=== PATIENT | female | born 1955 | race Caucasian/White ===

== ENCOUNTER 2016-10-09 18:26 | Emergency (ER) | payer OTHER ==
[2016-10-09] MEDS ORDERED: MORPHINE SULFATE 2 MG/ML SYRINGE IV STA ×2 (19:06→22:03)
[2016-10-09] MEDS ORDERED: SODIUM CHLORIDE 0.9% 500 ML IV ONE (19:06)
[2016-10-09] MEDS ORDERED: ONDANSETRON 4 MG/2 ML VIAL IVP STA (19:11)
--- NOTE | 2016-10-09 19:13 | ED ---
General Adult HPI - General Chief complaint: Abdominal Pain Stated complaint: ostomy bag, abdominal pain Time Seen by Provider: 10/09/16 18:52 Source: patient, RN notes reviewed Mode of arrival: ambulatory Limitations: no limitations - History of Present Illness Initial comments: This is a 60-year-old female presents with abdominal pain started yesterday. Patient admits to some nausea and a mild headache. Patient denies any diarrhea or vomiting. Patient has an ostomy bag. Patient states her stools been normal and denies any hematochezia. Patient admits to frequency and urgency of urination has any dysuria or hematuria. Patient denies any sick contacts. Patient admits to having chills but denies any fever, cough, congestion, sore throat or otalgia.Patient denies any recent shortness breath, chest pain, back pain, numbness, tingling, or visual changes, or any other complaints. - Related Data Home Medications Medication Instructions Recorded Confirmed FLUoxetine HCL [PROzac] 60 mg PO DAILY 10/09/16 10/09/16 traZODone HCL 50 mg PO BID 10/09/16 10/09/16 Previous Rx's Medication Instructions Recorded Aspirin EC [Ecotrin Low Dose] 81 mg PO DAILY 7 Days 05/30/16 Ciprofloxacin HCl [Cipro] 500 mg PO Q12HR 10 Days 10/09/16 Allergies Allergy/AdvReac Type Severity Reaction Status Date / Time hydromorphone HCl Allergy Itching Verified 10/09/16 19:14 [From Dilaudid] NSAIDS (Non-Steroidal Allergy Anaphylaxis Verified 10/09/16 19:14 Anti-Inflamma omeprazole Allergy Anaphylaxis Verified 10/09/16 19:14 Review of Systems ROS Statement: Those systems with pertinent positive or pertinent negative responses have been documented in the HPI. ROS Other: All systems not noted in ROS Statement are negative. Past Medical History Past Medical History: Fibromyalgia Additional Past Medical History / Comment(s): diverticulosis History of Any Multi-Drug Resistant Organisms: None Reported Past Surgical History: Appendectomy, Bowel Resection, Hysterectomy, Orthopedic Surgery Additional Past Surgical History / Comment(s): Tibia Fracture Repair 1993, colostomy Past Psychological History: No Psychological Hx Reported Additional Psychological History / Comment(s): lives with family home with the . She's never day smoker but no severe alcohol use. Employed at [employer]. No recent travels. No experience related. no animal exposures related Smoking Status: Current every day smoker Past Alcohol Use History: Daily Past Drug Use History: None Reported - Past Family History Father Additional Family Medical History / Comment(s): Heart disease Mother Additional Family Medical History / Comment(s): heart disease, mothers father had problems with stomach. Maternal grandmother of CHF. General Exam - General Exam Comments Initial Comments: General: The patient is awake and alert, in no distress, and does not appear acutely ill. Eye: Pupils are equal, round and reactive to light, extra-ocular movements are intact. No nystagmus. There is normal conjunctiva bilaterally. No signs of icterus. Ears: TMs pink and pearly with intact cone of light bilaterally. Normal external ear canals Nose: Nasal turbinates pink and moist Mouth and throat: There are moist mucous membranes and no oral lesions. Neck: The neck is supple, there is no tenderness or JVD. Cardiovascular: There is a regular rate and rhythm. No murmur, rub or gallop is appreciated. Respiratory: Lungs are clear to auscultation, respirations are non-labored, breath sounds are equal. No wheezes, stridor, rales, or rhonchi. Gastrointestinal: There is tenderness to palpation over the left upper quadrant and over the patient's ostomy bag. There is no sign of infection of the skin around the ostomy bag. Soft, non-distended abdomen without masses or organomegaly noted. There is no rebound or guarding present. No CVA tenderness. Bowel sounds are unremarkable. Musculoskeletal: Normal ROM, no tenderness. Strength 5/5. Sensation intact. Radial pulses equal bilaterally 2+. Neurological: A&O x 3. CN II-XII intact, There are no obvious motor or sensory deficits. Coordination appears grossly intact. Speech is normal. Skin: Well-healed midline incision of the abdomen. Skin is warm and dry and no rashes or lesions are noted. Psychiatric: Cooperative, appropriate mood & affect, normal judgment. Limitations: no limitations Course Vital Signs 10/09/16 10/09/16 10/09/16 18:36 19:58 21:03 Temperature 98.1 F 98.7 F Pulse Rate 73 70 70 Respiratory 18 18 16 Rate Blood Pressure 128/70 133/79 124/60 O2 Sat by Pulse 98 95 98 Oximetry 10/09/16 22:27 Temperature Pulse Rate 71 Respiratory 18 Rate Blood Pressure 131/70 O2 Sat by Pulse 97 Oximetry Medical Decision Making - Medical Decision Making This is a 58-year-old female who presents with abdominal pain that started yesterday. On physical exam patient is afebrile in the EC. There is tenderness to palpation over the left upper quadrant and over the patient's ostomy bag. There is no sign of infection of the skin around the ostomy bag. Soft, non- distended abdomen without masses or organomegaly noted. There is no rebound or guarding present. No CVA tenderness. Bowel sounds are unremarkable. KUB was done and reviewed showing: Overall nonspecific bowel gas pattern. Gas prominent bowel loops with multiple air-fluid levels fever or ileus. Developing distal obstruction cannot be excluded. Report read by Dr. Martinez. Basic labs were drawn. UA was done and was within normal limits. At this time a CT of the abdomen and pelvis with contrast: #1 there is evidence of a colostomy in the left anterior abdomen and pelvis with peristomal possible fat and omental herniation. #2 small bowel loops showed mild fluid and contrast distention with mild mucosal thickening with possible mild enteritis. No definite focus of transition zone is noted at this time to represent small bowel obstruction. #3 appendix is not well visualized. No significant inflammation is noted in the appendix area. #4 clinical correlation and follow- up is recommended. Report read by Dr. Crane.. I discussed results with patient and her . I discussed the patient was put on a course of antibiotics for mild enteritis. I discussed return parameters. I discussed Tylenol as needed For any pain.Discussed that patient should follow up with PCP in one to 2 days or return to the EC for any worsening symptoms or for any further concerns. Patient was receptive to this plan and patient will be discharged home. I discussed this case with attending physician Dr. Manjarrez who agrees the plan as stated above. - Lab Data Result diagrams: 10/09/16 19:45 10/09/16 19:45 Lab Results 10/09/16 10/09/16 10/09/16 Range/Units 19:30 19:45 19:45 WBC 9.6 (3.8-10.6) k/uL RBC 4.98 (3.80-5.40) m/uL Hgb 15.1 (11.4-16.0) gm/dL Hct 45.5 (34.0-46.0) % MCV 91.3 (80.0-100.0) fL MCH 30.3 (25.0-35.0) pg MCHC 33.2 (31.0-37.0) g/dL RDW 13.1 (11.5-15.5) % Plt Count 286 (150-450) k/uL Neutrophils % 60 % Lymphocytes % 27 % Monocytes % 7 % Eosinophils % 4 % Basophils % 1 % Neutrophils # 5.8 (1.3-7.7) k/uL Lymphocytes # 2.6 (1.0-4.8) k/uL Monocytes # 0.7 (0-1.0) k/uL Eosinophils # 0.4 (0-0.7) k/uL Basophils # 0.1 (0-0.2) k/uL PT (9.0-12.0) sec INR (<1.1) APTT (22.0-30.0) sec Sodium 135 L (137-145) mmol/L Potassium 4.3 (3.5-5.1) mmol/L Chloride 104 (98-107) mmol/L Carbon Dioxide 22 (22-30) mmol/L Anion Gap 9 mmol/L BUN 8 (7-17) mg/dL Creatinine 0.60 (0.52-1.04) mg/dL Est GFR (MDRD) Af Amer >60 (>60 ml/min/1.73 sqM) Est GFR (MDRD) Non-Af >60 (>60 ml/min/1.73 sqM) Glucose 86 (74-99) mg/dL Plasma Lactic Acid Martin (0.7-2.0) mmol/L Calcium 9.9 (8.4-10.2) mg/dL Total Bilirubin 0.6 (0.2-1.3) mg/dL AST 23 (14-36) U/L ALT 26 (9-52) U/L Alkaline Phosphatase 76 (38-126) U/L Total Protein 7.1 (6.3-8.2) g/dL Albumin 4.2 (3.5-5.0) g/dL Amylase 32 (30-110) U/L Lipase 69 (23-300) U/L Urine Color Light Yellow Urine Appearance Clear (Clear) Urine pH 6.0 (5.0-8.0) Ur Specific Pioneer 1.003 (1.001-1.035) Urine Protein Negative (Negative) Urine Glucose (UA) Negative (Negative) Urine Ketones Negative (Negative) Urine Blood Negative (Negative) Urine Nitrate Negative (Negative) Urine Bilirubin Negative (Negative) Urine Urobilinogen <2.0 (<2.0) mg/dL Ur Leukocyte Esterase Negative (Negative) 10/09/16 10/09/16 Range/Units 19:45 19:45 WBC (3.8-10.6) k/uL RBC (3.80-5.40) m/uL Hgb (11.4-16.0) gm/dL Hct (34.0-46.0) % MCV (80.0-100.0) fL MCH (25.0-35.0) pg MCHC (31.0-37.0) g/dL RDW (11.5-15.5) % Plt Count (150-450) k/uL Neutrophils % % Lymphocytes % % Monocytes % % Eosinophils % % Basophils % % Neutrophils # (1.3-7.7) k/uL Lymphocytes # (1.0-4.8) k/uL Monocytes # (0-1.0) k/uL Eosinophils # (0-0.7) k/uL Basophils # (0-0.2) k/uL PT 10.3 (9.0-12.0) sec INR 1.0 (<1.1) APTT 24.4 (22.0-30.0) sec Sodium (137-145) mmol/L Potassium (3.5-5.1) mmol/L Chloride (98-107) mmol/L Carbon Dioxide (22-30) mmol/L Anion Gap mmol/L BUN (7-17) mg/dL Creatinine (0.52-1.04) mg/dL Est GFR (MDRD) Af Amer (>60 ml/min/1.73 sqM) Est GFR (MDRD) Non-Af (>60 ml/min/1.73 sqM) Glucose (74-99) mg/dL Plasma Lactic Acid Martin 0.9 (0.7-2.0) mmol/L Calcium (8.4-10.2) mg/dL Total Bilirubin (0.2-1.3) mg/dL AST (14-36) U/L ALT (9-52) U/L Alkaline Phosphatase (38-126) U/L Total Protein (6.3-8.2) g/dL Albumin (3.5-5.0) g/dL Amylase (30-110) U/L Lipase (23-300) U/L Urine Color Urine Appearance (Clear) Urine pH (5.0-8.0) Ur Specific Pioneer (1.001-1.035) Urine Protein (Negative) Urine Glucose (UA) (Negative) Urine Ketones (Negative) Urine Blood (Negative) Urine Nitrate (Negative) Urine Bilirubin (Negative) Urine Urobilinogen (<2.0) mg/dL Ur Leukocyte Esterase (Negative) Disposition Clinical Impression: Enteritis Disposition: HOME SELF-CARE Condition: Good Instructions: Enteritis (ED) Additional Instructions: Please finish entire course of antibiotics. Please use Tylenol as needed for any pain. Please use medication as discussed. Please follow-up with family doctor in the next 2 days of symptoms have not improved. Please return to emergency room if the symptoms increase or worsen or for any other concerns. Prescriptions: Ciprofloxacin HCl [Cipro] 500 mg PO Q12HR 10 Days Time of Disposition: 23:01
[2016-10-09 19:42] LABS: Appearance,Urine Clear (Clear); Bilirubin,Urine Negative (Negative); Glucose,Urine (UA) Negative (Negative); Ketones,Urine Negative (Negative); Leukocyte Esterase,Urine Negative (Negative); Nitrite,Urine Negative (Negative); Protein,Urine Negative (Negative); Specific Gravity,Urine 1.003 (1.001-1.035); UA Billing (MACRO vs. MICRO) CHEM; Urobilinogen,Urine <2.0 mg/dL (<2.0)
--- NOTE | 2016-10-09 19:42 | XR ---
EXAMINATION TYPE: XR KUB DATE OF EXAM: 10/09/2016 7:34 PM CLINICAL HISTORY: Generalized abdominal pain. History of bowel resection and ostomy May 10 6 TECHNIQUE: 2 upright KUB images of the abdomen are obtained. COMPARISON: Abdominal x-ray June 19, 2016. CT abdomen and pelvis July 05, 2016.. FINDINGS: Gas is seen in prominent small bowel loops with air-fluid levels scattered throughout the a bdomen and pelvis. Some air-fluid levels are felt present and some gas-filled colonic loops. Left-yesi ed ostomy is not well identified. No pneumoperitoneum is identified. Lung bases are clear. The visua lized osseous structures are intact. IMPRESSION: Overall nonspecific bowel gas pattern. Gas prominent bowel loops with multiple air-fluid levels favor ileus. Developing distal obstruction cannot be excluded.
[2016-10-09] MEDS ORDERED: IOHEXOL 350 MG/ML 25 ML BOTTLE (ORAL USE) PO PRN (20:06)
[2016-10-09] MEDS ORDERED: RX INFO: IV CONTRAST WAS GIVEN 1 EACH MISC MISCELLANE PRN (20:06)
[2016-10-09 20:09] LABS: Basophils # (A) 0.1 k/uL (0-0.2); Basophils % (A) 1 %; CH 30.9; Eosinophils # (A) 0.4 k/uL (0-0.7); Eosinophils % (A) 4 %; HCT 45.5 % (34.0-46.0); HDW 2.12; HGB 15.1 gm/dL (11.4-16.0); Luc # (Auto) 0.23; Luc % (Auto) 2; Lymphocytes # (A) 2.6 k/uL (1.0-4.8); Lymphocytes % (A) 27 %; MCH 30.3 pg (25.0-35.0); MCHC 33.2 g/dL (31.0-37.0); MCV 91.3 fL (80.0-100.0); Mean Platelet Volume 6.2; Monocytes # (A) 0.7 k/uL (0-1.0); Monocytes % (A) 7 %; Neutrophils # (A) 5.8 k/uL (1.3-7.7); Neutrophils % (A) 60 %; RBC 4.98 m/uL (3.80-5.40); RDW 13.1 % (11.5-15.5); WBC 9.6 k/uL (3.8-10.6); WBC (Perox) 9.82
[2016-10-09 20:17] LABS: Partial Thromboplastin Time 24.4 sec (22.0-30.0); Prothrombin Time 10.3 sec (9.0-12.0)
[2016-10-09 20:20] LABS: ALT 26 U/L (9-52); AST 23 U/L (14-36); Alkaline Phosphatase 76 U/L (38-126); Amylase 32 U/L (30-110); Anion Gap 9 mmol/L; Blood Urea Nitrogen 8 mg/dL (7-17); Calcium 9.9 mg/dL (8.4-10.2); Carbon Dioxide 22 mmol/L (22-30); Chloride 104 mmol/L (98-107); Glucose 86 mg/dL (74-99); Non-African American GFR(MDRD) >60 (>60 ml/min/1.73 sqM); Potassium 4.3 mmol/L (3.5-5.1); Sodium 135 mmol/L (137-145); Total Bilirubin 0.6 mg/dL (0.2-1.3); Total Protein 7.1 g/dL (6.3-8.2)
[2016-10-09 22:28] VITALS: BP 131/70; PULSE 71; RESP 18
--- NOTE | 2016-10-09 22:49 | CT ---
EXAMINATION TYPE: CT abdomen pelvis w con DATE OF EXAM: 10/09/2016 10:21 PM COMPARISON: 07/05/2016 HISTORY: r/o bowel obstruction, pain CT DLP: 467.70 mGycm Automated exposure control for dose reduction was used. TECHNIQUE: Helical acquisition of images was performed from the lung bases through the pelvis. CONTRAST: Performed with Oral Contrast and with IV Contrast, patient injected with 100 mL of Omnipaque 300. FINDINGS: LUNG BASES: Mild atelectasis and scarring is suggested in the right lung base. LIVER/GB: Mild fatty infiltration of liver is noted. PANCREAS: No significant abnormality is seen. SPLEEN: No significant abnormality is seen. ADRENALS: No significant abnormality is seen. KIDNEYS: No significant abnormality is seen. RETROPERITONEAL ADENOPATHY: None visualized REPRODUCTIVE ORGANS: Uterus is probably surgically absent. URINARY BLADDER: No significant abnormality is seen. PELVIC ADENOPATHY: None visualized. OSSEOUS STRUCTURES: There is grade 1 anterior spondylolisthesis of L4 on L5 vertebra with degenerati ve disc disease changes. Mild wedge compression deformity is noted in the T12 vertebral body of chron ic nature with endplate sclerosis superiorly. BOWEL: Stomach is contrast and gas filled and appears grossly unremarkable. Small bowel loops showed mild mucosal thickening in the right abdomen and pelvis with a mild ileus an d enteritis changes. Colonic bowel loops showed mild to moderate fluid and gas distention. There is evidence of colostomy in the left anterior abdomen and pelvis in the axial image 38 with peristomal fat-containing hernia. There is probably herniation of omentum into the peristomal area of the colostomy.. The colon is seen area: Showed no significant distention. The transverse colon is somewhat fluid and gas distended. Small bowel loops showed no significant small bowel obstruction changes at present. There is no defin ite transitional zone. Appendix is not well visualized. The appendix area showed no significant inflammation. OTHER: Mild atherosclerotic calcification is noted in the abdominal aorta and iliac arteries. IMPRESSION: 1. THERE IS EVIDENCE OF COLOSTOMY IN THE LEFT ANTERIOR ABDOMEN AND PELVIS WITH PERISTOMAL POSSIBLE FA T AND OMENTAL HERNIATION. 2. SMALL BOWEL LOOPS SHOWED MILD FLUID AND CONTRAST DISTENTION WITH MILD MUCOSAL WALL THICKENING WITH POSSIBLE MILD ENTERITIS. NO DEFINITE FOCUS OF TRANSITION ZONE IS NOTED AT THIS TIME TO REPRESENT SMA LL BOWEL OBSTRUCTION. 3. APPENDIX IS NOT WELL VISUALIZED. NO SIGNIFICANT INFLAMMATION IS NOTED IN THE APPENDIX AREA. 4. A CLINICAL CORRELATION AND FOLLOW-UP IS RECOMMENDED.
[2016-10-09 23:13] VITALS: TEMP 99.1
== END 2016-10-09 23:13 | disposition home or self-care (01) ==
LOC: EC 18:26
DX: K52.9 Noninfective gastroenteritis and colitis, unspecified (principal); R11.0 Nausea; M79.7 Fibromyalgia; F17.200 Nicotine dependence, unspecified, uncomplicated; Z79.899 Other long term (current) drug therapy; Z88.5 Allergy status to narcotic agent; Z88.6 Allergy status to analgesic agent; Z88.8 Allergy status to other drugs, medicaments and biological substances; Z87.19 Personal history of other diseases of the digestive system; Z90.49 Acquired absence of other specified parts of digestive tract; Z90.710 Acquired absence of both cervix and uterus; Z93.3 Colostomy status
CPT/HCPCS: 36415; 80053; 82150; 83605; 83690; 85025; 85610; 85730; 81003; 87040; 87086; 74000; 74177; 99284; 96374; 96375; 96376; 96361; J2405; J2270; Q9967

== ENCOUNTER 2016-10-24 22:06 | Inpatient (IN) | payer OTHER ==
[2016-10-24] MEDS ORDERED: ONDANSETRON ODT 4 MG TAB PO STA (23:37)
[2016-10-24] MEDS ORDERED: ONDANSETRON 4 MG/2 ML VIAL IVP STA (23:43)
[2016-10-24] MEDS ORDERED: MORPHINE SULFATE 4 MG/ML SYRINGE IV STA (23:51)
[2016-10-24] MEDS ORDERED: SODIUM CHLORIDE 0.9% 500 ML IV STA (23:52)
--- NOTE | 2016-10-24 23:58 | ED ---
Nausea/Vomiting/Diarrhea HPI - General Chief complaint: Nausea/Vomiting/Diarrhea Stated complaint: Vomiting Time Seen by Provider: 10/24/16 23:37 Source: patient Mode of arrival: wheelchair Limitations: no limitations - History of Present Illness Initial comments: This patient is 61-year-old woman who presents to be evaluated for abdominal pain, nausea and vomiting. The patient states that her symptoms started around 2 in the afternoon, when she noticed some pain in the left side of the abdomen, near her colostomy. She states that at that time the pain was mild, aching, and initially intermittent. The pain then became constant and she also started having nausea and vomiting. She initially was vomiting whenever she took but now she is also having dry heaving. Patient states that the pain and vomiting of continued and then become severe and now she presents for pain relief. MD complaint: nausea, vomiting, abdominal pain Onset/Timin -: hour(s) Description of Vomiting: food contents Associated Abdominal Pain: Yes Location: LLQ Radiation: none Severity: severe Quality: constant Consistency: constant Improves with: none Worsens with: none Context: history of abdominal surgery Associated Symptoms: nausea/vomiting - Related Data Home Medications Medication Instructions Recorded Confirmed FLUoxetine HCL [PROzac] 60 mg PO QAM 10/09/16 10/24/16 Carisoprodol [Soma] 350 mg PO BID PRN 10/24/16 10/24/16 traZODone HCL [Desyrel] 100 mg PO HS 10/24/16 10/24/16 Allergies Allergy/AdvReac Type Severity Reaction Status Date / Time hydromorphone HCl Allergy Itching Verified 10/24/16 22:56 [From Dilaudid] NSAIDS (Non-Steroidal Allergy Anaphylaxis Verified 10/24/16 22:56 Anti-Inflamma omeprazole Allergy Anaphylaxis Verified 10/24/16 22:56 Review of Systems ROS Statement: Those systems with pertinent positive or pertinent negative responses have been documented in the HPI. ROS Other: All systems not noted in ROS Statement are negative. Constitutional: Denies: fever, chills Respiratory: Denies: cough, dyspnea Cardiovascular: Denies: chest pain, edema, syncope Gastrointestinal: Reports: abdominal pain, nausea, vomiting. Denies: diarrhea, hematemesis, melena, hematochezia Genitourinary: Denies: dysuria, hematuria Musculoskeletal: Denies: back pain Skin: Denies: rash Neurological: Denies: headache, weakness, numbness Past Medical History Past Medical History: Fibromyalgia Additional Past Medical History / Comment(s): diverticulosis History of Any Multi-Drug Resistant Organisms: None Reported Past Surgical History: Appendectomy, Bowel Resection, Hysterectomy, Orthopedic Surgery Additional Past Surgical History / Comment(s): Tibia Fracture Repair 1993, colostomy Past Psychological History: No Psychological Hx Reported Additional Psychological History / Comment(s): lives with family home with the . She's never day smoker but no severe alcohol use. Employed at [employer]. No recent travels. No experience related. no animal exposures related Smoking Status: Current every day smoker Past Alcohol Use History: Daily Past Drug Use History: None Reported - Past Family History Father Additional Family Medical History / Comment(s): Heart disease Mother Additional Family Medical History / Comment(s): heart disease, mothers father had problems with stomach. Maternal grandmother of CHF. General Exam Limitations: no limitations General appearance: alert, other (Patient is having abdominal pain and did have some dry heaving at the end of the examination.) Head exam: Present: atraumatic, normocephalic Eye exam: Present: normal appearance. Absent: scleral icterus, conjunctival injection ENT exam: Present: mucous membranes dry Neck exam: Present: normal inspection Respiratory exam: Present: normal lung sounds bilaterally. Absent: respiratory distress, wheezes, rales, rhonchi, stridor Cardiovascular Exam: Present: regular rate, normal rhythm, normal heart sounds. Absent: systolic murmur, diastolic murmur, rubs, gallop GI/Abdominal exam: Present: soft, diminished bowel sounds, other (The patient's ostomy bag is empty, there is not much gas present at all). Absent: distended, tenderness, guarding, rebound, mass, pulsatile mass, hernia Extremities exam: Present: normal inspection, normal capillary refill. Absent: pedal edema, calf tenderness Back exam: Present: normal inspection. Absent: CVA tenderness (R), CVA tenderness (L) Neurological exam: Present: alert Skin exam: Present: warm, dry, intact, normal color. Absent: rash Course Vital Signs 10/24/16 10/24/16 10/25/16 22:23 22:27 00:19 Temperature 98.6 F 100.3 F H 99.2 F Pulse Rate 64 Respiratory 24 Rate Blood Pressure 138/65 O2 Sat by Pulse 100 Oximetry 10/25/16 01:40 Temperature Pulse Rate 73 Respiratory 18 Rate Blood Pressure 103/59 O2 Sat by Pulse 95 Oximetry Medical Decision Making - Lab Data Result diagrams: 10/24/16 22:55 10/24/16 22:55 Lab Results 10/24/16 10/24/16 10/24/16 Range/Units 22:55 22:55 22:55 WBC 8.9 (3.8-10.6) k/uL RBC 5.54 H (3.80-5.40) m/uL Hgb 16.5 H (11.4-16.0) gm/dL Hct 50.1 H (34.0-46.0) % MCV 90.4 (80.0-100.0) fL MCH 29.7 (25.0-35.0) pg MCHC 32.9 (31.0-37.0) g/dL RDW 13.2 (11.5-15.5) % Plt Count 379 (150-450) k/uL Neutrophils % 83 % Lymphocytes % 12 % Monocytes % 3 % Eosinophils % 1 % Basophils % 1 % Neutrophils # 7.4 (1.3-7.7) k/uL Lymphocytes # 1.0 (1.0-4.8) k/uL Monocytes # 0.3 (0-1.0) k/uL Eosinophils # 0.1 (0-0.7) k/uL Basophils # 0.0 (0-0.2) k/uL Sodium 137 (137-145) mmol/L Potassium 4.7 (3.5-5.1) mmol/L Chloride 99 (98-107) mmol/L Carbon Dioxide 26 (22-30) mmol/L Anion Gap 12 mmol/L BUN 10 (7-17) mg/dL Creatinine 0.60 (0.52-1.04) mg/dL Est GFR (MDRD) Af Amer >60 (>60 ml/min/1.73 sqM) Est GFR (MDRD) Non-Af >60 (>60 ml/min/1.73 sqM) Glucose 126 H (74-99) mg/dL Plasma Lactic Acid Martin 1.9 (0.7-2.0) mmol/L Calcium 10.5 H (8.4-10.2) mg/dL Total Bilirubin 1.1 (0.2-1.3) mg/dL AST 29 (14-36) U/L ALT 27 (9-52) U/L Alkaline Phosphatase 87 (38-126) U/L C-Reactive Protein <5.0 (<10.0) mg/L Total Protein 8.3 H (6.3-8.2) g/dL Albumin 4.8 (3.5-5.0) g/dL Amylase 51 (30-110) U/L Lipase 77 (23-300) U/L Disposition Clinical Impression: Abdominal pain, Bowel obstruction Disposition: ADMITTED IP TO THIS HOSP Condition: Fair
[2016-10-25 00:18] LABS: Basophils % (A) 1 %; CH 31.1; CHCM 34.5; Eosinophils # (A) 0.1 k/uL (0-0.7); Eosinophils % (A) 1 %; HCT 50.1 % (34.0-46.0); HDW 2.17; HGB 16.5 gm/dL (11.4-16.0); Luc # (Auto) 0.08; Luc % (Auto) 1; Lymphocytes % (A) 12 %; MCH 29.7 pg (25.0-35.0); MCHC 32.9 g/dL (31.0-37.0); MCV 90.4 fL (80.0-100.0); Mean Platelet Volume 6.5; Monocytes # (A) 0.3 k/uL (0-1.0); Monocytes % (A) 3 %; Neutrophils # (A) 7.4 k/uL (1.3-7.7); Neutrophils % (A) 83 %; RBC 5.54 m/uL (3.80-5.40); RDW 13.2 % (11.5-15.5); WBC 8.9 k/uL (3.8-10.6)
[2016-10-25 00:26] LABS: ALT 27 U/L (9-52); AST 29 U/L (14-36); Alkaline Phosphatase 87 U/L (38-126); Amylase 51 U/L (30-110); Anion Gap 12 mmol/L; Blood Urea Nitrogen 10 mg/dL (7-17); C Reactive Protein <5.0 mg/L (<10.0); Calcium 10.5 mg/dL (8.4-10.2); Carbon Dioxide 26 mmol/L (22-30); Chloride 99 mmol/L (98-107); Glucose 126 mg/dL (74-99); Non-African American GFR(MDRD) >60 (>60 ml/min/1.73 sqM); Sodium 137 mmol/L (137-145); Total Bilirubin 1.1 mg/dL (0.2-1.3); Total Protein 8.3 g/dL (6.3-8.2)
[2016-10-25 00:30] LABS: Potassium 4.7 mmol/L (3.5-5.1)
--- NOTE | 2016-10-25 01:26 | CT ---
EXAM: CT Abdomen and Pelvis Without Intravenous Contrast. CLINICAL HISTORY: Reason: Pain TECHNIQUE: Axial computed tomography images of the abdomen and pelvis without intravenous contrast. CTDI is 6.6 mGy and DLP is 293.6 mGy-cm COMPARISON: 10/09/16 FINDINGS: Limitations: Absent IV and oral contrast limit evaluation. Lower thorax: No acute findings. ABDOMEN: Liver: Stable small low-density lesions in the right hepatic lobe, better visualized on the prior study performed with IV contrast. Gallbladder and bile ducts: Unremarkable. No calcified stones. No ductal dilation. Pancreas: Unremarkable. No ductal dilation. Spleen: Unremarkable. No splenomegaly. Adrenals: Unremarkable. No mass. Kidneys and ureters: Unremarkable. No obstructing stones. No hydronephrosis. Stomach and bowel: Thickening of the stomach wall which may reflect under distention. There are multiple fluid-filled dilated small bowel loops predominantly in the left mid to lower abdomen. Decompressed small bowel loops are seen in the right mid to lower abdomen. Prominent fatty ileocecal valve is again noted. There are surgical sutures near the cecum. Left mid abdomen colostomy is again seen with mild peristomal hernia containing fat. Mild retained stool identified. Appendix: No findings to suggest acute appendicitis. PELVIS: Bladder: No definite bladder calcification. No stones. Reproductive: Unremarkable as visualized. ABDOMEN and PELVIS: Intraperitoneal space: No significant free fluid or air. Bones/joints: Degenerative changes are seen in the lumbar spine. There is mild compression deformity of T12. Soft tissues: Unremarkable. Vasculature: Calcified abdominal aorta, again seen. No abdominal aortic aneurysm. Lymph nodes: Unremarkable. No enlarged lymph nodes. IMPRESSION: Suspect mid to distal small bowel obstruction. No significant free fluid or air. Left-sided colostomy with peristomal herniation of fat, unchanged.
[2016-10-25] MEDS ORDERED: MORPHINE SULFATE 4 MG/ML SYRINGE IV STA (02:28)
[2016-10-25] MEDS ORDERED: ONDANSETRON 4 MG/2 ML VIAL IVP STA ×2 (02:28→12:43)
[2016-10-25] MEDS ORDERED: NALOXONE 0.4 MG/ML 1 ML VIAL IV PRN (02:31)
[2016-10-25] MEDS: SODIUM CHLORIDE 0.9% 1,000 ML IV SCH ×3 (02:55→20:25)
[2016-10-25 03:42] LABS: Appearance,Urine Clear (Clear); Bilirubin,Urine Negative (Negative); Glucose,Urine (UA) Negative (Negative); Ketones,Urine 1+ (Negative); Leukocyte Esterase,Urine Moderate (Negative); Mucus,Urine Rare /hpf; Nitrite,Urine Negative (Negative); PH, Urine 8.5 (5.0-8.0); Particle Count 5098; Protein,Urine 1+ (Negative); RBC,Urine 16 /hpf (0-5); Specific Gravity,Urine 1.015 (1.001-1.035); Squamous Epithelial Cell,Urine 2 /hpf (0-4); UA Billing (MACRO vs. MICRO) MICRO; Urobilinogen,Urine <2.0 mg/dL (<2.0); WBC,Urine 7 /hpf (0-5)
[2016-10-25] MEDS: MORPHINE SULFATE 4 MG/ML SYRINGE IV PRN ×2 (07:48→11:34)
[2016-10-25] MEDS: FAMOTIDINE 20 MG/2 ML VIAL IV SCH ×2 (07:51→20:19)
[2016-10-25] MEDS ORDERED: CARISOPRODOL 350 MG TAB PO PRN (08:50)
--- NOTE | 2016-10-25 09:14 | P.GSHP ---
History of Present Illness H&P Date: 10/25/16 Chief Complaint: Abdominal pain, nausea and vomiting Patient is well know to me. She had a perforated diverticula that required creation of a colostomy. The patient has done well since. She has been gaining weight. She's had this issue for the last month or so where she having some significant amount of loose stool. There is also been associated nausea and vomiting she's been diagnosed as having possibly enteritis and that has been treated twice. She has come to the emergency room once before. She presented last night with 12 hours of nausea vomiting. She has crampy abdominal pain primarily in the left side. She's not produce a lot of output for the last 1224 hrs. He is not bloated or distended. There is no hematemesis or hematochezia melena. She has some urinary urgency but no other issues. There is no jaundice or icterus. - Constitutional Constitutional: Denies chills, Denies fever - EENT Eyes: denies blurred vision, denies pain - Cardiovascular Cardiovascular: Denies chest pain, Denies shortness of breath - Respiratory Respiratory: Denies cough, Denies 7 - Gastrointestinal Gastrointestinal: Reports as per HPI - Genitourinary (Female) Genitourinary: Reports urgency, Denies dysuria, Denies urge incontinence - Musculoskeletal Musculoskeletal: Denies myalgias - Psychiatric Psychiatric: Denies anxiety, Denies depression Past Medical History Past Medical History: Fibromyalgia Additional Past Medical History / Comment(s): diverticulosis History of Any Multi-Drug Resistant Organisms: None Reported Past Surgical History: Appendectomy, Bowel Resection, Hysterectomy, Orthopedic Surgery Additional Past Surgical History / Comment(s): Tibia Fracture Repair 1993, colostomy Past Anesthesia/Blood Transfusion Reactions: No Reported Reaction Past Psychological History: No Psychological Hx Reported Additional Psychological History / Comment(s): lives with family home with the . She's never day smoker but no severe alcohol use. Employed at [employer]. No recent travels. No experience related. no animal exposures related Smoking Status: Current some day smoker Past Alcohol Use History: Daily Past Drug Use History: None Reported - Past Family History Father History Unknown: Yes Additional Family Medical History / Comment(s): Heart disease Mother History Unknown: Yes Additional Family Medical History / Comment(s): heart disease, mothers father had problems with stomach. Maternal grandmother of CHF. Medications and Allergies Home Medications Medication Instructions Recorded Confirmed Type FLUoxetine HCL [PROzac] 60 mg PO QAM 10/09/16 10/24/16 History Carisoprodol [Soma] 350 mg PO BID PRN 10/24/16 10/24/16 History traZODone HCL [Desyrel] 100 mg PO HS 10/24/16 10/24/16 History Allergies Allergy/AdvReac Type Severity Reaction Status Date / Time hydromorphone HCl Allergy Itching Verified 10/24/16 22:56 [From Dilaudid] NSAIDS (Non-Steroidal Allergy Anaphylaxis Verified 10/24/16 22:56 Anti-Inflamma omeprazole Allergy Anaphylaxis Verified 10/24/16 22:56 Surgical - Exam Vital Signs Temp Pulse Resp BP Pulse Ox 98.6 F 64 24 138/65 100 10/24/16 22:23 10/24/16 22:23 10/24/16 22:23 10/24/16 22:23 10/24/16 22:23 - General well developed, moderate distress, moderate pain - Eyes PERRL, normal ocular movement, no icteric, no deviation, no loss of movement - ENT normal pinna, normal nares, normal mucosa - Neck no masses - Respiratory normal expansion - Cardiovascular Rhythm: regular - Abdomen LLQ ostomy placed there is no gas or stool and at this time. Abdomen: soft, non tender, surgical scars Results - Labs 10/24/16 22:55 10/24/16 22:55 Abnormal Lab Results - Last 24 Hours (Table) 10/25/16 Range/Units 03:15 Urine pH 8.5 H (5.0-8.0) Urine Protein 1+ H (Negative) Urine Ketones 1+ H (Negative) Ur Leukocyte Esterase Moderate H (Negative) Urine RBC 16 H (0-5) /hpf Urine WBC 7 H (0-5) /hpf Urine Mucus Rare H (None) /hpf - Imaging CT scan - abdomen: report reviewed, image reviewed CT scan - chest: report reviewed (Dilated small bowel, possible bowel obstruction), image reviewed Assessment and Plan (1) Abdominal pain Status: Acute (2) Bowel obstruction Status: Acute (3) Enteritis Status: Acute (4) Chronic pain Status: Acute Plan: Patient has abdominal pain and nausea and vomiting Possible bowel obstruction Check UA C and s C diff AXR for follow up Conservative management for now, Non surgical abdomen
[2016-10-25] MEDS: ONDANSETRON 4 MG/2 ML VIAL IVP PRN ×2 (09:50→20:19)
--- NOTE | 2016-10-25 10:59 | XR ---
EXAMINATION TYPE: XR abdomen 1V DATE OF EXAM: 10/25/2016 9:18 AM COMPARISON: 10/09/2016 INDICATION: Bowel obstruction history TECHNIQUE: Single view abdomen FINDINGS: There is mild prominence of small bowel loops within the left midabdomen. Some colonic bowel gas is i n the ascending and transverse colon. Some nonspecific small bowel loops contain air within the pelvi s. Psoas margins are normal. No organomegaly is present. Colostomy is in left midabdomen. Previous air-fluid levels have resolved. IMPRESSION: 1. Prominent small bowel loops. Correlate for ileus. There is air within the proximal colon. Obstruct ion is considered unlikely. Follow-up can be performed as clinically indicated.
[2016-10-25] MEDS: FLUoxetine HCL 20 MG CAP PO SCH (11:33)
--- NOTE | 2016-10-25 12:26 | CONS ---
DATE OF CONSULTATION: Reason for consultation is diarrhea. Patient in the past has a perforated diverticular abscess, patient underwent colectomy and creation of colostomy. Patient was having diarrhea, has episode of 1 or 2 loose stools and patient at this time comes in with nausea, vomiting and denied any diarrhea at this point of time. Patient was told that she has enteritis and patient had a CT of the abdomen which showed bowel obstruction and patient is on conservative measures since his bowel obstruction is considered secondary to her previous surgeries and adhesions. Patient has an NG tube which is draining very little at this point of time. Patient had distal small bowel obstruction. REVIEW OF SYSTEMS: CONSTITUTIONAL: No fever, no malaise, no fatigue. HEENT: No recent visual problems or hearing problems. Denied any sore throat. CARDIOVASCULAR: No chest pain, orthopnea, PND, no palpitations, no syncope. PULMONARY: No shortness of breath, no cough, no hemoptysis. GASTROINTESTINAL: No diarrhea, no nausea, no vomiting, no abdominal pain. Normoactive bowel sounds. NEUROLOGICAL: No headaches, no weakness, no numbness. HEMATOLOGICAL: Denies any bleeding or petechiae. GENITOURINARY: Denies any burning micturition, frequency, or urgency. MUSCULOSKELETAL/RHEUMATOLOGICAL: Denies any joint pain, swelling, or any muscle pain. ENDOCRINE: Denies any polyuria or polydipsia. The rest of the 14 point review of systems is negative. Past medical history significant for fibromyalgia, diverticulosis, appendectomy, bowel resection, hysterectomy, orthopedic surgery in the past. SOCIAL HISTORY: Patient does smoke. Denied any alcohol abuse or any drug abuse. FAMILY HISTORY: Father had heart disease and grandmother of CHF and mother had heart disease as well. Home medications include Fluoxetine, carisoprodol, and trazodone. PHYSICAL EXAMINATION: VITAL SIGNS: Temperature 98.9, pulse of 70, respiratory rate of 16. Blood pressure is 111/68, saturating at 92% on room air. GENERAL: Patient is alert and oriented x3, has an NG tube with very little drainage. HEENT: Pupils are round and equally reacting to light. EOMI. No scleral icterus. No conjunctival pallor. Normocephalic, atraumatic. No pharyngeal erythema. No thyromegaly. CARDIOVASCULAR: S1 and S2 present. No murmurs, rubs, or gallops. PULMONARY: Chest is clear to auscultation, no wheezing or crackles. ABDOMEN: Soft, nontender, nondistended, normoactive bowel sounds. No palpable organomegaly. MUSCULOSKELETAL: No joint swelling or deformity. EXTREMITIES: No cyanosis, clubbing, or pedal edema. NEUROLOGICAL: Gross neurological examination did not reveal any focal deficits. SKIN: No rashes. LABORATORY DATA: CBC, CMP are abnormal for mildly elevated hemoglobin of 16.5 secondary to hemoconcentration from dehydration from bowel obstruction, nausea, vomiting and CT of the abdomen as mentioned above. Abdominal x-ray was reviewed. ASSESSMENT AND PLAN: 1. Partial small bowel obstruction secondary to adhesion. Patient is on conservative measures, n.p.o., IV fluids and NG tube management as per Primary Service. 2. History of enteritis. 3. Fibromyalgia. 4. Elevated hematocrit secondary to hemoconcentration, which is expected to improve with IV fluids. Patient is not having much output today and patient does have good bowel sounds. Thank you for letting me participate in this patient's care. Will follow the patient on an as-needed basis.
[2016-10-25] MEDS ORDERED: ACETAMINOPHEN IV (For NPO) 1,000 MG in EMPTY BAG 1 BAG IVPB ONE (13:00)
[2016-10-25 17:04] LABS: Appearance,Urine Clear (Clear); Bilirubin,Urine Negative (Negative); Glucose,Urine (UA) Negative (Negative); Ketones,Urine Trace (Negative); Leukocyte Esterase,Urine Negative (Negative); Nitrite,Urine Negative (Negative); Protein,Urine Trace (Negative); Specific Gravity,Urine 1.017 (1.001-1.035); UA Billing (MACRO vs. MICRO) CHEM; Urobilinogen,Urine <2.0 mg/dL (<2.0)
[2016-10-25] MEDS: traZODone HCL 100 MG TAB PO SCH (20:19)
[2016-10-26] MEDS: FAMOTIDINE 20 MG/2 ML VIAL IV SCH (08:40)
[2016-10-26] MEDS: FLUoxetine HCL 20 MG CAP PO SCH (08:40)
[2016-10-26] MEDS: SODIUM CHLORIDE 0.9% 1,000 ML IV SCH ×2 (08:41→18:41)
[2016-10-26 09:04] LABS: Anion Gap 7 mmol/L; Blood Urea Nitrogen 7 mg/dL (7-17); Calcium 8.8 mg/dL (8.4-10.2); Carbon Dioxide 26 mmol/L (22-30); Chloride 106 mmol/L (98-107); Glucose 120 mg/dL (74-99); Non-African American GFR(MDRD) >60 (>60 ml/min/1.73 sqM); Potassium 3.9 mmol/L (3.5-5.1); Sodium 139 mmol/L (137-145)
[2016-10-26 09:21] LABS: Basophils % (A) 1 %; CH 30.7; Eosinophils # (A) 0.2 k/uL (0-0.7); Eosinophils % (A) 3 %; HCT 42.6 % (34.0-46.0); HDW 2.22; HGB 13.9 gm/dL (11.4-16.0); Luc # (Auto) 0.13; Luc % (Auto) 2; Lymphocytes # (A) 1.6 k/uL (1.0-4.8); Lymphocytes % (A) 19 %; MCH 30.5 pg (25.0-35.0); MCHC 32.6 g/dL (31.0-37.0); MCV 93.5 fL (80.0-100.0); Mean Platelet Volume 7.1; Monocytes # (A) 0.4 k/uL (0-1.0); Monocytes % (A) 5 %; Neutrophils # (A) 5.9 k/uL (1.3-7.7); Neutrophils % (A) 71 %; RBC 4.55 m/uL (3.80-5.40); RDW 13.2 % (11.5-15.5); WBC 8.3 k/uL (3.8-10.6); WBC (Perox) 8.09
--- NOTE | 2016-10-26 11:11 | P.PN ---
Subjective Principal diagnosis: Physical exam 61-year-old female pleasant cooperative oriented 3 states after eating lunch developed abdominal cramping lungs essentially clear adequate air movement on room air Heart S1-S2 audible and regular Abdomen ostomy left lower quadrant stoma pink no stool in ostomy bag soft not distended bowel tones present 4 no nausea vomiting does report abdominal cramping after diet advanced Extremities no edema noted 61 of female being seen this morning. Resting in bed. Patient states she has been up ambulating in the hallway as reportedly experiencing no abdominal pain no cramping. Patient is asking for diet to be advanced. Reports no nausea no vomiting. Nasogastric tube was removed yesterday. No stooling from the ostomy with active bowel tones noted patient's diet was advanced this afternoon patient continued to be ambulating in the hallway to develop abdominal cramping no stool per colostomy Objective - Vital Signs Vital signs: Vital Signs Temp 99.0 F 10/26/16 07:00 Pulse 60 10/26/16 07:00 Resp 20 10/26/16 07:00 BP 111/70 10/26/16 07:00 Pulse Ox 97 10/26/16 07:00 Intake & Output 10/25/16 10/26/16 10/26/16 18:59 06:59 18:59 Intake Total 480 Balance 480 Intake: Oral 480 Other: # Voids 1 1 - Constitutional Constitutional Comment(s): Physical exam Very pleasant 61-year-old female resting in bed oriented 3 states feeling much better Lungs essentially clear adequate air movement on room air no shortness of breath Heart S1-S2 audible and regular Abdomen soft nondistended ostomy left lower quadrant states stooling tolerating a diet well healed surgical scars to the abdominal wall bowel tones present Extremities no edema - Labs CBC & Chem 7: 10/26/16 07:56 10/26/16 07:56 Labs: Abnormal Lab Results - Last 24 Hours (Table) 10/25/16 10/26/16 Range/Units 15:40 07:56 Glucose 120 H (74-99) mg/dL Urine Protein Trace H (Negative) Urine Ketones Trace H (Negative) Microbiology - Last 24 Hours (Table) 10/25/16 15:40 Urine Culture - Preliminary Urine,Voided Assessment and Plan Plan: Impression Present on admission abdominal pain suspect due to a possible dilated small bowel possible obstruction resolved Depressive disorder nonspecified Acute enteritis History of a sigmoid resection with a colostomy creation on 05/19/2016 due to diverticulitis perforation Plan Increase activity Continue to monitor another 24 hours Advance diet Continue DVT and GI prophylaxis Home meds as appropriate The above dictated assessment and findings were discussed with dr rosado . Impression and the plan of care have been dictated as directed. [place] Jameson nurse practitioner acting as a scribe for dr rosado
[2016-10-26 15:14] VITALS: BMI 21.4
[2016-10-26] MEDS: ONDANSETRON 4 MG/2 ML VIAL IVP PRN (16:34)
[2016-10-26] MEDS: MORPHINE SULFATE 2 MG/ML SYRINGE IV PRN ×2 (16:35→21:44)
[2016-10-26] MEDS: FAMOTIDINE 20 MG TAB PO SCH (21:44)
[2016-10-26] MEDS: traZODone HCL 100 MG TAB PO SCH (21:44)
[2016-10-27 00:11] VITALS: TEMP 99.1
[2016-10-27] MEDS: SODIUM CHLORIDE 0.9% 1,000 ML IV SCH (04:28)
[2016-10-27 07:28] VITALS: BP 103/61; PULSE 70; RESP 20
[2016-10-27] MEDS: FLUoxetine HCL 20 MG CAP PO SCH (09:13)
[2016-10-27] MEDS: FAMOTIDINE 20 MG TAB PO SCH (09:13)
--- NOTE | 2016-10-27 12:59 | P.DS ---
Providers Date of admission: 10/25/16 02:58 Expected date of discharge: 10/27/16 Attending physician: Sabas Baron Primary care physician: César Shahid - Discharge Diagnosis(es) (1) Abdominal pain Current Visit: Yes Status: Acute (2) Bowel obstruction Current Visit: Yes Status: Acute (3) Enteritis Current Visit: No Status: Acute (4) Chronic pain Current Visit: Yes Status: Acute Hospital Course: Patient is a 58-year-old lady had had a Refugio's procedure done last year. She presented with crampy abdominal pain which moderate to severe associated with decrease in flatus and output from the ostomy. The patient was initially discharged from the emergency room and then return due to worsening pain and was admitted and following computed tomography scan revealed possible bowel obstruction. NG tube was placed and she was maintained conservatively. She continued to make progress with passage of flatus and stool from the ostomy. At that time the NG tube was removed and her diet was advanced. Due to initial cramping the patient's discharge was held and then the cramping has resolved and she continues to pass flatus and have bowel movements. She's tolerating regular diet ablating well there are no other medical issues at this time. The patient is being discharged home to follow up in clinic 1 week. I recommended to the patient to do a colonoscopy prior to reversal surgery. She will be seeing Dr. Kelley is gastrologist in [facility] Pertinent Studies: Character of the abdomen revealing distended small bowel possible bowel obstruction Procedures: None Patient Condition at Discharge: Good Plan - Discharge Summary New Discharge Prescriptions: Magnesium Hydroxide [Milk of Magnesia] 30 ml PO Q24H PRN #600 ml PRN Reason: Constipation Discharge Medication List FLUoxetine HCL [PROzac] 60 mg PO QAM 10/09/16 [History] Carisoprodol [Soma] 350 mg PO BID PRN 10/24/16 [History] traZODone HCL [Desyrel] 100 mg PO HS 10/24/16 [History] Magnesium Hydroxide [Milk of Magnesia] 30 ml PO Q24H PRN #600 ml 10/27/16 [Rx] Follow up Appointment(s)/Referral(s): Sabas Baron MD [STAFF PHYSICIAN] - 1 Week (Pt prefers to schedule her own appointment time. ) César Shahid MD [Primary Care Provider] - 3 Days (Pt prefers to schedule her own appointment. ) Patient Instructions/Handouts: Bowel Obstruction (DC) Activity/Diet/Wound Care/Special Instructions: No smoking, cessation information provided. Discharge Disposition: HOME SELF-CARE
== END 2016-10-27 14:33 | disposition home or self-care (01) | DRG 390 ==
LOC: EC 22:06 → 4MS4W 10-25 02:58
PROVIDERS: ADMIT Surgery; ATTEND Surgery
PROC: 0D9670Z Drainage of Stomach with Drainage Device, Via Natural or Artificial Opening (ICD-10-PCS; principal; 2016-10-25)
DX: K56.5 Intestinal adhesions [bands] with obstruction (postinfection) (principal); F32.9 Major depressive disorder, single episode, unspecified; E86.0 Dehydration; K52.9 Noninfective gastroenteritis and colitis, unspecified; R39.15 Urgency of urination; K57.30 Diverticulosis of large intestine without perforation or abscess without bleeding; G89.29 Other chronic pain; M79.7 Fibromyalgia; F17.200 Nicotine dependence, unspecified, uncomplicated; Z82.49 Family history of ischemic heart disease and other diseases of the circulatory system; Z90.49 Acquired absence of other specified parts of digestive tract; Z93.3 Colostomy status; Z71.3 Dietary counseling and surveillance; Z90.710 Acquired absence of both cervix and uterus; Z86.19 Personal history of other infectious and parasitic diseases; Z87.19 Personal history of other diseases of the digestive system; Z87.81 Personal history of (healed) traumatic fracture; Z79.899 Other long term (current) drug therapy; Z88.6 Allergy status to analgesic agent; Z88.5 Allergy status to narcotic agent; Z88.8 Allergy status to other drugs, medicaments and biological substances
CPT/HCPCS: 36415; 74000; 74176; 80048; 80053; 81001; 81003; 82150; 83605; 83690; 85025; 86140; 87086; 96374; 96375; 96376; 99285

== ENCOUNTER 2016-11-01 21:34 | Inpatient (IN) | payer OTHER ==
--- NOTE | 2016-11-01 21:47 | ED ---
General Adult HPI - General Chief complaint: Abdominal Pain Stated complaint: nausea/vomiting Time Seen by Provider: 11/01/16 21:47 Source: patient, RN notes reviewed, old records reviewed Mode of arrival: wheelchair Limitations: no limitations - History of Present Illness Initial comments: This is a 61-year-old female here for very severe nausea vomiting. Patient has history of obstruction, history of bowel surgery. Patient coming in after work tonight and began to have nausea vomiting when she got home. Severe nausea vomiting. Patient denies fever denies chest pain. She also has left upper abdominal pain rating to her central stomach. Patient states this feels just like prior bowel obstructions. Denies any other complaints, no shortness of breath - Related Data Home Medications Medication Instructions Recorded Confirmed FLUoxetine HCL [PROzac] 60 mg PO QAM 10/09/16 11/01/16 Carisoprodol [Soma] 350 mg PO BID PRN 10/24/16 11/01/16 traZODone HCL [Desyrel] 100 mg PO HS 10/24/16 11/01/16 Acetaminophen-Codeine 300-30mg 1 tab PO DAILY PRN 11/01/16 11/01/16 [Tylenol #3] Previous Rx's Medication Instructions Recorded Magnesium Hydroxide [Milk of 30 ml PO Q24H PRN #600 ml 10/27/16 Magnesia] Allergies Allergy/AdvReac Type Severity Reaction Status Date / Time hydromorphone HCl Allergy Itching Verified 11/01/16 22:22 [From Dilaudid] NSAIDS (Non-Steroidal Allergy Anaphylaxis Verified 11/01/16 22:22 Anti-Inflamma omeprazole Allergy Anaphylaxis Verified 11/01/16 22:22 Review of Systems ROS Statement: Those systems with pertinent positive or pertinent negative responses have been documented in the HPI. ROS Other: All systems not noted in ROS Statement are negative. Past Medical History Past Medical History: Fibromyalgia Additional Past Medical History / Comment(s): diverticulosis; Bowel obstruction History of Any Multi-Drug Resistant Organisms: None Reported Past Surgical History: Appendectomy, Bowel Resection, Hysterectomy, Orthopedic Surgery Additional Past Surgical History / Comment(s): Tibia Fracture Repair 1993, colostomy Past Anesthesia/Blood Transfusion Reactions: No Reported Reaction Past Psychological History: No Psychological Hx Reported Additional Psychological History / Comment(s): lives with family home with the . She's never day smoker but no severe alcohol use. Employed at [employer]. No recent travels. No experience related. no animal exposures related Smoking Status: Current some day smoker Past Alcohol Use History: Daily Past Drug Use History: None Reported - Past Family History Father History Unknown: Yes Additional Family Medical History / Comment(s): Heart disease Mother History Unknown: Yes Additional Family Medical History / Comment(s): heart disease, mothers father had problems with stomach. Maternal grandmother of CHF. General Exam - General Exam Comments Initial Comments: Patient actively vomiting Limitations: no limitations General appearance: alert, anxious, in distress Head exam: Present: atraumatic, normocephalic, normal inspection Eye exam: Present: normal appearance, PERRL, EOMI. Absent: scleral icterus, conjunctival injection, periorbital swelling ENT exam: Present: normal exam, mucous membranes moist Neck exam: Present: normal inspection. Absent: tenderness, meningismus, lymphadenopathy Respiratory exam: Present: normal lung sounds bilaterally. Absent: respiratory distress, wheezes, rales, rhonchi, stridor Cardiovascular Exam: Present: regular rate, normal rhythm, normal heart sounds. Absent: systolic murmur, diastolic murmur, rubs, gallop, clicks GI/Abdominal exam: Present: soft, normal bowel sounds. Absent: distended, tenderness, guarding, rebound, rigid Extremities exam: Present: normal inspection, full ROM, normal capillary refill. Absent: tenderness, pedal edema, joint swelling, calf tenderness Back exam: Present: normal inspection Neurological exam: Present: alert, oriented X3, CN II-XII intact Psychiatric exam: Present: normal affect, normal mood Skin exam: Present: warm, dry, intact, normal color. Absent: rash Course Vital Signs 11/01/16 21:36 Temperature 98.0 F Pulse Rate 69 Respiratory 18 Rate Blood Pressure 173/92 O2 Sat by Pulse 99 Oximetry - Reevaluation(s) Reevaluation #1: 11/01/16 23:50 At this point sent patient's symptoms are improved EKG Findings - EKG Comments: EKG Findings:: EKG shows normal sinus her rate is 62, VT 132, QRS 76, QTc 450 Medical Decision Making - Medical Decision Making 61 female here for evaluation of severe nausea vomiting, positive small bowel obstruction, will admit to patient's general surgeon - Lab Data Result diagrams: 11/01/16 22:25 Lab Results 11/01/16 11/01/16 11/01/16 Range/Units 22:25 22:25 22:25 Sodium 141 (137-145) mmol/L Potassium 4.2 (3.5-5.1) mmol/L Chloride 104 (98-107) mmol/L Carbon Dioxide 22 (22-30) mmol/L Anion Gap 15 mmol/L BUN 15 (7-17) mg/dL Creatinine 0.70 (0.52-1.04) mg/dL Est GFR (MDRD) Af Amer >60 (>60 ml/min/1.73 sqM) Est GFR (MDRD) Non-Af >60 (>60 ml/min/1.73 sqM) Glucose 133 H (74-99) mg/dL Plasma Lactic Acid Martin 1.6 (0.7-2.0) mmol/L Calcium 10.9 H (8.4-10.2) mg/dL Phosphorus 2.7 (2.5-4.5) mg/dL Magnesium 2.2 (1.6-2.3) mg/dL Total Bilirubin 0.8 (0.2-1.3) mg/dL AST 25 (14-36) U/L ALT 30 (9-52) U/L Alkaline Phosphatase 84 (38-126) U/L Total Creatine Kinase 103 (30-135) U/L CK-MB (CK-2) 2.5 H* (0.0-2.4) ng/mL CK-MB (CK-2) Rel Index 2.4 Troponin I <0.012 (0.000-0.034) ng/mL Total Protein 8.1 (6.3-8.2) g/dL Albumin 4.9 (3.5-5.0) g/dL - Radiology Data Radiology results: report reviewed (Extremities abdominal series with chest and CT abdomen and pelvis shows small bowel obstruction), image reviewed Disposition Clinical Impression: Bowel obstruction, Ileus Disposition: ADMITTED IP TO THIS [facility] Condition: Fair Referrals: César Shahid MD [Primary Care Provider] - 1-2 days
[2016-11-01] MEDS ORDERED: MORPHINE SULFATE 4 MG/ML SYRINGE IV STA (21:53)
[2016-11-01] MEDS ORDERED: SODIUM CHLORIDE 0.9% 1,000 ML IV STA (21:53)
[2016-11-01] MEDS ORDERED: SODIUM CHLORIDE 0.9% 500 ML IV STA (21:53)
[2016-11-01] MEDS ORDERED: ONDANSETRON 4 MG/2 ML VIAL IVP STA (22:19)
[2016-11-01] MEDS ORDERED: PANTOPRAZOLE 40 MG/10 ML VIAL IVP STA (22:19)
[2016-11-01] MEDS ORDERED: LORazepam 2 MG/ML SYRINGE IV STA (22:19)
[2016-11-01 22:48] LABS: ALT 30 U/L (9-52); AST 25 U/L (14-36); Alkaline Phosphatase 84 U/L (38-126); Anion Gap 15 mmol/L; Blood Urea Nitrogen 15 mg/dL (7-17); Calcium 10.9 mg/dL (8.4-10.2); Carbon Dioxide 22 mmol/L (22-30); Chloride 104 mmol/L (98-107); Creatine Kinase 103 U/L (30-135); Glucose 133 mg/dL (74-99); Magnesium 2.2 mg/dL (1.6-2.3); Non-African American GFR(MDRD) >60 (>60 ml/min/1.73 sqM); Phosphorous 2.7 mg/dL (2.5-4.5); Potassium 4.2 mmol/L (3.5-5.1); Sodium 141 mmol/L (137-145); Total Bilirubin 0.8 mg/dL (0.2-1.3); Total Protein 8.1 g/dL (6.3-8.2)
[2016-11-01 23:00] LABS: Troponin I <0.012 ng/mL (0.000-0.034)
[2016-11-01 23:01] LABS: Creatine Kinase MB 2.5 ng/mL (0.0-2.4)
[2016-11-01] MEDS ORDERED: RX INFO: IV CONTRAST WAS GIVEN 1 EACH MISC MISCELLANE PRN (23:06)
--- NOTE | 2016-11-01 23:08 | XR ---
INDICATION: Pain COMPARISON: CT AP 10/25/16 FINDINGS: Upright frontal view of the chest and upright and supine frontal views of the abdomen are reviewed. The lungs are clear. The cardiac and mediastinal contours are normal. No evidence of extraluminal air under the diaphragms. The abdominal films demonstrate a a left-sided ostomy. With scattered colonic gas but minimal small bowel gas. Small bowel loops may be fluid- filled and distended, as on referenced CT examination. There is no free air on upright views. Bowel gas pattern. No bowel distention or air- fluid levels. No evidence of organomegaly, abnormal calcifications or obvious soft tissue masses. The osseous structures are intact. IMPRESSION: Left lower quadrant ostomy. Minimal small bowel gas. On referenced CT, dilated loops of small bowel in the left lower abdomen were fluid filled, which may be the case on the current exam, and continued bowel obstruction is not excluded.
[2016-11-01 23:45] LABS: Basophils % (A) 0 %; CH 30.8; CHCM 32.7; Eosinophils # (A) 0.2 k/uL (0-0.7); Eosinophils % (A) 2 %; HCT 43.1 % (34.0-46.0); HDW 2.22; HGB 13.9 gm/dL (11.4-16.0); Luc # (Auto) 0.12; Luc % (Auto) 1; Lymphocytes # (A) 0.9 k/uL (1.0-4.8); Lymphocytes % (A) 8 %; MCH 30.5 pg (25.0-35.0); MCHC 32.2 g/dL (31.0-37.0); MCV 94.6 fL (80.0-100.0); Mean Platelet Volume 6.4; Monocytes # (A) 0.6 k/uL (0-1.0); Monocytes % (A) 5 %; Neutrophils # (A) 8.9 k/uL (1.3-7.7); Neutrophils % (A) 84 %; RBC 4.56 m/uL (3.80-5.40); RDW 13.3 % (11.5-15.5); WBC 10.6 k/uL (3.8-10.6); WBC (Perox) 10.39
[2016-11-01] MEDS ORDERED: SODIUM CHLORIDE 0.9% 1,000 ML IV ONE (23:49)
[2016-11-01] MEDS ORDERED: MORPHINE SULFATE 4 MG/ML SYRINGE IVP STA (23:51)
[2016-11-01] MEDS ORDERED: MORPHINE SULFATE 4 MG/ML SYRINGE IVP PRN (23:51)
--- NOTE | 2016-11-02 00:04 | CT ---
INDICATION: Abdominal pain TECHNIQUE: CT acquisition was performed through the abdomen and pelvis following the uncomplicated intravenous administration of IV contrast. Sagittal and coronal reformatted images are available. Total DLP 473.40 mGy-cm; CTDIvol 15 mGy. COMPARISON: Abdominal series 11/01/16, CT abdomen pelvis 10/25/16 FINDINGS: The lung bases are clear. The liver, gallbladder, spleen, pancreas, adrenal glands, and kidneys are within normal limits. On delayed contrast phase images, there is normal excretory phase appearance of the renal pelvises and visualized ureters. There is minimal aortoiliac atherosclerosis without aneurysm. There has been prior partial left hemicolectomy with left sided descending colostomy. There are multiple dilated, fluid-filled loops of small bowel throughout the mid and lower abdomen measuring up to 3.8 cm in diameter, increased in extent from prior exam. There is a transition point to decompressed small bowel located in the anterior mid abdomen slightly to the right of midline (series 3, image 34; series 7, images 18- 22; series 8, image 51). This likely represents an adhesion. There is no significant interloop ascites. There is no pneumatosis, pneumoperitoneum, or portal venous gas. Urinary bladder is unremarkable. Uterus is surgically absent. There are no acute osseous findings. There is 1 cm degenerative anterolisthesis of L4 on L5. IMPRESSION: 1. Small bowel obstruction with transition point in the anterior mid abdomen slightly to the right midline, likely representing an adhesion. Small bowel obstruction appears to have worsened in the interval with greater number of dilated small bowel loops. No evidence of bowel ischemia or free air. 2. Partial left hemicolectomy with left sided descending colostomy.
[2016-11-02 01:54] LABS: INR 1.1 (<1.1); Partial Thromboplastin Time 24.2 sec (22.0-30.0); Prothrombin Time 10.6 sec (9.0-12.0)
[2016-11-02 03:13] LABS: Appearance,Urine Clear (Clear); Bilirubin,Urine Negative (Negative); Glucose,Urine (UA) Negative (Negative); Ketones,Urine 1+ (Negative); Leukocyte Esterase,Urine Small (Negative); Mucus,Urine Rare /hpf; Nitrite,Urine Negative (Negative); PH, Urine 7.5 (5.0-8.0); Particle Count 3327; Protein,Urine Trace (Negative); RBC,Urine 2 /hpf (0-5); Specific Gravity,Urine 1.039 (1.001-1.035); Squamous Epithelial Cell,Urine 3 /hpf (0-4); UA Billing (MACRO vs. MICRO) MICRO; Urobilinogen,Urine <2.0 mg/dL (<2.0); WBC,Urine 6 /hpf (0-5)
[2016-11-02] MEDS: ONDANSETRON 4 MG/2 ML VIAL IVP PRN ×3 (04:01→23:28)
[2016-11-02] MEDS: PANTOPRAZOLE 40 MG/10 ML VIAL IVP SCH (08:32)
[2016-11-02] MEDS: ENOXAPARIN 40 MG/0.4 ML SYRINGE SQ SCH (10:38)
[2016-11-02] MEDS: SODIUM CHLORIDE 0.9% 1,000 ML IV SCH ×3 (10:45→23:28)
--- NOTE | 2016-11-02 11:40 | P.GSHP ---
<[place] Jameson - Last Filed: 11/02/16 12:43> History of Present Illness H&P Date: 11/02/16 Chief Complaint: Abdominal pain Very pleasant 61-year-old female presented on the day of admission to the emergency room with a chief complaint of developing nausea vomiting and inability to keep fluids down with severe diffuse abdominal pain starts in the left upper abdominal wall radiates to the central of the abdomen. Patient stated that the pain was so intense that she needed to come to the emergency room to be evaluated for the above-mentioned symptoms. Patient states that she has not been passing any gas and there's been no stool from the ostomy patient states intense cramping. Patient was seen in the emergency room a CAT scan of the abdomen pelvis was obtained it did show small bowel obstruction with transition point in the anterior mid abdomen more on the right likely representing an adhesion. The small bowel obstruction appears to have worsened in the interval with greater number of dilated small bowel loops no evidence of bowel ischemia or free air. There is a partial left hemicolectomy on the left side descending ostomy Currently patient is nothing by mouth with IV fluid at 150 hour patient was refusing the nasal gastric tube active bowel tones noted the abdomen is not distended diffuse tenderness across the abdominal wall no stool noted from the ostomy Patient was just discharged on October 27 at that time was treated for abdominal pain moderate to severe with cramping a nasal gastric tube was placed patient was maintained on conservative treatment. Patient continue to make progress was able to pass flatus and did have stool from the ostomy able to be discharged. Patient states she has an appointment today to see Dr. rosado had been doing relatively well after being discharged and return to work and was tolerating a diet with no abdominal cramping and the ostomy was working there was stool was - Review of Systems Comment: Essentially unremarkable except as mentioned in the present illness Past Medical History Past Medical History: Fibromyalgia Additional Past Medical History / Comment(s): diverticulosis; Bowel obstruction History of Any Multi-Drug Resistant Organisms: None Reported Past Surgical History: Appendectomy, Bowel Resection, Hysterectomy, Orthopedic Surgery Additional Past Surgical History / Comment(s): Tibia Fracture Repair 1993, colostomy Past Anesthesia/Blood Transfusion Reactions: No Reported Reaction Past Psychological History: No Psychological Hx Reported Additional Psychological History / Comment(s): lives with family home with the . She's never day smoker but no severe alcohol use. Employed at [employer]. No recent travels. No experience related. no animal exposures related Smoking Status: Never smoker Past Alcohol Use History: Daily Past Drug Use History: None Reported - Past Family History Father History Unknown: Yes Additional Family Medical History / Comment(s): Heart disease Mother History Unknown: Yes Additional Family Medical History / Comment(s): heart disease, mothers father had problems with stomach. Maternal grandmother of CHF. Medications and Allergies Home Medications Medication Instructions Recorded Confirmed Type FLUoxetine HCL [PROzac] 60 mg PO QAM 10/09/16 11/16/16 History Carisoprodol [Soma] 350 mg PO BID PRN 10/24/16 11/16/16 History traZODone HCL [Desyrel] 100 mg PO HS 10/24/16 11/16/16 History Aspirin [Adult Low Dose Aspirin EC] 81 mg PO DAILY 11/17/16 11/17/16 History LORazepam [Ativan] 0.5 mg PO TID PRN 11/17/16 11/17/16 History Allergies Allergy/AdvReac Type Severity Reaction Status Date / Time hydromorphone HCl Allergy Itching Verified 11/24/16 06:21 [From Dilaudid] NSAIDS (Non-Steroidal Allergy Anaphylaxis Verified 11/24/16 06:21 Anti-Inflamma omeprazole Allergy Anaphylaxis Verified 11/24/16 06:21 Surgical - Exam Vital Signs Temp Pulse Resp BP Pulse Ox 98.0 F 69 18 173/92 99 11/01/16 21:36 11/01/16 21:36 11/01/16 21:36 11/01/16 21:36 11/01/16 21:36 GENERAL APPEARANCE: 61-year-old female patient is alert, oriented, in no acute distress. Resting in bed VITAL SIGNS: Reviewed afebrile HEENT: Head is normocephalic and atraumatic. Pupils are equal and reactive. The nares are patent. Oropharynx is clear without lesions. NECK: Supple without lymphadenopathy. Traches midline. HEART: S1, S2. Regular rate and rhythm. No murmur noted denying chest pain LUNGS: No crackles or wheezes are heard. Adequate air movement on room air sats are greater than 93% no cough noted ABDOMEN: Soft,tender, nondistended with good bowel sounds. No peritoneal signs. No palpable organomegaly or masses. Ostomy left lower quadrant no stool. No gas diffuse tenderness surgical scars to the abdominal wall patient does report having cramping sensation across the abdominal wall EXTREMITIES: Normal skin color and turgor. No cyanosis, rash, ulceration, clubbing or edema. Radial pedal pulses are 2/4 bilaterally. NEUROLOGICAL: No focal deficits. Strength and sensation are grossly intact. Results - Labs 11/01/16 23:40 11/01/16 22:25 Abnormal Lab Results - Last 24 Hours (Table) 11/02/16 Range/Units 00:40 Ur Specific Dexter 1.039 H (1.001-1.035) Urine Protein Trace H (Negative) Urine Ketones 1+ H (Negative) Ur Leukocyte Esterase Small H (Negative) Urine WBC 6 H (0-5) /hpf Urine Mucus Rare H (None) /hpf Assessment and Plan Plan: Impression History of a sigmoid resection with a colostomy done on 05/19/2016 due to diverticulitis with perforation Chronic pain Present on admission diffuse lower left quadrant abdominal pain with nausea vomiting abdominal cramping suspect due to possible small bowel obstruction suspect due to lysis of adhesions Depressive disorder nonspecified Reoccurring episode of abdominal pain suspect due to small bowel obstruction Present on admission mild leukocytosis suspect reactive Plan IV fluid for rehydration insert nasogastric tube Bowel rest keep nothing by mouth DVT and GI prophylaxis Pain control When appropriate resume home meds Send a urine for culture and sensitivity Scheduled tomorrow small bowel follow-through evaluate for possible early small bowel obstruction The above dictated assessment and findings were discussed with dr rosado . Impression and the plan of care have been dictated as directed. [place] Jameson nurse practitioner acting as a scribe for dr rosado <Sabas Rosado W - Last Filed: 12/13/16 13:00> Surgical - Exam Vital Signs Temp Pulse Resp BP Pulse Ox 98.0 F 69 18 173/92 99 11/01/16 21:36 11/01/16 21:36 11/01/16 21:36 11/01/16 21:36 11/01/16 21:36 Results - Labs 11/04/16 08:46 11/04/16 08:46 Assessment and Plan Plan: Agree with above assessment. (Rafiq)
[2016-11-02] MEDS ORDERED: BENZOCAINE SPRAY 100 APPLIC/CAN MUCOUS MEM PRN (13:16)
[2016-11-02 14:00] LABS: Appearance,Urine Clear (Clear); Bilirubin,Urine Negative (Negative); Glucose,Urine (UA) Trace (Negative); Ketones,Urine Trace (Negative); Leukocyte Esterase,Urine Negative (Negative); Mucus,Urine Rare /hpf; Nitrite,Urine Negative (Negative); PH, Urine 6.5 (5.0-8.0); Particle Count 4878; Protein,Urine Trace (Negative); RBC,Urine 3 /hpf (0-5); Specific Gravity,Urine 1.022 (1.001-1.035); UA Billing (MACRO vs. MICRO) MICRO; Urobilinogen,Urine <2.0 mg/dL (<2.0); WBC,Urine 2 /hpf (0-5)
--- NOTE | 2016-11-02 14:53 | XR ---
EXAMINATION TYPE: XR chest 1V portable DATE OF EXAM: 11/02/2016 2:44 PM CLINICAL HISTORY: NG tube placement. TECHNIQUE: Single AP portable upright view of the chest is obtained. COMPARISON: Chest x-ray from one day earlier FINDINGS: Lungs remain clear without pleural effusion or pneumothorax seen bilaterally. Cardiac silh ouette size is stable and within normal limits. Osseous structures are intact. New nasogastric tube p rojects below left hemidiaphragm. IMPRESSION: New nasogastric tube is satisfactory in position. No acute pulmonary process is evident.
[2016-11-02] MEDS: MORPHINE SULFATE 2 MG/ML SYRINGE IVP PRN ×3 (15:23→23:28)
[2016-11-02] MEDS ORDERED: LORazepam 2 MG/ML SYRINGE IV PRN (17:36)
--- NOTE | 2016-11-02 21:34 | CONS ---
DATE OF CONSULTATION: REASON FOR CONSULTATION: Advice regarding fibromyalgia and other multiple medical problems and abnormal labs requested by Dr. Baron. HISTORY OF PRESENT ILLNESS: This 61-year-old woman with a past medical history of multiple medical problems, including progression, bowel resection, colostomy, history of fibromyalgia, diverticulosis, being followed by Dr. in the outpatient setting has noted abdominal pain and some nausea, vomiting and the patient came to [facility] and was admitted for further evaluation and treatment. The patient was scheduled to have colostomy reversal later by Dr. Baron. In the evaluation in the ER, acute abdominal series showed some dilated small bowel loops. Abdominal and pelvis CAT scan was done, which showed evidence of a small bowel obstruction with transition point in the anterior and mid abdomen and slightly to the right line and partial left total colectomy was also noted. There is no history of fever, rigors or chills. No history of headache, loss of consciousness or seizures. NG tube inserted with some relief of the symptoms. General surgery is following the patient closely. The chest x-ray showed no acute parenchymal disease. EKG done at the time of admission showed normal sinus rhythm and normal. There is no history of fever, rigors or chills. No history of headache, loss of consciousness or seizures. PAST MEDICAL HISTORY: 1. History of sigmoid colonic perforation and laparotomy and as well as colostomy. 2. Fibromyalgia, diverticulosis, bowel obstruction. 3. History of DJD. Medications prior to admission include: 1. Trazodone 100 mg p.o. q.h.s. 2. Milk of magnesia 30 mL q.24 hours. 3. Prilosec 60 mg q.a.m. 4. Soma 350 mg b.i.d. p.r.n. 5. Tylenol #3 1 tablet daily p.r.n. ALLERGIES: HYDROMORPHONE, NSAIDS, AND OMEPRAZOLE. FAMILY HISTORY: History of heart disease in the family. SOCIAL HISTORY: No history of smoking. Occasional alcohol intake. REVIEW OF SYSTEMS: ENT: No diminished hearing. No diminished vision. CARDIOVASCULAR: No angina or palpitations. RESPIRATORY: No cough. GASTROINTESTINAL: As mentioned earlier. : No dysuria. Nervous system: No numbness or weakness. Allergy/immunology: No asthma or hayfever. MUSCULOSKELETAL: As mentioned earlier. HEMATOLOGY/ONCOLOGY: No history of anemia. ENDOCRINE: No history of diabetes mellitus or hypothyroidism. CONSTITUTIONAL: As mentioned earlier. DERMATOLOGY: negative. RHEUMATOLOGY: Negative. PSYCHIATRY: As mentioned earlier. PHYSICAL EXAMINATION: The patient is alert and oriented times three. Pulse is 75, blood pressure 134/70, respiratory rate 20. Temperature 99.2, pulse ox 97% on room air. HEENT: Conjunctivae normal. Oral mucosa moist. NECK: No jugular venous distention. No carotid bruit. No lymph node enlargement. CARDIOVASCULAR: S1, S2 muffled. No S3, no S4. RESPIRATORY: Breath sounds diminished at the bases No rhonchi. No crackles. ABDOMEN: Soft, colostomy present. Mild diffuse discomfort on palpation. No guarding. No rigidity. No mass palpable. Bowel sounds diminished. LEGS: No edema. No swelling. CENTRAL NERVOUS SYSTEM: Higher functions as mentioned earlier. Moves all four limbs. No focal deficits. LYMPHATICS: No lymph nodes palpable in the neck, axillae or groin. SKIN: No ulcers, rash or bleeding. Labs at this time shows CBC within normal limits. Otherwise, INR 1.1. BMP showed glucose 133, calcium 10.9 and CK 2.5, UA shows 6 WBCs initially and subsequently 2. ASSESSMENT: 1. Abdominal pain as well as nausea and vomiting, possibly partial small bowel obstruction. 2. Increased random blood sugar. 3. History of sigmoid colon perforation as well as colectomy and colostomy. 4. History of fibromyalgia. 5. History of diverticulosis. 6. History of appendectomy. 7. History of degenerative joint disease. 8. FULL CODE. RECOMMENDATIONS AND DISCUSSION: In this 61-year-old woman who presented with multiple complex medical issues, at this time, we will monitor the patient closely. Continue the current medications, continue conservative line of management. NG tube has been inserted. We will follow the patient closely with you. DVT Prophylaxis. Resume the home medications. Otherwise we will follow the patient closely with you and patient may be asked to follow up with closely after discharge. Thank you Dr. Baron for letting us participate in the care of this patient. MAG
[2016-11-03] MEDS: SODIUM CHLORIDE 0.9% 1,000 ML IV SCH ×3 (06:04→21:25)
[2016-11-03] MEDS: ENOXAPARIN 40 MG/0.4 ML SYRINGE SQ SCH (07:33)
[2016-11-03] MEDS: PANTOPRAZOLE 40 MG/10 ML VIAL IVP SCH (07:35)
[2016-11-03] MEDS: MORPHINE SULFATE 2 MG/ML SYRINGE IVP PRN ×4 (10:19→22:15)
[2016-11-03 13:09] VITALS: BMI 22.1
--- NOTE | 2016-11-03 13:30 | FL ---
EXAMINATION: Small bowel follow through DATE: 11/03/2016 CLINICAL INDICATION: 61 year-old female rule out bowel obstruction, lower abdominal pain for 3 days. Patient with history of perforated diverticulitis with left lower quadrant colostomy. COMPARISON: CT 11/01/2016 Total Fluoroscopy Time: 2 minutes 44 seconds FINDINGS: Initial superintendent container terminal image shows the left abdominal colostomy. Staple line within the right hemipelvis. Ther e is some colonic gas present but also a dilated small bowel loop in the left paramedian upper abdome n measuring 4.1 cm. Following administration of barium, serial films were carried out to 4 hours. Barium is seen to reach the colon. Loops of jejunum and ileum are compressed and examined under fluoroscopy. Several small bowel loops remain dilated particularly in the lower mid and right abdomen measuring up to 3.9 cm. A few other small bowel loops in the left abdomen measure up to 3.6 cm. At 1 hour, there is the beginning of accumulation of contrast in the pelvis which resembles colon. Th is persists on the 1 hour 30 minute film at which time spot compression views confirm colon. Addition al imaging was carried out to 4 hours. Faint contrast is seen to the level of the hepatic flexure at 3 [address] of 11/01/2016 confirm contrast entering the cecum which is low in the anterior pel vis at 90 minutes. Lateral view shows no contrast within the White's pouch to suggest abnormal ente rocolonic fistula. IMPRESSION: Some residual dilated small bowel loops measuring up to 3.9 cm. However, small bowel transit time is 90 minutes though it takes considerably longer (up to 4 hours) for contrast to clearly outline the as cending colon. Findings suggest resolved small bowel obstruction versus residual low-grade partial ob struction.
--- NOTE | 2016-11-03 14:45 | P.PN ---
Subjective Date of service . Progress note being dictated for Dr. Castro. Interval history: This a 61-year-old female admitted with abdominal pain, nausea vomiting, possibly partial small bowel obstruction in a patient with history of sigmoid colon perforation, colectomy and colostomy and multiple other medical issues. Patient discontinued NG tube last night, no nausea, no vomiting , positive flatus in colostomy. Remains NPO. Small bowel follow- through suggestive of resolved small bowel obstruction versus residual low- grade partial obstruction. Febrile, T-max 99.4. Denies chest pain, palpitations or increased shortness of breath. Objective - Vital Signs Vital signs: Vital Signs Temp 99.0 F 11/03/16 07:00 Pulse 72 11/03/16 07:00 Resp 20 11/03/16 07:00 BP 114/67 11/03/16 07:00 Pulse Ox 96 11/03/16 07:00 Intake & Output 11/02/16 11/03/16 11/03/16 18:59 06:59 18:59 Intake Total 0 Output Total 50 50 Balance -50 -50 Weight 56.699 kg Intake: Oral 0 Output: Gastric Drainage 50 50 Other: Voiding Method Toilet # Voids 1 3 2 - Exam PHYSICAL EXAM: VITAL SIGNS: As above GENERAL: [Sitting up in bed, no acute distress] HEENT: [Pupils equal conjunctiva normal.] NECK: [Supple, no JVD] RESPIRATORY EFFORT:[Normal] LUNGS: [Clear, no crackles wheezes or rhonchi] CARDIOVASCULAR[regular S1 and S2, no edema] GI: [Abdomen soft, mild diffuse tenderness, colostomy present with flatus, hypoactive positive bowel sounds. No guarding, no rigidity] PSYCH: [Alert and oriented -3, mood and affect normal.] NEURO: No focal deficits, moves all 4 extremities, strength and sensation intact Microbiology 11/02/16 00:40 Urine,Clean Catch Urine Culture - Final 11/02/16 13:30 Urine,Clean Catch Urine Culture - Preliminary - Labs CBC & Chem 7: 11/01/16 23:40 11/01/16 22:25 Labs: Microbiology - Last 24 Hours (Table) 11/02/16 00:40 Urine Culture - Final Urine,Clean Catch 11/02/16 13:30 Urine Culture - Preliminary Urine,Clean Catch Assessment and Plan Plan: 1. Abdominal pain with nausea and vomiting, possibly partial small bowel obstruction.Resolved small bowel obstruction versus residual low-grade partial obstruction per small bowel x-ray . 2. [History of sigmoid colon perforation with colectomy and colostomy]. 3. Diverticulosis, history of diverticulitis]. 4. [Fibromyalgia history]. 5. [DJD]. 6. [Leukocytosis, reactive]. Plan: Continue on current medication regime ,monitoring and symptomatic treatment. Maintain IV fluid hydration. GI and DVT prophylaxis in place .Continue with current conservative medical management. Diet advancement as per surgery. Further recommendations to follow. The impression and plan of care has been dictated as directed. .: I performed a H&P examination of this patient and discussed the same with the dictator. I agree with the dictator's note. Any additional findings/opinions/ etc. will be noted.
[2016-11-03 15:25] LABS: Basophils % (A) 0 %; CH 31.7; CHCM 33.8; Eosinophils # (A) 0.2 k/uL (0-0.7); Eosinophils % (A) 4 %; HCT 38.2 % (34.0-46.0); HDW 2.31; HGB 12.4 gm/dL (11.4-16.0); Luc # (Auto) 0.16; Luc % (Auto) 3; Lymphocytes # (A) 1.4 k/uL (1.0-4.8); Lymphocytes % (A) 21 %; MCH 30.7 pg (25.0-35.0); MCHC 32.6 g/dL (31.0-37.0); MCV 94.2 fL (80.0-100.0); Mean Platelet Volume 6.8; Monocytes # (A) 0.5 k/uL (0-1.0); Monocytes % (A) 8 %; Neutrophils # (A) 4.1 k/uL (1.3-7.7); Neutrophils % (A) 65 %; RBC 4.05 m/uL (3.80-5.40); WBC 6.4 k/uL (3.8-10.6); WBC (Perox) 6.96
[2016-11-03 15:38] LABS: ALT 28 U/L (9-52); AST 16 U/L (14-36); Alkaline Phosphatase 51 U/L (38-126); Anion Gap 8 mmol/L; Blood Urea Nitrogen 5 mg/dL (7-17); Calcium 8.5 mg/dL (8.4-10.2); Carbon Dioxide 23 mmol/L (22-30); Chloride 106 mmol/L (98-107); Glucose 82 mg/dL (74-99); Non-African American GFR(MDRD) >60 (>60 ml/min/1.73 sqM); Potassium 3.4 mmol/L (3.5-5.1); Sodium 137 mmol/L (137-145); Total Bilirubin 0.8 mg/dL (0.2-1.3); Total Protein 5.6 g/dL (6.3-8.2)
--- NOTE | 2016-11-03 16:17 | P.PN ---
Progress Note - Text Patient is 61-year-old female who presented with abdominal pain she is status post Refugio's procedure. Computed tomography scan did show bowel obstruction. Due to her recurrent issues and ordered for upper GI with small bowel follow-through. Immediately her pain has improved significantly she's been passing flatus and having small amounts bowel movements since this morning. She is ambulating well. There is no nausea no vomiting. She's feeling very hungry. On physical examination she is afebrile vital signs stable there's no jaundice or icterus and cyanosis. There are no rashes. There is no dyspnea or use of accessory muscles of respiration. Her heart rate is regular. The abdomen is soft nontender nondistended with minimal amount of flatus in the bag is no peripheral edema. Assessment and plan.: Upper GI and small bowel follow-through is reviewed and revealed passage of the dye to the right colon slowly. She may have partial traction significant scar tissue. But at this time and is passed through and she can now has clinically resolved. Due to the fact that the patient was having repeated problems I recommended that we go ahead and do a Refugio's procedure Gen. reversal as soon as possible when she is discharged. I'll start her off on a liquid diet today and continue her on a full liquid diet with protein shake high protein shakes for the next 2 weeks after which we will revisit bringing the patient back for reversal. This will be done after her cardiac clearance and colonoscopy is done.
--- NOTE | 2016-11-03 16:18 | P.PN ---
Subjective 61-year-old female being seen this afternoon on rounds. Patient had been in testing most of the morning had a small bowel follow-through done today as part of a workup for abdominal pain. Patient's nasal gastric tube came out last evening and patient refused to have the nasogastric tube reinserted. Patient remains nothing by mouth with IV hydration patient currently is reportedly experiencing less abdominalthe results of the small bowel follow-through were reviewed with the patient in summary findings suggest resolved small bowel obstruction. Patient does state the pain medication effective for pain controlthe white count is down 6.4 patient's afebrilego been stable at 12.4 Objective - Vital Signs Vital signs: Vital Signs Temp 98.8 F 11/03/16 15:00 Pulse 63 11/03/16 15:00 Resp 20 11/03/16 15:00 BP 137/76 11/03/16 15:00 Pulse Ox 95 11/03/16 15:00 Intake & Output 11/02/16 11/03/16 11/03/16 18:59 06:59 18:59 Intake Total 0 Output Total 50 50 Balance -50 -50 Weight 56.699 kg Intake: Oral 0 Output: Gastric Drainage 50 50 Other: Voiding Method Toilet # Voids 1 3 2 - Exam physical exam 60-year-old female sitting up in bed does not appear in any acute distress Lungs essentially clear on room air Heart S1-S2 audible regular Abdomen ostomy left lower quadrant no stool in ostomy bag states urinating no difficulty soft tenderness. Patient states passing flatus few hypoactive bowel tones extremities no edema - Labs CBC & Chem 7: 11/03/16 15:03 11/03/16 15:03 Labs: Abnormal Lab Results - Last 24 Hours (Table) 11/03/16 Range/Units 15:03 Potassium 3.4 L (3.5-5.1) mmol/L BUN 5 L (7-17) mg/dL Creatinine 0.50 L (0.52-1.04) mg/dL Total Protein 5.6 L (6.3-8.2) g/dL Albumin 3.3 L (3.5-5.0) g/dL Microbiology - Last 24 Hours (Table) 11/02/16 00:40 Urine Culture - Final Urine,Clean Catch 11/02/16 13:30 Urine Culture - Preliminary Urine,Clean Catch Assessment and Plan Plan: Impression History of a sigmoid resection with a colostomy done on 05/19/2016 due to diverticulitis with perforation Chronic pain Present on admission diffuse lower left quadrant abdominal pain with nausea vomiting abdominal cramping suspect due to possible small bowel obstruction suspect due to lysis of adhesions Depressive disorder nonspecified Reoccurring episode of abdominal pain suspect due to small bowel obstruction Present on admission mild leukocytosis suspect reactive Plan IV fluid for rehydration insert nasogastric tube Bowel rest keep nothing by mouth DVT and GI prophylaxis Pain control When appropriate resume home meds Send a urine for culture and sensitivity Scheduled tomorrow small bowel follow-through evaluate for possible early small bowel obstruction The above dictated assessment and findings were discussed with dr rosado . Impression and the plan of care have been dictated as directed. [place] Jameson nurse practitioner acting as a scribe for dr rosado
[2016-11-03] MEDS: ONDANSETRON 4 MG/2 ML VIAL IVP PRN (22:15)
[2016-11-04] MEDS: MORPHINE SULFATE 2 MG/ML SYRINGE IVP PRN (02:07)
[2016-11-04] MEDS: SODIUM CHLORIDE 0.9% 1,000 ML IV SCH (03:03)
[2016-11-04 07:38] VITALS: BP 120/75; PULSE 62; RESP 18; TEMP 97.6
[2016-11-04] MEDS: PANTOPRAZOLE 40 MG/10 ML VIAL IVP SCH (07:54)
[2016-11-04] MEDS: ENOXAPARIN 40 MG/0.4 ML SYRINGE SQ SCH (07:55)
[2016-11-04 09:29] LABS: Basophils # (A) 0.1 k/uL (0-0.2); Basophils % (A) 1 %; CH 31.7; CHCM 34.3; Eosinophils # (A) 0.3 k/uL (0-0.7); Eosinophils % (A) 5 %; HCT 41.3 % (34.0-46.0); HDW 2.35; HGB 13.8 gm/dL (11.4-16.0); Luc # (Auto) 0.16; Luc % (Auto) 3; Lymphocytes # (A) 1.1 k/uL (1.0-4.8); Lymphocytes % (A) 18 %; MCHC 33.4 g/dL (31.0-37.0); MCV 92.8 fL (80.0-100.0); Mean Platelet Volume 6.9; Monocytes # (A) 0.4 k/uL (0-1.0); Monocytes % (A) 6 %; Neutrophils # (A) 4.1 k/uL (1.3-7.7); Neutrophils % (A) 68 %; RBC 4.45 m/uL (3.80-5.40); RDW 12.8 % (11.5-15.5); WBC 6.1 k/uL (3.8-10.6)
[2016-11-04 10:03] LABS: Anion Gap 10 mmol/L; Blood Urea Nitrogen 5 mg/dL (7-17); Calcium 9.2 mg/dL (8.4-10.2); Carbon Dioxide 26 mmol/L (22-30); Chloride 101 mmol/L (98-107); Glucose 179 mg/dL (74-99); Non-African American GFR(MDRD) >60 (>60 ml/min/1.73 sqM); Potassium 3.5 mmol/L (3.5-5.1); Sodium 137 mmol/L (137-145)
--- NOTE | 2016-11-04 11:03 | P.DS ---
Providers Date of admission: 11/01/16 23:50 Expected date of discharge: 11/04/16 Attending physician: Sabas Rosado Consults: 11/02/16 10:41 Consult Physician Urgent Consulting Provider: Aidee Castro Consult Reason/Comments: med mtg Do you want consulting provider notified?: Yes Primary care physician: [facility] Course: Very pleasant 61-year-old female presented on the day of admission to the emergency room with a chief complaint of developing nausea vomiting and inability to keep fluids down with severe diffuse abdominal pain starts in the left upper abdominal wall radiates to the central of the abdomen. Patient stated that the pain was so intense that she needed to come to the emergency room to be evaluated for the above-mentioned symptoms. Patient states that she has not been passing any gas and there's been no stool from the ostomy patient states intense cramping. Patient was seen in the emergency room a CAT scan of the abdomen pelvis was obtained it did show small bowel obstruction with transition point in the anterior mid abdomen more on the right likely representing an adhesion. The small bowel obstruction appears to have worsened in the interval with greater number of dilated small bowel loops no evidence of bowel ischemia or free air. There is a partial left hemicolectomy on the left side descending ostomy An upper GI and small bowel follow-through was reviewed by the surgeon it revealed passage of the dye to the right colon slowly. Surgery recommended to the patient that she could be discharged today start on a clear liquid diet continue on a full diet with high protein shakes for the next 2 weeks. Patient would follow-up with Dr. Rosado on November 14 on a Monday and at that time with discuss bringing the patient back for reversal. Patient does need cardiac clearance in a colonoscopy to be done. An appointment had been set up for the patient to see Dr. Coley pattern maker in the office for clearance the surgeon to discuss this with the patient on the day of discharge. Additionally patient had been seen by the dietitian and had received instructions on a diet and high protein shakes Patient was just discharged on October 27 at that time was treated for abdominal pain moderate to severe with cramping a nasal gastric tube was placed patient was maintained on conservative treatment. Patient continue to make progress was able to pass flatus and did have stool from the ostomy able to be discharged. Patient states she has an appointment today to see Dr. rosado had been doing relatively well after being discharged and return to work and was tolerating a diet with no abdominal cramping and the ostomy was working Impression discharge diagnosis History of a sigmoid resection with a colostomy done on 05/19/2016 due to diverticulitis with perforation Chronic pain Present on admission diffuse lower left quadrant abdominal pain with nausea vomiting abdominal cramping suspect due to possible small bowel obstruction suspect due to lysis of adhesions Depressive disorder nonspecified Reoccurring episode of abdominal pain suspect due to small bowel obstruction Present on admission mild leukocytosis suspect reactive resolved The above dictated assessment and findings were discussed with dr rosado . Impression and the plan of care have been dictated as directed. [place] Jameson nurse practitioner acting as a scribe for dr rosado Patient Condition at Discharge: Fair Plan - Discharge Summary New Discharge Prescriptions: Acetaminophen-Codeine 300-30mg [Tylenol w/codeine #3] 1 tab PO DAILY PRN #30 tab PRN Reason: Pain Ondansetron [Zofran] 4 mg PO Q8HR PRN #30 tab PRN Reason: Nausea Discharge Medication List FLUoxetine HCL [PROzac] 60 mg PO QAM 10/09/16 [History] Carisoprodol [Soma] 350 mg PO BID PRN 10/24/16 [History] traZODone HCL [Desyrel] 100 mg PO HS 10/24/16 [History] Magnesium Hydroxide [Milk of Magnesia] 30 ml PO Q24H PRN #600 ml 10/27/16 [Rx] Acetaminophen-Codeine 300-30mg [Tylenol w/codeine #3] 1 tab PO DAILY PRN #30 tab 11/04/16 [Rx] Ondansetron [Zofran] 4 mg PO Q8HR PRN #30 tab 11/04/16 [Rx] Follow up Appointment(s)/Referral(s): César Shahid MD [Primary Care Provider] - 1-2 days Keon Garcia MD [STAFF PHYSICIAN] - 1 Week Sabas Rosado MD [STAFF PHYSICIAN] - 11/14/16 Activity/Diet/Wound Care/Special Instructions: Patient is to be maintained on a high protein shake with a full liquid diet for the next 2 weeks. Patient is to increase her water intake one 8 ounce glass every hour while awake Discharge Disposition: HOME SELF-CARE
--- NOTE | 2016-11-04 19:53 | PN ---
DATE OF SERVICE: 11/04/2016 This 61-year-old woman who was admitted with partial small-bowel obstruction is improving significantly. No chest pain or palpitation. No fever. On exam, alert and oriented x3. Pulse 62, blood pressure 120/74, respirations 18, temperature 97.6, pulse ox 98% on room air. HEENT: Conjunctivae normal. NECK: No jugular venous distension. CARDIOVASCULAR: S1 and S2 muffled. RESPIRATORY: Breath sounds diminished in the bases. No rhonchi. No crackles. ABDOMEN: Soft. Colostomy present and nontender. No mass palpable. LEGS: No edema. NERVOUS SYSTEM: No focal deficits. LABS: CBC within normal limits. BUN is 5, glucose 179. UA noted. ASSESSMENT: 1. Abdominal pain, nausea and vomiting, possible partial small-bowel obstruction, improved with conservative treatment. 2. History of sigmoid resection for colon perforation with a colectomy and colostomy. 3. Diverticulosis and diverticulitis. 4. Fibromyalgia. 5. History of degenerative joint disease. 6. History of leukocytosis, reactive. 7. FULL CODE. RECOMMENDATIONS AND DISCUSSION: I recommend to continue current medications and symptomatic treatment, resume the home medications, incentive spirometry. Closely follow with primary physician as an outpatient. Further recommendations to follow.
== END 2016-11-04 12:52 | disposition home or self-care (01) | DRG 390 ==
LOC: EC 21:34 → 4MS4W 23:50
PROVIDERS: ADMIT Surgery; ATTEND Surgery
PROC: 0D9670Z Drainage of Stomach with Drainage Device, Via Natural or Artificial Opening (ICD-10-PCS; principal; 2016-11-02)
DX: K56.5 Intestinal adhesions [bands] with obstruction (postinfection) (principal); F32.9 Major depressive disorder, single episode, unspecified; G89.29 Other chronic pain; R11.10 Vomiting, unspecified; M19.91 Primary osteoarthritis, unspecified site; M79.7 Fibromyalgia; Z93.3 Colostomy status; Z90.710 Acquired absence of both cervix and uterus; Z90.49 Acquired absence of other specified parts of digestive tract; Z79.899 Other long term (current) drug therapy
CPT/HCPCS: 36415; 71010; 74022; 74177; 74250; 80048; 80053; 81001; 82550; 82553; 83605; 83690; 83735; 84100; 84484; 85025; 85610; 85730; 87086; 93005; 96361; 96374; 96375; 96376; 99285

== ENCOUNTER 2016-11-16 18:23 | Inpatient (IN) | payer OTHER ==
[2016-11-16] MEDS ORDERED: SODIUM CHLORIDE 0.9% 1,000 ML IV STA (21:17)
[2016-11-16] MEDS ORDERED: ONDANSETRON 4 MG/2 ML VIAL IVP STA (21:17)
[2016-11-16] MEDS ORDERED: HYDROmorphone 1 MG/ML 1 ML SYRINGE IVP STA (21:19)
[2016-11-16] MEDS ORDERED: diphenhydrAMINE 50 MG/ML 1 ML VIAL IVP STA (21:19)
[2016-11-16 21:53] LABS: Basophils % (A) 0 %; CH 31.5; Eosinophils # (A) 0.1 k/uL (0-0.7); Eosinophils % (A) 1 %; HCT 43.8 % (34.0-46.0); HDW 2.33; HGB 15.2 gm/dL (11.4-16.0); Luc % (Auto) 1; Lymphocytes % (A) 11 %; MCH 31.2 pg (25.0-35.0); MCHC 34.6 g/dL (31.0-37.0); MCV 90.2 fL (80.0-100.0); Mean Platelet Volume 6.3; Monocytes # (A) 0.3 k/uL (0-1.0); Monocytes % (A) 3 %; Neutrophils # (A) 7.9 k/uL (1.3-7.7); Neutrophils % (A) 83 %; RBC 4.85 m/uL (3.80-5.40); RDW 13.2 % (11.5-15.5); WBC 9.5 k/uL (3.8-10.6); WBC (Perox) 9.68
[2016-11-16 22:07] LABS: ALT 20 U/L (9-52); AST 27 U/L (14-36); Alkaline Phosphatase 70 U/L (38-126); Amylase 37 U/L (30-110); Anion Gap 10 mmol/L; Blood Urea Nitrogen 11 mg/dL (7-17); Calcium 10.6 mg/dL (8.4-10.2); Carbon Dioxide 21 mmol/L (22-30); Chloride 101 mmol/L (98-107); Glucose 112 mg/dL (74-99); Non-African American GFR(MDRD) >60 (>60 ml/min/1.73 sqM); Potassium 4.9 mmol/L (3.5-5.1); Sodium 132 mmol/L (137-145)
--- NOTE | 2016-11-16 22:19 | XR ---
EXAM: XR Abdomen, 1 View. CLINICAL HISTORY: Reason: abdominal pain TECHNIQUE: Frontal supine view of the abdomen/pelvis. COMPARISON: CT abdomen and pelvis from 10/09/16. FINDINGS: Lower thorax: Suspect minimal bilateral pleural effusions. Gastrointestinal tract: 4.4 cm dilatation of several loops of small bowel with air-fluid levels suggest persistent small bowel ileus versus obstruction. Left pelvic ostomy is again noted. Bones/joints: Mild degenerative changes in the visualized osseous structures. IMPRESSION: 1. 4.4 cm dilatation of several loops of small bowel with air-fluid levels suggest persistent small bowel ileus versus obstruction. 2. Suspect minimal bilateral pleural effusions.
--- NOTE | 2016-11-16 22:22 | XR ---
EXAM: XR Chest, 2 Views. CLINICAL HISTORY: abdominal pain TECHNIQUE: Frontal and lateral views of the chest. COMPARISON: CT abdomen and pelvis from 10/09/2016 and 10/25/16 FINDINGS: Lungs: Unremarkable. No consolidation. Pleural space: Unremarkable. No pneumothorax. Heart: Unremarkable. No cardiomegaly. Mediastinum: Unremarkable. Bones/joints: Moderate anterior wedge shaped compression defect at T12 is again noted. IMPRESSION: No acute findings
--- NOTE | 2016-11-16 22:32 | ED ---
Abdominal Pain HPI <Blake Manjarrez - Last Filed: 11/16/16 23:03> - General Source: patient Mode of arrival: wheelchair Limitations: no limitations <Deena Lama - Last Filed: 11/17/16 04:02> - General Chief Complaint: Abdominal Pain Stated Complaint: vomiting,bowel blockage Time Seen by Provider: 11/16/16 21:10 - History of Present Illness Initial Comments: Patient is 61-year-old female with chief complaint of 1 day of vomiting. Patient reports that she has history of bowel obstructions and a colostomy bag. Patient states she was medically too weeks ago for a bowel obstruction. She states that she was discharged home and placed on a high protein diet and has been following it such. Patient reports that she ate chicken yesterday and since then she has been unable to keep anything down. Patient reports that she is dehydrated and has epigastric abdominal pain. Patient denies any fever or chills. She denies any urinary symptoms. She states that her colostomy that has been functioning properly.Patient denies any recent fever, chills, shortness of breath, chest pain, back pain, numbness or tingling, dysuria or hematuria, constipation or diarrhea, headaches or visual changes, or any other current symptoms (Deena Lama) - Related Data Home Medications Medication Instructions Recorded Confirmed FLUoxetine HCL [PROzac] 60 mg PO QAM 10/09/16 11/16/16 Carisoprodol [Soma] 350 mg PO BID PRN 10/24/16 11/16/16 traZODone HCL [Desyrel] 100 mg PO HS 10/24/16 11/16/16 Aspirin [Adult Low Dose Aspirin EC] 81 mg PO DAILY 11/17/16 11/17/16 LORazepam [Ativan] 0.5 mg PO TID PRN 11/17/16 11/17/16 Previous Rx's Medication Instructions Recorded Magnesium Hydroxide [Milk of 30 ml PO Q24H PRN #600 ml 10/27/16 Magnesia] Acetaminophen-Codeine 300-30mg 1 tab PO DAILY PRN #30 tab 11/04/16 [Tylenol w/codeine #3] Ondansetron [Zofran] 4 mg PO Q8HR PRN #30 tab 11/04/16 Allergies Allergy/AdvReac Type Severity Reaction Status Date / Time hydromorphone HCl Allergy Itching Verified 11/16/16 20:50 [From Dilaudid] NSAIDS (Non-Steroidal Allergy Anaphylaxis Verified 11/16/16 20:50 Anti-Inflamma omeprazole Allergy Anaphylaxis Verified 11/16/16 20:50 Review of Systems ROS Other: All systems not noted in ROS Statement are negative. <Blake Manjarrez - Last Filed: 11/16/16 23:03> ROS Other: All systems not noted in ROS Statement are negative. <Jenelle Lamaily - Last Filed: 11/17/16 04:02> ROS Statement: Those systems with pertinent positive or pertinent negative responses have been documented in the HPI. Past Medical History Past Medical History: Fibromyalgia Additional Past Medical History / Comment(s): diverticulosis; Bowel obstruction History of Any Multi-Drug Resistant Organisms: None Reported Past Surgical History: Appendectomy, Bowel Resection, Hysterectomy, Orthopedic Surgery Additional Past Surgical History / Comment(s): Tibia Fracture Repair 1993, colostomy Past Anesthesia/Blood Transfusion Reactions: No Reported Reaction Past Psychological History: No Psychological Hx Reported Additional Psychological History / Comment(s): lives with family home with the . She's never day smoker but no severe alcohol use. Employed at [employer]. No recent travels. No experience related. no animal exposures related Smoking Status: Never smoker Past Alcohol Use History: Daily Past Drug Use History: None Reported - Past Family History Father History Unknown: Yes Additional Family Medical History / Comment(s): Heart disease Mother History Unknown: Yes Additional Family Medical History / Comment(s): heart disease, mothers father had problems with stomach. Maternal grandmother of CHF. <Jenelle Laamily - Last Filed: 11/17/16 04:02> General Exam <Blake Manjarrez - Last Filed: 11/16/16 23:03> Limitations: no limitations General appearance: alert, in no apparent distress Head exam: Present: atraumatic, normocephalic, normal inspection Eye exam: Present: normal appearance, PERRL, EOMI. Absent: scleral icterus, conjunctival injection, periorbital swelling ENT exam: Present: normal exam, mucous membranes moist Neck exam: Present: normal inspection. Absent: tenderness, meningismus, lymphadenopathy Respiratory exam: Present: normal lung sounds bilaterally. Absent: respiratory distress, wheezes, rales, rhonchi, stridor Cardiovascular Exam: Present: regular rate, normal rhythm, normal heart sounds. Absent: systolic murmur, diastolic murmur, rubs, gallop, clicks GI/Abdominal exam: Present: soft, distended, tenderness (Epigastric tenderness.) , normal bowel sounds, other (Evidence of colostomy that over the left mid quadrant. Patient is vomiting throughout exam.). Absent: guarding, rebound, rigid Extremities exam: Present: normal inspection, full ROM, normal capillary refill. Absent: tenderness, pedal edema, joint swelling, calf tenderness Back exam: Present: normal inspection Neurological exam: Present: alert, oriented X3, CN II-XII intact Psychiatric exam: Present: normal affect, normal mood Skin exam: Present: warm, dry, intact, normal color. Absent: rash <Deena Lama - Last Filed: 11/17/16 04:02> - General Exam Comments Initial Comments: Ill-appearing 61-year-old female. (Deena Lama) Medical Decision Making - Lab Data Result diagrams: 11/16/16 21:35 11/16/16 21:35 <Blake Manjarrez - Last Filed: 11/16/16 23:03> - Lab Data Result diagrams: 11/16/16 21:35 11/16/16 21:35 <Deena Lama - Last Filed: 11/17/16 04:02> - Medical Decision Making Medical decision making; the patient be admitted to Dr. Flannery for further evaluation, kept nothing by mouth, rehydrated. Patient is currently refusing an NG tube. Dr. Manjarrez (Blake Manjarrez) Patient is a 61-year-old female with history of bowel obstructions presenting with 1 day of vomiting. Patient concerned she has a squared bowel obstruction. Patient is given IV Dilaudid and Zofran. She reports that her pain and symptoms resolved. I discussed the patient's x-ray shows that she has ileus. She recently had a CAT scan 2 weeks ago, and refuses a second CAT scan at this time.. She also refused a nasogastric tube. Patient lab work is showing no significant abnormalities. Patient will be admitted with consult with Dr. Tod richard for small bowel obstruction versus ileus. Patient Nothing by mouth by mouth and placed on D5 for 5 fluids. (Deena Lama) - Lab Data Lab Results 11/16/16 11/16/16 Range/Units 21:35 21:35 WBC 9.5 (3.8-10.6) k/uL RBC 4.85 (3.80-5.40) m/uL Hgb 15.2 (11.4-16.0) gm/dL Hct 43.8 (34.0-46.0) % MCV 90.2 (80.0-100.0) fL MCH 31.2 (25.0-35.0) pg MCHC 34.6 (31.0-37.0) g/dL RDW 13.2 (11.5-15.5) % Plt Count 402 (150-450) k/uL Neutrophils % 83 % Lymphocytes % 11 % Monocytes % 3 % Eosinophils % 1 % Basophils % 0 % Neutrophils # 7.9 H (1.3-7.7) k/uL Lymphocytes # 1.0 (1.0-4.8) k/uL Monocytes # 0.3 (0-1.0) k/uL Eosinophils # 0.1 (0-0.7) k/uL Basophils # 0.0 (0-0.2) k/uL Sodium 132 L (137-145) mmol/L Potassium 4.9 (3.5-5.1) mmol/L Chloride 101 (98-107) mmol/L Carbon Dioxide 21 L (22-30) mmol/L Anion Gap 10 mmol/L BUN 11 (7-17) mg/dL Creatinine 0.65 (0.52-1.04) mg/dL Est GFR (MDRD) Af Amer >60 (>60 ml/min/1.73 sqM) Est GFR (MDRD) Non-Af >60 (>60 ml/min/1.73 sqM) Glucose 112 H (74-99) mg/dL Calcium 10.6 H (8.4-10.2) mg/dL Total Bilirubin 1.0 (0.2-1.3) mg/dL AST 27 (14-36) U/L ALT 20 (9-52) U/L Alkaline Phosphatase 70 (38-126) U/L Total Protein 8.0 (6.3-8.2) g/dL Albumin 4.7 (3.5-5.0) g/dL Amylase 37 (30-110) U/L Lipase 89 (23-300) U/L Disposition <Blake Manjarrez - Last Filed: 11/16/16 23:03> Time of Disposition: 23:05 <Deena Lama - Last Filed: 11/17/16 04:02> Clinical Impression: Vomiting, Ileus Disposition: ADMITTED IP TO THIS HOSP Condition: Stable
[2016-11-16] MEDS ORDERED: SODIUM CHLORIDE 0.9% 1,000 ML IV SCH (22:45)
[2016-11-16] MEDS ORDERED: NALOXONE 0.4 MG/ML 1 ML VIAL IV PRN (23:05)
[2016-11-16] MEDS ORDERED: MORPHINE ORAL SOLN 10 MG/5 ML CUP PO PRN (23:05)
[2016-11-17] MEDS: DEXTROSE 5%-0.45% NACL 1,000 ML IV SCH ×3 (00:38→17:13)
[2016-11-17 00:52] LABS: Appearance,Urine Clear (Clear); Bilirubin,Urine Negative (Negative); Glucose,Urine (UA) Negative (Negative); Ketones,Urine 1+ (Negative); Leukocyte Esterase,Urine Trace (Negative); Mucus,Urine Rare /hpf; Nitrite,Urine Negative (Negative); PH, Urine 6.5 (5.0-8.0); Particle Count 2777; Protein,Urine Trace (Negative); RBC,Urine 2 /hpf (0-5); Specific Gravity,Urine 1.014 (1.001-1.035); Squamous Epithelial Cell,Urine 1 /hpf (0-4); UA Billing (MACRO vs. MICRO) MICRO; Urobilinogen,Urine <2.0 mg/dL (<2.0); WBC,Urine 2 /hpf (0-5)
[2016-11-17] MEDS: LORazepam 2 MG/ML SYRINGE IV PRN ×2 (00:54→06:57)
[2016-11-17] MEDS: ONDANSETRON 4 MG/2 ML VIAL IVP PRN ×2 (04:05→10:51)
[2016-11-17] MEDS: HYDROmorphone 1 MG/ML 1 ML SYRINGE IV PRN ×3 (04:05→10:52)
[2016-11-17] MEDS: diphenhydrAMINE 50 MG/ML 1 ML VIAL IVP PRN ×2 (04:05→10:52)
[2016-11-17] MEDS ORDERED: Acetaminophen-Codeine 300-30mg TAB PO PRN (12:00)
[2016-11-17] MEDS ORDERED: MAGNESIUM HYDROXIDE 2,400 MG/10 ML CUP PO PRN (12:00)
[2016-11-17] MEDS ORDERED: ONDANSETRON 4 MG TAB PO PRN (12:00)
[2016-11-17] MEDS ORDERED: CARISOPRODOL 350 MG TAB PO PRN (12:00)
[2016-11-17] MEDS ORDERED: HYDROmorphone 1 MG/ML 1 ML SYRINGE IVP PRN (12:02)
--- NOTE | 2016-11-17 12:18 | P.GSHP ---
History of Present Illness H&P Date: 11/17/16 Chief Complaint: Abdominal pain 61-year-old female presented to the emergency room to be evaluated for chief complaint of developing nausea vomiting. Patient states that she's been maintained on a high protein diet had been following it. Patient reports that she did have a chicken sandwich the day before coming into the emergency room after that had developed inability to keep anything down. Patient stated that she felt dehydrated and was developing mid epigastric abdominal discomfort. There was no fever chills. There was no urinary symptoms no burning on urination frequency urgency. There was no movement of the ostomy in the emergency room the patient did have a KUB did show 4.4 cm dilatation of several loops of the small bowel with air fluid levels suggesting persistent small bowel ileus versus an obstruction patient was just hospitalized and discharged on November 04 at that time the patient was being treated for nausea vomiting and inability keep fluids down with diffuse abdominal pain felt to be due to small bowel obstruction. Patient that admission had diffuse abdominal pain with cramping it was suspected due to possible small bowel obstruction suspected due to license of adhesions. Patient has a history of a sigmoid resection with a colostomy done on 05/19/2016 due to diverticulitis with perforation. Patient since then for the last several months has had several readmissions for reoccurring abdominal pain suspect due to possible small bowel obstruction due to license of adhesions. On admission the abdomen is soft not distended bowel tones were present admission weight was 54.8 kg - Review of Systems Comment: Essentially unremarkable except as mentioned in the present illness Past Medical History Past Medical History: Fibromyalgia Additional Past Medical History / Comment(s): diverticulosis; Bowel obstruction History of Any Multi-Drug Resistant Organisms: None Reported Past Surgical History: Appendectomy, Bowel Resection, Hysterectomy, Orthopedic Surgery Additional Past Surgical History / Comment(s): Tibia Fracture Repair 1993, colostomy Past Anesthesia/Blood Transfusion Reactions: No Reported Reaction Past Psychological History: No Psychological Hx Reported Additional Psychological History / Comment(s): lives with family home with the . She's never day smoker but no severe alcohol use. Employed at [employer]. No recent travels. No experience related. no animal exposures related Smoking Status: Never smoker Past Alcohol Use History: Daily Past Drug Use History: None Reported - Past Family History Father History Unknown: Yes Additional Family Medical History / Comment(s): Heart disease Mother History Unknown: Yes Additional Family Medical History / Comment(s): heart disease, mothers father had problems with stomach. Maternal grandmother of CHF. Medications and Allergies Home Medications Medication Instructions Recorded Confirmed Type FLUoxetine HCL [PROzac] 60 mg PO QAM 10/09/16 11/16/16 History Carisoprodol [Soma] 350 mg PO BID PRN 10/24/16 11/16/16 History traZODone HCL [Desyrel] 100 mg PO HS 10/24/16 11/16/16 History Aspirin [Adult Low Dose Aspirin EC] 81 mg PO DAILY 11/17/16 11/17/16 History LORazepam [Ativan] 0.5 mg PO TID PRN 11/17/16 11/17/16 History Allergies Allergy/AdvReac Type Severity Reaction Status Date / Time hydromorphone HCl Allergy Itching Verified 11/16/16 20:50 [From Dilaudid] NSAIDS (Non-Steroidal Allergy Anaphylaxis Verified 11/16/16 20:50 Anti-Inflamma omeprazole Allergy Anaphylaxis Verified 11/16/16 20:50 Surgical - Exam Vital Signs Temp Pulse Resp BP Pulse Ox 97.8 F 84 20 191/110 99 11/16/16 18:45 11/16/16 18:45 11/16/16 18:45 11/16/16 18:45 11/16/16 18:45 GENERAL APPEARANCE: 61-year-old female patient is alert, oriented, in no acute distress. VITAL SIGNS: Reviewed HEENT: Head is normocephalic and atraumatic. Pupils are equal and reactive. The nares are patent. Oropharynx is clear without lesions. NECK: Supple without lymphadenopathy. Traches midline. HEART: S1, S2. Regular rate and rhythm. No murmur noted denying chest pain LUNGS: No crackles or wheezes are heard. Essentially clear adequate air movement on room air ABDOMEN: Soft, slight diffuse tenderness an ostomy left lower quadrant stoma pink no stool in the ostomy bag, nondistended with good bowel sounds. No peritoneal signs. No palpable organomegaly or masses. Urinating no difficulty reports no nausea no emesis EXTREMITIES: Normal skin color and turgor. No cyanosis, rash, ulceration, clubbing or edema. Radial pedal pulses are 2/4 bilaterally. NEUROLOGICAL: No focal deficits. Strength and sensation are grossly intact. Results - Labs 11/16/16 21:35 11/16/16 21:35 Abnormal Lab Results - Last 24 Hours (Table) 11/17/16 Range/Units 00:30 Urine Protein Trace H (Negative) Urine Ketones 1+ H (Negative) Ur Leukocyte Esterase Trace H (Negative) Urine Mucus Rare H (None) /hpf Assessment and Plan Plan: Impression Present on admission diffuse abdominal pain with nausea vomiting abdominal cramping suspect due to possible early small bowel obstruction due to license of adhesions Reoccurring admission for abdominal pain suspect due to partial small bowel obstruction due to license of adhesions History of sigmoid resection with a colostomy 05/19/2016 due to diverticulitis with perforation Chronic pain Depressive anxiety disorder nonspecified Underweight suspect due to poor caloric intake suspect mild protein calorie malnutrition with muscle wasting due to poor caloric intake due to chronic illness Plan Nothing by mouth except ice chips and popsicles Check a prealbumin and albumin level PICC line for TPN for the next 2 weeks prior to returning for reversal of ostomy for nutritional support Consult nutritional support to initiate TPN Resume home meds as appropriate DVT and GI prophylaxis Further recommendations pending The above dictated assessment and findings were discussed with dr ashlee Marie and the plan of care have been dictated as directed. [place] Jameson nurse practitioner acting as a scribe for dr rosado
[2016-11-17 12:33] LABS: Phosphorous 3.3 mg/dL (2.5-4.5)
[2016-11-17] MEDS: LORazepam 0.5 MG TAB PO PRN (15:00)
[2016-11-17 16:12] LABS: Ionized Calcium 5.4 mg/dL (4.5-5.3)
[2016-11-17 16:13] LABS: ALT 25 U/L (9-52); AST 18 U/L (14-36); Alkaline Phosphatase 51 U/L (38-126); Anion Gap 8 mmol/L; Blood Urea Nitrogen 6 mg/dL (7-17); Carbon Dioxide 24 mmol/L (22-30); Chloride 105 mmol/L (98-107); Glucose 93 mg/dL (74-99); Non-African American GFR(MDRD) >60 (>60 ml/min/1.73 sqM); Phosphorous 3.4 mg/dL (2.5-4.5); Potassium 4.4 mmol/L (3.5-5.1); Sodium 137 mmol/L (137-145); Total Bilirubin 0.6 mg/dL (0.2-1.3); Total Protein 6.1 g/dL (6.3-8.2); Triglycerides 86 mg/dL (<150)
[2016-11-17] MEDS ORDERED: MVI, ADULT NO.4 WITH VIT K 10 ML, TRACE (CONC-1ML/DOSE) 1 ML in AMINO ACID 4.25%-D10W+L... IV ONE ×3 (17:00)
[2016-11-17] MEDS: MORPHINE SULFATE 2 MG/ML SYRINGE IVP PRN (20:44)
[2016-11-17] MEDS: FAMOTIDINE 20 MG TAB PO SCH (21:01)
[2016-11-17] MEDS: traZODone HCL 100 MG TAB PO SCH (21:01)
[2016-11-18 00:35] LABS: Glucose,Whole Blood 88 mg/dL (75-99)
[2016-11-18 06:05] LABS: Glucose,Whole Blood 120 mg/dL (75-99)
[2016-11-18] MEDS: FAMOTIDINE 20 MG TAB PO SCH ×2 (07:14→23:39)
[2016-11-18] MEDS: FLUoxetine HCL 20 MG CAP PO SCH (07:14)
[2016-11-18] MEDS: MORPHINE SULFATE 2 MG/ML SYRINGE IVP PRN ×4 (07:36→21:10)
[2016-11-18] MEDS: ONDANSETRON 4 MG/2 ML VIAL IVP PRN ×2 (07:58→15:13)
[2016-11-18 08:07] LABS: Basophils % (A) 1 %; CH 31.3; CHCM 33.5; Eosinophils # (A) 0.4 k/uL (0-0.7); Eosinophils % (A) 5 %; HCT 43.4 % (34.0-46.0); HDW 2.35; HGB 13.8 gm/dL (11.4-16.0); Luc # (Auto) 0.16; Luc % (Auto) 2; Lymphocytes # (A) 1.5 k/uL (1.0-4.8); Lymphocytes % (A) 18 %; MCH 29.8 pg (25.0-35.0); MCHC 31.7 g/dL (31.0-37.0); MCV 94.1 fL (80.0-100.0); Mean Platelet Volume 6.8; Monocytes # (A) 0.5 k/uL (0-1.0); Monocytes % (A) 7 %; Neutrophils # (A) 5.4 k/uL (1.3-7.7); Neutrophils % (A) 68 %; RBC 4.62 m/uL (3.80-5.40); RDW 13.2 % (11.5-15.5); WBC (Perox) 8.55
[2016-11-18 08:27] LABS: ALT 20 U/L (9-52); AST 20 U/L (14-36); Alkaline Phosphatase 53 U/L (38-126); Anion Gap 8 mmol/L; Blood Urea Nitrogen 8 mg/dL (7-17); Calcium 9.3 mg/dL (8.4-10.2); Carbon Dioxide 24 mmol/L (22-30); Chloride 105 mmol/L (98-107); Glucose 94 mg/dL (74-99); Magnesium 2.2 mg/dL (1.6-2.3); Non-African American GFR(MDRD) >60 (>60 ml/min/1.73 sqM); Phosphorous 3.5 mg/dL (2.5-4.5); Potassium 4.7 mmol/L (3.5-5.1); Sodium 137 mmol/L (137-145); Total Bilirubin 0.8 mg/dL (0.2-1.3); Total Protein 6.6 g/dL (6.3-8.2)
[2016-11-18] MEDS ORDERED: IV FLUID CONTINUATION 1,000 ML IV ONE (09:30)
[2016-11-18] MEDS: LIDOCAINE 2% INJ 20 MG/ML SQ ONE ×3 (09:50→10:02)
[2016-11-18] MEDS: ASPIRIN 81 MG CHEW PO SCH (10:48)
[2016-11-18] MEDS: LORazepam 0.5 MG TAB PO PRN (10:48)
[2016-11-18] MEDS ORDERED: 1: MVI, ADULT NO.4 WITH VIT K 10 ML, TRACE (CONC-1ML/DOSE) 1 ML in AMINO ACID 4.25%-D10W IV SCH ×3 (11:00)
--- NOTE | 2016-11-18 11:06 | P.PN ---
Subjective 61-year-old female being seen this morning on rounds patient continues to report having diffuse abdominal discomfort with cramping"it's not gotten any worse. There is been no movement from the ostomy .patient is teary-eyed "I don' t know why I can have the surgery next week I don't think I can tolerate this at home. PICC line has been started TPN has been initiated for nutritional support patient is been maintained on clear liquid diet with sips only Objective - Vital Signs Vital signs: Vital Signs Temp 98.0 F 11/18/16 10:41 Pulse 72 11/18/16 10:41 Resp 16 11/18/16 10:41 BP 134/75 11/18/16 10:41 Pulse Ox 95 11/18/16 10:41 Intake & Output 11/17/16 11/18/16 11/18/16 18:59 06:59 18:59 Intake Total 960 550 Output Total 0 0 0 Balance 960 550 0 Weight 54.885 kg 57 kg 57 kg Intake: IV 960 450 Dextrose 5%-0.45% NaCl 1, 960 000 ml @ 120 mls/hr IV . Q8H20M [facility] Rx#:[id number] Mvi, Adult No.4 with Vit 450 K 10 ml Trace (Conc-1Ml/ Dose) 1 ml In Amino Acid 4.25%-D10w+Lytes*E* 1,000 ml @ 50 mls/hr IV . [id number] [facility] Rx#:[id number] Oral 100 Output: Emesis 0 0 0 Other: Voiding Method Toilet Toilet # Voids 5 1 1 # Bowel Movements 0 - Exam physical exam 61-year-old female resting in bed oriented 3 patient is teary-eyed states feels anxious the abdominal pain has not resolved states anxious to have the surgery done sooner than later this been no noted improvement in the abdominal pain lungs essentially clear with adequate air movement on room air Heart S1-S2 audible and regular Abdomen diffuse tenderness across the abdominal wall ostomy left lower quadrant bowel tones present 4 states urinating no difficulty not distended Extremities no edema noted - Labs CBC & Chem 7: 11/18/16 07:36 11/18/16 07:36 Labs: Abnormal Lab Results - Last 24 Hours (Table) 11/17/16 11/17/16 11/18/16 Range/Units 12:13 15:40 06:02 BUN 6 L (7-17) mg/dL POC Glucose (mg/dL) 120 H (75-99) mg/dL Ionized Calcium Jeremy 5.4 H (4.5-5.3) mg/dL Total Protein 6.1 L (6.3-8.2) g/dL HDL Cholesterol 72 H (40-60) mg/dL Assessment and Plan Plan: Impression Present on admission diffuse abdominal pain with nausea vomiting abdominal cramping suspect due to possible early small bowel obstruction due to license of adhesions Reoccurring admission for abdominal pain suspect due to partial small bowel obstruction due to license of adhesions History of sigmoid resection with a colostomy 05/19/2016 due to diverticulitis with perforation Chronic pain Depressive anxiety disorder nonspecified Underweight suspect due to poor caloric intake suspect mild protein calorie malnutrition with muscle wasting due to poor caloric intake due to chronic illness Plan Nothing by mouth except ice chips and popsicles upper GI with small bowel follow-through now PICC line for TPN pain control Resume home meds as appropriate DVT and GI prophylaxis Further recommendations pending The above dictated assessment and findings were discussed with dr rosado Impression and the plan of care have been dictated as directed. [place] Jameson nurse practitioner acting as a scribe for dr rosado
[2016-11-18 11:56] LABS: Glucose,Whole Blood 104 mg/dL (75-99)
[2016-11-18] MEDS: MVI, ADULT NO.4 WITH VIT K 10 ML, TRACE (CONC-1ML/DOSE) 1 ML in AMINO ACID 5%-D25W+LYTE... IV SCH ×3 (12:38)
[2016-11-18] MEDS ORDERED: RX INFO: IV CONTRAST WAS GIVEN 1 EACH MISC MISCELLANE PRN (13:10)
--- NOTE | 2016-11-18 13:29 | IR ---
EXAMINATION TYPE: IR cvc insert >=5 years DATE OF EXAM: 11/18/2016 10:25 AM COMPARISON: NONE CLINICAL HISTORY: Status post bowel surgery, needs TPN PROCEDURE: After informed consent, the skin overlying the right basilic vein was localized with ultrasound and n oted to be compressible and patent. An ultrasound image was obtained and submitted on the patient's chart. The overlying skin was prepped and draped and Lidocaine was used for local anesthesia. A ski n pramod was made with a scalpel. Access was gained to the vein under ultrasound guidance with a 21 ga uge needle and a 0.018 inch wire was advanced. Access site was dilated with Peel-Away sheath and cat heter tailored to the appropriate length and advanced but could not be advanced likely due to a venou s stenosis. Exam was aborted on the right and subsequently the procedure was performed overlying a le ft brachial vein using similar technique. The vein is noted be compressible and patent by ultrasound, an ultrasound image was obtained and submitted on the patient's chart. The skin overlying was preppe d and draped, lidocaine used for local anesthesia. Skin pramod made with a scalpel. Access was gained t o the vein under direct ultrasound guidance with a 21-gauge needle and a 0.018 inch wire was advanced . Access site was dilated with peel-away sheath and catheter tailored to the appropriate length and a dvanced centrally such that the tip is at the cavoatrial junction. Spot image was obtained verifying placement. Catheter was fixed to the skin with suture and a sterile dressing was placed following he mostasis. Catheter was aspirated and flushed with saline. Patient was discharged in stable conditio n without complication. Maximal barrier technique is utilized. Ultrasound image is documented on e chart. Ultrasound used with sterile technique. Fluoro time and fluoroscopic images submitted to document procedure: 2 minutes fluoroscopy time, 83 i ntraoperative C-arm images document the procedure IMPRESSION: STATUS POST ULTRASOUND AND FLUOROSCOPIC GUIDED PICC LINE PLACEMENT, READY FOR USE. THIS PROCEDURE WAS PERFORMED BY THE UNDERSIGNED.
[2016-11-18] MEDS: IOHEXOL 350 MG/ML 25 ML BOTTLE (ORAL USE) PO PRN ×2 (16:11→17:20)
[2016-11-18] MEDS: FAT EMULSION 20% 250 ML in EMPTY BAG 1 BAG IV SCH (16:43)
[2016-11-18 17:39] LABS: Glucose,Whole Blood 106 mg/dL (75-99)
[2016-11-18] MEDS ORDERED: HYDROmorphone 1 MG/ML 1 ML SYRINGE IVP PRN (22:22)
--- NOTE | 2016-11-18 23:07 | CT ---
EXAMINATION TYPE: CT abdomen pelvis w con DATE OF EXAM: 11/18/2016 6:36 PM COMPARISON: October 26, 2016 HISTORY: Generalized pain with nausea CT DLP: 877.7 mGycm. Automated exposure control for dose reduction was used. TECHNIQUE: Helical acquisition of images was performed from the lung bases through the pelvis. CONTRAST: Performed without Oral Contrast and with IV Contrast, patient injected with 100 mL of Omnipaque 300. FINDINGS: LUNG BASES: No significant abnormality is appreciated. LIVER/GB: No significant abnormality is appreciated. PANCREAS: No significant abnormality is seen. SPLEEN: No significant abnormality is seen. ADRENALS: No significant abnormality is seen. KIDNEYS: No significant abnormality is seen. RETROPERITONEAL ADENOPATHY: None visualized REPRODUCTIVE ORGANS: No significant abnormality is seen URINARY BLADDER: No significant abnormality is seen. PELVIC ADENOPATHY: None visualized. OSSEOUS STRUCTURES: No significant abnormality is seen. BOWEL: There are fewer bowel loops that are distended on today's study and the mean diameter dilation is less than the prior study. There is no pneumatosis. No pneumoperitoneum. IMPRESSION: MILD INTERVAL IMPROVEMENT IN THE PARTIAL SMALL BOWEL OBSTRUCTION.
[2016-11-18] MEDS: LORazepam 2 MG/ML SYRINGE IV PRN (23:10)
[2016-11-18] MEDS: traZODone HCL 100 MG TAB PO SCH (23:39)
--- NOTE | 2016-11-18 23:49 | P.PN ---
Progress Note - Text Patient is well-known to Dr. Baron as she is scheduled to undergo colostomy reversal. In the last 4 weeks, she has been hospitalized at least 3 times secondary to abdominal pain and bowel obstruction. She was scheduled for discharge, but the patient refused to go home. She is requesting surgical intervention now for a colostomy reversal. Incidentally, her operating surgeon is now out of town. I did discuss with her that as she is tolerating liquids and is on TPN, urgent surgical intervention at this point is deferred preferably until Dr. Baron returns.
[2016-11-19 01:17] LABS: Glucose,Whole Blood 170 mg/dL (75-99)
[2016-11-19] MEDS: ONDANSETRON 4 MG/2 ML VIAL IVP PRN ×2 (04:10→21:23)
[2016-11-19] MEDS: LORazepam 2 MG/ML SYRINGE IV PRN ×3 (05:12→18:24)
[2016-11-19 06:15] LABS: Glucose,Whole Blood 168 mg/dL (75-99)
[2016-11-19 07:57] LABS: Anion Gap 14 mmol/L; Blood Urea Nitrogen 13 mg/dL (7-17); Calcium 9.9 mg/dL (8.4-10.2); Carbon Dioxide 22 mmol/L (22-30); Chloride 102 mmol/L (98-107); Glucose 175 mg/dL (74-99); Magnesium 2.3 mg/dL (1.6-2.3); Non-African American GFR(MDRD) >60 (>60 ml/min/1.73 sqM); Phosphorous 3.5 mg/dL (2.5-4.5); Potassium 4.2 mmol/L (3.5-5.1); Sodium 138 mmol/L (137-145)
[2016-11-19] MEDS: MVI, ADULT NO.4 WITH VIT K 10 ML, TRACE (CONC-1ML/DOSE) 1 ML in AMINO ACID 5%-D25W+LYTE... IV SCH ×3 (08:15)
[2016-11-19] MEDS: FAMOTIDINE 20 MG TAB PO SCH (08:29)
[2016-11-19] MEDS: ASPIRIN 81 MG CHEW PO SCH (08:29)
[2016-11-19] MEDS: FLUoxetine HCL 20 MG CAP PO SCH (08:30)
[2016-11-19] MEDS: MORPHINE SULFATE 2 MG/ML SYRINGE IVP PRN ×4 (11:01→23:57)
--- NOTE | 2016-11-19 11:09 | XR ---
EXAMINATION TYPE: XR abdomen 2V DATE OF EXAM ORDERED: 11/19/2016 10:54 AM HISTORY: bowel obstruction. COMPARISON: Previous study dated 11/16/[address] dated 11/18/2016. FINDINGS: NG tube is been passed. Its tip is in the stomach. There is contrast material in the small bowel and also in the bladder. No definite colonic contrast i s visualized. There is worsening dilatation of the small bowel. Largest loop now measures 4.9 cm. Is no evidence of free air. There are numerous air-fluid levels. IMPRESSION: WORSENING SMALL BOWEL OBSTRUCTION.
[2016-11-19 12:09] LABS: Glucose,Whole Blood 162 mg/dL (75-99)
[2016-11-19] MEDS: LACTATED RINGERS 1,000 ML IV SCH (14:23)
--- NOTE | 2016-11-19 14:39 | P.PN ---
Subjective Principal diagnosis: Bowel obstruction The patient is a 61-year-old female of Dr. Baron who comes in on her third admission for abdominal pain including bowel obstruction. She had a CT of the abdomen and pelvis earlier which showed some improvement of obstruction however yesterday after her CT scan, she started to develop increasing abdominal pain. This morning she is having emesis which is dark. Nasogastric tube has been placed. She reports her abdominal pain has not improved. Separately she had been scheduled for colostomy reversal in 2-3 weeks. She has not had a cardiac risk assessment nor preoperative workup Given the severity of her obstruction including abdominal pain, her hospitalization continues. Her is at bedside with questions. Objective - Vital Signs Vital signs: Vital Signs Temp 98.6 F 11/19/16 07:00 Pulse 78 11/19/16 07:00 Resp 18 11/19/16 07:00 BP 158/79 11/19/16 07:00 Pulse Ox 95 11/19/16 07:00 Intake & Output 11/18/16 11/19/16 11/19/16 18:59 06:59 18:59 Intake Total 980.833 Output Total 0 125 Balance 0 855.833 Weight 57 kg 60.5 kg Intake: Intake, IV Titration 980.833 Amount Mvi, Adult No.4 with Vit 980.833 K 10 ml Trace (Conc-1Ml/ Dose) 1 ml In Amino Acid 5%-D25w+Lytes*E* 1,000 ml @ 50 mls/hr IV .[id number] [facility] Rx#:[id number] Output: Gastric Drainage 125 Emesis 0 Other: Voiding Method Toilet Toilet Toilet # Voids 1 - Exam GENERAL: Well developed and in no acute distress. Pleasant. HEENT: No sclera icterus. Extraocular movements grossly intact. Moist buccal mucosa. Head is atraumatic, normocephalic. Hears conversational speech. No nasal drainage. NECK: Supple without lymphadenopathy. No JV distention. Nasogastric tube present CHEST: Non-labored respirations and equal bilateral excursions. CARDIOVASCULAR: Regular rate and rhythm. Palpable 2+ radial pulses. ABDOMEN: Soft, tender. Mildly distended. Some flatus in ostomy bag. No stool in Coloplast. MUSCULOSKELETAL: No clubbing, cyanosis or edema. NEUROLOGIC: No focal or lateralizing signs. PSYCH: Appropriate affect. Alert and oriented to person, place and time. - Labs CBC & Chem 7: 11/18/16 07:36 11/19/16 07:04 Labs: Abnormal Lab Results - Last 24 Hours (Table) 11/18/16 11/19/16 11/19/16 Range/Units 17:26 01:14 06:14 Glucose (74-99) mg/dL POC Glucose (mg/dL) 106 H 170 H 168 H (75-99) mg/dL 11/19/16 11/19/16 Range/Units 07:04 12:04 Glucose 175 H (74-99) mg/dL POC Glucose (mg/dL) 162 H (75-99) mg/dL - Imaging and Cardiology CT scan - abdomen: report reviewed, image reviewed CT scan - pelvis: report reviewed, image reviewed Assessment and Plan (1) Small bowel obstruction due to adhesions Status: Acute (2) Nausea and vomiting Status: Acute (3) Colostomy status Status: Acute (4) Inadequate dietary intake of protein Status: Acute Plan: 1. I have answered the patient and her 's questions with regards to repeated admissions and progressive nature of her bowel obstruction. As her obstruction and abdominal pain has not improved, I recommend continued hospitalization. Likely she will need surgical intervention upon this admission. 2. In the interim, she reports not having a previous cardiac workup. I have consulted the medicine team for medical risk assessment. Should her EKG be remarkable for abnormalities, then she would need further cardiac risk assessment. 3. She reports not having a previous colonoscopy for which the risks for malignancy has not been excluded. Recommend colonoscopy through her ostomy and rectum for preoperative workup. 4. Continue with TPN. 5. With a history of diverticulitis, will consult urology for possible stent placement regarding colostomy reversal while inpatient. 6. DVT prophylaxis. 7. Recommend pulmonary toilet. 8. Her abdominal x-ray was been obtained and reviewed demonstrating persistent obstruction and surgical intervention is imminent.
[2016-11-19] MEDS ORDERED: INSULIN LISPRO (humaLOG) 300 UNIT/3 ML VIAL SQ SCH (16:00)
--- NOTE | 2016-11-19 17:01 | CONS ---
DATE OF CONSULTATION: REASON FOR CONSULTATION: Preoperative clearance. The patient is a 61-year-old came in with bowel obstruction, this is the third admission for partial small bowel obstruction. Patient has worsening bowel obstruction. Patient may require surgery, patient does not have any cardiac risk factors. Patient is not a smoker. Patient's functional status is greater than 4 mets. The patient was known to me from her previous admissions and patient is low operative risk for surgery although we obtained an EKG which showed some nonspecific ST-T wave changes. These are mostly junctional in origin. I do not believe it is ischemic in nature. The patient on clinical exam, does not appear to have does not appear to have murmurs but with these nonspecific ST-T wave changes, I will go ahead and obtain echocardiogram to make sure there are no other ( ) abnormalities or alveolar abnormalities. Patient is still having quite a bit of drainage from NG tube. Patient is on TPN because of her multiple hospitalization because TPN that was started by surgery, and patient does have dilated loops on today's x-ray and significantly dilated loops with worsening small bowel obstruction. Patient may need operative intervention and patient is getting quite a bit of drainage from the NG tube because of which I also started her on lactated Ringer's additionally with TPN which is going on at 50 mL/h. REVIEW OF SYSTEMS: CONSTITUTIONAL: No fever, no malaise, no fatigue. HEENT: No recent visual problems or hearing problems. Denied any sore throat. CARDIOVASCULAR: No chest pain, orthopnea, PND, no palpitations, no syncope. PULMONARY: No shortness of breath, no cough, no hemoptysis. GASTROINTESTINAL: as described in HPI. NEUROLOGICAL: No headaches, no weakness, no numbness. HEMATOLOGICAL: Denies any bleeding or petechiae. GENITOURINARY: Denies any burning micturition, frequency, or urgency. MUSCULOSKELETAL/RHEUMATOLOGICAL: Denies any joint pain, swelling, or any muscle pain. ENDOCRINE: Denies any polyuria or polydipsia. The rest of the 14 point review of systems is negative. Home medications include: 1. Lorazepam. 2. Aspirin. 3. Trazodone. 4. Ondansetron. 5. Magnesium oxide. 6. Fluoxetine. 7. ( ). The patient is on: 1. Zofran here. 2. Lorazepam here. 3. Fluoxetine here, although she may not be getting fluoxetine because of NG tube drainage and small bowel obstruction. PAST MEDICAL HISTORY: Significant for fibromyalgia, depression, diverticulosis, bowel obstruction. Patient has a hysterectomy, appendectomy in the past. Bowel resection surgery in the past. SOCIAL HISTORY: Denied any smoking, alcohol abuse or any drug abuse. FAMILY HISTORY: Father had heart disease, mother had heart disease and heart problems, grandmother of congestive heart failure. PHYSICAL EXAMINATION: VITAL SIGNS: Temperature 98.6, pulse of 76, respiratory rate of 18, blood pressure 158/70, saturating at 95% on room air. GENERAL: The patient is alert and oriented x3, not in any acute distress. Well developed, well nourished. HEENT: Pupils are round and equally reacting to light. EOMI. No scleral icterus. No conjunctival pallor. Normocephalic, atraumatic. No pharyngeal erythema. No thyromegaly. CARDIOVASCULAR: S1 and S2 present. No murmurs, rubs, or gallops. PULMONARY: Chest is clear to auscultation, no wheezing or crackles. ABDOMEN: Patient's abdomen is soft, but distended, sluggish bowel sounds. The patient has an NG tube which is draining. MUSCULOSKELETAL: No joint swelling or deformity. EXTREMITIES: No cyanosis, clubbing, or pedal edema. NEUROLOGICAL: Gross neurological examination did not reveal any focal deficits. SKIN: No rashes. LABORATORY DATA: Basic metabolic profile is essentially within normal limits and CBC also within normal limits. ASSESSMENT AND PLAN: 1. Partial small bowel obstruction management as per primary service. 2. Preoperative clearance. Patient is low operative risk for surgery because of some nonspecific ST-T wave changes I will obtain echocardiogram because of above-mentioned reasons. 3. Depression. 4. Anxiety disorder. 5. IV fluid management as mentioned above. 6. Fibromyalgia. PLAN: As mentioned above, patient as mentioned above is low operative risk for laparotomy. Thank you for letting me participate in this patient's care.
[2016-11-19] MEDS: METOCLOPRAMIDE 5 MG/ML 2 ML VIAL IVP SCH (17:49)
[2016-11-19 18:15] LABS: Glucose,Whole Blood 151 mg/dL (75-99)
[2016-11-19] MEDS: INSULIN LISPRO (humaLOG) 300 UNIT/3 ML VIAL SQ SCH (18:19)
[2016-11-20 00:26] LABS: Glucose,Whole Blood 150 mg/dL (75-99)
[2016-11-20] MEDS: INSULIN LISPRO (humaLOG) 300 UNIT/3 ML VIAL SQ SCH ×4 (00:30→17:45)
[2016-11-20] MEDS: METOCLOPRAMIDE 5 MG/ML 2 ML VIAL IVP SCH ×5 (00:30→23:58)
[2016-11-20] MEDS: LORazepam 2 MG/ML SYRINGE IV PRN ×3 (01:57→18:02)
[2016-11-20] MEDS: LACTATED RINGERS 1,000 ML IV SCH ×2 (03:34→17:45)
[2016-11-20] MEDS: MORPHINE SULFATE 2 MG/ML SYRINGE IVP PRN ×4 (03:39→17:59)
[2016-11-20] MEDS: MVI, ADULT NO.4 WITH VIT K 10 ML, TRACE (CONC-1ML/DOSE) 1 ML in AMINO ACID 5%-D25W+LYTE... IV SCH ×3 (03:43)
[2016-11-20 05:59] LABS: Glucose,Whole Blood 147 mg/dL (75-99)
--- NOTE | 2016-11-20 07:24 | XR ---
EXAMINATION TYPE: XR chest 2V DATE OF EXAM ORDERED: 11/20/2016 7:19 AM HISTORY: fever. REFERENCE: None. FINDINGS: There is a left basilic PICC line in place. Its tip is in the superior vena cava. There is an NG tube in place. Is coiled in the stomach. The lungs are clear. Pleural spaces are clear. Heart size is normal. IMPRESSION: NORMAL CHEST.
[2016-11-20] MEDS: ONDANSETRON 4 MG/2 ML VIAL IVP PRN ×2 (08:39→17:50)
[2016-11-20 08:41] LABS: Ionized Calcium 4.9 mg/dL (4.5-5.3)
[2016-11-20 08:55] LABS: Anion Gap 14 mmol/L; Blood Urea Nitrogen 26 mg/dL (7-17); Carbon Dioxide 27 mmol/L (22-30); Chloride 98 mmol/L (98-107); Glucose 142 mg/dL (74-99); Magnesium 2.4 mg/dL (1.6-2.3); Non-African American GFR(MDRD) >60 (>60 ml/min/1.73 sqM); Phosphorous 4.5 mg/dL (2.5-4.5); Potassium 3.9 mmol/L (3.5-5.1); Sodium 139 mmol/L (137-145)
[2016-11-20 09:55] LABS: Appearance,Urine Cloudy (Clear); Bilirubin,Urine Negative (Negative); Glucose,Urine (UA) 1+ (Negative); Ketones,Urine Negative (Negative); Leukocyte Esterase,Urine Trace (Negative); Mucus,Urine Rare /hpf; Nitrite,Urine Negative (Negative); PH, Urine 5.5 (5.0-8.0); Particle Count 17097; Protein,Urine 1+ (Negative); RBC,Urine 3 /hpf (0-5); Specific Gravity,Urine 1.026 (1.001-1.035); Squamous Epithelial Cell,Urine 4 /hpf (0-4); UA Billing (MACRO vs. MICRO) MICRO; Urobilinogen,Urine <2.0 mg/dL (<2.0); WBC,Urine 8 /hpf (0-5)
--- NOTE | 2016-11-20 11:58 | CONS ---
DATE OF CONSULTATION: 11/20/2016 REASON FOR CONSULTATION: Placement of ureteral catheter at time of surgery. Patient is a 61-year-old female with a history of diverticulitis who developed a pelvic abscess from a perforated sigmoid diverticulum. which required colostomy, White's procedure and sigmoid colectomy in 04/2016. The patient has had difficulties with intermittent bowel obstruction over the last several weeks and was admitted on 11/16. Her original surgery was performed by Dr. Obregon but he is out of town. Dr. Ribeiro is assuming his care. Due to the persistence of the bowel obstruction, she is considering reversal of the colostomy sometime later in the week. Urologic consultation was requested for the purpose of placement of a left ureteral catheter or bilateral ureteral catheters at the time of surgery for aid in intraoperative localization of the ureters. The patient has no previous history of urologic disease. She has no history of gross hematuria or recurrent urinary tract infections. She usually voids every 2 to 3 hours during the day and once or twice at night. CT scan of the abdomen and pelvis on 11/18/2016 showed no abnormalities as far as the anatomy of the urinary system. Patient's past medical history is significant in regard to fibromyalgia. She had been taking fluoxetine, trazodone and soma, prior to admission. She has previously undergone appendectomy, vaginal hysterectomy and repair of a tibial fracture. She is allergic to NSAIDS which have caused anaphylaxis and to DILAUDID which has caused itching. No history of hypertension, diabetes, rheumatic fever, or tuberculosis. REVIEW OF SYSTEMS: No history of seizures, blackouts, asthma, chest pain with exertion, palpitations, heart murmur, ulcers, or rectal bleeding. SOCIAL HISTORY: patient is and currently smokes 1/2 pack per day. She has smoked for over 40 years. PHYSICAL EXAM: Reveals a well-developed, 61-year-old female who is alert and oriented. Afebrile. Blood pressure 167/96. HEENT: A nasogastric tube is in place. No supraclavicular or cervical adenopathy. ABDOMEN: There is a colostomy present in the left lower quadrant. Air is present in the colostomy bag. Patient has some mild diffuse abdominal pain to palpation. No masses palpable. Laboratory evaluation on 11/17 included BUN 8, creatinine 0.56. Urinalysis showed 2 red cells, 2 white cells and rare mucus. IMPRESSION: Partial small bowel obstruction - Most likely related adhesions from previous sigmoid colectomy with end colostomy and White's procedure. PLAN: I discussed cystoscopy with temporary placement of ureteral catheters at the time of the planned surgery performed by Dr. Ribeiro. The patient is aware that the ureteral catheters will be removed after the procedure. She is also aware that, depending on the date and time of the surgery, it may be one of my partners who places the ureteral catheters and not myself. Patient had no further questions. EMELINAD
[2016-11-20 12:04] LABS: Glucose,Whole Blood 134 mg/dL (75-99)
--- NOTE | 2016-11-20 14:06 | P.PN ---
Subjective Principal diagnosis: Bowel obstruction The patient is a 61-year-old female of Dr. Baron with history of perforated diverticulitis including descending colostomy status. She is on the third of admission for recurrent bowel obstruction. A nasogastric tube was placed yesterday and now she has improvement of her abdominal pain. Still she has no passage of flatus in her ostomy appliance. She did have a low-grade fever yesterday for which blood cultures are obtained. She has been seen by the urologist this morning. She is pending an echo including cardiac risk assessment. On this admission, surgical intervention is advised. Objective - Vital Signs Vital signs: Vital Signs Temp 98.5 F 11/20/16 07:00 Pulse 94 11/20/16 08:00 Resp 18 11/20/16 08:00 BP 167/96 11/20/16 07:00 Pulse Ox 93 L 11/20/16 07:00 Intake & Output 11/19/16 11/20/16 11/20/16 18:59 06:59 18:59 Intake Total 980.833 973.333 20 Output Total 625 600 Balance 355.833 373.333 20 Weight 55 kg Intake: Intake, IV Titration 980.833 973.333 Amount Mvi, Adult No.4 with Vit 980.833 973.333 K 10 ml Trace (Conc-1Ml/ Dose) 1 ml In Amino Acid 5%-D25w+Lytes*E* 1,000 ml @ 50 mls/hr IV .[id number] [facility] Rx#:[id number] Oral 20 Output: Gastric Drainage 625 500 Urine 100 Other: Voiding Method Toilet Toilet Toilet # Voids 3 - Exam GENERAL: Well developed and in no acute distress. HEENT: No sclera icterus. Extraocular movements grossly intact. Dry buccal mucosa. NECK: Supple without lymphadenopathy. No JV distention. Nasogastric tube present with dark brown aspirant. CHEST: Non-labored respirations and equal bilateral excursions. CARDIOVASCULAR: Regular rate and rhythm. Palpable 2+ radial pulses. ABDOMEN: Soft. Mild distention. No peritonitis. Ostomy appliance with minimal flatus. No stool. MUSCULOSKELETAL: No clubbing, cyanosis or edema. NEUROLOGIC: No focal or lateralizing signs. PSYCH: Appropriate affect. Alert and oriented to person, place and time. - Labs CBC & Chem 7: 11/18/16 07:36 11/20/16 07:38 Labs: Abnormal Lab Results - Last 24 Hours (Table) 11/19/16 11/20/16 11/20/16 Range/Units 18:12 00:23 05:55 BUN (7-17) mg/dL Glucose (74-99) mg/dL POC Glucose (mg/dL) 151 H 150 H 147 H (75-99) mg/dL Magnesium (1.6-2.3) mg/dL Urine Appearance (Clear) Urine Protein (Negative) Urine Glucose (UA) (Negative) Ur Leukocyte Esterase (Negative) Urine WBC (0-5) /hpf Hyaline Casts (0-2) /lpf Urine Mucus (None) /hpf 11/20/16 11/20/16 11/20/16 Range/Units 07:35 07:38 11:50 BUN 26 H (7-17) mg/dL Glucose 142 H (74-99) mg/dL POC Glucose (mg/dL) 134 H (75-99) mg/dL Magnesium 2.4 H (1.6-2.3) mg/dL Urine Appearance Cloudy H (Clear) Urine Protein 1+ H (Negative) Urine Glucose (UA) 1+ H (Negative) Ur Leukocyte Esterase Trace H (Negative) Urine WBC 8 H (0-5) /hpf Hyaline Casts 7 H (0-2) /lpf Urine Mucus Rare H (None) /hpf Assessment and Plan (1) Small bowel obstruction due to adhesions Status: Acute (2) Nausea and vomiting Status: Acute (3) Colostomy status Status: Acute (4) Inadequate dietary intake of protein Status: Acute Plan: 1. With her prolonged nothing by mouth status, continue TPN. May add popsicles in the interim. 2. Sliding scale insulin coverage started. 3. Thank you for medical management per hospitalist. 4. She has been seen by the urologist. Tentative surgical schedule for at noon. 5. I reviewed with her the risk of surgery including reversal. She has not had previous colonoscopy and a surveillance of colon polyps cannot be entirely excluded. I would recommend however a flexible sigmoidoscopy to evaluate the rectal stump. As she has moderate bowel obstruction, a full bowel prep is ill advised. She demonstrated understanding of the risks including she will need a deferred full colonoscopy evaluation after gastrointestinal continuity. 6. She is pending echocardiography tomorrow. 7. Plan for his flexible sigmoidoscopy on Monday. 8. Prolonged hospitalization after surgical intervention by at least a week was also reviewed.
--- NOTE | 2016-11-20 14:39 | PN ---
Patient is a 61-year-old admitted with bowel obstruction, was consulted for medical clearance and patient is having extensive amount of NG tube drainage yesterday, because of which I started him on IV fluids along with TPN she is receiving and patient had a low-grade fever, because of which I obtained a septic work-up including chest x-ray, blood culture, urine culture and UA, all of which are not consistent with any sepsis and from my perspective, antibiotics are not necessary. REVIEW OF SYSTEMS: CARDIOVASCULAR: No chest pain, no orthopnea, no PND, no palpitations. PULMONARY: Denied any shortness of breath. No cough or hemoptysis. GASTROINTESTINAL: Patient is able to pass today and NG tube drainage has slowed down. NEUROLOGIC: No headaches, no weakness, no numbness. PHYSICAL EXAMINATION: Temperature 98.5, pulse of 88, respiratory rate of 18, blood pressure is 167/76, saturating at 93% on room air. GENERAL: Patient has a NG tube in place. Alert and oriented x3. HEENT: Pupils are round and equally reacting to light. EOMI. No scleral icterus. No conjunctival pallor. Normocephalic, atraumatic. No pharyngeal erythema. No thyromegaly. CARDIOVASCULAR: S1 and S2 present. No murmurs, rubs, or gallops. PULMONARY: Chest is clear to auscultation, no wheezing or crackles. ABDOMEN: Patient does have bowel sounds today, although appears to be a bit sluggish. Abdomen is soft, nontender, nondistended. MUSCULOSKELETAL: No joint swelling or deformity. EXTREMITIES: No cyanosis, clubbing, or pedal edema. NEUROLOGICAL: Gross neurological examination did not reveal any focal deficits. SKIN: No rashes. Laboratory data was already discussed in the HPI. ASSESSMENT AND PLAN: 1. Persistent small bowel obstruction, management as per Primary Service. Continue with NG tube, IV fluids. 2. Regarding preop clearance, patient is low-risk for laparotomy. 3. Depression. 4. Anxiety disorder. 5. Fibromyalgia. Plan is to continue present medications. Although patient has a low-grade fever, no other signs or symptoms of sepsis at this time. Will continue to follow the patient on an as-needed basis.
[2016-11-20] MEDS: ASPIRIN 81 MG CHEW PO SCH (14:50)
[2016-11-20 16:43] LABS: Basophils % (A) 0 %; CH 31.3; Eosinophils # (A) 0.1 k/uL (0-0.7); Eosinophils % (A) 1 %; HCT 45.8 % (34.0-46.0); HDW 2.27; Luc # (Auto) 0.23; Luc % (Auto) 2; Lymphocytes # (A) 1.2 k/uL (1.0-4.8); Lymphocytes % (A) 9 %; MCH 31.1 pg (25.0-35.0); MCHC 32.8 g/dL (31.0-37.0); Monocytes # (A) 1.1 k/uL (0-1.0); Monocytes % (A) 8 %; Neutrophils # (A) 10.7 k/uL (1.3-7.7); Neutrophils % (A) 80 %; RBC 4.82 m/uL (3.80-5.40); RDW 13.4 % (11.5-15.5); WBC 13.3 k/uL (3.8-10.6); WBC (Perox) 14.14
[2016-11-20 18:02] LABS: Glucose,Whole Blood 149 mg/dL (75-99)
[2016-11-20 21:03] LABS: Hemoglobin A1C 5.3 % (4.2-6.1)
[2016-11-20 23:59] LABS: Glucose,Whole Blood 128 mg/dL (75-99)
[2016-11-21] MEDS: MVI, ADULT NO.4 WITH VIT K 10 ML, TRACE (CONC-1ML/DOSE) 1 ML in AMINO ACID 5%-D25W+LYTE... IV SCH ×6 (02:08→23:03)
[2016-11-21] MEDS: INSULIN LISPRO (humaLOG) 300 UNIT/3 ML VIAL SQ SCH ×4 (02:08→18:07)
[2016-11-21] MEDS: METOCLOPRAMIDE 5 MG/ML 2 ML VIAL IVP SCH ×3 (06:09→18:07)
[2016-11-21 06:22] LABS: Glucose,Whole Blood 119 mg/dL (75-99)
[2016-11-21 06:47] LABS: Anion Gap 11 mmol/L; Blood Urea Nitrogen 19 mg/dL (7-17); Calcium 9.2 mg/dL (8.4-10.2); Carbon Dioxide 32 mmol/L (22-30); Chloride 99 mmol/L (98-107); Glucose 119 mg/dL (74-99); Magnesium 2.3 mg/dL (1.6-2.3); Non-African American GFR(MDRD) >60 (>60 ml/min/1.73 sqM); Phosphorous 2.8 mg/dL (2.5-4.5); Potassium 3.6 mmol/L (3.5-5.1); Sodium 142 mmol/L (137-145)
[2016-11-21 06:58] LABS: Basophils % (A) 1 %; CH 31.2; CHCM 33.6; Eosinophils # (A) 0.2 k/uL (0-0.7); Eosinophils % (A) 5 %; HCT 39.3 % (34.0-46.0); Luc % (Auto) 4; Lymphocytes # (A) 1.3 k/uL (1.0-4.8); Lymphocytes % (A) 25 %; MCH 30.7 pg (25.0-35.0); MCV 93.1 fL (80.0-100.0); Mean Platelet Volume 6.8; Monocytes # (A) 0.8 k/uL (0-1.0); Monocytes % (A) 15 %; Neutrophils # (A) 2.5 k/uL (1.3-7.7); Neutrophils % (A) 50 %; RBC 4.22 m/uL (3.80-5.40); WBC 5.1 k/uL (3.8-10.6); WBC (Perox) 5.37
--- NOTE | 2016-11-21 07:08 | XR ---
EXAMINATION TYPE: XR abdomen 2V DATE OF EXAM ORDERED: 11/21/2016 7:03 AM HISTORY: Bowel obstruction. COMPARISON: Previous study dated . FINDINGS: An NG tube remains in place. Its tip is within the stomach. There is increasing concentration of barium within the colon. This extends right to the patient's ost adriana bag. Contrast has cleared from the small bowel. There is still some small bowel dilatation. IMPRESSION: BARIUM WITHIN THE COLON SUGGESTS THE PATIENT'S SMALL BOWEL OBSTRUCTION IS ONLY PARTIAL.
--- NOTE | 2016-11-21 07:09 | XR ---
EXAMINATION TYPE: XR chest 2V DATE OF EXAM: 11/21/2016 7:03 AM HISTORY: oxygen desaturation. REFERENCE: Previous study dated 11/20/2016. FINDINGS: An NG tube is present and coiled in the stomach. There is a left basilic PICC line in place . Its tip is in the superior vena cava. The lungs are clear. Pleural spaces are clear. Heart size is normal. IMPRESSION: NO ACUTE INTRATHORACIC ABNORMALITY.
[2016-11-21] MEDS: ASPIRIN 81 MG CHEW PO SCH (09:14)
[2016-11-21] MEDS: MORPHINE SULFATE 2 MG/ML SYRINGE IVP PRN ×3 (09:29→17:51)
[2016-11-21] MEDS: LACTATED RINGERS 1,000 ML IV SCH (09:29)
[2016-11-21 11:52] LABS: Glucose,Whole Blood 128 mg/dL (75-99)
[2016-11-21] MEDS: POTASSIUM CHLORIDE 10 MEQ, LIDOCAINE 2% INJ 10 MG in SODIUM CHLORIDE 0.9% 100 ML IV SCH ×2 (12:00→14:05)
[2016-11-21] MEDS: SODIUM CHLORIDE 0.9% 1,000 ML IV SCH (12:01)
[2016-11-21] MEDS: ONDANSETRON 4 MG/2 ML VIAL IVP PRN ×2 (14:13→18:04)
--- NOTE | 2016-11-21 14:33 | P.PN ---
Subjective 61-year-old female ambulating in the johnson. Patient states pain medication has been effective for pain control. Nasogastric tube in place. Patient is aware of the plan of care. Patient states that she has had a small bowel movement per ostomy urinating no difficulty. Patient has a history of perforated diverticulitis including descending colostomy status. This is the third admission reoccurring bowel obstruction. Patient had a nasal gastric tube placed this admission has noted an improvement in the abdominal pain. Patient continues to state anxious to have the surgery done. Did note patient ran a low -grade temp this morning of 99 no white count. The echocardiogram is pending Objective - Vital Signs Vital signs: Vital Signs Temp 99 F 11/21/16 07:00 Pulse 83 11/21/16 08:00 Resp 16 11/21/16 08:00 BP 145/85 11/21/16 07:00 Pulse Ox 92 L 11/21/16 07:00 Intake & Output 11/20/16 11/21/16 11/21/16 18:59 06:59 18:59 Intake Total 20 1611 Output Total 900 850 100 Balance -880 761 -100 Weight 55 kg 56.5 kg 56.5 kg Intake: Intake, IV Titration 1611 Amount Lactated Ringers 1,000 ml 600 @ 75 mls/hr IV .[id number] [facility] Rx#:[id number] Mvi, Adult No.4 with Vit 1011 K 10 ml Trace (Conc-1Ml/ Dose) 1 ml In Amino Acid 5%-D25w+Lytes*E* 1,000 ml @ 50 mls/hr IV .[id number] [facility] Rx#:[id number] Oral 20 Output: Gastric Drainage 800 850 Urine 100 100 Other: Voiding Method Toilet Toilet Toilet # Voids 2 2 2 - Exam physical exam 61-year-old female resting in bed oriented 3 states has been up ambulating in the johnson 1 this morning lungs essentially clear with adequate air movement on room air no cough noted Heart S1-S2 audible and regular denying chest pain Abdomen diffuse tenderness across the abdominal wall ostomy left lower quadrant bowel tones present 4 states urinating no difficulty not distended had 1 small stool per ostomy this morning Extremities no edema noted - Labs CBC & Chem 7: 11/21/16 06:19 11/21/16 06:19 Labs: Abnormal Lab Results - Last 24 Hours (Table) 11/20/16 11/20/16 11/20/16 Range/Units 07:38 17:52 23:56 WBC 13.3 H (3.8-10.6) k/uL Neutrophils # 10.7 H (1.3-7.7) k/uL Monocytes # 1.1 H (0-1.0) k/uL Carbon Dioxide (22-30) mmol/L BUN (7-17) mg/dL Glucose (74-99) mg/dL POC Glucose (mg/dL) 149 H 128 H (75-99) mg/dL 11/21/16 11/21/16 11/21/16 Range/Units 06:09 06:19 11:51 WBC (3.8-10.6) k/uL Neutrophils # (1.3-7.7) k/uL Monocytes # (0-1.0) k/uL Carbon Dioxide 32 H (22-30) mmol/L BUN 19 H (7-17) mg/dL Glucose 119 H (74-99) mg/dL POC Glucose (mg/dL) 119 H 128 H (75-99) mg/dL Microbiology - Last 24 Hours (Table) 11/20/16 00:43 Blood Culture - Preliminary Blood No Growth after 24 hours 11/20/16 07:35 Urine Culture - Preliminary Urine,Clean Catch Assessment and Plan Plan: Impression Present on admission diffuse abdominal pain with nausea vomiting abdominal cramping suspect due to possible early small bowel obstruction due to license of adhesions Reoccurring admission for abdominal pain suspect due to partial small bowel obstruction due to license of adhesions History of sigmoid resection with a colostomy 05/19/2016 due to diverticulitis with perforation Chronic pain Depressive anxiety disorder nonspecified Underweight suspect due to poor caloric intake suspect mild protein calorie malnutrition with muscle wasting due to poor caloric intake due to chronic illness Plan start bowel prep for possible colonoscopy on Monday with surgery scheduled for November 24 PICC line for TPN pain control Resume home meds as appropriate DVT and GI prophylaxis Further recommendations pending Follow-up on pending echocardiogram Urology plan temporary placement of urethral catheter is at the time of the planned surgery by Dr. Ribeiro The above dictated assessment and findings were discussed with dr ribeiro Impression and the plan of care have been dictated as directed. [place] Jameson nurse practitioner acting as a scribe for dr ribeiro
--- NOTE | 2016-11-21 16:08 | PN ---
Wigty-sbbbj-zxds-old admitted with bowel obstruction. Patient is having significant amount of drainage from the NG-tube, because of which I increased the IV fluids to lactated Ringer's to 150 mL/hour. Actually I will switch her to normal saline at 100 mL/hour, as her chloride did come down today. REVIEW OF SYSTEMS: CARDIOVASCULAR: No chest pain, no orthopnea, no PND, no palpitations. PULMONARY: Denied any shortness of breath. No cough or hemoptysis. GASTROINTESTINAL: Patient still has right upper quadrant abdominal pain. Patient has a little bit of stool in the colostomy bag. NEUROLOGIC: No headaches, no weakness, no numbness. Medications were reviewed. PHYSICAL EXAMINATION: VITAL SIGNS: Temperature 99.0, pulse of 83, respiratory rate of 16, blood pressure 145/85. Saturating at 92% on room air. GENERAL: The patient is alert and oriented x3, not in any acute distress. Well developed, well nourished. HEENT: Pupils are round and equally reacting to light. EOMI. No scleral icterus. No conjunctival pallor. Normocephalic, atraumatic. No pharyngeal erythema. No thyromegaly. CARDIOVASCULAR: S1 and S2 present. No murmurs, rubs, or gallops. PULMONARY: Chest is clear to auscultation, no wheezing or crackles. ABDOMEN: Patient does have bowel sounds; maybe sluggish. Abdominal tenderness as mentioned above. MUSCULOSKELETAL: No joint swelling or deformity. EXTREMITIES: No cyanosis, clubbing, or pedal edema. NEUROLOGICAL: Gross neurological examination did not reveal any focal deficits. SKIN: No rashes. LABORATORY DATA: BUN has gone up a little bit to 19. Bicarbonate is 32 secondary to contraction alkalosis. Patient is definitely getting on the volume-depleted side. ASSESSMENT AND PLAN: 1. Partial small bowel obstruction with quite a bit of drainage from the nasogastric tube. I will increase the fluids, total of 100 mL being normal saline at 50 mL being TPN. 2. Depression. 3. Anxiety disorder. 4. Fibromyalgia. Regarding preoperative clearance, I am awaiting the echocardiogram to make there are no wall motion abnormalities or valvular abnormalities. Will continue to follow the patient.
[2016-11-21 18:02] LABS: Glucose,Whole Blood 118 mg/dL (75-99)
[2016-11-21] MEDS: FAMOTIDINE 20 MG/2 ML VIAL IV SCH ×2 (18:06→20:02)
[2016-11-21] MEDS: FAT EMULSION 20% 250 ML in EMPTY BAG 1 BAG IV SCH (18:06)
[2016-11-21] MEDS: LORazepam 2 MG/ML SYRINGE IV PRN (20:02)
[2016-11-22 00:24] LABS: Glucose,Whole Blood 131 mg/dL (75-99)
[2016-11-22] MEDS: METOCLOPRAMIDE 5 MG/ML 2 ML VIAL IVP SCH ×4 (00:24→17:45)
[2016-11-22] MEDS: INSULIN LISPRO (humaLOG) 300 UNIT/3 ML VIAL SQ SCH ×4 (04:39→17:46)
[2016-11-22] MEDS: MORPHINE SULFATE 2 MG/ML SYRINGE IVP PRN ×2 (05:25→19:53)
[2016-11-22] MEDS: SODIUM CHLORIDE 0.9% 1,000 ML IV SCH ×5 (05:51→14:07)
[2016-11-22 06:09] LABS: Glucose,Whole Blood 115 mg/dL (75-99)
[2016-11-22 07:01] LABS: Anion Gap 11 mmol/L; Blood Urea Nitrogen 12 mg/dL (7-17); Calcium 9.3 mg/dL (8.4-10.2); Carbon Dioxide 28 mmol/L (22-30); Chloride 100 mmol/L (98-107); Glucose 114 mg/dL (74-99); Magnesium 2.1 mg/dL (1.6-2.3); Non-African American GFR(MDRD) >60 (>60 ml/min/1.73 sqM); Phosphorous 3.4 mg/dL (2.5-4.5); Potassium 3.9 mmol/L (3.5-5.1); Sodium 139 mmol/L (137-145)
--- NOTE | 2016-11-22 07:33 | P.PN ---
Progress Note - Text Patient seen and evaluated. Abdominal pain is improving. Patient started to have bowel movements through her ostomy. At this time, we' ll start slow bowel prep for colonoscopy on Monday.
[2016-11-22] MEDS: ASPIRIN 81 MG CHEW PO SCH (08:53)
[2016-11-22] MEDS: FAMOTIDINE 20 MG/2 ML VIAL IV SCH ×2 (08:54→19:51)
--- NOTE | 2016-11-22 11:30 | ECHOF ---
Referral Reason:Pre Op clearance MEASUREMENTS -------- HEIGHT: 160.0 cm WEIGHT: 56.2 kg BP: 175/96 RVIDd: 2.2 cm (< 3.3) IVSd: 0.9 cm (0.6 - 1.1) LVIDd: 3.3 cm (3.9 - 5.3) LVPWd: 0.9 cm (0.6 - 1.1) IVSs: 1.1 cm LVIDs: 2.4 cm LVPWs: 1.4 cm LA Diam: 2.7 cm (2.7 - 3.8) LAESV Index (A-L): 21.80 ml/m Ao Diam: 2.7 cm (2.0 - 3.7) AV Cusp: 2.0 cm (1.5 - 2.6) LA Diam: 3.0 cm (2.7 - 3.8) MV EXCURSION: 12.690 mm (> 18.000) MV EF SLOPE: 41 mm/s (70 - 150) EPSS: 0.2 cm MV E Wilder: 0.59 m/s MV DecT: 219 ms MV A Wilder: 0.63 m/s MV E/A Ratio: 0.94 FINDINGS -------- Sinus rhythm. This was a technically good study. Left ventricular wall thickness is normal. Overall left ventricular systolic function is normal with, an EF between 55 - 60 %. The right ventricle is normal in size. Normal LA size by volume 22+/-6 ml/m2. The right atrium is normal in size. The aortic valve is trileaflet and appears structurally normal. Mild mitral annular calcification present. Mild tricuspid regurgitation present. Pulmonic valve appears structurally normal. The aortic root size is normal. Normal inferior vena cava with normal inspiratory collapse consistent with estimated right atrial pressure of 5 mmHg. Echo free space may represent effusion or a pericardial fat pad. CONCLUSIONS -------- 1. Sinus rhythm. 2. Mild tricuspid regurgitation present. 3. Pulmonic valve appears structurally normal. 4. The aortic root size is normal. 5. Normal inferior vena cava with normal inspiratory collapse consistent with estimated right atrial pressure of 5 mmHg. 6. Echo free space may represent effusion or a pericardial fat pad. 7. This was a technically good study. 8. Left ventricular wall thickness is normal. 9. Overall left ventricular systolic function is normal with, an EF between 55 - 60 %. 10. The right ventricle is normal in size. 11. Normal LA size by volume 22+/-6 ml/m2. 12. The right atrium is normal in size. 13. The aortic valve is trileaflet and appears structurally normal. 14. Mild mitral annular calcification present. JUNIOR BOOKKEEPER: Angeles Yates RDCS
[2016-11-22] MEDS: LORazepam 2 MG/ML SYRINGE IV PRN ×2 (12:19→21:34)
[2016-11-22 12:44] LABS: Glucose,Whole Blood 121 mg/dL (75-99)
--- NOTE | 2016-11-22 13:10 | PN ---
Patient's NG tube drainage has come down and will cut down the fluids to 75 mL/h. Along with that, patient is getting 50 mL through TPN. Patient awaiting echocardiogram results for preoperative clearance. REVIEW OF SYSTEMS: CARDIOVASCULAR: No chest pain, no orthopnea, no PND, no palpitations. PULMONARY: Denied any shortness of breath. No cough or hemoptysis. GASTROINTESTINAL: As described in HPI. Patient does not have any stool or gas in her colostomy bag. NEUROLOGIC: No headaches, no weakness, no numbness. Medications were reviewed. PHYSICAL EXAMINATION: Temperature 99.4, pulse of 80, respiratory rate of 16, blood pressure is 142/87, saturating at 95% on room air. ABDOMEN: Soft, nontender, nondistended, and her colostomy bag findings as mentioned above. GENERAL: The patient is alert and oriented x3, not in any acute distress. Well developed, well nourished. HEENT: Pupils are round and equally reacting to light. EOMI. No scleral icterus. No conjunctival pallor. Normocephalic, atraumatic. No pharyngeal erythema. No thyromegaly. CARDIOVASCULAR: S1 and S2 present. No murmurs, rubs, or gallops. PULMONARY: Chest is clear to auscultation, no wheezing or crackles. MUSCULOSKELETAL: No joint swelling or deformity. EXTREMITIES: No cyanosis, clubbing, or pedal edema. NEUROLOGICAL: Gross neurological examination did not reveal any focal deficits. SKIN: No rashes. LABORATORY DATA: Creatinine improved a little bit, BUN improved as well. Contraction alkalosis improved. ASSESSMENT AND PLAN: 1. Partial small bowel obstruction and leading to dehydration and acute renal failure, fluid management as mentioned above. 2. Depression. 3. Anxiety disorder. 4. ( ) preoperative clearance, awaiting echocardiogram. PLAN: Patient is going for colonoscopy tomorrow, prep today. Possibility of laparotomy on .
[2016-11-22] MEDS ORDERED: POLYETHYLENE GLYCOL LYTES SOLN 4,000 ML SOLN.RECON PO ONE (15:00)
--- NOTE | 2016-11-22 16:20 | P.PN ---
Subjective 61-year-old female being seen. Patient has been up ambulating in the johnson this morning. . The plan is to do a colonoscopy tomorrow and start a slow bowel prep today patient is aware of the plan of care. Surgery is tentatively scheduled for this week patient states abdominal pain feels same Objective - Vital Signs Vital signs: Vital Signs Temp 99.4 F 11/22/16 07:00 Pulse 80 11/22/16 07:00 Resp 16 11/22/16 07:00 BP 143/87 11/22/16 07:00 Pulse Ox 95 11/22/16 07:00 Intake & Output 11/21/16 11/22/16 11/22/16 18:59 06:59 18:59 Intake Total 10 1011 Output Total 200 1000 250 Balance -190 11 -250 Weight 56.5 kg 54 kg Intake: Intake, IV Titration 1011 Amount Mvi, Adult No.4 with Vit 1011 K 10 ml Trace (Conc-1Ml/ Dose) 1 ml In Amino Acid 5%-D25w+Lytes*E* 1,000 ml @ 50 mls/hr IV .[id number] [facility] Rx#:[id number] Oral 10 Output: Gastric Drainage 1000 250 Urine 200 Other: Voiding Method Toilet Toilet Toilet # Voids 2 1 - Exam physical exam 61-year-old female resting in bed oriented 3 states has been up ambulating in the johnson this morning lungs essentially clear with adequate air movement on room air no cough noted Heart S1-S2 audible and regular denying chest pain Abdomen diffuse tenderness across the abdominal wall ostomy left lower quadrant bowel tones present 4 states urinating no difficulty not distended had 1 small stool per ostomy this morning nasal gastric tube in place to suction Extremities no edema noted - Labs CBC & Chem 7: 11/21/16 06:19 11/22/16 06:25 Labs: Abnormal Lab Results - Last 24 Hours (Table) 11/21/16 11/22/16 11/22/16 Range/Units 18:01 00:23 05:57 Creatinine (0.52-1.04) mg/dL Glucose (74-99) mg/dL POC Glucose (mg/dL) 118 H 131 H 115 H (75-99) mg/dL 11/22/16 11/22/16 Range/Units 06:25 12:42 Creatinine 0.50 L (0.52-1.04) mg/dL Glucose 114 H (74-99) mg/dL POC Glucose (mg/dL) 121 H (75-99) mg/dL Microbiology - Last 24 Hours (Table) 11/20/16 00:43 Blood Culture - Preliminary Blood No Growth after 48 hours 11/20/16 07:35 Urine Culture - Final Urine,Clean Catch Assessment and Plan Plan: Impression Present on admission diffuse abdominal pain with nausea vomiting abdominal cramping suspect due to possible early small bowel obstruction due to license of adhesions Reoccurring admission for abdominal pain suspect due to partial small bowel obstruction due to license of adhesions History of sigmoid resection with a colostomy 05/19/2016 due to diverticulitis with perforation Chronic pain Depressive anxiety disorder nonspecified Underweight suspect due to poor caloric intake suspect mild protein calorie malnutrition with muscle wasting due to poor caloric intake due to chronic illness Plan start bowel prep for possible colonoscopy on Monday with surgery scheduled for November 24 PICC line for TPN pain control Resume home meds as appropriate DVT and GI prophylaxis Further recommendations pending Follow-up on pending echocardiogram Urology plan temporary placement of urethral catheter is at the time of the planned surgery by Dr. Ribeiro The above dictated assessment and findings were discussed with dr ribeiro Impression and the plan of care have been dictated as directed. [place] Jameson nurse practitioner acting as a scribe for dr ribeiro
[2016-11-22 17:45] LABS: Glucose,Whole Blood 134 mg/dL (75-99)
[2016-11-22] MEDS: MVI, ADULT NO.4 WITH VIT K 10 ML, TRACE (CONC-1ML/DOSE) 1 ML in AMINO ACID 5%-D25W+LYTE... IV SCH ×3 (22:15)
[2016-11-23 00:28] LABS: Glucose,Whole Blood 115 mg/dL (75-99)
[2016-11-23] MEDS: INSULIN LISPRO (humaLOG) 300 UNIT/3 ML VIAL SQ SCH ×4 (00:32→19:47)
[2016-11-23] MEDS: METOCLOPRAMIDE 5 MG/ML 2 ML VIAL IVP SCH ×4 (00:33→17:36)
[2016-11-23 06:01] LABS: Glucose,Whole Blood 117 mg/dL (75-99)
[2016-11-23] MEDS: SODIUM CHLORIDE 0.9% 1,000 ML IV SCH ×2 (06:03→15:49)
[2016-11-23 06:59] LABS: Anion Gap 13 mmol/L; Blood Urea Nitrogen 12 mg/dL (7-17); Calcium 9.1 mg/dL (8.4-10.2); Carbon Dioxide 24 mmol/L (22-30); Chloride 101 mmol/L (98-107); Glucose 115 mg/dL (74-99); Non-African American GFR(MDRD) >60 (>60 ml/min/1.73 sqM); Phosphorous 3.1 mg/dL (2.5-4.5); Potassium 3.8 mmol/L (3.5-5.1); Sodium 138 mmol/L (137-145)
[2016-11-23] MEDS ORDERED: MORPHINE SULFATE 2 MG/ML SYRINGE IV PRN (07:32)
[2016-11-23] MEDS ORDERED: LACTATED RINGERS 1,000 ML IV SCH ×2 (07:45→12:28)
[2016-11-23] MEDS ORDERED: NA PHOS,M-B/NA PHOS,DI-BA 133 ML ENEMA RECTAL STA (08:44)
[2016-11-23] MEDS: FAMOTIDINE 20 MG/2 ML VIAL IV SCH ×2 (09:00→20:07)
[2016-11-23] MEDS: POTASSIUM CHLORIDE 10 MEQ in WATER FOR INJECTION 1 100ML.BAG IVPB SCH ×2 (09:03→10:16)
--- NOTE | 2016-11-23 09:11 | P.HPADDEND ---
H&P Addendum H&P Addendum Date: 11/23/16 Patient cannot tolerate GI prep. We'll proceed with fleets enema and flexible sigmoidoscopy in preparation for colostomy reversal.
--- NOTE | 2016-11-23 09:48 | P.PN ---
Subjective 61-year-old female being seen states abdominal pain feels same. Patient states anxious to have the surgery tomorrow states abdominal discomfort persist has a nasal gastric tube in place connected to suction no stool in the ostomy states is passing gas through the ostomy Patient states could not tolerate drinking the GI prep last night. Tentatively scheduled for a flex sigmoidoscopy in preparation for colostomy Echocardiogram report reviewed no acute findings no valvular heart disease left ventricular systolic function normal EF 55-50%. The 12-lead EKG done on November 16 reviewed sinus rhythm no ST or T-wave inversion Objective - Vital Signs Vital signs: Vital Signs Temp 98.2 F 11/23/16 07:00 Pulse 75 11/23/16 07:00 Resp 17 11/23/16 07:00 BP 176/93 11/23/16 07:00 Pulse Ox 98 11/23/16 07:00 Intake & Output 11/22/16 11/23/16 11/23/16 18:59 06:59 18:59 Intake Total 1836 Output Total 400 Balance -400 1836 Weight 58.5 kg Intake: Intake, IV Titration 1836 Amount Mvi, Adult No.4 with Vit 1011 K 10 ml Trace (Conc-1Ml/ Dose) 1 ml In Amino Acid 5%-D25w+Lytes*E* 1,000 ml @ 50 mls/hr IV .[id number] [facility] Rx#:[id number] Sodium Chloride 0.9% 1, 825 000 ml @ 75 mls/hr IV . [id number] [facility] Rx#:[id number] Output: Gastric Drainage 400 Other: Voiding Method Toilet Toilet # Voids 1 - Exam physical exam 61-year-old female resting in bed oriented 3 states could not tolerate drinking the GI bowel prep yesterday states there is some gas noted from the ostomy this morning no stool lungs essentially clear with adequate air movement on room air no cough noted Heart S1-S2 audible and regular denying chest pain Abdomen diffuse tenderness across the abdominal wall ostomy left lower quadrant bowel tones present 4 states no difficulty in urinating nasal gastric tube in place to suction states there is gas noted from the ostomy in the ostomy bag no stool Extremities no edema noted - Labs CBC & Chem 7: 11/21/16 06:19 11/23/16 04:15 Labs: Abnormal Lab Results - Last 24 Hours (Table) 11/22/16 11/22/16 11/23/16 Range/Units 12:42 17:43 00:26 Creatinine (0.52-1.04) mg/dL Glucose (74-99) mg/dL POC Glucose (mg/dL) 121 H 134 H 115 H (75-99) mg/dL 11/23/16 11/23/16 Range/Units 04:15 05:59 Creatinine 0.48 L (0.52-1.04) mg/dL Glucose 115 H (74-99) mg/dL POC Glucose (mg/dL) 117 H (75-99) mg/dL Microbiology - Last 24 Hours (Table) 11/20/16 00:43 Blood Culture - Preliminary Blood No Growth after 72 hours Assessment and Plan Plan: Impression Present on admission diffuse abdominal pain with nausea vomiting abdominal cramping suspect due to possible early small bowel obstruction due to license of adhesions Reoccurring admission for abdominal pain suspect due to partial small bowel obstruction due to license of adhesions History of sigmoid resection with a colostomy 05/19/2016 due to diverticulitis with perforation Chronic pain Depressive anxiety disorder nonspecified Underweight suspect due to poor caloric intake suspect mild protein calorie malnutrition with muscle wasting due to poor caloric intake due to chronic illness Echocardiogram left ventricular systolic function normal with an EF between 55 and 60% per echocardiogram done on November 21 Twelve-lead EKG done on November 16 shows sinus rhythm Plan Scheduled today for a flexible sigmoidoscopy Monday with surgery scheduled for November 24 PICC line for TPN pain control Resume home meds as appropriate DVT and GI prophylaxis Further recommendations pending Follow-up on pending echocardiogram Urology plan temporary placement of urethral catheter is at the time of the planned surgery by Dr. Ribeiro The above dictated assessment and findings were discussed with dr ribeiro Impression and the plan of care have been dictated as directed. [place] Jameson nurse practitioner acting as a scribe for dr ribeiro
[2016-11-23] MEDS ORDERED: PROPOFOL 10 MG/ML 20 ML VIAL IV ONE (10:37)
[2016-11-23] MEDS ORDERED: IV FLUID CONTINUATION 1,000 ML IV ONE (10:38)
--- NOTE | 2016-11-23 11:16 | P.PCN ---
Date of Procedure: 11/23/16 Description of Procedure: PREOPERATIVE DIAGNOSIS: Diverticulitis. History of descending colostomy. History of bowel obstruction. POSTOPERATIVE DIAGNOSIS: Diverticulitis. History of descending colostomy. History of bowel obstruction. Scattered diverticulosis. OPERATION: Colonoscopy through stoma to to the ileocecal valve and appendiceal orifice. Colonoscopy through the defunctionalized rectum SURGEON: Vidhi Ribeiro MD. ANESTHESIA: MAC. INDICATIONS: The patient is a 61-year-old female who presents with history of perforated diverticulitis or months ago. She presents to the hospital at least 3 separate times for recurrent bowel obstruction. Given the urgency of her lysis of adhesions including colostomy reversal, a lower endoscopy was advised as she's not had a previous colonoscopy screening. Benefits and risks were described and informed consent was obtained. DESCRIPTION OF PROCEDURE: The patient had undergone a Nu-lightly prep. She had been brought into the endoscopy suite and laid in supine position. After adequate intravenous sedation, the ostomy appliance was removed and the orifice of the ostomy was probed using digital finger. An Olympus colonoscope was advanced until the ileocecal valve and appendiceal orifice were clearly viewed. The prep was mediocore with liquid stool throughout the colon. Normal saline irrigation was used to see the mucosal hannah. No large colon adenomatous polyps were identified. The scope was removed with careful visualization of the mucosal folds. Scattered diverticulosis was encountered. No evidence of focal colitis was found. The GI tract was desufflated. Next, the patient was placed in the left lateral decubitus position. The rectum was examined with 2% lidocaine jelly. No external hemorrhoids were encountered. The rectal tone was within normal limits. No lesions were palpated in the rectal vault. The scope was advanced to the beginning of the rectal stump where over 20 cm of colon was identified. Scattered diverticulosis was identified. A tortuosity of the sigmoid colon was confirmed. Retroflexion of the scope demonstrated grade 1 internal hemorrhoids without active bleeding or inflammation. The colon was desufflated. The patient had tolerated the procedure well. Withdrawal time was over 6 minutes. FINDINGS: Moderate and redundant rectal stump over 20 cm in length. Moderate scattered diverticulosis. Internal hemorrhoids, grade 1 No external prolapsed hemorrhoids. No arteriovenous malformations. No large adenomatous polyps. Mediocre colonoscopy prep. No focal colitis. RECOMMENDATIONS: May proceed with colostomy reversal. She will likely need a completion colonoscopy within 6 months to 1 year following her colostomy reversal.
[2016-11-23] MEDS: LORazepam 2 MG/ML SYRINGE IV PRN ×2 (11:27→20:07)
[2016-11-23] MEDS ORDERED: DEXAMETHASONE SOD PHOSPHATE 10 MG/ML 1 ML VIAL IV ONE (12:28)
[2016-11-23] MEDS ORDERED: ONDANSETRON 4 MG/2 ML VIAL IVP ONE (12:28)
[2016-11-23] MEDS ORDERED: SCOPOLAMINE 1.5MG/72HR PATCH TRANSDERM ONE (12:28)
[2016-11-23 12:40] LABS: Glucose,Whole Blood 128 mg/dL (75-99)
[2016-11-23] MEDS: MVI, ADULT NO.4 WITH VIT K 10 ML, TRACE (CONC-1ML/DOSE) 1 ML in AMINO ACID 5%-D25W+LYTE... IV SCH ×3 (16:40)
[2016-11-23] MEDS: FAT EMULSION 20% 250 ML in EMPTY BAG 1 BAG IV SCH (16:40)
[2016-11-23] MEDS: MORPHINE SULFATE 2 MG/ML SYRINGE IVP PRN ×2 (17:36→23:21)
[2016-11-23 17:56] LABS: Glucose,Whole Blood 118 mg/dL (75-99)
[2016-11-23] MEDS: ONDANSETRON 4 MG/2 ML VIAL IVP PRN (20:16)
[2016-11-24 00:22] LABS: Glucose,Whole Blood 109 mg/dL (75-99)
[2016-11-24] MEDS: METOCLOPRAMIDE 5 MG/ML 2 ML VIAL IVP SCH ×4 (00:25→21:38)
[2016-11-24] MEDS: HEPARIN SODIUM,PORCINE 5,000 UNIT/ML 1 ML VIAL SQ SCH ×3 (00:26→16:41)
[2016-11-24] MEDS: INSULIN LISPRO (humaLOG) 300 UNIT/3 ML VIAL SQ SCH ×4 (00:52→18:17)
[2016-11-24] MEDS: MORPHINE SULFATE 2 MG/ML SYRINGE IVP PRN (03:27)
[2016-11-24 05:19] LABS: Glucose,Whole Blood 113 mg/dL (75-99)
--- NOTE | 2016-11-24 05:59 | P.HPADDEND ---
H&P Addendum H&P Addendum Date: 11/24/16 Patient presents with history of multiple recurrent small bowel obstructions including history of descending colostomy. Lower endoscopy was consistent with no large adenomatous polyps. Adequate rectal stump of over 20 cm identified. We'll proceed with exploratory laparotomy including placement of bilateral stents and reversal of colostomy. Patient is aware postop recovery anticipated approximately 5-7 days postop. In the interim, we'll continue with TPN.
[2016-11-24 06:11] LABS: Basophils % (A) 0 %; CH 30.9; CHCM 34.2; Eosinophils # (A) 0.5 k/uL (0-0.7); Eosinophils % (A) 7 %; HCT 38.6 % (34.0-46.0); HDW 2.57; HGB 13.5 gm/dL (11.4-16.0); Luc # (Auto) 0.19; Luc % (Auto) 3; Lymphocytes # (A) 1.6 k/uL (1.0-4.8); Lymphocytes % (A) 23 %; MCH 31.7 pg (25.0-35.0); MCHC 34.9 g/dL (31.0-37.0); MCV 90.7 fL (80.0-100.0); Mean Platelet Volume 6.4; Monocytes # (A) 0.7 k/uL (0-1.0); Monocytes % (A) 11 %; Neutrophils # (A) 3.8 k/uL (1.3-7.7); Neutrophils % (A) 56 %; RBC 4.25 m/uL (3.80-5.40); RDW 12.4 % (11.5-15.5); WBC 6.8 k/uL (3.8-10.6); WBC (Perox) 7.22
[2016-11-24] MEDS ORDERED: IV FLUID CONTINUATION 1,000 ML IV ONE ×2 (06:15)
[2016-11-24 06:24] LABS: ALT 60 U/L (9-52); AST 33 U/L (14-36); Alkaline Phosphatase 62 U/L (38-126); Anion Gap 9 mmol/L; Blood Urea Nitrogen 9 mg/dL (7-17); Carbon Dioxide 28 mmol/L (22-30); Chloride 102 mmol/L (98-107); Glucose 121 mg/dL (74-99); Non-African American GFR(MDRD) >60 (>60 ml/min/1.73 sqM); Phosphorous 3.2 mg/dL (2.5-4.5); Potassium 3.5 mmol/L (3.5-5.1); Sodium 139 mmol/L (137-145); Total Bilirubin 0.6 mg/dL (0.2-1.3)
[2016-11-24] MEDS ORDERED: ceFAZolin 2 GM in SODIUM CHLORIDE 0.9% 100 ML IVPB ONE (06:30)
[2016-11-24] MEDS ORDERED: metroNIDAZOLE-NS PMX 500 MG in SALINE 1 100ML.BAG IVPB ONE (06:30)
[2016-11-24] MEDS ORDERED: MIDAZOLAM 2 MG/2 ML VIAL IV ONE (06:50)
[2016-11-24] MEDS ORDERED: fentaNYL (PF) 50 MCG/ML 2 ML AMP IV ONE (06:50)
[2016-11-24] MEDS ORDERED: NALOXONE 0.4 MG/ML 1 ML VIAL IV PRN (07:07)
[2016-11-24] MEDS ORDERED: ePHEDrine 50 MG/ML 1 ML AMP ONE (07:30)
[2016-11-24] MEDS ORDERED: ALBUMIN HUMAN 5% 500 ML VIAL IVPB ONE (07:30)
[2016-11-24] MEDS ORDERED: PHENYLEPHRINE-0.9% NACL SYG 1 MG/10 ML SYRINGE ONE (07:30)
[2016-11-24] MEDS ORDERED: NEOSTIGMINE 1 MG/ML 10 ML VIAL ONE (07:30)
[2016-11-24] MEDS ORDERED: ceFAZolin 1,000 MG VIAL ONE (07:30)
[2016-11-24] MEDS ORDERED: PROPOFOL 10 MG/ML 20 ML VIAL IV ONE ×2 (07:30)
[2016-11-24] MEDS ORDERED: SUCCINYLCHOLINE CHLORIDE 100 MG/5 ML SYR IV ONE (07:30)
[2016-11-24] MEDS ORDERED: fentaNYL (PF) 50 MCG/ML 2 ML AMP ONE (07:30)
[2016-11-24] MEDS ORDERED: GLYCOPYRROLATE 0.2 MG/ML 2 ML VIAL ONE (07:30)
[2016-11-24] MEDS ORDERED: BUPIVACAIN-EPI 0.25%-1:200,000 30 ML VIAL SQ ONE (08:19)
[2016-11-24] MEDS ORDERED: POTASSIUM CHLORIDE 20 MEQ in WATER FOR INJECTION 1 100ML.BAG IVPB ONE (09:00)
--- NOTE | 2016-11-24 09:47 | P.PN ---
Subjective Date of service 11/23/2016. Personal being dictated for Dr. Degroot. Interval history: This a 61-year-old female admitted with partial small bowel obstruction, dehydration, acute renal failure and multiple other medical issues. Evaluated by surgery and patient schedule for flex sigmoid endoscopy today, surgery tomorrow. Unable to drink GI prep last night. Surgery notified by staff .Complains of diffuse abdominal tenderness .Some gas noted in ostomy bag this morning, no stool. TPN via PICC line .Denies chest pain, palpitations or increasing shortness of breath. Afebrile. Echo cardiogram reporting normal LV function, EF 55-60%. Objective - Vital Signs Vital signs: Vital Signs Temp 98.0 F 11/23/16 15:00 Pulse 76 11/23/16 15:00 Resp 16 11/23/16 15:00 BP 154/72 11/23/16 15:00 Pulse Ox 99 11/23/16 15:00 Intake & Output 11/22/16 11/23/16 11/23/16 18:59 06:59 18:59 Intake Total 1836 1020.833 Output Total 400 Balance -400 1836 1020.833 Weight 58.5 kg Intake: IV 100 Intake, IV Titration 1836 920.833 Amount Mvi, Adult No.4 with Vit 1011 920.833 K 10 ml Trace (Conc-1Ml/ Dose) 1 ml In Amino Acid 5%-D25w+Lytes*E* 1,000 ml @ 50 mls/hr IV .[id number] DEANA Rx#:[id number] Sodium Chloride 0.9% 1, 825 000 ml @ 75 mls/hr IV . [id number] DEANA Rx#:[id number] Output: Gastric Drainage 400 Other: Voiding Method Toilet Toilet Toilet # Voids 1 - Exam PHYSICAL EXAM: VITAL SIGNS: [As above] GENERAL: [Sitting up in bed, no acute distress] HEENT: [Pupils equal conjunctiva normal.] NECK: [Supple, no JVD] RESPIRATORY EFFORT:[Normal] LUNGS: [Lungs clear, bilateral bases diminished, no wheezing, crackles or rhonchi] CARDIOVASCULAR[regular S1 and S2, no murmurs rubs or gallops, no edema] GI: [Abdomen soft, nondistended, nontender, colostomy bag present with some gas , no stool, hypoactive bowel sounds.] PSYCH: [Alert and oriented -3, mood and affect normal.] NEURO: [No focal deficits, moves all 4 extremities, strength and sensation grossly intact] - Labs CBC & Chem 7: 11/24/16 05:48 11/24/16 05:48 Labs: Abnormal Lab Results - Last 24 Hours (Table) 11/23/16 11/23/16 11/23/16 Range/Units 00:26 04:15 05:59 Creatinine 0.48 L (0.52-1.04) mg/dL Glucose 115 H (74-99) mg/dL POC Glucose (mg/dL) 115 H 117 H (75-99) mg/dL 11/23/16 Range/Units 12:38 Creatinine (0.52-1.04) mg/dL Glucose (74-99) mg/dL POC Glucose (mg/dL) 128 H (75-99) mg/dL Microbiology - Last 24 Hours (Table) 11/20/16 00:43 Blood Culture - Preliminary Blood No Growth after 72 hours Assessment and Plan Plan: 1. Partial small bowel structure . 2. [Dehydration secondary to the above]. 3. [Acute renal failure secondary to dehydration from small bowel distraction]. 4. [Depression]. 5. [Anxiety disorder]. Plan: Continue on current medication regime ,monitoring and symptomatic treatment. Maintain IV fluid hydration, TPN. Pain control as per surgery. Results pending for flex sigmoidoscopy, surgery tomorrow. Follow closely with surgery. Preop clearance has been given by Dr. Degroot. Further recommendations to follow. The impression and plan of care has been dictated as directed. : I performed a H&P examination of this patient and discussed the same with the dictator. I agree with the dictator's note. Any additional findings/opinions/ etc. will be noted.
[2016-11-24] MEDS: SODIUM CHLORIDE 0.9% 1,000 ML IV SCH ×2 (09:54→21:44)
[2016-11-24] MEDS: LACTATED RINGERS 1,000 ML IV SCH ×2 (09:55→15:15)
[2016-11-24] MEDS ORDERED: LACTATED RINGERS 1,000 ML IV ONE ×4 (10:25→12:36)
--- NOTE | 2016-11-24 12:45 | P.PCN ---
Date of Procedure: 11/24/16 Preoperative Diagnosis: Small bowel obstruction due to intestinal adhesions, history of perforated diverticulitis with White's, protein malnutrition requiring TPN Postoperative Diagnosis: Same, severe intestinal adhesive disease lower pelvis, cecum, jejunum, ileum sigmoid diverticulitis Procedure(s) Performed: 1. Extensive lysis of adhesions 1-1/2 hours involving ileum, jejunum 2. Small bowel resection with primary anastomosis 100 cm proximal to ileocecal valve for severe adhesive band disease intraluminal obstruction 3. Takedown of descending colostomy. 4. Sigmoid resection, low anterior 5. Primary colorectal anastomosis using 29 mm ILS 6. Intraoperative sigmoid endoscopy using Olympus colonoscope Anesthesia: GETA, local, epidural Surgeon: Vidhi Ribeiro Estimated Blood Loss (ml): 100 Pathology: other (Sigmoid colon, donuts, small bowel resection) Condition: stable Disposition: floor Operative Findings: 1. 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 2. Chronic small bowel obstruction along the distal jejunum causing chronic intraluminal obstruction requiring resection 100 cm proximal to the ileocecal valve 3. Negative leak test. 4. 29 mm ILS. 5. Resected sigmoid for active diverticulitis. 6. At the end of the case, patient had moderate flatus. 7. NG tube positioned within the stomach and patent.
[2016-11-24] MEDS ORDERED: MVI, ADULT NO.4 WITH VIT K 10 ML, TRACE (CONC-1ML/DOSE) 1 ML, POTASSIUM CHLORIDE 20 MEQ... IV SCH ×4 (13:00)
[2016-11-24] MEDS ORDERED: diphenhydrAMINE 50 MG/ML 1 ML VIAL IVP ONE (13:17)
[2016-11-24] MEDS: BUPIVACAINE (PF) 0.5% 37.5 ML, fentaNYL (PF) 1,250 MCG in SODIUM CHLORIDE 0.9% 188 ML EPIDURAL PRN (13:19)
[2016-11-24 13:41] LABS: Glucose,Whole Blood 168 mg/dL (75-99)
[2016-11-24] MEDS: FAMOTIDINE 20 MG/2 ML VIAL IV SCH ×2 (15:13→21:43)
[2016-11-24] MEDS: metroNIDAZOLE-NS PMX 500 MG in SALINE 1 100ML.BAG IVPB SCH (15:17)
--- NOTE | 2016-11-24 16:29 | OP ---
DATE OF SERVICE: SURGEON: JESSICA HERNÁNDEZ MD PREOPERATIVE DIAGNOSIS: History of diverticular abscess, post colostomy. POSTOPERATIVE DIAGNOSIS: History of diverticular abscess, post colostomy. OPERATION: Cystoscopy with placement of bilateral ureteral catheters, for aid in intraoperative localization of ureters. ANESTHESIA: General. INDICATIONS: The patient is a 61-year-old female treated with colostomy and Refugio's procedure in 2016, when she developed a diverticular abscess involving the sigmoid colon. The patient was admitted last week with a small bowel obstruction. Exploratory laparotomy is planned for treatment of the small bowel obstruction with the intent of proceeding with takedown of the colostomy. Bilateral ureteral catheters were requested to aid in intraoperative localization of the ureters. PROCEDURE: The patient was taken the operating suite where adequate general anesthesia via orotracheal intubation was instituted. The patient was placed in the dorsal lithotomy position with her legs suspended from padded Harvey stirrups. Pneumatic compression stockings were applied to the lower legs. The genitalia was prepped with Betadine soap, painted with Betadine solution, and draped in sterile fashion. A 22 Micronesian cystoscope sheath with 30 degrees lens was passed through the urethra and into the bladder. The bladder was examined. Both ureteral orifices were of normal location and configuration and effluxed clear urine. The bladder was free of tumor, foreign body and diverticulum. A 6 Micronesian open-ended ureteral catheter was advanced through the left ureteral orifice and up to the region of the right renal pelvis. A 6 Micronesian open-ended ureteral catheter was then advanced through the left ureteral orifice and up to the region of the renal pelvis. The cystoscope was withdrawn, leaving the ureteral catheters in place. A 16 Micronesian Adler catheter was inserted to drain the bladder. The ureteral catheters were then inserted into the hub of the Adler catheter, which was then connected to a common drainage bag. The patient tolerated the procedure well. The remainder of the procedure will be performed by Dr. Ribeiro and summary will be contained in her operative note. It is anticipated that the ureteral catheters will be removed at the end of the procedure. MAG
[2016-11-24] MEDS: ceFAZolin 2 GM in SODIUM CHLORIDE 0.9% 100 ML IVPB SCH (16:39)
[2016-11-24 18:00] LABS: Glucose,Whole Blood 105 mg/dL (75-99)
[2016-11-24] MEDS ORDERED: BENZOCAINE SPRAY 100 APPLIC/CAN MUCOUS MEM PRN (23:56)
[2016-11-25] MEDS: HEPARIN SODIUM,PORCINE 5,000 UNIT/ML 1 ML VIAL SQ SCH ×3 (00:01→17:04)
[2016-11-25 00:11] LABS: Glucose,Whole Blood 124 mg/dL (75-99)
[2016-11-25] MEDS: INSULIN LISPRO (humaLOG) 300 UNIT/3 ML VIAL SQ SCH ×4 (00:59→19:23)
[2016-11-25] MEDS: METOCLOPRAMIDE 5 MG/ML 2 ML VIAL IVP SCH ×4 (01:54→19:23)
[2016-11-25 06:24] LABS: Basophils % (A) 0 %; CH 31.6; CHCM 33.2; Eosinophils # (A) 0.3 k/uL (0-0.7); Eosinophils % (A) 2 %; HCT 40.3 % (34.0-46.0); HDW 2.37; HGB 13.1 gm/dL (11.4-16.0); Luc # (Auto) 0.32; Luc % (Auto) 2; Lymphocytes # (A) 1.4 k/uL (1.0-4.8); Lymphocytes % (A) 9 %; MCH 31.1 pg (25.0-35.0); MCHC 32.5 g/dL (31.0-37.0); MCV 95.4 fL (80.0-100.0); Monocytes # (A) 1.2 k/uL (0-1.0); Monocytes % (A) 8 %; Neutrophils # (A) 11.4 k/uL (1.3-7.7); Neutrophils % (A) 78 %; RBC 4.22 m/uL (3.80-5.40); RDW 13.3 % (11.5-15.5); WBC 14.6 k/uL (3.8-10.6); WBC (Perox) 15.44
[2016-11-25 07:12] LABS: Glucose,Whole Blood 134 mg/dL (75-99)
[2016-11-25 07:19] LABS: Ionized Calcium 5.1 mg/dL (4.5-5.3)
[2016-11-25 07:31] LABS: ALT 43 U/L (9-52); AST 34 U/L (14-36); Alkaline Phosphatase 44 U/L (38-126); Anion Gap 8 mmol/L; Blood Urea Nitrogen 30 mg/dL (7-17); Calcium 8.5 mg/dL (8.4-10.2); Carbon Dioxide 23 mmol/L (22-30); Chloride 106 mmol/L (98-107); Glucose 120 mg/dL (74-99); Magnesium 1.9 mg/dL (1.6-2.3); Non-African American GFR(MDRD) 57 (>60 ml/min/1.73 sqM); Phosphorous 3.7 mg/dL (2.5-4.5); Potassium 4.2 mmol/L (3.5-5.1); Sodium 137 mmol/L (137-145); Total Bilirubin 0.9 mg/dL (0.2-1.3); Triglycerides 37 mg/dL (<150)
[2016-11-25] MEDS: FAMOTIDINE 20 MG/2 ML VIAL IV SCH (08:23)
[2016-11-25] MEDS: metroNIDAZOLE-NS PMX 500 MG in SALINE 1 100ML.BAG IVPB SCH ×3 (08:23→17:04)
--- NOTE | 2016-11-25 08:23 | P.PN ---
Progress Note - Text 3203 Anesthesia POD 1. Status Post exploratory laparotomy with extensive lysis of adhesions, colostomy takedown, small bowel resection with primary anastomosis , and a sigmoid colectomy with a primary anastomosis under general endotracheal anesthesia with an epidrual catheter placed at [T10] for post surgical pain releif. VAS (3, 5) with Bupivicaine 0.1% and Dilaudid [20] mcg / cc running at 3 mL/ hr. Lower extremity strength ([4]/4). Minimal sedation. Site looks OK.
[2016-11-25] MEDS: ceFAZolin 2 GM in SODIUM CHLORIDE 0.9% 100 ML IVPB SCH ×4 (08:30→17:03)
[2016-11-25 11:59] LABS: Glucose,Whole Blood 140 mg/dL (75-99)
[2016-11-25] MEDS: SODIUM CHLORIDE 0.9% 1,000 ML IV SCH ×2 (12:08→15:29)
[2016-11-25 12:37] LABS: Appearance,Urine Cloudy (Clear); Bacteria,Urine Rare /hpf; Bilirubin,Urine Negative (Negative); Glucose,Urine (UA) Negative (Negative); Ketones,Urine Negative (Negative); Leukocyte Esterase,Urine Moderate (Negative); Mucus,Urine Rare /hpf; Nitrite,Urine Negative (Negative); PH, Urine 5.5 (5.0-8.0); Particle Count 15367; Protein,Urine 1+ (Negative); RBC,Urine >182 /hpf (0-5); UA Billing (MACRO vs. MICRO) MICRO; Urobilinogen,Urine <2.0 mg/dL (<2.0); WBC,Urine 176 /hpf (0-5)
[2016-11-25] MEDS: MVI, ADULT NO.4 WITH VIT K 10 ML, TRACE (CONC-1ML/DOSE) 1 ML in AMINO ACID 5%-D25W+LYTE... IV SCH ×3 (13:02)
--- NOTE | 2016-11-25 13:22 | P.PN ---
Subjective 61-year-old female being seen on rounds this morning with the surgical attending patient is sitting up in a chair nasal gastric tube in place spouse at bedside updated on plan of care by the surgeon. Patient states pain medication effective for pain control. Patient continues to receive TPN for nutritional support. Patient is denying any nausea vomiting or abdominal pain states passing gas no stool indwelling Adler catheter in place rest colored urine noted Postoperative Diagnosis: , severe intestinal adhesive disease lower pelvis, cecum, jejunum, ileum sigmoid diverticulitis. Small bowel obstruction due to intestinal adhesions with a history of perforated diverticulitis with Refugio's procedure done on November 24 with Placement of round Gerson-Camargo #19 drain anterior to colorectal anastomosis Placement of Prevevena wound VAC system, 13 cm along colostomy reversal site, left lower quadrant Placement of the foam dressing along LAST site and midline incision Placement of field block along midline incision. Procedure(s) Performed: 1. Extensive lysis of adhesions 1-1/2 hours involving ileum, jejunum 2. Small bowel resection with primary anastomosis 100 cm proximal to ileocecal valve for severe adhesive band disease intraluminal obstruction 3. Takedown of descending colostomy. 4. Sigmoid resection, low anterior 5. Primary colorectal anastomosis using 29 mm ILS 6. Intraoperative sigmoid endoscopy using Olympus colonoscope Objective - Vital Signs Vital signs: Vital Signs Temp 98.6 F 11/25/16 08:30 Pulse 104 H 11/25/16 08:28 Resp 18 11/25/16 08:28 BP 101/64 11/25/16 08:28 Pulse Ox 94 L 11/25/16 08:28 Intake & Output 11/24/16 11/25/16 11/25/16 18:59 06:59 18:59 Intake Total 3552.5 54.617 Output Total 290 240 Balance 3262.5 -185.383 Weight 58.5 kg 56 kg Intake: IV 3552.5 Intake, IV Titration 54.617 Amount Bupivacaine (Pf) 0.5% 37. 54.617 5 ml fentaNYL (PF) 1,250 mcg In Sodium Chloride 0. 9% 188 ml @ Per Protocol EPIDURAL .Q0M PRN Rx#: [id number] Output: Drainage 140 Left Abdomen 0 Right Lower Abdomen 140 Urine 190 100 Estimated Blood Loss 100 Other: Voiding Method Toilet Indwelling Catheter # Voids 2 - Exam Physical exam 61-year-old female sitting up in a chair nasal gastric tube in place taking ice chips pleasant alert oriented 3 Lungs essentially clear with adequate air movement Heart S1-S2 audible and regular Abdomen prevevana wound VAC system in place dressing to surgical site dry a few hypoactive bowel tones no stool indwelling Adler catheter in place dark rozina urine noted TPN in progress a nasal gastric tube in place Extremities no edema noted - Labs CBC & Chem 7: 11/25/16 06:08 11/25/16 06:08 Labs: Abnormal Lab Results - Last 24 Hours (Table) 11/24/16 11/24/16 11/25/16 Range/Units 13:39 17:58 00:09 WBC (3.8-10.6) k/uL Neutrophils # (1.3-7.7) k/uL Monocytes # (0-1.0) k/uL BUN (7-17) mg/dL Glucose (74-99) mg/dL POC Glucose (mg/dL) 168 H 105 H 124 H (75-99) mg/dL Total Protein (6.3-8.2) g/dL Albumin (3.5-5.0) g/dL Urine Appearance (Clear) Urine Protein (Negative) Urine Blood (Negative) Ur Leukocyte Esterase (Negative) Urine RBC (0-5) /hpf Urine WBC (0-5) /hpf Urine WBC Clumps (None) /hpf Urine Bacteria (None) /hpf Urine Mucus (None) /hpf 11/25/16 11/25/16 11/25/16 Range/Units 05:51 06:08 06:08 WBC 14.6 H (3.8-10.6) k/uL Neutrophils # 11.4 H (1.3-7.7) k/uL Monocytes # 1.2 H (0-1.0) k/uL BUN 30 H (7-17) mg/dL Glucose 120 H (74-99) mg/dL POC Glucose (mg/dL) 134 H (75-99) mg/dL Total Protein 5.0 L (6.3-8.2) g/dL Albumin 2.6 L (3.5-5.0) g/dL Urine Appearance (Clear) Urine Protein (Negative) Urine Blood (Negative) Ur Leukocyte Esterase (Negative) Urine RBC (0-5) /hpf Urine WBC (0-5) /hpf Urine WBC Clumps (None) /hpf Urine Bacteria (None) /hpf Urine Mucus (None) /hpf 11/25/16 11/25/16 Range/Units 10:55 11:54 WBC (3.8-10.6) k/uL Neutrophils # (1.3-7.7) k/uL Monocytes # (0-1.0) k/uL BUN (7-17) mg/dL Glucose (74-99) mg/dL POC Glucose (mg/dL) 140 H (75-99) mg/dL Total Protein (6.3-8.2) g/dL Albumin (3.5-5.0) g/dL Urine Appearance Cloudy H (Clear) Urine Protein 1+ H (Negative) Urine Blood Large H (Negative) Ur Leukocyte Esterase Moderate H (Negative) Urine RBC >182 H (0-5) /hpf Urine WBC 176 H (0-5) /hpf Urine WBC Clumps Few H (None) /hpf Urine Bacteria Rare H (None) /hpf Urine Mucus Rare H (None) /hpf Microbiology - Last 24 Hours (Table) 11/20/16 00:43 Blood Culture - Preliminary Blood No Growth after 120 hours Assessment and Plan Plan: Impression Present on admission diffuse abdominal pain with nausea vomiting abdominal cramping suspect due to possible early small bowel obstruction due to license of adhesions Reoccurring admission for abdominal pain suspect due to partial small bowel obstruction due to license of adhesions History of sigmoid resection with a colostomy 05/19/2016 due to diverticulitis with perforation Chronic pain Depressive anxiety disorder nonspecified Underweight suspect due to poor caloric intake suspect mild protein calorie malnutrition with muscle wasting due to poor caloric intake due to chronic illness Echocardiogram left ventricular systolic function normal with an EF between 55 and 60% per echocardiogram done on November 21 Twelve-lead EKG done on November 16 shows sinus rhythm Small bowel obstruction due to intestinal adhesions, history of perforated diverticulitis with White's, Procedure performed on 11/24/2016 , severe intestinal adhesive disease lower pelvis, cecum, jejunum, ileum sigmoid diverticulitis done on 11/24/2016 Extensive lysis of adhesions 1-1/2 hours involving ileum, jejunum 2. Small bowel resection with primary anastomosis 100 cm proximal to ileocecal valve for severe adhesive band disease intraluminal obstruction 3. Takedown of descending colostomy. 4. Sigmoid resection, low anterior 5. Primary colorectal anastomosis using 29 mm ILS 6. Intraoperative sigmoid endoscopy using Olympus colonoscope Operative Findings: 1. 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 2. Chronic small bowel obstruction along the distal jejunum causing chronic intraluminal obstruction requiring resection 100 cm proximal to the ileocecal valve 3. Negative leak test. 4. 29 mm ILS. 5. Resected sigmoid for active diverticulitis. 6. At the end of the case, patient had moderate flatus. 7. NG tube positioned within the stomach and patent. Plan We'll give 2 L of IV fluid bolus monitor NATHANIEL closely May start a clear liquid diet continue nasogastric tube Patient is to ambulate with assist at least 3 times a day Continue PICC line for TPN pain control Resume home meds as appropriate DVT and GI prophylaxis Further recommendations pending The above dictated assessment and findings were discussed with dr shilpa Marie and the plan of care have been dictated as directed. [place] Jameson nurse practitioner acting as a scribe for dr massey
[2016-11-25] MEDS ORDERED: diphenhydrAMINE 50 MG/ML 1 ML VIAL IVP STA (13:46)
[2016-11-25] MEDS: BUPIVACAINE (PF) 0.5% 37.5 ML, fentaNYL (PF) 1,250 MCG in SODIUM CHLORIDE 0.9% 188 ML EPIDURAL PRN (15:30)
[2016-11-25] MEDS: FAT EMULSION 20% 250 ML in EMPTY BAG 1 BAG IV SCH (17:04)
[2016-11-25] MEDS: LACTATED RINGERS 1,000 ML IV SCH (17:05)
--- NOTE | 2016-11-25 17:27 | P.PN ---
Subjective Date of service 11/24/2016. Personal being dictated for Dr. Degroot. Interval history: This a 61-year-old female admitted with partial small bowel obstruction, dehydration, acute renal failure and multiple other medical issues. Underwent flex sigmoid endoscopy yesterday, reporting diverticulitis, moderate scattered diverticulosis. Patient is just returning back from surgery , reporting extensive lysis of adhesions, small bowel resection, takedown of descending colostomy, low anterior sigmoid resection, primary colorectal anastomosis, intraoperative sigmoid endoscopy. tolerated procedure well.good pain relief with epidural, states pain at a" 0 ". Hematuria in Adler. TPN via PICC line .Denies chest pain, palpitations or increasing shortness of breath. Afebrile. Objective - Vital Signs Vital signs: Vital Signs Temp 98.6 F 11/24/16 06:17 Pulse 96 11/24/16 07:25 Resp 15 11/24/16 07:00 BP 111/73 11/24/16 07:25 Pulse Ox 97 11/24/16 07:19 Intake & Output 11/23/16 11/24/16 11/24/16 18:59 06:59 18:59 Intake Total 6209.611 5188 0 Output Total 500 675 Balance 520.833 450 0 Weight 58.5 kg Intake: IV 100 300 0 Intake, IV Titration 920.833 825 Amount Mvi, Adult No.4 with Vit 920.833 K 10 ml Trace (Conc-1Ml/ Dose) 1 ml In Amino Acid 5%-D25w+Lytes*E* 1,000 ml @ 50 mls/hr IV .[id number] DEANA Rx#:[id number] Sodium Chloride 0.9% 1, 825 000 ml @ 75 mls/hr IV . [id number] DEANA Rx#:[id number] Output: Gastric Drainage 500 675 Other: Voiding Method Toilet Toilet # Voids 2 # Bowel Movements 1 - Exam PHYSICAL EXAM: VITAL SIGNS: [As above] GENERAL: [Sitting up in bed, no acute distress] HEENT: [Pupils equal conjunctiva normal.] NECK: [Supple, no JVD] RESPIRATORY EFFORT:[Normal] LUNGS: [Lungs clear, bilateral bases diminished, no wheezing, crackles or rhonchi] CARDIOVASCULAR[regular S1 and S2, no murmurs rubs or gallops, no edema] GI: [Abdomen soft, nondistended, nontender, dressing clean dry and intact, abdominal binder, LAST drain, and wound VAC present] PSYCH: [Alert and oriented -3, mood and affect normal. NEURO: [No focal deficits, moves all 4 extremities, strength and sensation grossly intact] - Labs CBC & Chem 7: 11/24/16 05:48 11/24/16 05:48 Labs: Abnormal Lab Results - Last 24 Hours (Table) 11/23/16 11/23/16 11/24/16 Range/Units 12:38 17:54 00:21 Creatinine (0.52-1.04) mg/dL Glucose (74-99) mg/dL POC Glucose (mg/dL) 128 H 118 H 109 H (75-99) mg/dL ALT (9-52) U/L Total Protein (6.3-8.2) g/dL Albumin (3.5-5.0) g/dL 11/24/16 11/24/16 Range/Units 05:17 05:48 Creatinine 0.48 L (0.52-1.04) mg/dL Glucose 121 H (74-99) mg/dL POC Glucose (mg/dL) 113 H (75-99) mg/dL ALT 60 H (9-52) U/L Total Protein 6.0 L (6.3-8.2) g/dL Albumin 3.3 L (3.5-5.0) g/dL Microbiology - Last 24 Hours (Table) 11/20/16 00:43 Blood Culture - Preliminary Blood No Growth after 96 hours Assessment and Plan Plan: 1. Partial small bowel structure, S/P flex sigmoid endoscopy, reporting diverticulitis, moderate scattered diverticulosis. 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 2. [Dehydration secondary to the above]. 3. [Acute renal failure secondary to dehydration from small bowel distraction]. 4. [Depression]. 5. [Anxiety disorder]. Plan: Continue on current medication regime ,monitoring and symptomatic treatment. Wound VAC, pain management as per surgery. Maintain IV fluid hydration, TPN. Follow closely with surgery. Further recommendations to follow. The impression and plan of care has been dictated as directed. : I performed a H&P examination of this patient and discussed the same with the dictator. I agree with the dictator's note. Any additional findings/opinions/ etc. will be noted.
--- NOTE | 2016-11-25 17:43 | P.PN ---
Subjective Date of service 11/25/2016. Personal being dictated for Dr. Degroot. Interval history: This a 61-year-old female admitted with partial small bowel obstruction, dehydration, acute renal failure, status post exploratory laparotomy with extensive lysis of adhesions, small bowel resection, takedown of descending colostomy, low anterior sigmoid resection, primary colorectal anastomosis, intraoperative sigmoid endoscopy, postop day #1. Sitting up in chair, pain controlled on epidural. Tolerating ice chest with no nausea or vomiting reported. No flatus, no bowel movement . Adler with dark rozina drainage. TPN via PICC line .borderline hypotensive-asymptomatic with mild fevers, T-max 100.5, receiving fluid boluses as per surgery. Maintained on cefazolin and, Flagyl. Denies chest pain, palpitations or increasing shortness of breath. Afebrile. Objective - Vital Signs Vital signs: Vital Signs Temp 100.0 F H 11/25/16 15:41 Pulse 86 11/25/16 15:41 Resp 18 11/25/16 15:41 BP 105/86 11/25/16 15:41 Pulse Ox 94 L 11/25/16 15:41 Intake & Output 11/24/16 11/25/16 11/25/16 18:59 06:59 18:59 Intake Total 3552.5 54.617 103.50 Output Total 290 240 Balance 3262.5 -185.383 103.50 Weight 58.5 kg 56 kg Intake: IV 3552.5 Intake, IV Titration 54.617 103.50 Amount Bupivacaine (Pf) 0.5% 37. 54.617 103.50 5 ml fentaNYL (PF) 1,250 mcg In Sodium Chloride 0. 9% 188 ml @ Per Protocol EPIDURAL .Q0M PRN Rx#: [id number] Output: Drainage 140 Left Abdomen 0 Right Lower Abdomen 140 Urine 190 100 Estimated Blood Loss 100 Other: Voiding Method Toilet Indwelling Catheter # Voids 2 - Exam PHYSICAL EXAM: VITAL SIGNS: [As above] GENERAL: [Sitting up in chair, no acute distress] HEENT: [Pupils equal conjunctiva normal, NG tube present.] NECK: [Supple, no JVD] RESPIRATORY EFFORT:[Normal] LUNGS: [Lungs clear, bilateral bases diminished, no wheezing, crackles or rhonchi] CARDIOVASCULAR[regular S1 and S2, no murmurs rubs or gallops, no edema] GI: [Abdomen soft, status post surgery, dressing clean dry and intact, abdominal binder, LAST drain, and wound VAC present, mildly hypoactive bowel sounds] PSYCH: [Alert and oriented -3, mood and affect normal. NEURO: [No focal deficits, moves all 4 extremities, strength and sensation grossly intact] - Labs CBC & Chem 7: 11/25/16 06:08 11/25/16 06:08 Labs: Abnormal Lab Results - Last 24 Hours (Table) 11/24/16 11/25/16 11/25/16 Range/Units 17:58 00:09 05:51 WBC (3.8-10.6) k/uL Neutrophils # (1.3-7.7) k/uL Monocytes # (0-1.0) k/uL BUN (7-17) mg/dL Glucose (74-99) mg/dL POC Glucose (mg/dL) 105 H 124 H 134 H (75-99) mg/dL Total Protein (6.3-8.2) g/dL Albumin (3.5-5.0) g/dL Urine Appearance (Clear) Urine Protein (Negative) Urine Blood (Negative) Ur Leukocyte Esterase (Negative) Urine RBC (0-5) /hpf Urine WBC (0-5) /hpf Urine WBC Clumps (None) /hpf Urine Bacteria (None) /hpf Urine Mucus (None) /hpf 11/25/16 11/25/16 11/25/16 Range/Units 06:08 06:08 10:55 WBC 14.6 H (3.8-10.6) k/uL Neutrophils # 11.4 H (1.3-7.7) k/uL Monocytes # 1.2 H (0-1.0) k/uL BUN 30 H (7-17) mg/dL Glucose 120 H (74-99) mg/dL POC Glucose (mg/dL) (75-99) mg/dL Total Protein 5.0 L (6.3-8.2) g/dL Albumin 2.6 L (3.5-5.0) g/dL Urine Appearance Cloudy H (Clear) Urine Protein 1+ H (Negative) Urine Blood Large H (Negative) Ur Leukocyte Esterase Moderate H (Negative) Urine RBC >182 H (0-5) /hpf Urine WBC 176 H (0-5) /hpf Urine WBC Clumps Few H (None) /hpf Urine Bacteria Rare H (None) /hpf Urine Mucus Rare H (None) /hpf 11/25/16 Range/Units 11:54 WBC (3.8-10.6) k/uL Neutrophils # (1.3-7.7) k/uL Monocytes # (0-1.0) k/uL BUN (7-17) mg/dL Glucose (74-99) mg/dL POC Glucose (mg/dL) 140 H (75-99) mg/dL Total Protein (6.3-8.2) g/dL Albumin (3.5-5.0) g/dL Urine Appearance (Clear) Urine Protein (Negative) Urine Blood (Negative) Ur Leukocyte Esterase (Negative) Urine RBC (0-5) /hpf Urine WBC (0-5) /hpf Urine WBC Clumps (None) /hpf Urine Bacteria (None) /hpf Urine Mucus (None) /hpf Microbiology - Last 24 Hours (Table) 11/20/16 00:43 Blood Culture - Preliminary Blood No Growth after 120 hours Assessment and Plan Plan: 1. Partial small bowel structure, S/P flex sigmoid endoscopy, reporting diverticulitis, moderate scattered diverticulosis. 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 2. [Dehydration secondary to the above]. 3. [Acute renal failure secondary to dehydration from small bowel distraction]. 4. [Depression]. 5. [Anxiety disorder]. 6. Status post PICC line placement. Plan: Continue on current medication regime ,monitoring and symptomatic treatment. Wound VAC, pain management as per surgery. Maintain IV fluid hydration, TPN. Chest x-ray, urine culture and blood cultures ordered. Continue on cefazolin and, Flagyl. Follow closely with surgery. Further recommendations to follow. The impression and plan of care has been dictated as directed. : I performed a H&P examination of this patient and discussed the same with the dictator. I agree with the dictator's note. Any additional findings/opinions/ etc. will be noted.
--- NOTE | 2016-11-25 17:53 | XR ---
EXAMINATION TYPE: XR chest 2V DATE OF EXAM: 11/25/2016 5:41 PM COMPARISON: 11/21/2016 HISTORY: Cough TECHNIQUE: Frontal and lateral views of the chest are obtained. FINDINGS: Heart and mediastinum are normal. There is slight blunting of the posterior costophrenic a ngles. There are no hilar masses. There is a poor inspiration. There is a left central venous cathete r with tip in the superior vena cava. IMPRESSION: Bilateral small pleural effusions and pleural reaction at the posterior lung bases is ne w compared to recent exam. Poor inspiration. Normal heart. There is probably a mild new pneumonia in the left lower lobe.
[2016-11-25 17:54] LABS: Glucose,Whole Blood 157 mg/dL (75-99)
[2016-11-26] MEDS: SODIUM CHLORIDE 0.9% 1,000 ML IV SCH ×9 (00:26→19:50)
[2016-11-26] MEDS: metroNIDAZOLE-NS PMX 500 MG in SALINE 1 100ML.BAG IVPB SCH ×2 (00:27→08:08)
[2016-11-26] MEDS: ceFAZolin 2 GM in SODIUM CHLORIDE 0.9% 100 ML IVPB SCH ×2 (00:27→08:00)
[2016-11-26 00:28] LABS: Glucose,Whole Blood 141 mg/dL (75-99)
[2016-11-26] MEDS: INSULIN LISPRO (humaLOG) 300 UNIT/3 ML VIAL SQ SCH ×5 (00:28→18:15)
[2016-11-26] MEDS: HEPARIN SODIUM,PORCINE 5,000 UNIT/ML 1 ML VIAL SQ SCH ×3 (00:28→17:22)
[2016-11-26] MEDS: METOCLOPRAMIDE 5 MG/ML 2 ML VIAL IVP SCH ×4 (01:42→18:27)
[2016-11-26 05:58] LABS: Glucose,Whole Blood 151 mg/dL (75-99)
[2016-11-26] MEDS: FAMOTIDINE 20 MG/2 ML VIAL IV SCH (08:09)
[2016-11-26 08:29] LABS: ALT 30 U/L (9-52); AST 26 U/L (14-36); Alkaline Phosphatase 49 U/L (38-126); Anion Gap 7 mmol/L; Blood Urea Nitrogen 12 mg/dL (7-17); Calcium 8.3 mg/dL (8.4-10.2); Carbon Dioxide 24 mmol/L (22-30); Chloride 106 mmol/L (98-107); Glucose 102 mg/dL (74-99); Non-African American GFR(MDRD) >60 (>60 ml/min/1.73 sqM); Phosphorous 1.5 mg/dL (2.5-4.5); Potassium 3.7 mmol/L (3.5-5.1); Sodium 137 mmol/L (137-145); Total Bilirubin 0.4 mg/dL (0.2-1.3); Total Protein 4.7 g/dL (6.3-8.2)
[2016-11-26] MEDS: MORPHINE SULFATE 2 MG/ML SYRINGE IVP PRN (09:15)
[2016-11-26] MEDS: ONDANSETRON 4 MG/2 ML VIAL IVP PRN (09:28)
[2016-11-26] MEDS ORDERED: SODIUM CHLORIDE 0.9% 2,000 ML IV ONE (10:13)
--- NOTE | 2016-11-26 10:15 | P.PN ---
Subjective Principal diagnosis: Bowel obstruction The patient is a 61-year-old female postop day #2 status post laparotomy with extensive lysis adhesions over 4 hours as well as colostomy reversal and small bowel resection. This morning she reports increased pain. She has an epidural. Additionally she has severe nausea and vomiting with pain meds. She cannot tolerate NSAIDs or Dilaudid. She has nausea with morphine. She has not passed flatus. She does have bowel sounds per discussion with nurse. She is yet to ambulate. Objective - Vital Signs Vital signs: Vital Signs Temp 97.8 F 11/26/16 07:51 Pulse 94 11/26/16 08:00 Resp 16 11/26/16 08:00 BP 135/77 11/26/16 07:51 Pulse Ox 92 L 11/26/16 07:51 Intake & Output 11/25/16 11/26/16 11/26/16 18:59 06:59 18:59 Intake Total 103.50 3550 Output Total 1275 650 Balance 103.50 2275 -650 Weight 56 kg Intake: Intake, IV Titration 103.50 3350 Amount Bupivacaine (Pf) 0.5% 37. 103.50 5 ml fentaNYL (PF) 1,250 mcg In Sodium Chloride 0. 9% 188 ml @ Per Protocol EPIDURAL .Q0M PRN Rx#: [id number] Mvi, Adult No.4 with Vit 400 K 10 ml Trace (Conc-1Ml/ Dose) 1 ml In Amino Acid 5%-D25w+Lytes*E* 1,000 ml @ 50 mls/hr IV .[id number] [facility] Rx#:[id number] Sodium Chloride 0.9% 1, 2750 000 ml @ 125 mls/hr IV . Q8H [facility] Rx#:[id number] ceFAZolin 2 gm In Sodium 100 Chloride 0.9% 100 ml @ 100 mls/hr IVPB Q8HR [facility] Rx#:[id number] metroNIDAZOLE-NS PMX 500 100 mg In Saline 1 100ml.bag @ 100 mls/hr IVPB Q8HR [facility] Rx#:[id number] Oral 200 Output: Drainage 150 100 Right Lower Abdomen 150 100 Urine 1125 550 Other: Voiding Method Indwelling Catheter Indwelling Catheter # Voids 2 - Exam GENERAL: Well developed and in no acute distress. HEENT: No sclera icterus. Extraocular movements grossly intact. Moist buccal mucosa. NECK: Supple without lymphadenopathy. No JV distention. Nasogastric tube present with dark brown aspirant. CHEST: Non-labored respirations and equal bilateral excursions. CARDIOVASCULAR: Regular rate and rhythm. Palpable 2+ radial pulses. ABDOMEN: Abdominal binder intact. Serosanguineous shadowing along inferior portion of the dressing. LAST serosanguineous. Prevena dressing present along the left lower quadrant incision. MUSCULOSKELETAL: No clubbing, cyanosis or edema. NEUROLOGIC: No focal or lateralizing signs. PSYCH: Appropriate affect. Alert and oriented to person, place and time. : Adler catheter with clear however dark urine. - Labs CBC & Chem 7: 11/25/16 06:08 11/26/16 07:30 Labs: Abnormal Lab Results - Last 24 Hours (Table) 11/25/16 11/25/16 11/25/16 Range/Units 10:55 11:54 17:53 Glucose (74-99) mg/dL POC Glucose (mg/dL) 140 H 157 H (75-99) mg/dL Calcium (8.4-10.2) mg/dL Phosphorus (2.5-4.5) mg/dL Total Protein (6.3-8.2) g/dL Albumin (3.5-5.0) g/dL Urine Appearance Cloudy H (Clear) Urine Protein 1+ H (Negative) Urine Blood Large H (Negative) Ur Leukocyte Esterase Moderate H (Negative) Urine RBC >182 H (0-5) /hpf Urine WBC 176 H (0-5) /hpf Urine WBC Clumps Few H (None) /hpf Urine Bacteria Rare H (None) /hpf Urine Mucus Rare H (None) /hpf 11/26/16 11/26/16 11/26/16 Range/Units 00:19 05:49 07:30 Glucose 102 H (74-99) mg/dL POC Glucose (mg/dL) 141 H 151 H (75-99) mg/dL Calcium 8.3 L (8.4-10.2) mg/dL Phosphorus 1.5 L (2.5-4.5) mg/dL Total Protein 4.7 L (6.3-8.2) g/dL Albumin 2.4 L (3.5-5.0) g/dL Urine Appearance (Clear) Urine Protein (Negative) Urine Blood (Negative) Ur Leukocyte Esterase (Negative) Urine RBC (0-5) /hpf Urine WBC (0-5) /hpf Urine WBC Clumps (None) /hpf Urine Bacteria (None) /hpf Urine Mucus (None) /hpf Microbiology - Last 24 Hours (Table) 11/20/16 00:43 Blood Culture - Final Blood No Growth after 144 hours 11/25/16 10:55 Urine Culture - Preliminary Urine,Catheterized Assessment and Plan (1) Small bowel obstruction due to adhesions Status: Acute (2) Nausea and vomiting Status: Acute (3) Colostomy status Status: Acute (4) Inadequate dietary intake of protein Status: Acute (5) Small bowel obstruction due to postoperative adhesions Status: Acute (6) Status post colostomy takedown Status: Acute (7) S/P small bowel resection Status: Acute (8) Hypophosphatemia Status: Acute Plan: 1. Since she has minimal options for pain control, we'll discontinue epidural tomorrow morning. 2. Scopolamine patch for antinausea control. 3. Decadron IV for antinausea control. 4. Will change dressings today with continue Prevena dressing. 5. Antibiotics has been switched to Unasyn and Flagyl for broad-spectrum coverage. 6. Send LAST drain for culture with history of contaminated case. 7. Normal saline bolus for dehydration. 8. Discontinue Adler following epidural removal. 9. Low phosphate now replaced. Start low phosphate protocol. 10. I discussed with the patient that her surgeon will be coming back to town. She will evaluate her options and notify the team regarding resumption of care.
[2016-11-26] MEDS ORDERED: DEXAMETHASONE SOD PHOSPHATE 10 MG/ML 1 ML VIAL IV STA (10:18)
[2016-11-26] MEDS: MVI, ADULT NO.4 WITH VIT K 10 ML, TRACE (CONC-1ML/DOSE) 1 ML in AMINO ACID 5%-D25W+LYTE... IV SCH ×3 (11:31)
[2016-11-26] MEDS: POTASSIUM PHOSPHATE 10 MMOL in SODIUM CHLORIDE 0.9% 250 ML IV SCH ×3 (11:38→15:59)
[2016-11-26] MEDS: SCOPOLAMINE 1.5MG/72HR PATCH TRANSDERM SCH (11:38)
[2016-11-26 13:34] LABS: Glucose,Whole Blood 133 mg/dL (75-99)
--- NOTE | 2016-11-26 13:52 | P.PN ---
Progress Note - Text Surgical dressing changes along the midline and around LAST tube and PREVENA dressing system checked. Airleak corrected. Surgical dressing to be changed upon time of discharge by me.
[2016-11-26] MEDS ORDERED: SODIUM PHOSPHATE 10 MMOL in SODIUM CHLORIDE 0.9% 100 ML IV SCH (14:00)
[2016-11-26] MEDS: LACTATED RINGERS 1,000 ML IV SCH (15:43)
[2016-11-26] MEDS: AMPICILLIN-SULBACTAM 3 GM in SODIUM CHLORIDE 0.9% 100 ML IVPB SCH (15:56)
[2016-11-26 17:55] LABS: Glucose,Whole Blood 138 mg/dL (75-99)
--- NOTE | 2016-11-26 18:44 | P.PN ---
Progress Note - Text 11/26 8814 61-year-old female status post exploratory lap with Dr. Ribeiro. Patient seen and evaluated for pain control, epidural solution running at 9 mL an hour, VAS of 0. No motor or sensory deficits, ambulating well plan to DC epidural tomorrow morning.
[2016-11-26] MEDS: BUPIVACAINE (PF) 0.5% 37.5 ML, fentaNYL (PF) 1,250 MCG in SODIUM CHLORIDE 0.9% 188 ML EPIDURAL PRN (19:35)
[2016-11-26] MEDS: LORazepam 2 MG/ML SYRINGE IV PRN (20:00)
[2016-11-26 23:54] LABS: Glucose,Whole Blood 140 mg/dL (75-99)
[2016-11-27] MEDS ORDERED: diphenhydrAMINE 25 MG CAP PO PRN (00:07)
[2016-11-27] MEDS: HEPARIN SODIUM,PORCINE 5,000 UNIT/ML 1 ML VIAL SQ SCH ×3 (00:24→17:32)
[2016-11-27] MEDS: AMPICILLIN-SULBACTAM 3 GM in SODIUM CHLORIDE 0.9% 100 ML IVPB SCH ×3 (00:24→16:20)
[2016-11-27] MEDS: METOCLOPRAMIDE 5 MG/ML 2 ML VIAL IVP SCH ×4 (00:24→18:24)
[2016-11-27] MEDS: INSULIN LISPRO (humaLOG) 300 UNIT/3 ML VIAL SQ SCH ×4 (00:24→18:24)
[2016-11-27] MEDS: SODIUM CHLORIDE 0.9% 1,000 ML IV SCH ×3 (04:00→11:37)
[2016-11-27] MEDS: LORazepam 2 MG/ML SYRINGE IV PRN ×2 (04:42→17:28)
[2016-11-27 06:10] LABS: Glucose,Whole Blood 109 mg/dL (75-99)
[2016-11-27 06:48] LABS: ALT 37 U/L (9-52); AST 21 U/L (14-36); Alkaline Phosphatase 43 U/L (38-126); Anion Gap 4 mmol/L; Blood Urea Nitrogen 9 mg/dL (7-17); Calcium 7.7 mg/dL (8.4-10.2); Carbon Dioxide 24 mmol/L (22-30); Chloride 107 mmol/L (98-107); Glucose 101 mg/dL (74-99); Iron 33 ug/dL (37-170); Magnesium 1.8 mg/dL (1.6-2.3); Non-African American GFR(MDRD) >60 (>60 ml/min/1.73 sqM); Phosphorous 1.8 mg/dL (2.5-4.5); Potassium 3.8 mmol/L (3.5-5.1); Sodium 135 mmol/L (137-145); Total Bilirubin 0.3 mg/dL (0.2-1.3); Total Protein 4.2 g/dL (6.3-8.2)
[2016-11-27 06:57] LABS: % Iron Saturation 18.3 % (20-50); Total Iron Binding Capacity 180 ug/dL (265-497)
[2016-11-27] MEDS: FAMOTIDINE 20 MG/2 ML VIAL IV SCH (07:36)
--- NOTE | 2016-11-27 07:56 | PN ---
DATE OF SERVICE: 11/26/2016 INTERVAL HISTORY: Ms. Alonzo is 61-year-old female with past medical history of depression and anxiety disorder admitted to the hospital for partial small bowel obstruction, re-dehydration and acute kidney injury. Patient is status post exploratory laparotomy with extensive lysis of adhesions, small bowel resection, takedown of descending, colostomy, lower sigmoid resection and colorectal anastomosis postop day 2. Patient is lying in her bed. Patient still has epidural in place for pain control. She has been tolerating ice chips with some clear fluids today, but patient is not passing any flatus. She did not have any bowel movement. Patient has Adler catheter in place with dark-colored urine. She currently not having any active complaints. REVIEW OF SYSTEMS: CONSTITUTIONAL: No fever, chills or rigors. RESPIRATORY: No cough. No difficulty in breathing. GI - No nausea or vomiting. Patient's medications have been reviewed. She is on Tylenol 3, Unasyn, benzocaine, Benadryl, Pepcid, heparin, Humalog, Ringer lactate, Ativan, Reglan, Morphine, Narcan, Zofran, TPN, scopolamine patch. Patient's vital signs: Temperature 98.9, heart rate 80, respiratory rate 16, blood pressure 108/73, saturating at 93% on room air. PHYSICAL EXAMINATION: Patient is sitting, appears to be in no acute distress. HEENT: Atraumatic, normocephalic. Eyes, pupils round and reactive to light. NECK: No JVD, no thyromegaly. CARDIOVASCULAR: S1, S2. LUNGS: Bilateral breath sounds are positive, diminished at the lower lung bases. No wheezes or crackles. GI: Abdomen is soft, status post surgery. She has dressing intact. LAST drain in place. Patient has epidural in place. NEUROLOGICAL: No focal neurological deficits. PSYCHIATRIC: Appropriate mood and affect. SKIN: No rashes. The patient's labs: White count of 14.6, hemoglobin 13, platelets of 298. Sodium 137, potassium 3.7, chloride 106, bicarb 24, BUN 12, creatinine 0.5. ASSESSMENT AND PLAN: 1. Partial bowel obstruction, status post Exploratory endoscopy showing diverticulitis, moderate scattered diverticulosis, status post surgery. She had extensive lysis of adhesions, small bowel resection, takedown of descending, colostomy, lower anterior sigmoid resection, primary colorectal anastomosis and intraoperative sigmoidoscopy done. 2. Acute kidney injury secondary dehydration from small bowel obstruction, resolving. 3. Parenteral nutrition. 4. Anxiety disorder. 5. Depression. 6. Leukocytosis, most likely reactive. PLAN: The plan is to continue the patient on antibiotics in the form on Unasyn and continue with epidural for pain management. Surgical Services on board and following the patient closely. Continue with TPN until the patient resume p.o. intake. Continue the rest of the medication regimen. Further recommendations to follow depending on the progress of the patient. MTDD
[2016-11-27] MEDS: MVI, ADULT NO.4 WITH VIT K 10 ML, TRACE (CONC-1ML/DOSE) 1 ML in AMINO ACID 5%-D25W+LYTE... IV SCH ×6 (08:44→22:46)
--- NOTE | 2016-11-27 11:11 | P.PN ---
Progress Note - Text 11/27 5642 61-year-old female status post explore lap by Dr. Ribeiro. Patient seen this morning no changes from yesterday, no motor or sensory deficit noted. Order given to the nurse to DC the epidural
[2016-11-27] MEDS: SODIUM PHOSPHATE 10 MMOL in SODIUM CHLORIDE 0.9% 250 ML IVPB SCH ×3 (11:37→18:17)
[2016-11-27 11:39] LABS: Basophils % (A) 0 %; CH 30.9; CHCM 32.7; Eosinophils # (A) 0.6 k/uL (0-0.7); Eosinophils % (A) 6 %; HDW 2.64; Luc # (Auto) 0.21; Luc % (Auto) 2; Lymphocytes # (A) 1.6 k/uL (1.0-4.8); Lymphocytes % (A) 15 %; MCH 32.3 pg (25.0-35.0); MCHC 33.9 g/dL (31.0-37.0); MCV 95.2 fL (80.0-100.0); Monocytes # (A) 0.6 k/uL (0-1.0); Monocytes % (A) 6 %; Neutrophils # (A) 7.2 k/uL (1.3-7.7); Neutrophils % (A) 71 %; RBC 2.94 m/uL (3.80-5.40); RDW 12.9 % (11.5-15.5); WBC 10.2 k/uL (3.8-10.6); WBC (Perox) 9.99
[2016-11-27] MEDS: MAGNESIUM SULFATE-D5W PMX 1 GM in DEXTROSE/WATER 1 100ML.BAG IVPB SCH ×2 (11:40→14:10)
[2016-11-27 11:43] LABS: HGB 9.5 gm/dL (11.4-16.0)
[2016-11-27 12:42] LABS: Glucose,Whole Blood 123 mg/dL (75-99)
[2016-11-27] MEDS: SODIUM FERRIC GLUCONAT-SUCROSE 125 MG in SODIUM CHLORIDE 0.9% 100 ML IVPB SCH (12:43)
[2016-11-27] MEDS: fentaNYL PCA 300 MCG/30 ML SYRINGE IV PRN ×3 (13:25→23:30)
--- NOTE | 2016-11-27 16:31 | P.PN ---
Subjective Principal diagnosis: Status post exploratory laparotomy and colostomy reversal 61 years old female status post colostomy reversal. Epidural and Adler catheter in place. Pain is well controlled. No nausea or vomiting. No flatus or bowel movement. She is currently having some flatus per rectum Objective - Vital Signs Vital signs: Vital Signs Temp 97.0 F L 11/27/16 15:27 Pulse 70 11/27/16 15:27 Resp 16 11/27/16 15:27 BP 152/73 11/27/16 15:27 Pulse Ox 95 11/27/16 15:27 Intake & Output 11/26/16 11/27/16 11/27/16 18:59 06:59 18:59 Intake Total 1011 250.5 1011 Output Total 2725 585 1100 Balance -1714 -334.5 -89 Weight 56 kg 56 kg Intake: Intake, IV Titration 1011 250.5 1011 Amount Bupivacaine (Pf) 0.5% 37. 250.5 5 ml fentaNYL (PF) 1,250 mcg In Sodium Chloride 0. 9% 188 ml @ Per Protocol EPIDURAL .Q0M PRN Rx#: [id number] Mvi, Adult No.4 with Vit 1011 1011 K 10 ml Trace (Conc-1Ml/ Dose) 1 ml In Amino Acid 5%-D25w+Lytes*E* 1,000 ml @ 50 mls/hr IV .[id number] [facility] Rx#:[id number] Output: Drainage 175 60 Left Abdomen 75 60 Right Lower Abdomen 100 Urine 2550 525 1100 Uretheral (Adler) 1450 575 Other: Voiding Method Indwelling Catheter Indwelling Catheter Indwelling Catheter # Voids 2 0 - Exam Incision clean dry and intact abdomen: All sounds present. LAST has serous output. - Labs CBC & Chem 7: 11/27/16 11:30 11/27/16 06:25 Labs: Abnormal Lab Results - Last 24 Hours (Table) 11/26/16 11/26/16 11/27/16 Range/Units 17:53 23:51 06:04 RBC (3.80-5.40) m/uL Hgb (11.4-16.0) gm/dL Hct (34.0-46.0) % Sodium (137-145) mmol/L Creatinine (0.52-1.04) mg/dL Glucose (74-99) mg/dL POC Glucose (mg/dL) 138 H 140 H 109 H (75-99) mg/dL Calcium (8.4-10.2) mg/dL Phosphorus (2.5-4.5) mg/dL Iron (37-170) ug/dL TIBC (265-497) ug/dL % Saturation (20-50) % Total Protein (6.3-8.2) g/dL Albumin (3.5-5.0) g/dL 11/27/16 11/27/16 11/27/16 Range/Units 06:25 11:30 12:41 RBC 2.94 L (3.80-5.40) m/uL Hgb 9.5 L D (11.4-16.0) gm/dL Hct 28.0 L (34.0-46.0) % Sodium 135 L (137-145) mmol/L Creatinine 0.50 L (0.52-1.04) mg/dL Glucose 101 H (74-99) mg/dL POC Glucose (mg/dL) 123 H (75-99) mg/dL Calcium 7.7 L (8.4-10.2) mg/dL Phosphorus 1.8 L (2.5-4.5) mg/dL Iron 33 L (37-170) ug/dL TIBC 180 L (265-497) ug/dL % Saturation 18.3 L (20-50) % Total Protein 4.2 L (6.3-8.2) g/dL Albumin 2.1 L (3.5-5.0) g/dL Microbiology - Last 24 Hours (Table) 11/25/16 10:55 Urine Culture - Final Urine,Catheterized 11/25/16 16:50 Blood Culture - Preliminary Blood No Growth after 24 hours 11/25/16 16:21 Blood Culture - Preliminary Blood No Growth after 24 hours Assessment and Plan (1) Small bowel obstruction due to adhesions Status: Acute Plan: 1. 61 years old female status post exposure laparotomy, extensive lysis of adhesions and colostomy reversal 2. Do not remove NG tube. 3. Epidural discontinued. Discontinue Adler 6 hours later 4. Fentanyl [employer] as per Dr. Ribeiro 5. DVT and GI prophylaxis
[2016-11-27 18:25] LABS: Glucose,Whole Blood 110 mg/dL (75-99)
[2016-11-28] MEDS: LORazepam 2 MG/ML SYRINGE IV PRN ×2 (00:03→22:00)
[2016-11-28] MEDS: AMPICILLIN-SULBACTAM 3 GM in SODIUM CHLORIDE 0.9% 100 ML IVPB SCH ×3 (00:03→15:37)
[2016-11-28] MEDS: METOCLOPRAMIDE 5 MG/ML 2 ML VIAL IVP SCH ×4 (00:03→17:26)
[2016-11-28] MEDS: INSULIN LISPRO (humaLOG) 300 UNIT/3 ML VIAL SQ SCH ×4 (00:05→17:26)
[2016-11-28] MEDS: HEPARIN SODIUM,PORCINE 5,000 UNIT/ML 1 ML VIAL SQ SCH ×3 (00:06→15:38)
[2016-11-28 00:20] LABS: Glucose,Whole Blood 120 mg/dL (75-99)
[2016-11-28 06:28] LABS: Glucose,Whole Blood 129 mg/dL (75-99)
[2016-11-28] MEDS: FAMOTIDINE 20 MG/2 ML VIAL IV SCH ×2 (07:58→21:52)
[2016-11-28] MEDS: SODIUM CHLORIDE 0.9% 1,000 ML IV SCH (07:58)
[2016-11-28 07:59] VITALS: RESP 16
[2016-11-28] MEDS: SODIUM FERRIC GLUCONAT-SUCROSE 125 MG in SODIUM CHLORIDE 0.9% 100 ML IVPB SCH (08:46)
[2016-11-28] MEDS: ONDANSETRON 4 MG/2 ML VIAL IVP PRN ×2 (11:42→20:53)
[2016-11-28 12:02] LABS: Glucose,Whole Blood 143 mg/dL (75-99)
--- NOTE | 2016-11-28 12:57 | PN ---
DATE OF SERVICE: 11/27/2016 INTERVAL HISTORY: Ms. Alonzo is a 61-year-old female with a past medical history of depression, anxiety disorder. Admitted to the hospital for partial small bowel obstruction, dehydration and acute kidney injury. The patient is status post exploratory laparotomy with extensive lysis of adhesions, small bowel resection, takedown of descending colostomy, lower segment resection and colorectal anastomosis. She is postop day 3. Patient did walk about 120 feet in the hallway today along with the nurse. Patient's epidural has been discontinued. Patient has been tolerating clear liquids and feels that she has some gas moving in her belly but did not pass any flatus. She denies having any nausea or vomiting. Patient's Adler catheter has been discontinued. She still has her NG tube in place. REVIEW OF SYSTEMS: CONSTITUTIONAL: Denies any fevers, chills, or rigors. RESPIRATORY: No cough. No difficulty in breathing. GI: No nausea, vomiting. Patient has can feel that she is moving some gas in her belly but did not pass any flatus. Patient's medications have been reviewed. She is currently on Tylenol No. 3, Unasyn, Benzocaine, diphenhydramine, Pepcid, TPN, fentanyl patch, ferric sodium, gluconate, heparin, Reglan, Narcan, Zofran, scopolamine patch, silver sulfadiazine. On examination, patient's vital signs, temperature 97, heart rate 90, respiratory rate 16, blood pressure 150/73, saturating 95% on room air. GENERAL EXAMINATION: Patient does not appear to be in acute distress. She is sitting comfortably in her bed. HEAD: Atraumatic, nontraumatic. EYES: Pupils round and reactive to light. No pallor. No icterus. NECK: No JVD. No thyromegaly. CARDIOVASCULAR: S1, S2 heard. LUNGS: Bilateral breath sounds are positive, diminished at the lower lung bases. No wheezes or crackles. GI: Abdomen is soft, status post surgery. She has LAST drain in place, her epidural has been discontinued. Examination of the extremities, patient has some blistering on the lateral side of the left thigh. No signs of active infection. NEUROLOGICAL: BARREL BURNER alert, awake, oriented x3. PSYCHIATRIC: Appropriate mood and affect. Patient's labs from this morning, white count of 10.2, hemoglobin is 9.5, platelets of 303, sodium 135, potassium 3.8, chloride 107, bicarb 24, BUN 9, creatinine 0.50. Albumin is 2.1. ASSESSMENT AND PLAN: 1. Partial small bowel obstruction, status post sigmoid endoscopy showing diverticulitis, moderate scattered diverticulosis, status post surgery postop day 3. The patient had extensive lysis of adhesions, small bowel resection, take-down of descending colostomy. 2. Lower anterior sigmoid resection. She also had primary rectal anastomosis and Surgery on board, the primary care team following the patient closely. 3. Acute kidney injury secondary to dehydration that is resolving. 4. Hypokalemia, resolving. Patient is on total parenteral nutrition. 5. Anxiety disorder. 6. Depression. 7. Leukocytosis that is reactive and is resolving. 8. Blister seen on the left lateral aspect of the upper thigh. No signs of active infection. PLAN: The plan is to continue the patient on antibiotics in the form of Unasyn. Patient epidural has been discontinued. Continue with TPN for now. She is tolerating clear liquids but she did not pass gas. Continue with the rest of her medication regimen and further recommendations to follow depending on the progress of the patient.
--- NOTE | 2016-11-28 13:23 | P.PN ---
Subjective 61-year-old female being seen currently is sitting up on the edge of the bed chief complaint "nausea sensation feel like if I move it could vomit urinating frequently with urinary urgency" patient is postop laparotomy with extensive lysis of adhesions over 4 hours with colostomy reversal and small bowel resection. Patient states he has not past gas no stool patient currently is receiving TPN for nutritional support currently IV fentanyl for pain control Objective - Vital Signs Vital signs: Vital Signs Temp 98.8 F 11/28/16 07:00 Pulse 77 11/28/16 07:00 Resp 16 11/28/16 07:00 BP 165/91 11/28/16 07:00 Pulse Ox 97 11/28/16 07:00 Intake & Output 11/27/16 11/28/16 11/28/16 18:59 06:59 18:59 Intake Total 3251 1221.667 Output Total 2660 480 Balance 591 741.667 Weight 56 kg 56.66 kg Intake: Intake, IV Titration 2451 1101.667 Amount Ampicillin-Sulbactam 3 gm 100 In Sodium Chloride 0.9% 100 ml @ 100 mls/hr IVPB Q8HR DEANA Rx#:[id number] Mvi, Adult No.4 with Vit 1011 701.667 K 10 ml Trace (Conc-1Ml/ Dose) 1 ml In Amino Acid 5%-D25w+Lytes*E* 1,000 ml @ 50 mls/hr IV .[id number] DEANA Rx#:[id number] Sodium Chloride 0.9% 1, 600 000 ml @ 125 mls/hr IV . Q8H DEANA Rx#:[id number] Sodium Chloride 0.9% 1, 140 400 000 ml @ 50 mls/hr IV . Q20H DEANA Rx#:[id number] Sodium Ferric Gluconat- 100 Sucrose 125 mg In Sodium Chloride 0.9% 100 ml @ 100 mls/hr IVPB DAILY DEANA Rx#:[id number] Sodium Phosphate 10 mmol 500 In Sodium Chloride 0.9% 250 ml @ 125 mls/hr IVPB Q2H DEANA Rx#:[id number] Oral 800 120 Output: Drainage 60 30 Left Abdomen 60 30 Urine 2600 450 Uretheral (Adler) 575 Other: Voiding Method Indwelling Catheter Indwelling Catheter # Voids 0 - Exam Physical exam 61-year-old female sitting up in bed reports a nausea sensation "very tired out today Lungs essentially clear with adequate air movement Heart S1-S2 audible and regular Abdomen prevevana wound VAC system in place dressing to surgical site dry a few hypoactive bowel tones no stool noted TPN in progress urinating no difficulty Extremities no edema noted Skin left buttocks blister formation - Labs CBC & Chem 7: 11/27/16 11:30 11/27/16 06:25 Labs: Abnormal Lab Results - Last 24 Hours (Table) 11/27/16 11/28/16 11/28/16 Range/Units 18:23 00:05 06:26 POC Glucose (mg/dL) 110 H 120 H 129 H (75-99) mg/dL 11/28/16 Range/Units 11:57 POC Glucose (mg/dL) 143 H (75-99) mg/dL Microbiology - Last 24 Hours (Table) 11/25/16 16:50 Blood Culture - Preliminary Blood No Growth after 48 hours 11/25/16 16:21 Blood Culture - Preliminary Blood No Growth after 48 hours Assessment and Plan Plan: Impression Present on admission diffuse abdominal pain with nausea vomiting abdominal cramping suspect due to possible early small bowel obstruction due to license of adhesions Reoccurring admission for abdominal pain suspect due to partial small bowel obstruction due to license of adhesions History of sigmoid resection with a colostomy 05/19/2016 due to diverticulitis with perforation Chronic pain Depressive anxiety disorder nonspecified Underweight suspect due to poor caloric intake suspect mild protein calorie malnutrition with muscle wasting due to poor caloric intake due to chronic illness Echocardiogram left ventricular systolic function normal with an EF between 55 and 60% per echocardiogram done on November 21 Twelve-lead EKG done on November 16 shows sinus rhythm Small bowel obstruction due to intestinal adhesions, history of perforated diverticulitis with White's, Procedure performed on 11/24/2016 , severe intestinal adhesive disease lower pelvis, cecum, jejunum, ileum sigmoid diverticulitis done on 11/24/2016 Extensive lysis of adhesions 1-1/2 hours involving ileum, jejunum 2. Small bowel resection with primary anastomosis 100 cm proximal to ileocecal valve for severe adhesive band disease intraluminal obstruction 3. Takedown of descending colostomy. 4. Sigmoid resection, low anterior 5. Primary colorectal anastomosis using 29 mm ILS 6. Intraoperative sigmoid endoscopy using Olympus colonoscope Operative Findings: 1. 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 2. Chronic small bowel obstruction along the distal jejunum causing chronic intraluminal obstruction requiring resection 100 cm proximal to the ileocecal valve 3. Negative leak test. 4. 29 mm ILS. 5. Resected sigmoid for active diverticulitis. 6. At the end of the case, patient had moderate flatus. 7. NG tube positioned within the stomach and patent. Hypophosphatemia Status: Acute Postop blister formation left buttocks Plan Continue Unasyn as ordered Check a phosphorus level CMP today follow up on results Continue the fentanyl as ordered Patient is to ambulate with assist at least 3 times a day Continue PICC line for TPN pain control Resume home meds as appropriate DVT and GI prophylaxis Further recommendations pending The above dictated assessment and findings were discussed with dr shilpa Marie and the plan of care have been dictated as directed. [place] Jameson nurse practitioner acting as a scribe for dr massey
[2016-11-28] MEDS: FAT EMULSION 20% 250 ML in EMPTY BAG 1 BAG IV SCH (15:37)
[2016-11-28 15:50] VITALS: BMI 22.1
[2016-11-28 16:42] LABS: Basophils % (A) 0 %; CH 30.8; CHCM 33.8; HGB 12.4 gm/dL (11.4-16.0); MCV 91.3 fL (80.0-100.0)
[2016-11-28 16:48] LABS: Eosinophils # (A) 0.1 k/uL (0-0.7); Eosinophils % (A) 2 %; HCT 31.8 % (34.0-46.0); HDW 2.66; Luc # (Auto) 0.08; Luc % (Auto) 1; Lymphocytes # (A) 0.6 k/uL (1.0-4.8); Lymphocytes % (A) 7 %; MCH 35.5 pg (25.0-35.0); Mean Platelet Volume 6.7; Monocytes # (A) 0.5 k/uL (0-1.0); Monocytes % (A) 6 %; Neutrophils # (A) 6.3 k/uL (1.3-7.7); Neutrophils % (A) 84 %; RBC 3.48 m/uL (3.80-5.40); RDW 12.5 % (11.5-15.5); WBC 7.5 k/uL (3.8-10.6); WBC (Perox) 8.01
[2016-11-28 16:50] LABS: ALT 31 U/L (9-52); AST 31 U/L (14-36); Alkaline Phosphatase 48 U/L (38-126); Anion Gap 9 mmol/L; Blood Urea Nitrogen 5 mg/dL (7-17); Calcium 8.1 mg/dL (8.4-10.2); Carbon Dioxide 27 mmol/L (22-30); Chloride 95 mmol/L (98-107); Glucose 196 mg/dL (74-99); Magnesium 1.7 mg/dL (1.6-2.3); Non-African American GFR(MDRD) >60 (>60 ml/min/1.73 sqM); Phosphorous 2.7 mg/dL (2.5-4.5); Sodium 131 mmol/L (137-145); Total Bilirubin 0.5 mg/dL (0.2-1.3); Total Protein 5.2 g/dL (6.3-8.2)
[2016-11-28 16:51] LABS: MCHC 38.9 g/dL (31.0-37.0)
[2016-11-28 16:55] LABS: Potassium 3.2 mmol/L (3.5-5.1)
[2016-11-28 17:20] LABS: Glucose,Whole Blood 180 mg/dL (75-99)
[2016-11-28 18:25] LABS: Spherocytes Present
--- NOTE | 2016-11-28 18:59 | P.PN ---
Progress Note - Text Patient is passing gas and have a bowel movement. Patient's at bedside. Patient has a large blister along the left flank of unclear etiology. Recommend bacitracin ointment and Telfa to prevent secondary infection. Advance diet to soft. Recommend high protein shake diet at least 2-3 times a day. Discharge home tomorrow with home health care services. Follow-up in the office 1 week. Correct low potassium, low phosphate, low magnesium.
[2016-11-28] MEDS: POTASSIUM CHLORIDE 20 MEQ, LIDOCAINE 2% INJ 20 MG in SODIUM CHLORIDE 0.9% 100 ML IVPB SCH ×2 (19:45→21:55)
[2016-11-28] MEDS: MAGNESIUM SULFATE-D5W PMX 1 GM in DEXTROSE/WATER 1 100ML.BAG IVPB SCH ×2 (19:45→20:48)
[2016-11-28] MEDS: fentaNYL PCA 300 MCG/30 ML SYRINGE IV PRN (20:34)
--- NOTE | 2016-11-28 20:55 | PN ---
DATE OF SERVICE: 11/28/2016 INTERVAL HISTORY: Ms. Alonzo is a 61-year-old female with a past medical history of depression and anxiety disorder, admitted to the hospital for partial small bowel obstruction, dehydration and acute kidney injury. The patient is status post exploratory laparotomy with extensive lysis of adhesions, small bowel resection, takedown of descending colostomy, lower segment resection and colorectal anastomosis. Patient is postop day 4. Patient's epidural has been discontinued yesterday and she was started on some clear liquids. Patient has been passing gas, but did not have a bowel movement. She still complains of some abdominal soreness. Patient's Adler catheter has been discontinued. Her NG tube has also been discontinued. REVIEW OF SYSTEMS: CONSTITUTIONAL: Denies having fevers, chills, rigors. The patient complains of some generalized fatigue and weakness. RESPIRATORY: No cough. No difficulty in breathing. GI: No nausea or vomiting. The patient states that she has been passing flatus but did not have a bowel movement. CARDIAC: No chest pain and no palpitations. Patient's medications have been reviewed. On examination, patient's vital signs temperature 98.8, heart rate 77, respiratory rate 16, blood pressure 164/91, saturating at 97% on room air. GENERAL EXAMINATION: Patient appears to be in no acute distress. She is comfortably lying in bed, states that she is feeling weak. HEAD: Atraumatic, normocephalic. EYES: Pupils, equal round, and reactive to light. No pallor. No icterus. NECK: No JVD. No thyromegaly. CARDIOVASCULAR: S1, S2 heard. LUNGS: Bilateral breath sounds diminished at the lower lung bases. No wheeze or crackles. GI: Abdomen is soft, status post surgery. LAST drain in place. EXTREMITIES: Patient has some blistering on the left lateral side of the thigh. No signs of active infection and it is covered with dry dressings. NEUROLOGICAL: SILK SPOOLER: Alert, awake and oriented times three. PSYCHIATRIC: Appropriate mood and affect. Patient's labs: No new labs from this morning. ASSESSMENT AND PLAN: 1. Partial small bowel obstruction status post sigmoid endoscopy showing diverticulitis, moderate scattered diverticulosis. She is status post exploratory laparotomy postoperative day 4. She had extensive lysis of adhesions, small bowel resection, takedown of the descending colostomy and colorectal anastomosis. 2. Acute kidney injury to secondary to dehydration, that is resolving. 3. Hypokalemia resolving. 4. The patient is on parenteral nutrition. 5. Anxiety disorder. 6. Depression. 7. Leukocytosis that is reactive, that is slowly resolving. 8. Blister on the lateral side of the left upper thigh. No signs of active infection. PLAN: The plan is to continue the patient on antibiotics in the form of Unasyn. Patient has been tolerating clear liquids but did not have a bowel movement. Continue with the rest of her medication regimen and further recommendations to follow depending on the progress of the patient.
[2016-11-28] MEDS: BACITRACIN 500 UNIT/GM OINT 28.4 GM TUBE TOPICAL SCH (21:53)
[2016-11-28] MEDS: MVI, ADULT NO.4 WITH VIT K 10 ML, TRACE (CONC-1ML/DOSE) 1 ML in AMINO ACID 5%-D25W+LYTE... IV SCH ×3 (22:38)
[2016-11-28] MEDS: SODIUM PHOSPHATE 10 MMOL in SODIUM CHLORIDE 0.9% 250 ML IVPB SCH (22:46)
[2016-11-28 23:49] LABS: Glucose,Whole Blood 110 mg/dL (75-99)
[2016-11-29] MEDS: METOCLOPRAMIDE 5 MG/ML 2 ML VIAL IVP SCH ×4 (00:11→17:25)
[2016-11-29] MEDS: AMPICILLIN-SULBACTAM 3 GM in SODIUM CHLORIDE 0.9% 100 ML IVPB SCH ×3 (00:11→16:13)
[2016-11-29] MEDS: INSULIN LISPRO (humaLOG) 300 UNIT/3 ML VIAL SQ SCH ×2 (00:12→07:14)
[2016-11-29] MEDS: HEPARIN SODIUM,PORCINE 5,000 UNIT/ML 1 ML VIAL SQ SCH ×3 (00:13→16:26)
[2016-11-29] MEDS: POTASSIUM CHLORIDE 20 MEQ, LIDOCAINE 2% INJ 20 MG in SODIUM CHLORIDE 0.9% 100 ML IVPB SCH (01:12)
[2016-11-29] MEDS: SODIUM PHOSPHATE 10 MMOL in SODIUM CHLORIDE 0.9% 250 ML IVPB SCH (01:12)
[2016-11-29 06:00] LABS: Glucose,Whole Blood 108 mg/dL (75-99)
[2016-11-29 06:12] LABS: Basophils % (A) 0 %; CH 30.6; CHCM 33.8; Eosinophils # (A) 0.3 k/uL (0-0.7); Eosinophils % (A) 5 %; HCT 28.8 % (34.0-46.0); HDW 2.63; HGB 10.2 gm/dL (11.4-16.0); Luc # (Auto) 0.13; Luc % (Auto) 2; Lymphocytes # (A) 0.9 k/uL (1.0-4.8); Lymphocytes % (A) 13 %; MCH 32.1 pg (25.0-35.0); MCHC 35.4 g/dL (31.0-37.0); MCV 90.9 fL (80.0-100.0); Mean Platelet Volume 6.8; Monocytes # (A) 0.5 k/uL (0-1.0); Monocytes % (A) 7 %; Neutrophils # (A) 4.9 k/uL (1.3-7.7); Neutrophils % (A) 73 %; RBC 3.17 m/uL (3.80-5.40); RDW 12.6 % (11.5-15.5); WBC 6.8 k/uL (3.8-10.6); WBC (Perox) 7.37
[2016-11-29 06:43] LABS: ALT 35 U/L (9-52); AST 23 U/L (14-36); Alkaline Phosphatase 47 U/L (38-126); Anion Gap 5 mmol/L; Blood Urea Nitrogen 3 mg/dL (7-17); Calcium 7.4 mg/dL (8.4-10.2); Carbon Dioxide 27 mmol/L (22-30); Chloride 102 mmol/L (98-107); Glucose 187 mg/dL (74-99); Magnesium 1.8 mg/dL (1.6-2.3); Non-African American GFR(MDRD) >60 (>60 ml/min/1.73 sqM); Phosphorous 2.9 mg/dL (2.5-4.5); Sodium 134 mmol/L (137-145); Total Bilirubin 0.3 mg/dL (0.2-1.3); Total Protein 4.5 g/dL (6.3-8.2)
[2016-11-29] MEDS: SODIUM CHLORIDE 0.9% 1,000 ML IV SCH (06:54)
[2016-11-29] MEDS ORDERED: Potassium Replacement Protocol 1 EACH MISC MISCELLANE PRN ×2 (06:56→07:04)
[2016-11-29] MEDS ORDERED: POTASSIUM CHLORIDE 10 MEQ in WATER FOR INJECTION 1 100ML.BAG IVPB SCH (07:15)
[2016-11-29] MEDS: SCOPOLAMINE 1.5MG/72HR PATCH TRANSDERM SCH (07:42)
[2016-11-29] MEDS: FAMOTIDINE 20 MG/2 ML VIAL IV SCH (07:42)
[2016-11-29] MEDS: MAGNESIUM SULFATE-D5W PMX 1 GM in DEXTROSE/WATER 1 100ML.BAG IVPB SCH ×2 (07:42→09:05)
[2016-11-29] MEDS: POTASSIUM CHLORIDE 10 MEQ, LIDOCAINE 2% INJ 10 MG in SODIUM CHLORIDE 0.9% 100 ML IV SCH ×3 (07:43→10:34)
[2016-11-29] MEDS: BACITRACIN 500 UNIT/GM OINT 28.4 GM TUBE TOPICAL SCH (07:50)
[2016-11-29 08:21] VITALS: BP 158/89
[2016-11-29] MEDS: Acetaminophen-Codeine 300-30mg TAB PO PRN ×2 (09:04→14:14)
[2016-11-29] MEDS: SODIUM FERRIC GLUCONAT-SUCROSE 125 MG in SODIUM CHLORIDE 0.9% 100 ML IVPB SCH (09:05)
[2016-11-29] MEDS: LORazepam 2 MG/ML SYRINGE IV PRN (11:42)
--- NOTE | 2016-11-29 12:56 | P.PN ---
Subjective 61-year-old female being seen sitting up in the bed. . States no bowel movement passing gas. The fenaty and TPN have been DC'd patient states nausea sensation has improved and has tolerated the diet has been up ambulating in the room in the johnson urinating with no difficulty. Patient is aware the recommendations to maintain a high protein shake diet to drink at least 2-3 a day. Patient is postop 24 of November extensive lysis of adhesions with takedown of descending colostomy, sigmoid resection Objective - Vital Signs Vital signs: Vital Signs Temp 98.4 F 11/29/16 08:20 Pulse 91 11/29/16 08:20 Resp 16 11/29/16 08:20 BP 158/89 11/29/16 08:20 Pulse Ox 93 L 11/29/16 08:20 Intake & Output 11/28/16 11/29/16 11/29/16 18:59 06:59 18:59 Intake Total 480 480 Output Total 20 Balance 480 460 Weight 56.66 kg 58 kg Intake: Oral 480 480 Output: Drainage 20 Left Abdomen 20 Right Lower Abdomen 0 Other: # Voids 5 3 - Exam Physical exam 61-year-old female sitting up in bed reports feeling less nauseated this morning Patient states no stool but is passing gas currently sitting up taking a diet Lungs essentially clear with adequate air movement Heart S1-S2 audible and regular Abdomen prevevana wound VAC system in place dressing to surgical site dry a few hypoactive bowel tones no stool urinating no difficulty Extremities no edema noted Skin left buttocks blister formation dressing to the site dry - Labs CBC & Chem 7: 11/29/16 05:30 11/29/16 12:50 Labs: Abnormal Lab Results - Last 24 Hours (Table) 11/28/16 11/28/16 11/28/16 Range/Units 16:15 16:15 17:14 RBC 3.48 L (3.80-5.40) m/uL Hgb (11.4-16.0) gm/dL Hct 31.8 L (34.0-46.0) % MCH 35.5 H (25.0-35.0) pg MCHC 38.9 H (31.0-37.0) g/dL Lymphocytes # 0.6 L (1.0-4.8) k/uL Sodium 131 L (137-145) mmol/L Potassium 3.2 L (3.5-5.1) mmol/L Chloride 95 L (98-107) mmol/L BUN 5 L (7-17) mg/dL Creatinine 0.40 L (0.52-1.04) mg/dL Glucose 196 H (74-99) mg/dL POC Glucose (mg/dL) 180 H (75-99) mg/dL Calcium 8.1 L (8.4-10.2) mg/dL Total Protein 5.2 L (6.3-8.2) g/dL Albumin 2.7 L (3.5-5.0) g/dL 11/28/16 11/29/16 11/29/16 Range/Units 23:47 05:30 05:30 RBC 3.17 L (3.80-5.40) m/uL Hgb 10.2 L (11.4-16.0) gm/dL Hct 28.8 L (34.0-46.0) % MCH (25.0-35.0) pg MCHC (31.0-37.0) g/dL Lymphocytes # 0.9 L (1.0-4.8) k/uL Sodium 134 L (137-145) mmol/L Potassium 3.0 L* (3.5-5.1) mmol/L Chloride (98-107) mmol/L BUN 3 L (7-17) mg/dL Creatinine 0.40 L (0.52-1.04) mg/dL Glucose 187 H (74-99) mg/dL POC Glucose (mg/dL) 110 H (75-99) mg/dL Calcium 7.4 L (8.4-10.2) mg/dL Total Protein 4.5 L (6.3-8.2) g/dL Albumin 2.3 L (3.5-5.0) g/dL 11/29/16 Range/Units 05:45 RBC (3.80-5.40) m/uL Hgb (11.4-16.0) gm/dL Hct (34.0-46.0) % MCH (25.0-35.0) pg MCHC (31.0-37.0) g/dL Lymphocytes # (1.0-4.8) k/uL Sodium (137-145) mmol/L Potassium (3.5-5.1) mmol/L Chloride (98-107) mmol/L BUN (7-17) mg/dL Creatinine (0.52-1.04) mg/dL Glucose (74-99) mg/dL POC Glucose (mg/dL) 108 H (75-99) mg/dL Calcium (8.4-10.2) mg/dL Total Protein (6.3-8.2) g/dL Albumin (3.5-5.0) g/dL Microbiology - Last 24 Hours (Table) 11/25/16 16:50 Blood Culture - Preliminary Blood No Growth after 72 hours 11/25/16 16:21 Blood Culture - Preliminary Blood No Growth after 72 hours Assessment and Plan Plan: Impression Present on admission diffuse abdominal pain with nausea vomiting abdominal cramping suspect due to possible early small bowel obstruction due to license of adhesions Reoccurring admission for abdominal pain suspect due to partial small bowel obstruction due to license of adhesions History of sigmoid resection with a colostomy 05/19/2016 due to diverticulitis with perforation Chronic pain Depressive anxiety disorder nonspecified Underweight suspect due to poor caloric intake suspect mild protein calorie malnutrition with muscle wasting due to poor caloric intake due to chronic illness Echocardiogram left ventricular systolic function normal with an EF between 55 and 60% per echocardiogram done on November 21 Twelve-lead EKG done on November 16 shows sinus rhythm Small bowel obstruction due to intestinal adhesions, history of perforated diverticulitis with White's, Procedure performed on 11/24/2016 , severe intestinal adhesive disease lower pelvis, cecum, jejunum, ileum sigmoid diverticulitis done on 11/24/2016 Extensive lysis of adhesions 1-1/2 hours involving ileum, jejunum 2. Small bowel resection with primary anastomosis 100 cm proximal to ileocecal valve for severe adhesive band disease intraluminal obstruction 3. Takedown of descending colostomy. 4. Sigmoid resection, low anterior 5. Primary colorectal anastomosis using 29 mm ILS 6. Intraoperative sigmoid endoscopy using Olympus colonoscope Operative Findings: 1. 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 2. Chronic small bowel obstruction along the distal jejunum causing chronic intraluminal obstruction requiring resection 100 cm proximal to the ileocecal valve 3. Negative leak test. 4. 29 mm ILS. 5. Resected sigmoid for active diverticulitis. 6. At the end of the case, patient had moderate flatus. 7. NG tube positioned within the stomach and patent. Hypophosphatemia Status: Acute Postop blister formation left buttocks unclear etiology Plan Prepped for discharge possible today Patient is to ambulate with assist at least 3 times a day pain control Resume home meds as appropriate DVT and GI prophylaxis The above dictated assessment and findings were discussed with dr shilpa Marie and the plan of care have been dictated as directed. [place] Jameson nurse practitioner acting as a scribe for dr massey
[2016-11-29 13:50] LABS: Magnesium 2.5 mg/dL (1.6-2.3); Potassium 3.5 mmol/L (3.5-5.1)
[2016-11-29 16:40] VITALS: PULSE 80; TEMP 96.8
--- NOTE | 2016-11-29 17:07 | P.PN ---
Subjective 60-year-old female with past medical history of depression, anxiety, the hospital with a partial small bowel obstruction. Patient however underwent a X lab with extensive lysis of adhesions and takedown of a colostomy lower segment resection and colorectal anastomosis. This is postop day 5. Patient is tolerating diet. Patient was evaluated by the surgical team today. Patient is ambulating is urinating and has had a bowel movement within the last 24 hours. Patient denies having any additional complaints are mainly issue appears to be pain control. 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 Objective - Vital Signs Vital signs: Vital Signs Temp 96.8 F L 11/29/16 16:39 Pulse 80 11/29/16 16:39 Resp 16 11/29/16 16:39 BP 158/89 11/29/16 16:39 Pulse Ox 94 L 11/29/16 16:39 Intake & Output 11/28/16 11/29/16 11/29/16 18:59 06:59 18:59 Intake Total 480 955 Output Total 20 Balance 480 935 Weight 56.66 kg 58 kg Intake: Oral 480 955 Output: Drainage 20 Left Abdomen 20 Right Lower Abdomen 0 Other: # Voids 5 3 - Exam Physical exam Gen. appearance oriented 3 in no distress Neck is supple no JVD Lungs good air entry clear to auscultation no rhonchi or wheezing Heart S1-S2 heard regular rate and rhythm no murmurs appreciated Abdomen is soft appropriately tender to palpation midline incision there is a bandage noted. Previous ostomy site is set up for a wound VAC. Neuro focal motor or sensory deficits noted Skin a large bruise/blister is noted on the left upper thigh - Labs CBC & Chem 7: 11/29/16 05:30 11/29/16 12:50 Labs: Abnormal Lab Results - Last 24 Hours (Table) 11/28/16 11/28/16 11/28/16 Range/Units 16:15 17:14 23:47 RBC 3.48 L (3.80-5.40) m/uL Hgb (11.4-16.0) gm/dL Hct 31.8 L (34.0-46.0) % MCH 35.5 H (25.0-35.0) pg MCHC 38.9 H (31.0-37.0) g/dL Lymphocytes # 0.6 L (1.0-4.8) k/uL Sodium (137-145) mmol/L Potassium (3.5-5.1) mmol/L BUN (7-17) mg/dL Creatinine (0.52-1.04) mg/dL Glucose (74-99) mg/dL POC Glucose (mg/dL) 180 H 110 H (75-99) mg/dL Calcium (8.4-10.2) mg/dL Magnesium (1.6-2.3) mg/dL Total Protein (6.3-8.2) g/dL Albumin (3.5-5.0) g/dL 11/29/16 11/29/16 11/29/16 Range/Units 05:30 05:30 05:45 RBC 3.17 L (3.80-5.40) m/uL Hgb 10.2 L (11.4-16.0) gm/dL Hct 28.8 L (34.0-46.0) % MCH (25.0-35.0) pg MCHC (31.0-37.0) g/dL Lymphocytes # 0.9 L (1.0-4.8) k/uL Sodium 134 L (137-145) mmol/L Potassium 3.0 L* (3.5-5.1) mmol/L BUN 3 L (7-17) mg/dL Creatinine 0.40 L (0.52-1.04) mg/dL Glucose 187 H (74-99) mg/dL POC Glucose (mg/dL) 108 H (75-99) mg/dL Calcium 7.4 L (8.4-10.2) mg/dL Magnesium (1.6-2.3) mg/dL Total Protein 4.5 L (6.3-8.2) g/dL Albumin 2.3 L (3.5-5.0) g/dL 11/29/16 Range/Units 12:50 RBC (3.80-5.40) m/uL Hgb (11.4-16.0) gm/dL Hct (34.0-46.0) % MCH (25.0-35.0) pg MCHC (31.0-37.0) g/dL Lymphocytes # (1.0-4.8) k/uL Sodium (137-145) mmol/L Potassium (3.5-5.1) mmol/L BUN (7-17) mg/dL Creatinine (0.52-1.04) mg/dL Glucose (74-99) mg/dL POC Glucose (mg/dL) (75-99) mg/dL Calcium (8.4-10.2) mg/dL Magnesium 2.5 H (1.6-2.3) mg/dL Total Protein (6.3-8.2) g/dL Albumin (3.5-5.0) g/dL Microbiology - Last 24 Hours (Table) 11/25/16 16:50 Blood Culture - Preliminary Blood No Growth after 72 hours 11/25/16 16:21 Blood Culture - Preliminary Blood No Growth after 72 hours Assessment and Plan Plan: #1 partial SBO status post exploratory laparoscopy LOS and takedown of previous colostomy postoperative day 5 #2 AK I that is improving that is prerenal in nature #3 hypokalemia #4 anxiety #5 depression #6 left upper thigh blister Plan Continue encourage ambulation. Incentive spirometer. Continue Unasyn. Encourage oral intake once patient tolerates pain will likely be able to be discharged home. In regards to her rash, and there is some improvement will with antibiotics would benefit from finishing a course for underlying etiology is nonspecific at this time it is well demarcated on sure if he shouldn't has had any exposure to surgical tapes or abrasion due to significant pressure.
--- NOTE | 2016-11-29 19:36 | P.DS ---
Providers Date of admission: 11/16/16 23:05 Expected date of discharge: 11/29/16 Attending physician: Sabas Baron Consults: 11/19/16 13:30 Consult Physician Urgent Consulting Provider: Juhi Degroot Consult Reason/Comments: Medical management Do you want consulting provider notified?: Yes 11/19/16 14:39 Consult Physician Routine Consulting Provider: Michel Lomas Consult Reason/Comments: Intraoperative stent placement Do you want consulting provider notified?: Yes, Notify in am Primary care physician: César Shahid - Discharge Diagnosis(es) (1) Small bowel obstruction due to adhesions Status: Acute (2) Nausea and vomiting Status: Acute (3) Colostomy status Status: Acute (4) Inadequate dietary intake of protein Status: Acute (5) Small bowel obstruction due to postoperative adhesions Status: Acute (6) Status post colostomy takedown Status: Acute (7) S/P small bowel resection Status: Acute (8) Hypophosphatemia Status: Acute (9) Fibromyalgia Status: Acute (10) Acute diverticulitis Status: Acute Hospital Course: POSTOPERATIVE DIAGNOSIS: 1. Complete small bowel obstruction due to intestinal adhesions 2. History of perforated diverticulitis with White's 3. Protein malnutrition, inadequate protein intake requiring TPN 4. Fibromyaglia. 5. Chronic pain sydnrome. 6. Severe intestinal adhesive disease lower pelvis, cecum, jejunum, ileum from sigmoid diverticulitis 7. Internal hernias. 8. Small bowel volvulus. 9. Sigmoid diverticulitis. COURSE: The patient is a 61-year-old female with previous history of Refugio's procedure several months ago from acute perforated diverticulitis. The last month, she has had multiple readmissions secondary to chronic in more severe small bowel obstruction. She was admitted and placed on TPN for protein malnutrition secondary to inadequate protein intake. Given the severity of her intra-abdominal pain including need for colostomy reversal, surgical prevention was described with lysis of adhesions and reversal of her colostomy. She was maintained on TPN for inadequate protein intake. Postoperatively, her bowel function had resumed. She was passing flatus. Wound VAC dressing was discontinued. Home health care services were arranged. Prior to discharge, the patient was tolerating diet. Pertinent Studies: CT of the abdomen and pelvis demonstrates small bowel obstruction. Abdominal x-ray demonstrating bowel obstruction. Chest x-ray demonstrating no acute pneumonia. Procedures: PROCEDURES PERFORMED: 1. Extensive lysis of adhesions 1-1/2 hours involving ileum, jejunum 2. Small bowel resection with primary anastomosis 100 cm proximal to ileocecal valve for severe adhesive band disease with intraluminal obstruction 3. Takedown of descending colostomy. 4. Sigmoid resection, low anterior 5. Primary colorectal anastomosis using 29 mm ILS 6. Intraoperative sigmoid endoscopy using Olympus colonoscope 7. Placement of round Gerson-Camargo #19 drain anterior to colorectal anastomosis 8. Placement of Prevevena wound VAC system, 13 cm along colostomy reversal site , left lower quadrant 9. Placement of the Optifoam dressing along LAST site and midline incision 10. Placement of field block along midline incision. 11. Mobilization of splenic flexure. Patient Condition at Discharge: Stable Plan - Discharge Summary New Discharge Prescriptions: Acetaminophen-Codeine 300-30mg [Tylenol w/codeine #3] 1 each PO Q4H PRN #30 tab PRN Reason: Pain Discharge Medication List FLUoxetine HCL [PROzac] 60 mg PO QAM 10/09/16 [History] Carisoprodol [Soma] 350 mg PO BID PRN 10/24/16 [History] traZODone HCL [Desyrel] 100 mg PO HS 10/24/16 [History] Ondansetron [Zofran] 4 mg PO Q8HR PRN #30 tab 11/04/16 [Rx] Aspirin [Adult Low Dose Aspirin EC] 81 mg PO DAILY 11/17/16 [History] LORazepam [Ativan] 0.5 mg PO TID PRN 11/17/16 [History] Acetaminophen-Codeine 300-30mg [Tylenol w/codeine #3] 1 each PO Q4H PRN #30 tab 11/29/16 [Rx] Bacitracin Oint 1 applic TOPICAL BID applic 11/29/16 [Rx] Follow up Appointment(s)/Referral(s): César Shahid MD [Primary Care Provider] - 1-2 days Vidhi Ribeiro MD [STAFF PHYSICIAN] - 12/06/16 (Please call to confirm time) [facility], [NON-STAFF] - [facility], [REFERRING] - Patient Instructions/Handouts: Gerson-Camargo Drain Care (DC), Bowel Resection ( DC), Colectomy (GEN), Abdominal Binder (DC), Negative Pressure Wound Therapy (DC ) Activity/Diet/Wound Care/Special Instructions: No lifting over 4 pounds in 4 weeks. Recommend high protein shake diet at least 2-3 times a day. Abdominal binder on all times for showering. Dressing along abdomen to be discontinued by surgeon in the office. Discharge Disposition: HOME WITH HOME HEALTH SERVICES
--- NOTE | 2016-11-29 19:36 | P.PN ---
Progress Note - Text Dressings changed at bedside to Silverlon. Beautiful incision along the left lower abdomen colostomy reversal site. Prevena discontinued. Silverlon dressing placed for midline and left lower quadrant site. LAST discontinued as only serous. Discharge home with discharge instructions verbalized by patient. Follow up in the office in 1 week for removal of anisha and dressings.
--- NOTE | 2016-11-29 22:11 | P.OP ---
Date of Procedure: 11/24/16 Description of Procedure: SURGEON: DAWSON SULLIVAN MD VETERINARY SCIENCE TEACHER: Cisco Bolaños. PREOPERATIVE DIAGNOSIS: 1. Complete small bowel obstruction due to intestinal adhesions 2. History of perforated diverticulitis with White's 3. Protein malnutrition, inadequate protein intake requiring TPN 4. Fibromyaglia. 5. Chronic pain sydnrome. 6. History of sigmoid diverticulitis. POSTOPERATIVE DIAGNOSIS: 1. Complete small bowel obstruction due to intestinal adhesions 2. History of perforated diverticulitis with White's 3. Protein malnutrition, inadequate protein intake requiring TPN 4. Fibromyaglia. 5. Chronic pain sydnrome. 6. Severe intestinal adhesive disease lower pelvis, cecum, jejunum, ileum from sigmoid diverticulitis 7. Internal hernias. 8. Small bowel volvulus. 9. Sigmoid diverticulitis. PROCEDURES PERFORMED: 1. Extensive lysis of adhesions 1-1/2 hours involving ileum, jejunum 2. Small bowel resection with primary anastomosis 100 cm proximal to ileocecal valve for severe adhesive band disease with intraluminal obstruction 3. Takedown of descending colostomy. 4. Sigmoid resection, low anterior 5. Primary colorectal anastomosis using 29 mm ILS 6. Intraoperative sigmoid endoscopy using Olympus colonoscope 7. Placement of round Gerson-Camargo #19 drain anterior to colorectal anastomosis 8. Placement of Prevevena wound VAC system, 13 cm along colostomy reversal site , left lower quadrant 9. Placement of the Optifoam dressing along LAST site and midline incision 10. Placement of field block along midline incision. 11. Mobilization of splenic flexure. ANESTHESIA: GETA, epidural and local with 0.25% Marcaine with epinephrine ESTIMATED BLOOD LOSS: 100 mL. SPECIMENS REMOVED: Sigmoid colon, donuts, small bowel resection COMPLICATIONS: None. Operative Findings: 1. 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 2. Chronic small bowel obstruction along the distal jejunum causing chronic intraluminal obstruction requiring resection 100 cm proximal to the ileocecal valve 3. Negative leak test. 4. 29 mm ILS. 5. Resected sigmoid for active diverticulitis. 6. At the end of the case, patient had moderate flatus. 7. NG tube positioned within the stomach and patent. INDICATIONS: The patient is a 61-year-old female with previous history of Refugio's procedure several months ago from acute perforated diverticulitis. The last month, she has had multiple readmissions secondary to chronic in more severe small bowel obstruction. She was admitted and placed on TPN for protein malnutrition secondary to inadequate protein intake. Given the severity of her intra-abdominal pain including need for colostomy reversal, surgical prevention was described with lysis of adhesions and reversal of her colostomy. Benefits and risks of surgical intervention was described including however not limited to bleeding, infection, need for further surgery, small bowel resection, cosmetic deformity, and pain for which informed consent was obtained. DESCRIPTION: The patient was brought to the operating room. After general induction, the abdomen was prepped and draped in a standard sterile fashion using ChloraPrep. Nasogastric tube had been present. A Adler catheter was placed. Ioban draping was also placed. A time-out protocol was confirmed with surgical team regarding the patient's name including procedure to be performed. Preoperative antibiotics were administered. Bilateral SCDs were placed. A midline abdominal incision was placed from the epigastrium down to the pubis. The abdomen was entered using electro-Bovie cautery. Careful entry into the abdomen was performed using blunt dissection including sharp dissection using the Metzenbaum scissors. No full-thickness enterotomies had occurred during this entire portion of entry into the abdomen. Along the lower abdomen, the small bowel was adherent including along the right lower abdomen. A dense, thick, fibrous band of the distal small bowel was found. Sharp lysis with a Metzenbaum scissors was performed. Severe adhesive band disease with small bowel mesenteric volvulus and internal hernias were identified including features of chronic small bowel obstruction along the distal jejunum causing chronic intraluminal obstruction requiring resection 100 cm proximal to the ileocecal valve using 60-mm Covidien Endo PAYAL ibarra linear staplers. A side to side primary small bowel resection was performed in a similar fashion. An internal hernia of the distal small bowel was confirmed around an adhesive band from her prior previous colectomy. Additionally small bowel volvulus of the distal ileum was found and reduced. Retrograde inspection of the small bowel was performed to the ligament of Treitz. All adhesive bands were addressed using a Metzenbaum scissor including electro-Bovie cautery. Extensive lysis of adhesions were performed for 1 and 1/2 hours. Proximal small bowel dilatation was relieved as the focal transition point found along the mid to distal ileum was divided. No enterotomies occurred. After adhesiolysis, the bowel was ran at least another 2 more times proximally and distally to confirm all lysis of adhesions. Finally, a nasogastric tube was confirmed within the stomach and functioning well. The abdominal cavity was copiously irrigated with approximately 2 liters of warm normal saline solution. Marked adhesions were found of the remaining rectal stump, whereby careful dissection was performed using blunt dissection with a Kittner including fenestrated graspers. Care was taken to avoid any injury to the ureter during this portion of the procedure. The patient had been repositioned in Trendelenburg position to help facilitate further dissection. The descending colon was mobilized along the white line of Toldt to the splenic flexure which mobilization also occurred to obtained adequate length. Careful mobilization of the splenic flexure had occurred to avoid tension and torsion for the proposed colorectal anastomosis. Once all adhesions were addressed, attention had now been brought to finding the rectal stump, which was also mobilized. Along the colorectal stump, moderate sigmoid diverticulitis was still identified. Using a curved pelvic stapler, additional colon resection was performed completely resecting the sigmoid colon to the pelvic brim. A cut down of his colostomy was performed after a circular incision along the skin and mucosa junction using #10 blade. The ostomy was brought out and evaginated through the skin. At which point, the descending portion of the ostomy was divided using an Endo PAYAL 60 mm stapler purple load. A sizer was used, whereby a 29 mm anvil was selected. The sizer was exchanged for the 29 mm anvil and delivered into the ostomy. The anvil was tied to a 2-0 silk suture. The ostomy was resected. The anvil with the descending colon was delivered back into the abdominal cavity. The anvil was delivered through the midline aspect of descending colon staple line and prepared for final colorectal anastomosis. I then went back to the foot of the bed whereby the ILS stapler was introduced into the rectum. With a coordinated effort with the museum assistant, I then deployed the needle anterior to the staple line. The anvil and needle were mated and closed. Once closed for about a minute, the donuts were removed and inspected and found to be completely intact. An intraoperative flexible sigmoidoscopy was performed for leak test. The proximal portion of the colon was compressed by the museum assistant whereby the pelvis was irrigated with warm normal saline. I then inserted the scope through the rectum whereby no bubbles or defect was encountered. This concluded the endoscopy portion of the case. I had then rescrubbed into the case, whereby a #19 round LAST drain was placed along the left lateral aspect of the anastomosis given moderate fluid and irrigation which was used during the case. A 2-0 nylon drain stitch was placed. The abdomen was closed using double-stranded 0 PDS. Around the umbilicus was reapproximated using 3-0 Vicryl. The rest of the incisions were reapproximated using 3-0 Vicryl and then stainless steel skin anisha were used for closure of the rest of the abdomen. Antibiotic Optfioam dressing was placed along the midline. The subcutaneous tissue was copiously irrigated using warm normal saline solution. The muscle as well as the abdominal wall was also closed using 1-0 Prolene in a running fashion for the colostomy reversal site. The transverse incision of the left lower abdomen was reapproximated using 3-0 Vicryl for the skin. Prevena wound vac system was applied over the transverse incision. The rest of incisions were copiously infiltrated with a local anesthetic. 4-0 Monocryl in interrupted fashion was placed. Dermabond was then applied to the skin. At the end of the procedure, needle, sponge, and instrument count had been verified correct by surgical supplies sterilizer. The patient had tolerated the procedure well and was taken to the postanesthesia care unit in stable condition with Adler catheter in place. An abdominal binder was placed. At the end of the case, the patient had passed flatus. The sponge instrument count and needle counts were verified correct by surgical supplies sterilizer. The patient was awoken from anesthesia in stable condition. The patient's family was pleased with the level of care.
== END 2016-11-29 20:25 | disposition home health service (06) | DRG 330 ==
LOC: EC 18:23 → 5MS5E 23:05 → 5ONC 11-24 18:23
PROVIDERS: ADMIT Surgery; ATTEND Surgery
PROC: 3E0436Z Introduction of Nutritional Substance into Central Vein, Percutaneous Approach (ICD-10-PCS; 2016-11-18)
PROC: 02HV33Z Insertion of Infusion Device into Superior Vena Cava, Percutaneous Approach (ICD-10-PCS; 2016-11-18)
PROC: 0DJD8ZZ Inspection of Lower Intestinal Tract, Via Natural or Artificial Opening Endoscopic (ICD-10-PCS; 2016-11-23)
PROC: 0DBA0ZZ Excision of Jejunum, Open Approach (ICD-10-PCS; 2016-11-24)
PROC: 0DBN0ZZ Excision of Sigmoid Colon, Open Approach (ICD-10-PCS; 2016-11-24)
PROC: 0T788DZ Dilation of Bilateral Ureters with Intraluminal Device, Via Natural or Artificial Opening Endoscopic (ICD-10-PCS; 2016-11-24)
PROC: 0DNW0ZZ Release Peritoneum, Open Approach (ICD-10-PCS; principal; 2016-11-24 07:30)
DX: K56.5 Intestinal adhesions [bands] with obstruction (postinfection) (principal); K57.32 Diverticulitis of large intestine without perforation or abscess without bleeding; N17.9 Acute kidney failure, unspecified; E44.1 Mild protein-calorie malnutrition; I95.9 Hypotension, unspecified; E83.39 Other disorders of phosphorus metabolism; S70.322A Blister (nonthermal), left thigh, initial encounter; E86.0 Dehydration; E87.6 Hypokalemia; F32.9 Major depressive disorder, single episode, unspecified; F41.9 Anxiety disorder, unspecified; K64.8 Other hemorrhoids; M79.7 Fibromyalgia; R31.9 Hematuria, unspecified; K57.90 Diverticulosis of intestine, part unspecified, without perforation or abscess without bleeding; Z68.22 Body mass index [BMI] 22.0-22.9, adult; Z79.82 Long term (current) use of aspirin; Z79.899 Other long term (current) drug therapy; Z88.6 Allergy status to analgesic agent; Z88.5 Allergy status to narcotic agent; Z93.3 Colostomy status; Z82.49 Family history of ischemic heart disease and other diseases of the circulatory system
CPT/HCPCS: 36415; 36569; 44388; 71020; 74000; 74020; 74177; 76937; 77001; 80048; 80053; 80061; 81001; 82040; 82150; 82330; 83036; 83540; 83550; 83690; 83735; 84100; 84132; 84134; 84478; 85025; 86850; 86900; 86901; 87040; 87086; 88304; 88305; 88307; 93005; 93306; 94760; 96361; 96374; 96375; 99285

== ENCOUNTER 2017-08-30 15:54 | Emergency (ER) | payer OTHER ==
[2017-08-30] MEDS ORDERED: SODIUM CHLORIDE 0.9% 500 ML IV STA (16:11)
[2017-08-30] MEDS ORDERED: RX INFO: IV CONTRAST WAS GIVEN 1 EACH MISC MISCELLANE PRN (16:11)
[2017-08-30] MEDS ORDERED: FAMOTIDINE 20 MG/2 ML VIAL IV STA (16:11)
[2017-08-30] MEDS ORDERED: ONDANSETRON 4 MG/2 ML VIAL IVP STA (16:11)
--- NOTE | 2017-08-30 16:14 | ED ---
General Adult HPI - General Chief complaint: Abdominal Pain Stated complaint: abdominal pain/poss bowel obstruction Time Seen by Provider: 08/30/17 16:07 Source: patient, RN notes reviewed Mode of arrival: ambulatory Limitations: no limitations - History of Present Illness Initial comments: 62-year-old female presents for left-sided abdominal pain. She states she's had this on and off for the last week or so. She's had diarrhea about 2 weeks ago she had diarrhea and she was put on a course of Cipro. She states that her diarrhea is back. She states she's had nausea without vomiting. She admits to history of resection in the past and obstruction and she is concerned that she may be starting to get back. She denies any high fever she denies any chills. She states that she is not currently having any other symptoms. She states that Dr Casas is her surgeon.Patient denies any recent fever, chills, shortness of breath, chest pain, back pain, nausea vomiting, numbness or tingling, dysuria or hematuria, constipation or diarrhea, headaches or visual changes, or any other current symptoms. - Related Data Home Medications Medication Instructions Recorded Confirmed FLUoxetine HCL [PROzac] 60 mg PO QAM 10/09/16 08/30/17 traZODone HCL [Desyrel] 100 mg PO HS 10/24/16 08/30/17 Previous Rx's Medication Instructions Recorded Ondansetron Odt [Zofran ODT] 4 mg PO Q8HR PRN #20 tab 08/30/17 Allergies Allergy/AdvReac Type Severity Reaction Status Date / Time hydromorphone HCl Allergy Itching Verified 08/30/17 16:32 [From Dilaudid] NSAIDS (Non-Steroidal Allergy Anaphylaxis Verified 08/30/17 16:32 Anti-Inflamma omeprazole Allergy Anaphylaxis Verified 08/30/17 16:32 Review of Systems ROS Statement: Those systems with pertinent positive or pertinent negative responses have been documented in the HPI. ROS Other: All systems not noted in ROS Statement are negative. Past Medical History Past Medical History: Fibromyalgia Additional Past Medical History / Comment(s): diverticulosis; Bowel obstruction History of Any Multi-Drug Resistant Organisms: None Reported Past Surgical History: Appendectomy, Bowel Resection, Hysterectomy, Orthopedic Surgery Additional Past Surgical History / Comment(s): Tibia Fracture Repair 1993, colostomy Past Anesthesia/Blood Transfusion Reactions: No Reported Reaction Past Psychological History: No Psychological Hx Reported Smoking Status: Current every day smoker Past Alcohol Use History: Daily Past Drug Use History: None Reported - Past Family History Father History Unknown: Yes Additional Family Medical History / Comment(s): Heart disease Mother History Unknown: Yes Additional Family Medical History / Comment(s): heart disease, mothers father had problems with stomach. Maternal grandmother of CHF. General Exam - General Exam Comments Initial Comments: General: The patient is awake and alert, in no distress, and does not appear acutely ill. Eye: Pupils are equal, round and reactive to light, extra-ocular movements are intact; there is normal conjunctiva bilaterally. No signs of icterus. Ears, nose, mouth and throat: There are moist mucous membranes and no oral lesions. Neck: The neck is supple, there is no tenderness. Cardiovascular: There is a regular rate and rhythm. No murmur, rub or gallop is appreciated. Respiratory: Lungs are clear to auscultation, respirations are non-labored, breath sounds are equal. No wheezes, stridor, rales, or rhonchi. Gastrointestinal: Soft, non-distended, non-tender abdomen without masses or organomegaly noted. There is no rebound or guarding present. No CVA tenderness. Bowel sounds are unremarkable. Back: There is no tenderness to palpation in the midline. There is no obvious deformity. No rashes noted. Musculoskeletal: Normal ROM, no tenderness, There is no pedal edema. There is no calf tenderness or swelling. Sensation intact. Pulses equal bilaterally 2+. Neurological: CN II-XII intact, There are no obvious motor or sensory deficits. Coordination appears grossly intact. Speech is normal. Skin: Skin is warm and dry and no rashes or lesions are noted. Psychiatric: Cooperative, appropriate mood & affect, normal judgment. Limitations: no limitations Course Vital Signs 08/30/17 15:56 Temperature 97.5 F L Pulse Rate 84 Respiratory 20 Rate Blood Pressure 154/97 O2 Sat by Pulse 99 Oximetry Medical Decision Making - Medical Decision Making 62-year-old female presents emergency department with a chief complaint of abdominal pain. At this time patient's lab work is been reviewed. This time CAT scan is reviewed. We discussed the faintness we'll culture. We discussed was to have nausea meds for home we discussed follow-up with her surgeon. We discussed return parameters all questions. Patient stated that she understood and she is. This plan. All questions have been answered. She'll be discharged. - Lab Data Result diagrams: 08/30/17 16:27 08/30/17 16:27 Lab Results 08/30/17 08/30/17 08/30/17 Range/Units 16:27 16:27 16:27 WBC 7.2 (3.8-10.6) k/uL RBC 4.80 (3.80-5.40) m/uL Hgb 14.6 (11.4-16.0) gm/dL Hct 45.6 (34.0-46.0) % MCV 94.9 (80.0-100.0) fL MCH 30.4 (25.0-35.0) pg MCHC 32.0 (31.0-37.0) g/dL RDW 13.2 (11.5-15.5) % Plt Count 282 (150-450) k/uL Neutrophils % 52 % Lymphocytes % 32 % Monocytes % 8 % Eosinophils % 5 % Basophils % 1 % Neutrophils # 3.7 (1.3-7.7) k/uL Lymphocytes # 2.3 (1.0-4.8) k/uL Monocytes # 0.6 (0-1.0) k/uL Eosinophils # 0.4 (0-0.7) k/uL Basophils # 0.1 (0-0.2) k/uL Sodium 138 (137-145) mmol/L Potassium 4.3 (3.5-5.1) mmol/L Chloride 104 (98-107) mmol/L Carbon Dioxide 26 (22-30) mmol/L Anion Gap 8 mmol/L BUN 7 (7-17) mg/dL Creatinine 0.62 (0.52-1.04) mg/dL Est GFR (MDRD) Af Amer >60 (>60 ml/min/1.73 sqM) Est GFR (MDRD) Non-Af >60 (>60 ml/min/1.73 sqM) Glucose 91 (74-99) mg/dL Plasma Lactic Acid Martin 1.0 (0.7-2.0) mmol/L Calcium 10.0 (8.4-10.2) mg/dL Total Bilirubin 0.3 (0.2-1.3) mg/dL AST 28 (14-36) U/L ALT 34 (9-52) U/L Alkaline Phosphatase 60 (38-126) U/L Total Protein 7.1 (6.3-8.2) g/dL Albumin 4.4 (3.5-5.0) g/dL Amylase 42 (30-110) U/L Lipase 76 (23-300) U/L Urine Color Urine Appearance (Clear) Urine pH (5.0-8.0) Ur Specific Marion (1.001-1.035) Urine Protein (Negative) Urine Glucose (UA) (Negative) Urine Ketones (Negative) Urine Blood (Negative) Urine Nitrite (Negative) Urine Bilirubin (Negative) Urine Urobilinogen (<2.0) mg/dL Ur Leukocyte Esterase (Negative) C. difficile (EIA) Intrp (Negative) 08/30/17 08/30/17 Range/Units 16:27 17:56 WBC (3.8-10.6) k/uL RBC (3.80-5.40) m/uL Hgb (11.4-16.0) gm/dL Hct (34.0-46.0) % MCV (80.0-100.0) fL MCH (25.0-35.0) pg MCHC (31.0-37.0) g/dL RDW (11.5-15.5) % Plt Count (150-450) k/uL Neutrophils % % Lymphocytes % % Monocytes % % Eosinophils % % Basophils % % Neutrophils # (1.3-7.7) k/uL Lymphocytes # (1.0-4.8) k/uL Monocytes # (0-1.0) k/uL Eosinophils # (0-0.7) k/uL Basophils # (0-0.2) k/uL Sodium (137-145) mmol/L Potassium (3.5-5.1) mmol/L Chloride (98-107) mmol/L Carbon Dioxide (22-30) mmol/L Anion Gap mmol/L BUN (7-17) mg/dL Creatinine (0.52-1.04) mg/dL Est GFR (MDRD) Af Amer (>60 ml/min/1.73 sqM) Est GFR (MDRD) Non-Af (>60 ml/min/1.73 sqM) Glucose (74-99) mg/dL Plasma Lactic Acid Martin (0.7-2.0) mmol/L Calcium (8.4-10.2) mg/dL Total Bilirubin (0.2-1.3) mg/dL AST (14-36) U/L ALT (9-52) U/L Alkaline Phosphatase (38-126) U/L Total Protein (6.3-8.2) g/dL Albumin (3.5-5.0) g/dL Amylase (30-110) U/L Lipase (23-300) U/L Urine Color Colorless Urine Appearance Clear (Clear) Urine pH 6.0 (5.0-8.0) Ur Specific Marion 1.002 (1.001-1.035) Urine Protein Negative (Negative) Urine Glucose (UA) Negative (Negative) Urine Ketones Negative (Negative) Urine Blood Negative (Negative) Urine Nitrite Negative (Negative) Urine Bilirubin Negative (Negative) Urine Urobilinogen <2.0 (<2.0) mg/dL Ur Leukocyte Esterase Negative (Negative) C. difficile (EIA) Intrp Negative (Negative) - Radiology Data Radiology results: report reviewed, image reviewed Disposition Clinical Impression: Abdominal pain, Diarrhea Disposition: HOME SELF-CARE Condition: Stable Instructions: Abdominal Pain (ED) Additional Instructions: Please use medication as discussed. Please follow up with family doctor if symptoms have not improved over the next two days. Please return to the emergency room if your symptoms increase or worsen or for any other concerns. Prescriptions: Ondansetron Odt [Zofran ODT] 4 mg PO Q8HR PRN #20 tab PRN Reason: Nausea Referrals: César Shahid MD [Primary Care Provider] - 1-2 days Time of Disposition: 19:00
[2017-08-30 16:47] LABS: Basophils # (A) 0.1 k/uL (0-0.2); Basophils % (A) 1 %; Eosinophils # (A) 0.4 k/uL (0-0.7); Eosinophils % (A) 5 %; HCT 45.6 % (34.0-46.0); HGB 14.6 gm/dL (11.4-16.0); Lymphocytes # (A) 2.3 k/uL (1.0-4.8); Lymphocytes % (A) 32 %; MCH 30.4 pg (25.0-35.0); MCV 94.9 fL (80.0-100.0); Mean Platelet Volume 6.6; Monocytes # (A) 0.6 k/uL (0-1.0); Monocytes % (A) 8 %; Neutrophils # (A) 3.7 k/uL (1.3-7.7); Neutrophils % (A) 52 %; Platelet Count 282 k/uL (150-450); RDW 13.2 % (11.5-15.5); WBC 7.2 k/uL (3.8-10.6)
[2017-08-30 16:50] LABS: Appearance,Urine Clear (Clear); Bilirubin,Urine Negative (Negative); Blood,Urine Negative (Negative); Color,Urine Colorless; Glucose,Urine (UA) Negative (Negative); Ketones,Urine Negative (Negative); Leukocyte Esterase,Urine Negative (Negative); Nitrite,Urine Negative (Negative); Protein,Urine Negative (Negative); Specific Gravity,Urine 1.002 (1.001-1.035); Urobilinogen,Urine <2.0 mg/dL (<2.0)
[2017-08-30 16:57] LABS: ALT 34 U/L (9-52); AST 28 U/L (14-36); Albumin 4.4 g/dL (3.5-5.0); Alkaline Phosphatase 60 U/L (38-126); Amylase 42 U/L (30-110); Anion Gap 8 mmol/L; Blood Urea Nitrogen 7 mg/dL (7-17); Carbon Dioxide 26 mmol/L (22-30); Chloride 104 mmol/L (98-107); Glucose 91 mg/dL (74-99); Lipase 76 U/L (23-300); Potassium 4.3 mmol/L (3.5-5.1); Sodium 138 mmol/L (137-145); Total Bilirubin 0.3 mg/dL (0.2-1.3); Total Protein 7.1 g/dL (6.3-8.2)
--- NOTE | 2017-08-30 18:04 | CT ---
EXAMINATION TYPE: CT abdomen pelvis w con DATE OF EXAM: 08/30/2017 COMPARISON: 11/18/2016 HISTORY: Generalized pain with diarrhea. History of diverticulitis with rupture CT DLP: 418.7 mGycm Automated exposure control for dose reduction was used. TECHNIQUE: Helical acquisition of images was performed from the lung bases through the pelvis. CONTRAST: Performed with Oral Contrast and with IV Contrast, patient injected with 100 mL of Omnipaque 300. FINDINGS: LUNG BASES: No significant abnormality is appreciated. LIVER/GB: No significant abnormality is appreciated. PANCREAS: No significant abnormality is seen. SPLEEN: No significant abnormality is seen. ADRENALS: No significant abnormality is seen. KIDNEYS: No significant abnormality is seen. FREE AIR: No free air is visualized. RETROPERITONEAL ADENOPATHY: None visualized REPRODUCTIVE ORGANS: No significant abnormality is seen URINARY BLADDER: No significant abnormality is seen. PELVIC ADENOPATHY: None visualized. OSSEOUS STRUCTURES: No significant abnormality is seen. BOWEL: There is no bowel obstruction or pneumatosis or pneumoperitoneum. No focal inflammatory dupree es. Fluid filled loops of bowel are noted throughout all 4 quadrants in a nonspecific pattern. VASCULATURE: Unremarkable. OTHER: There is a paucity of fat throughout the abdomen and pelvis. IMPRESSION: NO ACUTE PROCESS.
[2017-08-30 19:18] VITALS: BP 124/68; PULSE 67; RESP 18; TEMP 99.8
== END 2017-08-30 19:17 | disposition home or self-care (01) ==
LOC: EC 15:54
DX: R10.9 Unspecified abdominal pain (principal); R19.7 Diarrhea, unspecified; R11.0 Nausea; M79.7 Fibromyalgia; F17.200 Nicotine dependence, unspecified, uncomplicated; Z87.19 Personal history of other diseases of the digestive system; Z93.3 Colostomy status; Z88.5 Allergy status to narcotic agent; Z88.6 Allergy status to analgesic agent; Z88.8 Allergy status to other drugs, medicaments and biological substances; Z90.49 Acquired absence of other specified parts of digestive tract; Z79.899 Other long term (current) drug therapy
CPT/HCPCS: 36415; 80053; 82150; 83605; 83690; 85025; 81003; 87324; 87045; 87046; 74177; 99284; 96374; 96375; 96361; J2405; Q9967

== ENCOUNTER → 2018-03-19 | Outpatient (CLI) | payer OTHER ==
--- NOTE | 2018-03-19 10:40 | CT ---
EXAMINATION TYPE: CT abdomen pelvis wo con DATE OF EXAM: 03/19/2018 COMPARISON: 08/30/2017 HISTORY: Right upper quadrant and left-sided abdominal pain with history of hernia repair. CT DLP: 278.5 mGycm Automated exposure control for dose reduction was used. TECHNIQUE: Helical acquisition of images was performed from the lung bases through the pelvis withou t intravenous contrast, limiting evaluation of the solid viscera. Oral contrast was utilized. FINDINGS: LUNG BASES: There is right basilar subsegmental atelectasis. LIVER/GB: Stable right 5 mm hepatic lesion is too small to accurately characterize on series 3 image 13. Additional hepatic cyst measuring 1 cm is seen within the inferior posterior right hepatic lobe m argin on image 26. No intrahepatic biliary ductal dilatation. No cholelithiasis. PANCREAS: Unremarkable unenhanced morphology. SPLEEN: No significant abnormality is seen. ADRENALS: Slight nodularity of the right adrenal gland unchanged from the prior. This is low-density and favored to represent a small adenoma. Left adrenal gland is unremarkable. KIDNEYS: Unenhanced kidneys demonstrate no evidence of nephrolithiasis or hydronephrosis. Overall kid neys are symmetric in morphology. FREE AIR: No free air is visualized ADENOPATHY: No greater than 1 cm short axis lymph node is seen within the abdomen or pelvis. REPRODUCTIVE ORGANS: Surgical absence of the uterus. URINARY BLADDER: Incompletely distended and incompletely evaluated on this unenhanced CT. OSSEOUS STRUCTURES: There is a compression deformity of the T12 vertebral body that is unchanged fro m the prior in addition to a grade 2 anterolisthesis of L4 on L5, likely on a degenerative basis. Oth er multilevel mild degenerative changes of the spine are seen. Moderate right and mild left femoral a cetabular arthropathy are noted. BOWEL: There is progression of the ventral abdominal hernia with a neck measuring approximately 2.8 cm containing a loop of small bowel. This is right para midline in the supraumbilical region just inf erior to the hepatic margin. There is also diffuse diastases recti with nondilated bowel abutting the umbilicus. No evidence of dilated large and small bowel. Anastomotic site is seen at the rectosigmoi d junction with no proximal dilatation to suggest anastomotic stricture. IMPRESSION: 1. SUPRAUMBILICAL RIGHT PARACENTRAL VENTRAL ABDOMINAL HERNIA WITH A NECK MEASURING APPROXIMATELY 2.8 CM SUPERIMPOSED UPON DIFFUSE DIASTASES RECTI. THE SUPRA UMBILICAL HERNIA CONTAINS A LOOP OF NONDILATE D SMALL BOWEL. 2. UNCHANGED T12 COMPRESSION DEFORMITY, MULTILEVEL DEGENERATIVE CHANGES OF THE OSSEOUS STRUCTURES, AN D GRADE 2 ANTEROLISTHESIS OF L4 ON L5.
== END | disposition home or self-care (01) ==
LOC: RADCTMAIN 08:06
PROVIDERS: ATTEND Surgery Plastic and Reconstructive Surgery
DX: K43.9 Ventral hernia without obstruction or gangrene (principal); K42.9 Umbilical hernia without obstruction or gangrene; M62.08 Separation of muscle (nontraumatic), other site; Z88.5 Allergy status to narcotic agent; Z88.6 Allergy status to analgesic agent
CPT/HCPCS: 74176

== ENCOUNTER 2018-10-28 09:11 | Emergency (ER) | payer OTHER, MEDICARE ==
[2018-10-28 09:16] VITALS: RESP 18
[2018-10-28] MEDS ORDERED: SODIUM CHLORIDE 0.9% 1,000 ML IV STA (09:33)
[2018-10-28] MEDS ORDERED: SODIUM CHLORIDE 0.9% 500 ML 500 ML IV STA (09:33)
[2018-10-28] MEDS ORDERED: fentaNYL (PF) 50 MCG/ML 2 ML AMP IV STA (09:34)
--- NOTE | 2018-10-28 09:56 | ED ---
Abdominal Pain HPI - General Chief Complaint: Abdominal Pain Stated Complaint: abdominal pain/vomiting Time Seen by Provider: 10/28/18 09:25 Source: patient, police, RN notes reviewed Limitations: no limitations - History of Present Illness Initial Comments: This is a 63-year-old female with a recent history of diagnosed diverticulitis who just finished oral medications for diverticulitis yesterday who presents with complaints of left lower quadrant abdominal pain 8/10 in severity radiates around to the back she states it feels dull and sharp the same time she's had chills headache nausea with this nausea vomiting decreased oral intake. Some lightheadedness and dizziness also. He is also states she recently had one month of diarrhea now she is constipated with very minimal output last 5 days. MD Complaint: abdominal pain - Related Data Home Medications Medication Instructions Recorded Confirmed traZODone HCL [Desyrel] 100 mg PO HS 10/24/16 10/28/18 Previous Rx's Medication Instructions Recorded Dicyclomine [Bentyl] 10 mg PO TID 10 Days capsule 10/28/18 Allergies Allergy/AdvReac Type Severity Reaction Status Date / Time hydromorphone HCl Allergy Itching Verified 10/28/18 09:53 [From Dilaudid] NSAIDS (Non-Steroidal Allergy Anaphylaxis Verified 10/28/18 09:53 Anti-Inflamma omeprazole Allergy Anaphylaxis Verified 10/28/18 09:53 Review of Systems ROS Statement: Those systems with pertinent positive or pertinent negative responses have been documented in the HPI. ROS Other: All systems not noted in ROS Statement are negative. Past Medical History Past Medical History: Fibromyalgia Additional Past Medical History / Comment(s): diverticulosis; Bowel obstruction History of Any Multi-Drug Resistant Organisms: None Reported Past Surgical History: Appendectomy, Bowel Resection, Hysterectomy, Orthopedic Surgery Additional Past Surgical History / Comment(s): Tibia Fracture Repair 1993, colostomy and colostomy removal Past Anesthesia/Blood Transfusion Reactions: No Reported Reaction Past Psychological History: No Psychological Hx Reported Smoking Status: Current every day smoker Past Alcohol Use History: Daily Past Drug Use History: None Reported - Past Family History Father History Unknown: Yes Additional Family Medical History / Comment(s): Heart disease Mother History Unknown: Yes Additional Family Medical History / Comment(s): heart disease, mothers father had problems with stomach. Maternal grandmother of CHF. General Exam - General Exam Comments Initial Comments: This a well-developed asthenic appearing female who is awake alert oriented 3 Limitations: no limitations General appearance: alert, anxious, in distress Head exam: Present: atraumatic, normocephalic, normal inspection Eye exam: Present: normal appearance, PERRL, EOMI. Absent: scleral icterus, conjunctival injection, periorbital swelling ENT exam: Present: mucous membranes dry Neck exam: Present: normal inspection. Absent: tenderness, meningismus, lymphadenopathy Respiratory exam: Present: normal lung sounds bilaterally. Absent: respiratory distress, wheezes, rales, rhonchi, stridor Cardiovascular Exam: Present: regular rate, normal rhythm, normal heart sounds. Absent: systolic murmur, diastolic murmur, rubs, gallop, clicks GI/Abdominal exam: Present: soft, tenderness (Left lower quadrant tenderness palpation some voluntary guarding), normal bowel sounds. Absent: distended, guarding, rebound, rigid, bruit, pulsatile mass Rectal exam: Present: deferred Extremities exam: Present: normal inspection, full ROM, normal capillary refill. Absent: tenderness, pedal edema, joint swelling, calf tenderness Back exam: Present: normal inspection Neurological exam: Present: alert, oriented X3, CN II-XII intact Psychiatric exam: Present: normal affect, normal mood Skin exam: Present: warm, dry, intact, normal color. Absent: rash Course Vital Signs 10/28/18 09:13 Temperature 98.3 F Pulse Rate 92 Respiratory 18 Rate Blood Pressure 148/97 O2 Sat by Pulse 95 Oximetry Medical Decision Making - Medical Decision Making She is feeling improved after IV hydration. He has resolved at this time. I did discuss findings with her the presentation consistent with spastic colon. P atient be discharged with instructions increase oral fluids short course of Bentyl. Follow-up with her doctor return when necessary - Lab Data Result diagrams: 10/28/18 09:45 10/28/18 09:45 Lab Results 10/28/18 10/28/18 10/28/18 Range/Units 09:45 09:45 09:45 WBC 5.3 (3.8-10.6) k/uL RBC 5.02 (3.80-5.40) m/uL Hgb 15.8 (11.4-16.0) gm/dL Hct 46.4 H (34.0-46.0) % MCV 92.5 (80.0-100.0) fL MCH 31.5 (25.0-35.0) pg MCHC 34.1 (31.0-37.0) g/dL RDW 12.7 (11.5-15.5) % Plt Count 299 (150-450) k/uL Neutrophils % 64 % Lymphocytes % 21 % Monocytes % 7 % Eosinophils % 6 % Basophils % 1 % Neutrophils # 3.3 (1.3-7.7) k/uL Lymphocytes # 1.1 (1.0-4.8) k/uL Monocytes # 0.4 (0-1.0) k/uL Eosinophils # 0.3 (0-0.7) k/uL Basophils # 0.1 (0-0.2) k/uL Sodium 138 (137-145) mmol/L Potassium 4.3 (3.5-5.1) mmol/L Chloride 109 H (98-107) mmol/L Carbon Dioxide 22 (22-30) mmol/L Anion Gap 7 mmol/L BUN 4 L (7-17) mg/dL Creatinine 0.56 (0.52-1.04) mg/dL Est GFR (CKD-EPI)AfAm >90 (>60 ml/min/1.73 sqM) Est GFR (CKD-EPI)NonAf >90 (>60 ml/min/1.73 sqM) Glucose 109 H (74-99) mg/dL Plasma Lactic Acid Martin (0.7-2.0) mmol/L Calcium 9.9 (8.4-10.2) mg/dL Total Bilirubin 0.5 (0.2-1.3) mg/dL AST 22 (14-36) U/L ALT 27 (9-52) U/L Alkaline Phosphatase 55 (38-126) U/L Total Protein 7.0 (6.3-8.2) g/dL Albumin 4.2 (3.5-5.0) g/dL Amylase 31 (30-110) U/L Lipase 77 (23-300) U/L Influenza Type A RNA Not Detected (Not Detectd) Influenza Type B (PCR) Not Detected (Not Detectd) 10/28/18 Range/Units 10:20 WBC (3.8-10.6) k/uL RBC (3.80-5.40) m/uL Hgb (11.4-16.0) gm/dL Hct (34.0-46.0) % MCV (80.0-100.0) fL MCH (25.0-35.0) pg MCHC (31.0-37.0) g/dL RDW (11.5-15.5) % Plt Count (150-450) k/uL Neutrophils % % Lymphocytes % % Monocytes % % Eosinophils % % Basophils % % Neutrophils # (1.3-7.7) k/uL Lymphocytes # (1.0-4.8) k/uL Monocytes # (0-1.0) k/uL Eosinophils # (0-0.7) k/uL Basophils # (0-0.2) k/uL Sodium (137-145) mmol/L Potassium (3.5-5.1) mmol/L Chloride (98-107) mmol/L Carbon Dioxide (22-30) mmol/L Anion Gap mmol/L BUN (7-17) mg/dL Creatinine (0.52-1.04) mg/dL Est GFR (CKD-EPI)AfAm (>60 ml/min/1.73 sqM) Est GFR (CKD-EPI)NonAf (>60 ml/min/1.73 sqM) Glucose (74-99) mg/dL Plasma Lactic Acid Martin 1.1 (0.7-2.0) mmol/L Calcium (8.4-10.2) mg/dL Total Bilirubin (0.2-1.3) mg/dL AST (14-36) U/L ALT (9-52) U/L Alkaline Phosphatase (38-126) U/L Total Protein (6.3-8.2) g/dL Albumin (3.5-5.0) g/dL Amylase (30-110) U/L Lipase (23-300) U/L Influenza Type A RNA (Not Detectd) Influenza Type B (PCR) (Not Detectd) - Radiology Data Radiology results: report reviewed (I did review the imaging and report does demonstrate evidence of enteritis. Patient will be discharged), image reviewed Disposition Clinical Impression: Abdominal pain, Enteritis, Spastic intestine, Dehydration Disposition: HOME SELF-CARE Condition: Good Instructions (If sedation given, give patient instructions): Abdominal Pain (ED), Enteritis (ED), Irritable Bowel Syndrome (ED), Dehydration (ED) Prescriptions: Dicyclomine [Bentyl] 10 mg PO TID 10 Days capsule Is patient prescribed a controlled substance at d/c from ED?: No Referrals: César Shahid MD [Primary Care Provider] - 1-2 days
[2018-10-28 10:06] LABS: Basophils # (A) 0.1 k/uL (0-0.2); Basophils % (A) 1 %; Eosinophils # (A) 0.3 k/uL (0-0.7); Eosinophils % (A) 6 %; HCT 46.4 % (34.0-46.0); HGB 15.8 gm/dL (11.4-16.0); Lymphocytes # (A) 1.1 k/uL (1.0-4.8); Lymphocytes % (A) 21 %; MCH 31.5 pg (25.0-35.0); MCHC 34.1 g/dL (31.0-37.0); MCV 92.5 fL (80.0-100.0); Mean Platelet Volume 6.4; Monocytes # (A) 0.4 k/uL (0-1.0); Monocytes % (A) 7 %; Neutrophils # (A) 3.3 k/uL (1.3-7.7); Neutrophils % (A) 64 %; Platelet Count 299 k/uL (150-450); RBC 5.02 m/uL (3.80-5.40); RDW 12.7 % (11.5-15.5); WBC 5.3 k/uL (3.8-10.6)
--- NOTE | 2018-10-28 10:16 | XR ---
Abdomen HISTORY: Abdominal pain Frontal view of the abdomen on 2 images Correlation to prior exam 11/16/2016 Lung bases are clear. There is no evident pneumoperitoneum. Air-fluid levels are noted without bowel distention. No pathologic calcification. IMPRESSION: Correlate for enteritis or ileus, follow-up as indicated.
[2018-10-28 10:30] LABS: ALT 27 U/L (9-52); AST 22 U/L (14-36); Albumin 4.2 g/dL (3.5-5.0); Alkaline Phosphatase 55 U/L (38-126); Amylase 31 U/L (30-110); Anion Gap 7 mmol/L; Blood Urea Nitrogen 4 mg/dL (7-17); Calcium 9.9 mg/dL (8.4-10.2); Carbon Dioxide 22 mmol/L (22-30); Chloride 109 mmol/L (98-107); Glucose 109 mg/dL (74-99); Lipase 77 U/L (23-300); Potassium 4.3 mmol/L (3.5-5.1); Sodium 138 mmol/L (137-145); Total Bilirubin 0.5 mg/dL (0.2-1.3)
--- NOTE | 2018-10-28 12:24 | CT ---
EXAMINATION TYPE: CT abdomen pelvis w con DATE OF EXAM: 10/28/2018 COMPARISON: Prior CT 03/19/2018 HISTORY: Abdominal pain CT DLP: 639 mGycm Automated exposure control for dose reduction was used. TECHNIQUE: Helical acquisition of images from the lung bases through the pelvis have been completed. CONTRAST: Performed without Oral Contrast and with IV Contrast, patient injected with 100 mL of Isovue 300. FINDINGS: LUNG BASES: Minimal patchy basilar density is noted, no pleural pericardial effusion. Posterior diaph ragmatic hernia contains fat bilaterally, anterior abdominal wall hernia in the subxiphoid location c ontains fat as on prior, anterior abdominal wall again shows hernia in the supra umbilical region and show bowel loops within. AORTA: No significant abnormality is appreciated. LIVER/GB: Hypodensities in the right lobe of the liver is similar to prior exam. Gallbladder is unrem arkable PANCREAS: No significant abnormality is seen. SPLEEN: No significant abnormality is seen. ADRENALS: No significant abnormality is seen. KIDNEYS: No significant abnormality is seen. REPRODUCTIVE ORGANS: Not seen BOWEL: No significant interval change is seen. Postop change noted at the rectosigmoid colon, small bowel in the right hemiabdomen. There are some fluid-filled bowel loops without bowel distention, lac k of oral contrast could limit evaluation. FREE AIR: No Free Air visible. ASCITES: None visible. PELVIC ADENOPATHY: None visualized. RETROPERITONEAL ADENOPATHY: No Retroperitoneal Adenopathy visible. URINARY BLADDER: No significant abnormality is seen. OSSEOUS STRUCTURES: Stable degenerative disc changes, anterolisthesis L4-5, facet arthropathy and an terior wedge deformity at T12. IMPRESSION: POSTOP CHANGES. ADDITIONAL FINDINGS ABOVE. FOLLOW-UP INDICATED.
[2018-10-28 13:31] LABS: Appearance,Urine Clear (Clear); Bilirubin,Urine Negative (Negative); Blood,Urine Negative (Negative); Color,Urine Yellow; Glucose,Urine (UA) Negative (Negative); Ketones,Urine Negative (Negative); Leukocyte Esterase,Urine Negative (Negative); Nitrite,Urine Negative (Negative); PH, Urine 6.5 (5.0-8.0); Protein,Urine Negative (Negative); Specific Gravity,Urine 1.043 (1.001-1.035); Urobilinogen,Urine <2.0 mg/dL (<2.0)
[2018-10-28 13:33] VITALS: BP 128/76; PULSE 88; TEMP 97.5
== END 2018-10-28 13:33 | disposition home or self-care (01) ==
LOC: EC 09:11
DX: K52.9 Noninfective gastroenteritis and colitis, unspecified (principal); F17.200 Nicotine dependence, unspecified, uncomplicated; Z87.19 Personal history of other diseases of the digestive system; Z90.49 Acquired absence of other specified parts of digestive tract; Z98.890 Other specified postprocedural states; Z90.710 Acquired absence of both cervix and uterus; Z93.3 Colostomy status; Z79.899 Other long term (current) drug therapy; Z88.5 Allergy status to narcotic agent; Z88.6 Allergy status to analgesic agent; Z88.8 Allergy status to other drugs, medicaments and biological substances
CPT/HCPCS: 36415; 80053; 82150; 83605; 83690; 85025; 81003; 87040; 87502; 74018; 74177; 99284; 96374; 96361 ×3; J3010; Q9967

== ENCOUNTER → 2019-01-09 | Outpatient (CLI) | payer MEDICARE, OTHER ==
[2019-01-09 16:14] LABS: HCT 45.7 % (34.0-46.0); HGB 14.8 gm/dL (11.4-16.0); MCH 30.8 pg (25.0-35.0); MCHC 32.3 g/dL (31.0-37.0); MCV 95.2 fL (80.0-100.0); Mean Platelet Volume 6.5; Platelet Count 335 k/uL (150-450); RDW 12.9 % (11.5-15.5)
== END | disposition home or self-care (01) ==
LOC: LABPAT 14:31
PROVIDERS: ATTEND Surgery Plastic and Reconstructive Surgery
DX: Z01.818 Encounter for other preprocedural examination (principal); Z01.812 Encounter for preprocedural laboratory examination
CPT/HCPCS: 36415; 85027; 93005

== ENCOUNTER 2019-01-10 09:47 | Observation (INO) | payer MEDICARE, OTHER ==
[~2019-01-10 09:47] MED LIST: DEXAMETHASONE SOD PHOSPHATE 10 MG/ML 1 ML VIAL IV ONE; HEPARIN SODIUM,PORCINE 5,000 UNIT/ML 1 ML VIAL SQ ONE; HYDROmorphone 0.5 MG/0.5 ML SYRINGE IVP PRN; LIDOCAINE 1% 20 ML VIAL (10MG/ML) FOR IV START INTRADERMA PRN; MIDAZOLAM 2 MG/2 ML VIAL IV PRN; ONDANSETRON 4 MG/2 ML VIAL IVP ONE; SCOPOLAMINE 1.5MG/72HR PATCH TRANSDERM ONE; ceFAZolin IN SWFI 2 GM/20 ML SYRINGE IVP ONE
[2019-01-10] MEDS: LACTATED RINGERS 1,000 ML IV SCH (10:32)
--- NOTE | 2019-01-10 10:53 | P.GSHP ---
History of Present Illness H&P Date: 01/10/19 CHIEF COMPLAINT: Incisional hernia. HISTORY OF PRESENT ILLNESS: The patient is a 63-year-old female who presents with a history of swelling along the mid upper abdomen. Findings were consistent with possible incisional hernia. Now she presents for further evaluation and management. PAST MEDICAL HISTORY: Please see list. PAST SURGICAL HISTORY: Please see list. MEDICATIONS: Please see list. ALLERGIES: Please see list. SOCIAL HISTORY: No illicit drug use FAMILY HISTORY: No reports of Crohn disease or ulcerative colitis. REVIEW OF ORGAN SYSTEMS: CONSTITUTIONAL: No reports of fevers or chills. GI: Denies any blood in stools or constipation. PHYSICAL EXAM: VITAL SIGNS: Stable GENERAL: Well-developed pleasant female in no acute distress. HEENT: No scleral icterus. Extraocular movements grossly intact. Moist buccal mucosa. NECK: Supple without lymphadenopathy. CHEST: Unlabored respirations. Equal bilateral excursions. CARDIOVASCULAR: Regular rate and rhythm. Distal 2+ pulses. ABDOMEN: Soft, nondistended. Tender along the mid upper abdomen. Protuberant. MUSCULOSKELETAL: No clubbing, cyanosis, or edema. ASSESSMENT: 1. Incisional ventral hernia. PLAN: 1. Recommend proceeding with robotic ventral hernia repair with mesh. 2. Benefits and risks of surgical intervention was discussed including possibility of open technique. 3. DVT prophylaxis. 4. Antibiotic prophylaxis. Past Medical History Past Medical History: Fibromyalgia Additional Past Medical History / Comment(s): diverticulosis; Hx. of Bowel obstruction History of Any Multi-Drug Resistant Organisms: None Reported Past Surgical History: Appendectomy, Bowel Resection, Hysterectomy, Orthopedic Surgery Additional Past Surgical History / Comment(s): Tibia Fracture Repair 1993, colostomy and colostomy removal Past Anesthesia/Blood Transfusion Reactions: No Reported Reaction Smoking Status: Current every day smoker - Past Family History Father History Unknown: Yes Additional Family Medical History / Comment(s): Heart disease Mother History Unknown: Yes Additional Family Medical History / Comment(s): Heart disease, Maternal grandmother of CHF. Medications and Allergies Home Medications Medication Instructions Recorded Confirmed Type traZODone HCL [Desyrel] 100 mg PO HS 10/24/16 01/07/19 History Carisoprodol [Soma] 350 mg PO HS 01/07/19 01/07/19 History LORazepam [Ativan] 0.5 mg PO TID 01/07/19 01/07/19 History Allergies Allergy/AdvReac Type Severity Reaction Status Date / Time hydromorphone HCl Allergy Itching Verified 01/10/19 10:10 [From Dilaudid] NSAIDS (Non-Steroidal Allergy Anaphylaxis Verified 01/10/19 10:10 Anti-Inflamma omeprazole Allergy Anaphylaxis Verified 01/10/19 10:10 Surgical - Exam Vital Signs Temp Pulse Resp BP Pulse Ox 98.6 F 77 16 132/67 98 01/10/19 10:24 01/10/19 10:24 01/10/19 10:24 01/10/19 10:24 01/10/19 10:24
[2019-01-10] MEDS ORDERED: ROPIVACAINE 5 MG/ML 30 ML VIAL ONE (11:50)
[2019-01-10] MEDS ORDERED: SUCCINYLCHOLINE CHLORIDE 100 MG/5 ML SYR IV ONE (11:50)
[2019-01-10] MEDS ORDERED: GLYCOPYRROLATE 0.2 MG/ML 2 ML VIAL ONE (11:50)
[2019-01-10] MEDS ORDERED: ROCURONIUM BROMIDE 10 MG/ML 10 ML VIAL IV ONE (11:50)
[2019-01-10] MEDS ORDERED: MIDAZOLAM 2 MG/2 ML VIAL ONE (11:50)
[2019-01-10] MEDS ORDERED: LIDOCAINE 2%-EPI 1:100,000 20 ML VIAL ONE (11:50)
[2019-01-10] MEDS ORDERED: LIDOCAINE 1% INJ 10MG/ML (20 ML MDV) ONE (11:50)
[2019-01-10] MEDS ORDERED: NEOSTIGMINE 1 MG/ML 10 ML VIAL ONE (11:50)
[2019-01-10] MEDS ORDERED: fentaNYL (PF) 50 MCG/ML 2 ML AMP ONE (11:50)
[2019-01-10] MEDS ORDERED: PROPOFOL 10 MG/ML 20 ML VIAL IV ONE (11:50)
[2019-01-10] MEDS ORDERED: BUPIVACAINE (PF) 0.5% 30 ML VIAL SQ ONE ×3 (12:26→12:38)
[2019-01-10] MEDS ORDERED: LACTATED RINGERS 1,000 ML IV ONE (14:17)
[2019-01-10] MEDS ORDERED: ACETAMINOPHEN TAB 325 MG TAB PO PRN (15:01)
[2019-01-10] MEDS ORDERED: NALOXONE 0.4 MG/ML 1 ML VIAL IV PRN (15:01)
[2019-01-10] MEDS: MORPHINE SULFATE 10 MG/ML SYRINGE IVP ONE ×5 (15:16→15:48)
--- NOTE | 2019-01-10 15:27 | P.OP ---
Date of Procedure: 01/10/19 Description of Procedure: SURGEON: DAWSON SULLIVAN MD PREOPERATIVE DIAGNOSIS: 1. Initial incarcerated incisional hernia, epigastrium 2. History of perforated diverticulitis with White's 3. History of complete small bowel obstruction due to intestinal adhesions 4. Fibromyaglia. 5. Chronic pain sydnrome. 6. History of sigmoid diverticulitis. POSTOPERATIVE DIAGNOSIS: 1. Initial incarcerated incisional hernia, epigastrium, 8 x 6 cm without strangulation 2. History of perforated diverticulitis with White's 3. History of complete small bowel obstruction due to intestinal adhesions 4. Fibromyaglia. 5. Chronic pain sydnrome. 6. History of sigmoid diverticulitis. PROCEDURES PERFORMED: 1. Diagnostic laparoscopy 2. Open extensive lysis of adhesions 1-1/2 hours involving epigastrium and small bowel 3. Open repair of initial incisional incarcerated ventral hernia 8 x 6 cm witho ut mesh ANESTHESIA: GETA, abdominal wall block ESTIMATED BLOOD LOSS: 50 mL. SPECIMENS REMOVED: None. COMPLICATIONS: None. Operative Findings: 1. Severe adhesive disease upon diagnostic laparoscopy with immediate conversion to open ventral hernia. 2. Incarcerated initial incisional ventral hernia epigastrium 8 x 6 cm with omentum 3. Extensive lysis of adhesions using sharp dissection for jejunum of the epigastrium INDICATIONS: The patient is a 63-year-old female with previous history of Refugio's from acute perforated diverticulitis, followed by recurrent small bowel obstructions, colostomy reversal as well as extensive lysis of adhesions over 2+ years ago. She had developed moderate regain and developed an incisional hernia of the epigastrium which is now causing discomfort. Surgical options were described including robotic approach with possibility of open technique. Benefits and risks of surgical intervention was described including however not limited to bleeding, infection, need for further surgery, small bowel resection, placement of mesh, cosmetic deformity, and pain for which informed consent was obtained. DESCRIPTION: The patient was brought to the operating room. After general induction, the abdomen was prepped and draped in a standard sterile fashion using ChloraPrep. Ioban draping was also placed. A time-out protocol was confirmed with surgical team regarding the patient's name including procedure to be performed. Preoperative antibiotics were administered. Bilateral SCDs were placed. A left upper quadrant incision was made using #11 blade after anesthetizing the skin. A 0 5 mm laparoscopic trocar entry was performed into the intra- abdominal cavity. Initial abdominal insufflation to 15 mmHg pressure was performed which she tolerated well. Moderate scarring with severe malignant peritoneal adhesions were found without injury to the small bowel. As a result of her severe adhesions, laparoscopic technique was abandoned for open ventral hernia repair. A midline abdominal incision was placed from the epigastrium above the umbilicus. The abdomen was entered using electro-Bovie cautery. Careful entry into the abdomen was performed using blunt dissection including sharp dissection using the Metzenbaum scissors. No full-thickness enterotomies had occurred during this entire portion of entry into the abdomen. Along the upper abdomen, the small bowel was adherent including along the midline including bilateral upper abdomen. To address the severe peritoneal adhesions, sharp lysis with a Metzenbaum scissors was performed for over one hour without enterotomy. The left upper quadrant trocar site was also explored and unremarkable. Next, 8 x 6 cm fascial defect was found with careful release of the omentum from the incisional hernia including hernia sac. Abdominal wall flaps were created to free additional fascia for closure for both the right and left abdominal wall flap. Smaller 1-2 cm defects were found primarily along the left upper flap and closed using 0 Vicryl between the plane of subcutaneous tissue and fascia. Prior to closing the abdomen, hemostasis was excellent. Next, the fascia was reapproximated using double-stranded 0 PDS. The abdominal wall skin flap was closed in layers using 3-0 Vicryl interrupted sutures followed by subcuticular running stitch of 3-0 Monocryl. Skin was cleansed with dilute hydrogen peroxide. Exofin taping glue were placed along the incision. OptiFoam surgical dressing 4 x 12 cm was placed over the incision. An abdominal binder was placed. The sponge instrument count and needle counts were verified correct by instructor adjunct surgical technician. The patient was awoken from anesthesia in stable condition. The patient's family was pleased with the level of care.
[2019-01-10] MEDS: METOCLOPRAMIDE 5 MG/ML 2 ML VIAL IVP PRN (16:36)
[2019-01-10] MEDS: D5-0.45% NACL WITH KCL 20MEQ/L 1,000 ML IV SCH (17:27)
[2019-01-10] MEDS: LORazepam 0.5 MG TAB PO SCH ×2 (17:45→21:15)
[2019-01-10] MEDS: MORPHINE SULFATE 4 MG/ML SYRINGE IVP PRN ×2 (17:59→21:16)
[2019-01-10 18:31] VITALS: BMI 22.3
[2019-01-10] MEDS ORDERED: Acetaminophen-Codeine 300-30mg TAB PO PRN (18:52)
[2019-01-10] MEDS ORDERED: SCOPOLAMINE 1.5MG/72HR PATCH TRANSDERM SCH (19:30)
[2019-01-10] MEDS: ONDANSETRON 4 MG/2 ML VIAL IVP PRN (19:32)
[2019-01-10] MEDS: traZODone HCL 100 MG TAB PO SCH (21:15)
[2019-01-10] MEDS: CARISOPRODOL 350 MG TAB PO SCH (21:21)
[2019-01-11] MEDS: MORPHINE SULFATE 4 MG/ML SYRINGE IVP PRN ×5 (01:27→10:50)
[2019-01-11] MEDS: ONDANSETRON 4 MG/2 ML VIAL IVP PRN ×2 (03:59→15:17)
[2019-01-11] MEDS: D5-0.45% NACL WITH KCL 20MEQ/L 1,000 ML IV SCH ×2 (04:49→17:48)
[2019-01-11] MEDS: LACTATED RINGERS 1,000 ML IV SCH (07:25)
--- NOTE | 2019-01-11 07:26 | P.ONQ ---
Anesthesiology Proc Note - PNB - Peripheral Nerve Block Performed Bilateral Rectus Abdominis Single Time Out Performed: Yes Procedure Start Time: 10:59 Procedure Stop Time: 11:04 Indication: Acute Post-Operative Pain Sedation Type: Sedate with meaningful contact maintained Preparation: Sterile Prep Position: Supine Needle Size: 50mm (2") Needle Gauge: 21 Technique: Ultrasound (Ropivacaine 0.5% 15 mL plus Xylocaine 2% with epi and cc given at each site) Blood Aspirated: No Pain Paresthesia on Injection Noted: No Resistance on Injection: Normal Events: Uneventful and Well Tolerated
[2019-01-11] MEDS: LORazepam 0.5 MG TAB PO SCH ×4 (07:27→21:04)
[2019-01-11] MEDS: ENOXAPARIN 40 MG/0.4 ML SYRINGE SQ SCH (07:37)
[2019-01-11 08:45] VITALS: RESP 16
[2019-01-11] MEDS ORDERED: BUTALB/APAP/CAFF 50-325-40MG TAB PO STA (10:57)
--- NOTE | 2019-01-11 10:57 | P.PN ---
Subjective Progress Note Date: 01/11/19 CHIEF COMPLAINT: Incarcerated incisional hernia HISTORY OF PRESENT ILLNESS: The patient is a 63-year-old female postop day 1 status open repair of incarcerated incisional hernia. She has history of fibromyalgia and has difficulty with pain control. She has not been ambulating. She reports moderate to severe incisional pain which is to be expected. She reports having a difficult at night with her pain management. She has multiple ALLERGIES to pain medications with exception of morphine and Tylenol. She complains of headache. ROS: No reports of nausea and vomiting. No bowel movements. No fevers or chills. No new chest pain. No productive sputum PHYSICAL EXAM: VITAL SIGNS: Reviewed CONSTITUTIONAL: Well developed and in no acute distress. EYES: Conjuctivae without sclera icterus. Extraocular movements grossly intact. HEAD, EARS, NOSE, THROAT: Moist buccal mucosa. Head is atraumatic, normocephalic. Hears conversational speech. No nasal drainage. NECK: Supple. No thyroidomegaly. RESPIRATORY: Non-labored respirations and equal bilateral excursions. CARDIOVASCULAR: Palpable 2+ radial pulses. Regular rate. Regular rhythm. ABDOMEN: Dominant binder present. Dressings clean dry and intact. No peritonitis. MUSCULOSKELETAL: No gross deformity of the lower extremities noted. No clubbing. No cyanosis. SKIN: Good skin turgor. Well perfused. NEUROLOGIC: Cranial nerves I through XII grossly intact. No focal or lateralizing signs. PSYCH: Appropriate affect. Alert and oriented to person, place and time. CLINCAL LABS: White blood cell count normal ASSESSMENT: 1. Incarcerated incisional hernia 2. Chronic pain syndrome 3. Multiple pain medication ALLERGIES 4. Peritoneal adhesions PLAN: 1. Secondary to her pain, recommend continuing hospitalization. 2. Will add Fioricet for headache. 3 Incentive spirometer for prevention of atelectasis 4. Physical therapy for ambulation and ability 5. Objective - Vital Signs Vital signs: Vital Signs Temp 98.8 F 01/11/19 07:47 Pulse 67 01/11/19 07:47 Resp 16 01/11/19 07:47 BP 111/70 01/11/19 07:47 Pulse Ox 92 L 01/11/19 07:47 Intake & Output 01/10/19 01/11/19 01/11/19 18:59 06:59 18:59 Intake Total 1100 975 Output Total 50 300 Balance 1050 675 Weight 57.2 kg Intake: IV 1100 Intake, IV Titration 975 Amount D5-0.45% NaCl with KCl 975 20Meq/l 1,000 ml @ 75 mls /hr IV .[id number] [facility] Rx#: [id number] Output: Urine 300 Estimated Blood Loss 50
[2019-01-11] MEDS: METOCLOPRAMIDE 5 MG/ML 2 ML VIAL IVP PRN (17:22)
[2019-01-11] MEDS: ceFAZolin IN SWFI 2 GM/20 ML SYRINGE IVP SCH ×2 (17:44→23:18)
[2019-01-11] MEDS: BUTALB/APAP/CAFF 50-325-40MG TAB PO PRN ×2 (17:44→21:00)
--- NOTE | 2019-01-11 19:03 | P.DS ---
Providers Date of admission: 01/10/19 20:15 Expected date of discharge: 01/12/19 Attending physician: Vidhi Ribeiro Primary care physician: [facility] Hospital Course: Pain had improved following incarcerated incisional hernia. Patient tolerating regular diet including [place] T steak. Discharge instructions included no lifting over 4 pounds reviewed. Pain medications also described in detail as she takes Soma. Follow-up in the office in 5 days Plan - Discharge Summary Discharge Rx Participant: Yes New Discharge Prescriptions: New HYDROcodone/APAP 5-325MG [Aguilar 5-325] 1 tab PO Q4HR PRN 3 Days #18 tab PRN Reason: Pain Continue traZODone HCL [Desyrel] 100 mg PO HS Carisoprodol [Soma] 350 mg PO HS LORazepam [Ativan] 0.5 mg PO TID Discharge Medication List traZODone HCL [Desyrel] 100 mg PO HS 10/24/16 [History] Carisoprodol [Soma] 350 mg PO HS 01/07/19 [History] LORazepam [Ativan] 0.5 mg PO TID 01/07/19 [History] HYDROcodone/APAP 5-325MG [Aguilar 5-325] 1 tab PO Q4HR PRN 3 Days #18 tab 01/11/19 [Rx] Follow up Appointment(s)/Referral(s): Vidhi Ribeiro MD [STAFF PHYSICIAN] - 01/16/19 Patient Instructions/Handouts: Abdominal Binder (DC), Ventral Hernia Repair (GEN) Activity/Diet/Wound Care/Special Instructions: NO LIFTING OVER 4 POUNDS IN 4 WEEKS TO January. May shower. No bath tub soaks. Remove dressing. Discharge Disposition: HOME SELF-CARE
[2019-01-11] MEDS: traZODone HCL 100 MG TAB PO SCH (20:57)
[2019-01-11] MEDS: CARISOPRODOL 350 MG TAB PO SCH (21:04)
[2019-01-12] MEDS: MORPHINE SULFATE 4 MG/ML SYRINGE IVP PRN ×2 (01:34→05:56)
[2019-01-12] MEDS: LACTATED RINGERS 1,000 ML IV SCH (02:11)
[2019-01-12] MEDS: D5-0.45% NACL WITH KCL 20MEQ/L 1,000 ML IV SCH (05:59)
[2019-01-12] MEDS: METOCLOPRAMIDE 5 MG/ML 2 ML VIAL IVP PRN (06:51)
[2019-01-12 07:27] VITALS: BP 126/75; PULSE 78; TEMP 99.3
[2019-01-12] MEDS: ENOXAPARIN 40 MG/0.4 ML SYRINGE SQ SCH ×2 (08:47→08:52)
[2019-01-12] MEDS: LORazepam 0.5 MG TAB PO SCH (08:47)
--- NOTE | 2019-01-12 11:33 | P.PN ---
Progress Note - Text Progress Note Date: 01/12/19 The patient is doing well. She is already been discharged by Dr. Casas. She has no complaints. She has some mild incisional pain. She will follow Dr. Casas next week.
== END 2019-01-12 10:19 | disposition home or self-care (01) ==
LOC: OR 09:47 → 4SSUR 15:47 → OR 19:38 → 4SSUR 20:15
PROVIDERS: ADMIT Surgery Plastic and Reconstructive Surgery; ATTEND Surgery Plastic and Reconstructive Surgery
DX: K43.0 Incisional hernia with obstruction, without gangrene (principal); M79.7 Fibromyalgia; K66.0 Peritoneal adhesions (postprocedural) (postinfection); Z53.31 Laparoscopic surgical procedure converted to open procedure; Z90.710 Acquired absence of both cervix and uterus; F17.200 Nicotine dependence, unspecified, uncomplicated; G89.4 Chronic pain syndrome; Z79.899 Other long term (current) drug therapy; Z82.49 Family history of ischemic heart disease and other diseases of the circulatory system
CPT/HCPCS: 49561; 96372 ×2; 94760; 64486; G0378 ×3; J2250; J2270 ×4; J1644; J1100; J2710; J2765 ×3; J2405 ×2; J2001; J1650; J3010; J2795; J0330; J2704; J0690 ×2

== ENCOUNTER 2019-08-05 11:01 | Emergency (ER) | payer OTHER, MEDICARE ==
[2019-08-05] MEDS ORDERED: SODIUM CHLORIDE 0.9% 1,000 ML IV STA (11:21)
[2019-08-05] MEDS ORDERED: ONDANSETRON 4 MG/2 ML VIAL IVP STA (11:21)
--- NOTE | 2019-08-05 11:38 | ED ---
Abdominal Pain HPI - General Chief Complaint: Abdominal Pain Stated Complaint: hernia pain Time Seen by Provider: 08/05/19 11:14 Source: patient Mode of arrival: ambulatory Limitations: no limitations - History of Present Illness Initial Comments: patient is a 64-year-old female presenting with abdominal pain that started earlier this morning. Patient states she had an incisional hernia repair done by Dr. Ribeiro in December of this year. Patient states she woke up early this morning and noticed a bulge in her right upper quadrant. Patient is having a cramping sensation as well as mild to moderate pain associated with the bulge as well. Patient is also nauseous. No fevers, vomiting, diarrhea. Patient had normal bowel movement this morning. Patient also has history of abdominal perforation, appendectomy, hysterectomy. Patient has no other complaints at this time. Upon arrival to the ER, her vital signs are stable. - Related Data Home Medications Medication Instructions Recorded Confirmed traZODone HCL [Desyrel] 100 mg PO HS 10/24/16 01/10/19 Carisoprodol [Soma] 350 mg PO HS 01/07/19 01/10/19 LORazepam [Ativan] 0.5 mg PO TID 01/07/19 01/10/19 Previous Rx's Medication Instructions Recorded HYDROcodone/APAP 5-325MG [[place] 1 tab PO Q4HR PRN 3 Days #18 tab 01/11/19 5-325] Allergies Allergy/AdvReac Type Severity Reaction Status Date / Time hydromorphone HCl Allergy Itching Verified 08/05/19 11:05 [From Dilaudid] NSAIDS (Non-Steroidal Allergy Anaphylaxis Verified 08/05/19 11:05 Anti-Inflamma omeprazole Allergy Anaphylaxis Verified 08/05/19 11:05 Review of Systems ROS Statement: Those systems with pertinent positive or pertinent negative responses have been documented in the HPI. ROS Other: All systems not noted in ROS Statement are negative. Past Medical History Past Medical History: Fibromyalgia Additional Past Medical History / Comment(s): diverticulosis; Hx. of Bowel obstruction History of Any Multi-Drug Resistant Organisms: None Reported Past Surgical History: Appendectomy, Bowel Resection, Hysterectomy, Orthopedic Surgery Additional Past Surgical History / Comment(s): Tibia Fracture Repair 1993, colostomy and colostomy removal Past Anesthesia/Blood Transfusion Reactions: No Reported Reaction Past Psychological History: No Psychological Hx Reported Smoking Status: Current every day smoker Past Alcohol Use History: Occasional Past Drug Use History: None Reported - Past Family History Father History Unknown: Yes Additional Family Medical History / Comment(s): Heart disease Mother History Unknown: Yes Additional Family Medical History / Comment(s): Heart disease, Maternal grandmother of CHF. General Exam - General Exam Comments Initial Comments: GENERAL: Well-appearing, well-nourished and in no acute distress. HEAD: Atraumatic, normocephalic. EYES: Pupils equal round and reactive to light, extraocular movements intact, sclera anicteric, conjunctiva are normal. ENT: Nares patent, oropharynx clear without exudates. Moist mucous membranes. NECK: Normal range of motion, supple without lymphadenopathy or JVD. LUNGS: Breath sounds clear to auscultation bilaterally and equal. No wheezes rales or rhonchi. HEART: Regular rate and rhythm without murmurs, rubs or gallops. ABDOMEN: pain with palpation in the right upper quadrant. There is a soft mass in the right upper quadrant. Soft, normoactive bowel sounds. No guarding, no rebound. : Deferred EXTREMITIES: Normal range of motion, no pitting or edema. No clubbing or cyanosis. NEUROLOGICAL: Normal speech, normal gait. PSYCH: Normal mood, normal affect. SKIN: Warm, Dry, normal turgor, no rashes or lesions noted. Limitations: no limitations Course Vital Signs 08/05/19 08/05/19 11:05 14:12 Temperature 98.2 F 97.9 F Pulse Rate 84 71 Respiratory 18 20 Rate Blood Pressure 122/79 137/96 O2 Sat by Pulse 96 97 Oximetry Medical Decision Making - Medical Decision Making 64-year-old female presenting with right upper quadrant pain and soft bulge that she noticed this morning. vital signs are normal. Lab work shows no acute abnormalities. UA is normal. CT the abdomen shows a subcutaneous anterior abdominal wall fluid collection that may represent a seroma. Midline ventral hernia contains a short segment of possible, without strangulation at this time. I discussed these findings with the patient. Patient is stable for discharge at this time. I recommended following up with Dr. Ribeiro within 1- 3 days. Patient is agreeable with this plan of care. Patient can continue to take Tylenol as needed for pain relief and to use precautions when using the restroom or coughing.return parameters were discussed the patient she verbalized understanding. Case discussed with Dr. Amaya. - Lab Data Result diagrams: 08/05/19 11:25 08/05/19 11:25 Lab Results 08/05/19 08/05/19 08/05/19 Range/Units 11:25 11:25 11:35 WBC 10.2 (3.8-10.6) k/uL RBC 4.63 (3.80-5.40) m/uL Hgb 14.8 (11.4-16.0) gm/dL Hct 43.1 (34.0-46.0) % MCV 93.1 (80.0-100.0) fL MCH 32.0 (25.0-35.0) pg MCHC 34.4 (31.0-37.0) g/dL RDW 12.0 (11.5-15.5) % Plt Count 315 (150-450) k/uL Neutrophils % 73 % Lymphocytes % 15 % Monocytes % 7 % Eosinophils % 2 % Basophils % 2 % Neutrophils # 7.5 (1.3-7.7) k/uL Lymphocytes # 1.5 (1.0-4.8) k/uL Monocytes # 0.7 (0-1.0) k/uL Eosinophils # 0.2 (0-0.7) k/uL Basophils # 0.2 (0-0.2) k/uL Sodium 133 L (137-145) mmol/L Potassium 5.3 H (3.5-5.1) mmol/L Chloride 104 (98-107) mmol/L Carbon Dioxide 22 (22-30) mmol/L Anion Gap 7 mmol/L BUN 9 (7-17) mg/dL Creatinine 0.61 (0.52-1.04) mg/dL Est GFR (CKD-EPI)AfAm >90 (>60 ml/min/1.73 sqM) Est GFR (CKD-EPI)NonAf >90 (>60 ml/min/1.73 sqM) Glucose 102 H (74-99) mg/dL Calcium 9.7 (8.4-10.2) mg/dL Total Bilirubin 1.2 (0.2-1.3) mg/dL AST 34 (14-36) U/L ALT 16 (4-34) U/L Alkaline Phosphatase 75 (38-126) U/L Total Protein 7.5 (6.3-8.2) g/dL Albumin 4.5 (3.5-5.0) g/dL Amylase 46 (30-110) U/L Lipase 75 (23-300) U/L Urine Color Yellow Urine Appearance Clear (Clear) Urine pH 5.5 (5.0-8.0) Ur Specific [place] 1.006 (1.001-1.035) Urine Protein Negative (Negative) Urine Glucose (UA) Negative (Negative) Urine Ketones Negative (Negative) Urine Blood Negative (Negative) Urine Nitrite Negative (Negative) Urine Bilirubin Negative (Negative) Urine Urobilinogen <2.0 (<2.0) mg/dL Ur Leukocyte Esterase Negative (Negative) Disposition Clinical Impression: Abdominal pain Disposition: HOME SELF-CARE Condition: Stable Instructions (If sedation given, give patient instructions): Abdominal Pain (ED) Additional Instructions: Please return to the Emergency Department if symptoms worsen or any other concerns. May continue with Tylenol for pain relief. Increase fluid intake. Follow-up with Dr. Ribeiro in 1-3 days as discussed. Is patient prescribed a controlled substance at d/c from ED?: No Referrals: César Shahid MD [Primary Care Provider] - 1-2 days Vidhi Ribeiro MD [Family Provider] - 1-2 days
[2019-08-05 11:53] LABS: Basophils # (A) 0.2 k/uL (0-0.2); Basophils % (A) 2 %; Eosinophils # (A) 0.2 k/uL (0-0.7); Eosinophils % (A) 2 %; HCT 43.1 % (34.0-46.0); HGB 14.8 gm/dL (11.4-16.0); Lymphocytes # (A) 1.5 k/uL (1.0-4.8); Lymphocytes % (A) 15 %; MCHC 34.4 g/dL (31.0-37.0); MCV 93.1 fL (80.0-100.0); Mean Platelet Volume 7.2; Monocytes # (A) 0.7 k/uL (0-1.0); Monocytes % (A) 7 %; Neutrophils # (A) 7.5 k/uL (1.3-7.7); Neutrophils % (A) 73 %; Platelet Count 315 k/uL (150-450); RBC 4.63 m/uL (3.80-5.40); WBC 10.2 k/uL (3.8-10.6)
[2019-08-05 12:19] LABS: Appearance,Urine Clear (Clear); Bilirubin,Urine Negative (Negative); Blood,Urine Negative (Negative); Color,Urine Yellow; Glucose,Urine (UA) Negative (Negative); Ketones,Urine Negative (Negative); Leukocyte Esterase,Urine Negative (Negative); Nitrite,Urine Negative (Negative); PH, Urine 5.5 (5.0-8.0); Protein,Urine Negative (Negative); Specific Gravity,Urine 1.006 (1.001-1.035); Urobilinogen,Urine <2.0 mg/dL (<2.0)
[2019-08-05 12:30] LABS: ALT 16 U/L (4-34); AST 34 U/L (14-36); African American GFR (CKD) >90 (>60 ml/min/1.73 sqM); Albumin 4.5 g/dL (3.5-5.0); Alkaline Phosphatase 75 U/L (38-126); Amylase 46 U/L (30-110); Anion Gap 7 mmol/L; Blood Urea Nitrogen 9 mg/dL (7-17); Calcium 9.7 mg/dL (8.4-10.2); Carbon Dioxide 22 mmol/L (22-30); Chloride 104 mmol/L (98-107); Glucose 102 mg/dL (74-99); Non-African American GFR(CKD) >90 (>60 ml/min/1.73 sqM); Potassium 5.3 mmol/L (3.5-5.1); Sodium 133 mmol/L (137-145); Total Bilirubin 1.2 mg/dL (0.2-1.3); Total Protein 7.5 g/dL (6.3-8.2)
--- NOTE | 2019-08-05 13:48 | CT ---
EXAMINATION TYPE: CT abdomen pelvis w con DATE OF EXAM: 08/05/2019 COMPARISON: 10/28/2018 HISTORY: Abdominal pain CT DLP: 698.7 mGycm CONTRAST: CT scan of the abdomen and pelvis is performed without Oral Contrast and with IV Contrast, patient in jected with 100 mL of Isovue 300. FINDINGS: LUNG BASES-: No visible nodule. No infiltrate. LIVER/GB: No calcified gallstones. No space occupying hepatic lesion. Biliary tree is of normal ca liber. PANCREAS: No inflammation. No distinct mass. SPLEEN: No splenic enlargement. No lesion seen. ADRENALS: 1.3cm right adrenal is stable. No thickening. KIDNEYS/BLADDER: No hydronephrosis. No nephrolithiasis. No distinct renal mass. Urinary bladder g rossly unremarkable. BOWEL: Normal appendix. Normal bowel caliber. No inflammation. GENITAL ORGANS: No gross abnormality. LYMPH NODES: No greater than 1cm abdominal or pelvic lymph nodes are appreciated. AORTA: No significant abnormality. OSSEOUS STRUCTURES: No significant abnormality is seen. OTHER: Subcutaneous anterior abdominal wall midline fluid collection with surrounding strandy attenua tion measures 8.5 cm in length by 1 cm AP dimension and transverse measurement of 5.4 cm. This may re flect seroma however infected collection is not excluded. There are couple tiny foci of air noted adj acent to the collection which may simply be residual postoperative change. Midline ventral hernia con tains a segment of bowel without incarceration at this time. Hernia sac measures 4.9 x 4.7 cm. IMPRESSION: 1. Subcutaneous anterior abdominal wall fluid collection may reflect seroma however infected collecti on is not excluded. Several small adjacent foci of air noted which may be postsurgical in nature. 2. Midline ventral hernia contains a short segment of what appears to be colon without strangulation at this time.
[2019-08-05 14:17] VITALS: BP 137/96; PULSE 71; RESP 20; TEMP 97.9
== END 2019-08-05 14:12 | disposition home or self-care (01) ==
LOC: EC 11:01
DX: R10.11 Right upper quadrant pain (principal); R11.0 Nausea; K43.9 Ventral hernia without obstruction or gangrene; F17.200 Nicotine dependence, unspecified, uncomplicated; Z79.899 Other long term (current) drug therapy; Z88.5 Allergy status to narcotic agent; Z88.6 Allergy status to analgesic agent; Z88.8 Allergy status to other drugs, medicaments and biological substances; Z90.710 Acquired absence of both cervix and uterus
CPT/HCPCS: 36415; 80053; 82150; 83690; 85025; 81003; 74177; 99284; 96374; 96361 ×2; J2405; Q9967

== ENCOUNTER 2020-03-31 09:41 | Emergency (ER) | payer OTHER, MEDICARE ==
[2020-03-31 09:44] VITALS: BP 137/81; PULSE 75; RESP 18; TEMP 99.3
[2020-03-31] MEDS ORDERED: MORPHINE SULFATE 4 MG/ML SYRINGE IM STA (10:16)
--- NOTE | 2020-03-31 10:19 | ED ---
General Adult HPI - General Source: patient, RN notes reviewed Mode of arrival: ambulatory Limitations: physical limitation <Leonardo Reid - Last Filed: 03/31/20 11:04> <Francisca Haro - Last Filed: 04/02/20 01:33> - General Chief complaint: Extremity Injury, Upper Stated complaint: rt arm injury Time Seen by Provider: 03/31/20 10:06 - History of Present Illness Initial comments: 65-year-old female presents to the emergency department for a chief complaint of right wrist pain. Patient states just prior to arrival she tripped over her dog and fell onto the right wrist. Patient states she thinks she broke the wrist. States it is very painful and hurts to move her fingers. Patient did not hit her head. She does not take blood thinners. She did not sustain any other injury.Patient has no other complaints at this time including shortness of breath, chest pain, abdominal pain, nausea or vomiting, headache, or visual changes. (Leonardo Reid) - Related Data Home Medications Medication Instructions Recorded Confirmed traZODone HCL [Desyrel] 100 mg PO HS 10/24/16 01/10/19 LORazepam [Ativan] 0.5 mg PO TID 01/07/19 01/10/19 carisoprodoL [Soma] 350 mg PO HS 01/07/19 01/10/19 Previous Rx's Medication Instructions Recorded HYDROcodone/APAP 5-325MG [[place] 1 tab PO Q4HR PRN 3 Days #18 tab 01/11/19 5-325] HYDROcodone/APAP 5-325MG [[place] 1 tab PO Q6HR PRN #10 tab 03/31/20 5-325] Ondansetron [Zofran ODT] 4 mg PO Q8HR PRN #15 tab 03/31/20 Allergies Allergy/AdvReac Type Severity Reaction Status Date / Time hydromorphone HCl Allergy Itching Verified 03/31/20 09:44 [From Dilaudid] NSAIDS (Non-Steroidal Allergy Anaphylaxis Verified 03/31/20 09:44 Anti-Inflamma omeprazole Allergy Anaphylaxis Verified 03/31/20 09:44 Review of Systems ROS Other: All systems not noted in ROS Statement are negative. <Leonardo Reid - Last Filed: 03/31/20 11:04> ROS Other: All systems not noted in ROS Statement are negative. <Francisca Haro Huy - Last Filed: 04/02/20 01:33> ROS Statement: Those systems with pertinent positive or pertinent negative responses have been documented in the HPI. Past Medical History Past Medical History: Fibromyalgia Additional Past Medical History / Comment(s): diverticulosis; Hx. of Bowel obstruction History of Any Multi-Drug Resistant Organisms: None Reported Past Surgical History: Appendectomy, Bowel Resection, Hysterectomy, Orthopedic Surgery Additional Past Surgical History / Comment(s): Tibia Fracture Repair 1993, colostomy and colostomy removal Past Anesthesia/Blood Transfusion Reactions: No Reported Reaction Past Psychological History: No Psychological Hx Reported Smoking Status: Current every day smoker Past Alcohol Use History: Occasional Past Drug Use History: None Reported - Past Family History Father History Unknown: Yes Additional Family Medical History / Comment(s): Heart disease Mother History Unknown: Yes Additional Family Medical History / Comment(s): Heart disease, Maternal grandmother of CHF. <Leonardo Reid - Last Filed: 03/31/20 11:04> General Exam Limitations: physical limitation General appearance: alert, in no apparent distress Head exam: Present: atraumatic, normocephalic, normal inspection Eye exam: Present: normal appearance, PERRL, EOMI. Absent: scleral icterus, conjunctival injection, periorbital swelling ENT exam: Present: normal exam, mucous membranes moist Neck exam: Present: normal inspection, full ROM. Absent: tenderness, meningismus, lymphadenopathy Respiratory exam: Present: normal lung sounds bilaterally. Absent: respiratory distress, wheezes, rales, rhonchi, stridor Cardiovascular Exam: Present: regular rate, normal rhythm, normal heart sounds. Absent: systolic murmur, diastolic murmur, rubs, gallop, clicks Extremities exam: Present: tenderness (generalized tenderness of the right wrist.), normal capillary refill (capillary refill less than 2 seconds, radial pulse 2+ in the right upper extremity.), joint swelling (mild edema noted of the right wrist.), other (sensation intact in the right upper extremity. Patient did have rings on the fourth and fifth digits which were removed.). Absent: full ROM (patient has limited range of motion secondary to pain of the right wrist.), pedal edema, calf tenderness <Leonardo Reid - Last Filed: 03/31/20 11:04> Course Vital Signs 03/31/20 09:42 Temperature 99.3 F Pulse Rate 75 Respiratory 18 Rate Blood Pressure 137/81 O2 Sat by Pulse 98 Oximetry Procedures - Orthopedic Splinting/Casting Injury #1 Side: right Upper Extremity Injury Location: long arm Upper Extremity Immobilizer: sugar tong splint <Leonardo Reid - Last Filed: 03/31/20 11:04> - Orthopedic Splinting/Casting Injury #1 Additional Comments: neurovascular status intact (Leonardo Reid) Medical Decision Making <Leonardo Reid - Last Filed: 03/31/20 11:04> <Francisca Haro - Last Filed: 04/02/20 01:33> - Medical Decision Making X-ray of the right wrist shows a nondisplaced distal transverse metaphyseal right radial fracture. Associated soft tissue swelling.neurovascular status is intact. Sensation intact. Patient able to move all fingers. Limited range of motion of the wrist secondary to pain. Patient was splinted in a sugar tong and given a perception for pain medication. She was referred to orthopedics.patient will return here should she have any worsening symptoms. I discussed this case with attending Dr. Haro who agrees with this assessment and treatment plan. (Leonardo Reid) I was available for consultation in the emergency department. The history and physical exam were done by the midlevel provider. I was consulted for this patients care. I reviewed the case with the midlevel provider and based on their presentation of the patient, I agree with the assessment, medical decision making and plan of care as documented. Chart was dictated using [employer] dictation software. Attempts were made to correct any dictation errors however some typographical errors may persist. Patient was seen during a national state of emergency due to the Covid-19 pandemic. (Francisca Haro) Disposition Is patient prescribed a controlled substance at d/c from ED?: Yes When asked, does pt state using other controlled substances?: No If prescribed controlled substance>3 days was MAPS reviewed?: Prescribed <3 Days If opioid is for acute pain is fill amount 7 days or less?: Yes If Rx opioid, was Start Talking consent form obtained?: Yes Time of Disposition: 11:06 <Leonardo Reid P - Last Filed: 03/31/20 11:04> <Francisca Haro A - Last Filed: 04/02/20 01:33> Clinical Impression: Wrist fracture, right Disposition: HOME SELF-CARE Condition: Good Instructions (If sedation given, give patient instructions): Wrist Fracture in Adults (ED) Additional Instructions: please take Plato for pain. Take Zofran if you have nausea. do not drive or operate machinery while taking Plato. Follow up with orthopedics by calling for the earliest appointment. Return here to the emergency room for any worsening symptoms. Prescriptions: HYDROcodone/APAP 5-325MG [[place] 5-325] 1 tab PO Q6HR PRN #10 tab PRN Reason: Pain Ondansetron [Zofran ODT] 4 mg PO Q8HR PRN #15 tab PRN Reason: Nausea Referrals: César Shahid MD [Primary Care Provider] - 1-2 days Casper Wilkes MD [STAFF PHYSICIAN] - 1-2 days
--- NOTE | 2020-03-31 10:40 | XR ---
Right wrist HISTORY: Trauma and pain Frontal and lateral views of the right wrist Nondisplaced distal transverse metaphyseal right radial fracture is present. There is associated soft tissue swelling. Lateral exam appears rotated, correlate to exclude radioulnar subluxation. There is positive ulnar variance. IMPRESSION: Right wrist fracture as described
== END 2020-03-31 11:10 | disposition home or self-care (01) ==
LOC: EC 09:41
DX: S52.501A Unspecified fracture of the lower end of right radius, initial encounter for closed fracture (principal); M79.7 Fibromyalgia; F17.200 Nicotine dependence, unspecified, uncomplicated; Z79.899 Other long term (current) drug therapy; Z88.6 Allergy status to analgesic agent; Z88.5 Allergy status to narcotic agent; Z88.8 Allergy status to other drugs, medicaments and biological substances; Z98.890 Other specified postprocedural states; W01.0XXA Fall on same level from slipping, tripping and stumbling without subsequent striking against object, initial encounter
CPT/HCPCS: 73100; 99283; 29105; 96372; J2270

== ENCOUNTER 2023-05-31 15:19 | Emergency (ER) | payer OTHER ==
[2023-05-31] MEDS ORDERED: MORPHINE SULFATE 4 MG/ML SYRINGE IVP STA ×2 (15:43→16:37)
[2023-05-31] MEDS ORDERED: DIPH,PERTUS(ACELL)TETVAC-LF 0.5 ML VIAL IM ONE (15:44)
[2023-05-31 15:46] VITALS: RESP 18; TEMP 98.6
[2023-05-31] MEDS ORDERED: SODIUM CHLORIDE 0.9% 1,000 ML IV ONE (15:51)
[2023-05-31] MEDS ORDERED: ONDANSETRON 4 MG/2 ML VIAL IVP STA (16:12)
[2023-05-31 16:19] VITALS: BP 131/79
[2023-05-31] MEDS ORDERED: PIPERACILLIN-TAZOBACTAM 3.375 GM in SODIUM CHLORIDE 0.9% 100 ML IVPB STA (16:40)
[2023-05-31] MEDS ORDERED: AMPICILLIN-SULBACTAM 3 GM in SODIUM CHLORIDE 0.9% 100 ML IVPB STA (16:47)
--- NOTE | 2023-05-31 17:08 | XR ---
EXAMINATION TYPE: XR forearm bilateral, XR humerus bilateral, XR hand complete bilateral DATE OF EXAM: 05/31/2023 4:49 PM CLINICAL INDICATION:Female, 68 years old with history of dog bite; LOCATED WITHIN [facility] COMPARISON: 03/31/2020 TECHNIQUE: XR forearm bilateral, XR humerus bilateral, XR hand complete bilateral; forearm, humerus i n frontal and lateral views in the hand was examined in frontal, oblique and lateral projections. FINDINGS: Right: There is fixation hardware in the distal radius. Skin lacerations are present. No evidence of fracture. No evidence of fracture of the hand. The humerus is intact. Left: No evidence of fracture of the arm or forearm. Acute fracture left first digit proximal phalanx and fourth digit distal metacarpal. There is complete displacement of the fourth digit metacarpal. T he humerus is intact. IMPRESSION: 1. Left hand first digit proximal phalanx and fourth digit metacarpal fractures. No radiopaque forei gn bodies. 2. Right hand forearm laceration without evidence of radiopaque foreign body. No evidence of fractur e. Fixation hardware in the distal radius appears intact.
[2023-05-31] MEDS ORDERED: LIDOCAINE 1% INJ 10MG/ML (20 ML MDV) SQ ONE ×2 (17:28→17:31)
--- NOTE | 2023-05-31 17:31 | ED ---
General Adult HPI - General Source: patient, RN notes reviewed Mode of arrival: EMS Limitations: physical limitation <Astrid Mast - Last Filed: 05/31/23 18:56> <Kody Cisneros - Last Filed: 05/31/23 22:31> - General Chief complaint: Animal Bite Stated complaint: dog bite Time Seen by Provider: 05/31/23 15:41 - History of Present Illness Initial comments: 68-year-old female with no significant past medical history presents the emergency department with a chief complaint of dog bite. Patient reports she recently adopted a new Rottweiler 3 weeks ago. 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 She was attempting to break up the fight when the dog started biting her arms and hands. She was able to call EMS. She denies anticoagulant use. She is unsure of her last tetanus vaccine. She does believe the dog is up-to-date on his vaccinations. (Astrid Mast) - Related Data Home Medications Medication Instructions Recorded Confirmed traZODone HCL [Desyrel] 100 mg PO HS 10/24/16 01/10/19 LORazepam [Ativan] 0.5 mg PO TID 01/07/19 01/10/19 carisoprodoL [Soma] 350 mg PO HS 01/07/19 01/10/19 Previous Rx's Medication Instructions Recorded HYDROcodone/APAP 5-325MG [[place] 1 tab PO Q4HR PRN 3 Days #18 tab 01/11/19 5-325] HYDROcodone/APAP 5-325MG [[place] 1 tab PO Q6HR PRN #10 tab 03/31/20 5-325] Ondansetron [Zofran ODT] 4 mg PO Q8HR PRN #15 tab 03/31/20 Amoxic-Pot Clav 875-125Mg 1 tab PO Q12HR #20 tab 05/31/23 [Augmentin 875-125] HYDROcodone/APAP 5-325MG [[place] 5] 1 each PO Q6HR PRN #12 tab 05/31/23 Allergies Allergy/AdvReac Type Severity Reaction Status Date / Time hydromorphone HCl Allergy Itching Verified 03/31/20 09:44 [From Dilaudid] NSAIDS (Non-Steroidal Allergy Anaphylaxis Verified 03/31/20 09:44 Anti-Inflamma omeprazole Allergy Anaphylaxis Verified 03/31/20 09:44 Review of Systems ROS Other: All systems not noted in ROS Statement are negative. <Astrid Mast - Last Filed: 05/31/23 18:56> ROS Other: All systems not noted in ROS Statement are negative. <Kody Cisneros - Last Filed: 05/31/23 22:31> ROS Statement: Those systems with pertinent positive or pertinent negative responses have been documented in the HPI. Past Medical History Past Medical History: Fibromyalgia Additional Past Medical History / Comment(s): diverticulosis; Hx. of Bowel obstruction History of Any Multi-Drug Resistant Organisms: None Reported Past Surgical History: Appendectomy, Bowel Resection, Hysterectomy, Orthopedic Surgery Additional Past Surgical History / Comment(s): Tibia Fracture Repair 1993, colostomy and colostomy removal Past Anesthesia/Blood Transfusion Reactions: No Reported Reaction Past Psychological History: No Psychological Hx Reported Smoking Status: Current every day smoker Past Alcohol Use History: Occasional Past Drug Use History: None Reported - Past Family History Father History Unknown: Yes Additional Family Medical History / Comment(s): Heart disease Mother History Unknown: Yes Additional Family Medical History / Comment(s): Heart disease, Maternal grandmother of CHF. <Astrid Mast - Last Filed: 05/31/23 18:56> General Exam Limitations: physical limitation <Astrid Mast - Last Filed: 05/31/23 18:56> - General Exam Comments Initial Comments: General: Alert, in no acute distress Head: atraumatic normocephalic. Eyes PERRL, EOMI intact, mucous membranes moist Respiratory: Lungs clear to auscultation bilaterally Cardiovascular: Rate regular rate and rhythm Abdominal: Soft without guarding or rebound Extremities: Normal inspection with full range of motion and normal capillary refill, multiple puncture wounds diffusely 3 fingers and forearms. Left fourth digit with generalized ecchymosis edema, marked tenderness. Large laceration to left first digit. Range of motion intact. No crepitus. 2+ radial pulses. Distal neurovascular intact. Neuroogic: alert and oriented 3, CN II-XII intact, able to ambulate with steady gait Skin: warm dry and intact with normal color (Astrid Mast) Course <Astrid Mast - Last Filed: 05/31/23 18:56> Vital Signs 05/31/23 05/31/23 15:30 16:09 Temperature 98.6 F Pulse Rate 60 Respiratory 18 Rate Blood Pressure 96/65 131/79 O2 Sat by Pulse 99 Oximetry - Reevaluation(s) Reevaluation #1: 05/31/23 18:44 Patient having difficulty tolerating lidocaine injection. Ativan ordered. (Astrid Mast) Procedures - Laceration Laceration #1 Indication: laceration Site: upper extremity - Orthopedic Splinting/Casting Injury #1 Side: left Upper Extremity Immobilizer: thumb spica <Kody Cisneros - Last Filed: 05/31/23 22:31> - Laceration Laceration #1 Additional Comments: Patient had multiple lacerations/puncture wounds on the right upper extremity and left upper extremity. Notable wounds of the right upper extremity included 4 separate lacerations. Laceration 1 was repaired with 2 4-0 simple interrupted sutures laceration to was repaired with one 4-0 simple interrupted suture, laceration 3 was repaired with 5 4-0 simple interrupted sutures, laceration for was repaired with 7 simple interrupted 400 sutures. She had 2 notable lacerations/skin tears of the left upper extremity. Laceration 1 surrounding the thumb was repaired with 7 simple interrupted 4-0 sutures. Skin tear on the dorsal aspect of the palm repaired with 1 simple interrupted 4-0 suture. All sutures were loosely approximated. A total of 16 mL OF 1% lidocaine was used. Patient tolerated the procedure well with no complications. (Kody Cisneros) - Orthopedic Splinting/Casting Injury #1 Additional Comments: Neurovascularlly intact after splint placement. (Kody Cisneros) Medical Decision Making - Lab Data Result diagrams: 05/31/23 18:07 05/31/23 18:07 <Astrid Mast - Last Filed: 05/31/23 18:56> - Lab Data Result diagrams: 05/31/23 18:07 05/31/23 18:07 <Kody Cisneros - Last Filed: 05/31/23 22:31> - Medical Decision Making Was pt. sent in by a medical professional or institution (, PA, TOP AND SEAT COVER FITTER, urgent care, hospital, or skilled nursing...) When possible be specific @ -[No] Did you speak to anyone other than the patient for history (EMS, parent, family, police, friend...)? What history was obtained from this source @ -EMS Did you review nursing and triage notes (agree or disagree)? Why? @ -[I reviewed and agree with nursing and triage notes] Were old charts reviewed (outside hosp., previous admission, EMS record, old EKG, old radiological studies, urgent care reports/EKG's, skilled nursing records)? Report findings @ -[No old charts were reviewed] Differential Diagnosis (chest pain, altered mental status, abdominal pain women, abdominal pain men, vaginal bleeding, weakness, fever, dyspnea, syncope, headache, dizziness, GI bleed, back pain, seizure, CVA, palpatations, mental health, musculoskeletal)? @ -[not applicable] EKG interpreted by me (3pts min.). @ -[As above] X-rays interpreted by me (1pt min.). @ -Yes CT interpreted by me (1pt min.). @ -[None done] U/S interpreted by me (1pt. min.). @ -[None done] What testing was considered but not performed or refused? (CT, X-rays, U/S, labs)? Why? @ -[None] What meds were considered but not given or refused? Why? @ -[None] Did you discuss the management of the patient with other professionals (professionals i.e. , PA, TOP AND SEAT COVER FITTER, lab, RT, psych nurse, social science teacher, quality liaison, teacher, examining officer, home health care case manager)? Give summary @ -East discussed with Dr. Moreau, and specialist who believes patient can follow up with her outpatient. Was smoking cessation discussed for >3mins.? @ -[No] Was critical care preformed (if so, how long)? @ -[No] Were there social determinants of health that impacted care today? How? (Homelessness, low income, unemployed, alcoholism, drug addiction, transportation, low edu. Level, literacy, decrease access to med. care, [facility], rehab)? @ -[No] Was there de-escalation of care discussed even if they declined (Discuss DNR or withdrawal of care, Hospice)? DNR status @ -[No] What co-morbidities impacted this encounter? (DM, HTN, Smoking, COPD, CAD, Cancer, CVA, ARF, Chemo, Hep., AIDS, mental health diagnosis, sleep apnea, morbid obesity)? @ -[None] Was patient admitted / discharged? Hospital course, mention meds given and route, prescriptions, significant lab abnormalities, going to OR and other [facility] info. @ -Discharged. This is a 68-year-old female who presents the emergency department with dog bite. Patient's physical exam reveals multiple puncture wounds circumferentially to bilateral forearms. Her multiple deep lacerations to her lateral hands and digits. Patient had x-rays which revealed left hand first digit proximal phalanx fourth digit metacarpal fractures there are no evidence of foreign bodies. All other x-rays negative. Patient will have stitches placed by [facility] and will be placed in a thumb spica splint. Recommend close follow-up with Dr. Moreau, hand specialist who will see her in her office in 1-2 days. Case was discussed with Dr. Moreau who believes this can be managed outpatient. Patient will be given Augmentin upon discharge. Patient given IV Unasyn. Updated on tetanus vaccine. Patient given morphine and Ativan while in the emergency department. Patient given prescription for [place]. Patient discharged in stable condition. Case discussed with Dr. Carlson [facility] who agrees with plan of care Undiagnosed new problem with uncertain prognosis? @ -[No] Drug Therapy requiring intensive monitoring for toxicity (Heparin, Nitro, Insulin, Cardizem)? @ -[No] Were any procedures done? @ -[No] Diagnosis/symptom? @ -Dog Bite - Left 4th metacarpal Fracture Left First metacarpal fracture Acute, or Chronic, or Acute on Chronic? @ -Acute Uncomplicated (without systemic symptoms) or Complicated (systemic symptoms)? @ -Uncomplicated Side effects of treatment? @ -[No] Exacerbation, Progression, or Severe Exacerbation? @ -[No] Poses a threat to life or bodily function? How? (Chest pain, [place], [place], pneumonia, PE, COPD, DKA, ARF, appy, cholecystitis, CVA, Diverticulitis, Homicidal, Suicidal, threat to staff... and all critical care pts) @ -Low likelihood (Astrid Mast) Patient just signed out to me by Astrid PA-C. Patient had lacerations repaire d. For further details please see procedure note. Splint placed on left upper extremity. For further details please see procedure note. (Kody Cisneros) - Lab Data Lab Results 05/31/23 05/31/23 05/31/23 Range/Units 18:07 18:07 18:07 WBC 15.3 H (3.8-10.6) k/uL RBC 4.54 (3.80-5.40) m/uL Hgb 14.1 (11.4-16.0) gm/dL Hct 42.3 (34.0-46.0) % MCV 93.2 (80.0-100.0) fL MCH 31.0 (25.0-35.0) pg MCHC 33.3 (31.0-37.0) g/dL RDW 12.4 (11.5-15.5) % Plt Count 332 (150-450) k/uL MPV 7.3 Neutrophils % 89 % Lymphocytes % 5 % Monocytes % 5 % Eosinophils % 1 % Basophils % 0 % Neutrophils # 13.5 H (1.3-7.7) k/uL Lymphocytes # 0.8 L (1.0-4.8) k/uL Monocytes # 0.8 (0-1.0) k/uL Eosinophils # 0.1 (0-0.7) k/uL Basophils # 0.0 (0-0.2) k/uL PT 10.3 (9.0-12.0) sec INR 1.0 (<1.2) APTT 22.8 (22.0-30.0) sec Sodium 130 L (137-145) mmol/L Potassium 4.4 (3.5-5.1) mmol/L Chloride 104 (98-107) mmol/L Carbon Dioxide 16 L (22-30) mmol/L Anion Gap 10 mmol/L BUN 14 (7-17) mg/dL Creatinine 0.63 (0.52-1.04) mg/dL Est GFR (CKD-EPI)AfAm >90 (>60 ml/min/1.73 sqM) Est GFR (CKD-EPI)NonAf >90 (>60 ml/min/1.73 sqM) Glucose 113 H (74-99) mg/dL Calcium 8.9 (8.4-10.2) mg/dL Total Bilirubin 0.6 (0.2-1.3) mg/dL AST 37 H (14-36) U/L ALT 22 (4-34) U/L Alkaline Phosphatase 70 (38-126) U/L Total Protein 6.6 (6.3-8.2) g/dL Albumin 4.0 (3.5-5.0) g/dL Disposition Is patient prescribed a controlled substance at d/c from ED?: No Time of Disposition: 18:44 <Astrid Mast - Last Filed: 05/31/23 18:56> Is patient prescribed a controlled substance at d/c from ED?: Yes When asked, does pt state using other controlled substances?: No <Kody Cisneros - Last Filed: 05/31/23 22:31> Clinical Impression: Dog bite, Fracture of fourth metacarpal bone, Fracture of first metacarpal of left hand, Multiple puncture wounds Disposition: HOME SELF-CARE Condition: Stable Instructions (If sedation given, give patient instructions): Animal Bite (ED), Care For Your Stitches (DC), Laceration (ED), Hand Fracture (ED), Boxer Fracture (ED) Additional Instructions: Please wash the area with regular soap and water check area daily as able Suture removal within 7-10 days Follow-up with Dr. Moreau, hand specialist within 1-2 days Prescriptions: Amoxic-Pot Clav 875-125Mg [Augmentin 875-125] 1 tab PO Q12HR #20 tab HYDROcodone/APAP 5-325MG [[place] 5] 1 each PO Q6HR PRN #12 tab PRN Reason: Pain Referrals: César Shahid MD [Primary Care Provider] - 1-2 days Deena Moreau DO [Doctor of Osteopathic Medicine] - 1-2 days
[2023-05-31] MEDS ORDERED: LORazepam 2 MG/ML INJ IV STA ×2 (18:16→18:32)
[2023-05-31] MEDS ORDERED: KETOROLAC 15 MG/ML 1 ML VIAL IVP STA (18:32)
[2023-05-31 18:37] LABS: Basophils % (A) 0 %; Eosinophils # (A) 0.1 k/uL (0-0.7); Eosinophils % (A) 1 %; HCT 42.3 % (34.0-46.0); HGB 14.1 gm/dL (11.4-16.0); Lymphocytes # (A) 0.8 k/uL (1.0-4.8); Lymphocytes % (A) 5 %; MCHC 33.3 g/dL (31.0-37.0); MCV 93.2 fL (80.0-100.0); Mean Platelet Volume 7.3; Monocytes # (A) 0.8 k/uL (0-1.0); Monocytes % (A) 5 %; Neutrophils # (A) 13.5 k/uL (1.3-7.7); Neutrophils % (A) 89 %; Platelet Count 332 k/uL (150-450); RBC 4.54 m/uL (3.80-5.40); RDW 12.4 % (11.5-15.5); WBC 15.3 k/uL (3.8-10.6)
[2023-05-31 18:50] LABS: ALT 22 U/L (4-34); AST 37 U/L (14-36); African American GFR (CKD) >90 (>60 ml/min/1.73 sqM); Alkaline Phosphatase 70 U/L (38-126); Anion Gap 10 mmol/L; Blood Urea Nitrogen 14 mg/dL (7-17); Calcium 8.9 mg/dL (8.4-10.2); Carbon Dioxide 16 mmol/L (22-30); Chloride 104 mmol/L (98-107); Glucose 113 mg/dL (74-99); Non-African American GFR(CKD) >90 (>60 ml/min/1.73 sqM); Potassium 4.4 mmol/L (3.5-5.1); Sodium 130 mmol/L (137-145); Total Bilirubin 0.6 mg/dL (0.2-1.3); Total Protein 6.6 g/dL (6.3-8.2)
[2023-05-31 18:53] LABS: Partial Thromboplastin Time 22.8 sec (22.0-30.0); Prothrombin Time 10.3 sec (9.0-12.0)
[2023-05-31] MEDS ORDERED: AMOXIC-POT CLAV 875-125MG 1 EACH TAB PO STA (18:56)
[2023-05-31] MEDS ORDERED: BACITRACIN OINT 1 EACH PACKET TOPICAL ONE (21:10)
[2023-05-31] MEDS ORDERED: AMOXIC-POT CLAV 875MG STARTER PACK 2 TAB BTL PO STA (22:39)
[2023-05-31] MEDS ORDERED: ACET/COD 300 MG/30 MG STARTER PACK 6 TAB BTL PO STA (22:39)
[2023-05-31 22:58] VITALS: PULSE 79
== END 2023-05-31 23:02 | disposition home or self-care (01) ==
LOC: EC 15:19
DX: S62.202A Unspecified fracture of first metacarpal bone, left hand, initial encounter for closed fracture (principal); S62.305A Unspecified fracture of fourth metacarpal bone, left hand, initial encounter for closed fracture; S61.012A Laceration without foreign body of left thumb without damage to nail, initial encounter; S51.812A Laceration without foreign body of left forearm, initial encounter; S51.811A Laceration without foreign body of right forearm, initial encounter; F17.200 Nicotine dependence, unspecified, uncomplicated; Z23 Encounter for immunization; Z88.5 Allergy status to narcotic agent; Z88.6 Allergy status to analgesic agent; Z90.49 Acquired absence of other specified parts of digestive tract; Z88.8 Allergy status to other drugs, medicaments and biological substances; W54.0XXA Bitten by dog, initial encounter
CPT/HCPCS: 36415; 80053; 85025; 85610; 85730; 73060; 73130; 73090; 90715; 12001; 99284; 96365; 96367; 96366 ×2; 96375 ×3; 96376; 96361; 90471; J2543; J2060; J2270; J2405; J2001; J0295; J1885

== ENCOUNTER 2023-06-17 14:34 | Observation (INO) | payer OTHER ==
[2023-06-17] MEDS ORDERED: oxyCODONE-APAP 10-325MG 1 EACH TAB PO STA (14:42)
--- NOTE | 2023-06-17 15:09 | ED ---
General Adult HPI - General Chief complaint: Abdominal Pain Stated complaint: Abd pain Time Seen by Provider: 06/17/23 14:42 Source: patient Mode of arrival: ambulatory Limitations: no limitations - History of Present Illness Initial comments: Dictation was produced using [employer] dictation software. please excuse any grammatical, word or spelling errors. Chief Complaint: 68-year-old female suspects she has a small bowel obstruction History of Present Illness: Patient is a 68-year-old female she is concerned she is having a bowel obstruction. She has history of sigmoid bowel resection after having surgery to treat diverticulitis. She states that during that procedure the surgeon took down several adhesions. States that she is here today because she hasn't had a bowel movement in 2-3 days. She is passing minimal gas. She does complain of nausea. No vomiting. She complains of lower abdominal pain. Denies any fever chills or constitutional symptoms. The ROS documented in this emergency department record has been reviewed and confirmed by me. Those systems with pertinent positive or negative responses have been documented in the HPI. All other systems are other negative and/or noncontributory. - Related Data Home Medications Medication Instructions Recorded Confirmed LORazepam [Ativan] 0.5 mg PO TID PRN 01/07/19 06/17/23 carisoprodoL [Soma] 350 mg PO DIRECTED 01/07/19 06/17/23 Ondansetron Odt [Zofran Odt] 8 mg PO Q12HR PRN 06/17/23 06/17/23 Sertraline [Zoloft] 50 mg PO DIRECTED 06/17/23 06/17/23 traZODone HCL [Desyrel] 100 mg PO HS 06/17/23 06/17/23 Previous Rx's Medication Instructions Recorded HYDROcodone/APAP 5-325MG [[place] 1 tab PO Q4HR PRN 3 Days #18 tab 01/11/19 5-325] Allergies Allergy/AdvReac Type Severity Reaction Status Date / Time hydromorphone HCl Allergy Itching Verified 06/17/23 18:17 [From Dilaudid] NSAIDS (Non-Steroidal Allergy Anaphylaxis Verified 06/17/23 18:17 Anti-Inflamma omeprazole Allergy Anaphylaxis Verified 06/17/23 18:17 Review of Systems ROS Statement: Those systems with pertinent positive or pertinent negative responses have been documented in the HPI. ROS Other: All systems not noted in ROS Statement are negative. Past Medical History Past Medical History: Fibromyalgia Additional Past Medical History / Comment(s): diverticulosis; Hx. of Bowel obstruction History of Any Multi-Drug Resistant Organisms: None Reported Past Surgical History: Appendectomy, Bowel Resection, Hysterectomy, Orthopedic Surgery Additional Past Surgical History / Comment(s): Tibia Fracture Repair 1993, colostomy and colostomy removal Past Anesthesia/Blood Transfusion Reactions: No Reported Reaction Past Psychological History: No Psychological Hx Reported Smoking Status: Current every day smoker Past Alcohol Use History: Occasional Past Drug Use History: None Reported - Past Family History Father History Unknown: Yes Additional Family Medical History / Comment(s): Heart disease Mother History Unknown: Yes Additional Family Medical History / Comment(s): Heart disease, Maternal grandmother of CHF. General Exam - General Exam Comments Initial Comments: PHYSICAL EXAM: General Impression: Alert and oriented x3, not in acute distress HEENT: Normocephalic atraumatic, extra-ocular movements intact, pupils equal and reactive to light bilaterally, mucous membranes moist. Cardiovascular: Heart regular rate and rhythm Chest: Able to complete full sentences, no retractions, no tachypnea Abdomen: abdomen soft, laboratory tenderness to the lower abdomen, non-distend ed, no organomegaly Musculoskeletal: Pulses present and equal in all extremities, no peripheral lauryn a Motor: no focal deficits noted Neurological: CN II-XII grossly intact, no focal motor or sensory deficits noted Skin: Intact with no visualized rashes Psych: Normal affect and mood Limitations: no limitations Course Vital Signs 06/17/23 06/17/23 14:35 17:12 Temperature 98.2 F 98.4 F Pulse Rate 80 69 Respiratory 16 18 Rate Blood Pressure 152/98 132/79 O2 Sat by Pulse 98 98 Oximetry Medical Decision Making - Medical Decision Making Was pt. sent in by a medical professional or institution (, PA, CORPORATE FINANCIAL ANALYST, urgent care, hospital, or fci...) When possible be specific @ -No Did you speak to anyone other than the patient for history (EMS, parent, family, police, friend...)? What history was obtained from this source @ -No Did you review nursing and triage notes (agree or disagree)? Why? @ -I reviewed and agree with nursing and triage notes Were old charts reviewed (outside hosp., previous admission, EMS record, old EKG, old radiological studies, urgent care reports/EKG's, fci records)? Report findings @ -No old charts were reviewed Differential Diagnosis (chest pain, altered mental status, abdominal pain women, abdominal pain men, vaginal bleeding, musculoskeletal, weakness, fever, dyspnea, syncope, headache, dizziness, GI bleed, back pain, seizure, CVA, palpatations, mental health)? @ -Differential Abdominal Pain Women: Appendicitis, Cholecystitis, diverticulosis, ischemic bowel, pancreatitis, hepatitis, UTI, gastroenteritis, AAA, incarcerated hernia, bowel obstruction, constipation, inflammatory bowel, hepatitis, peptic ulcer disease, splenic infarction, perforated viscus, vulvitis, ovarian torsion, PID, kidney stone, placenta abruption, this is not meant to be an all-inclusive list EKG interpreted by me (3pts min.). @ -None done X-rays interpreted by me (1pt min.). @ -None done CT interpreted by me (1pt min.). @ -Computed tomography scan of the abdomen and pelvis shows scattered air-fluid levels consistent with ileus U/S interpreted by me (1pt. min.). @ -None done What testing was considered but not performed or refused? (CT, X-rays, U/S, labs)? Why? @ -None What meds were considered but not given or refused? Why? @ -None Did you discuss the management of the patient with other professionals (professionals i.e. , PA, CORPORATE FINANCIAL ANALYST, lab, RT, psych nurse, group social worker, hot die press feeder, teacher, correction officer, rn case manager hospice)? Give summary @ -with hospitalist for admission Was smoking cessation discussed for >3mins.? @ -No Was critical care preformed (if so, how long)? @ -No Were there social determinants of health that impacted care today? How? (Homelessness, low income, unemployed, alcoholism, drug addiction, transportation, low edu. Level, literacy, decrease access to med. care, senior living, rehab)? @ -No Was there de-escalation of care discussed even if they declined (Discuss DNR or withdrawal of care, Hospice)? DNR status @ -No What co-morbidities impacted this encounter? (DM, HTN, Smoking, COPD, CAD, Cancer, CVA, ARF, Chemo, Hep., AIDS, mental health diagnosis, sleep apnea, morbid obesity)? @ -None Was patient admitted / discharged? Hospital course, mention meds given and route, prescriptions, significant lab abnormalities, going to OR and other pertinent info. @ -68-year-old female presents with abdominal pain. She has history of abdominal surgery. Vital signs upon arrival are within acceptable limits. B icarb is are unremarkable for acute processes. CT shows air-fluid levels. Clinical presentation consistent with ileus. Patient be admitted. Patient given IV fluids. Undiagnosed new problem with uncertain prognosis? @ -No Drug Therapy requiring intensive monitoring for toxicity (Heparin, Nitro, Insulin, Cardizem)? @ -No Were any procedures done? @ -No Diagnosis/symptom? Acute, or Chronic, or Acute on Chronic? Uncomplicated (without systemic symptoms) or Complicated (systemic symptoms)? @ -ileus Side effects of treatment? @ -No Exacerbation, Progression, or Severe Exacerbation? @ -No Poses a threat to life or bodily function? How? (Chest pain, [place], [place], pneumonia, PE, COPD, DKA, ARF, appy, cholecystitis, CVA, Diverticulitis, Homicidal, Suici eb, threat to staff... and all critical care pts) @ -yes - Lab Data Result diagrams: 06/17/23 15:11 06/17/23 16:05 Lab Results 06/17/23 06/17/23 06/17/23 Range/Units 15:11 16:05 16:05 WBC 9.4 (3.8-10.6) k/uL RBC 4.68 (3.80-5.40) m/uL Hgb 14.7 (11.4-16.0) gm/dL Hct 42.9 (34.0-46.0) % MCV 91.8 (80.0-100.0) fL MCH 31.3 (25.0-35.0) pg MCHC 34.2 (31.0-37.0) g/dL RDW 12.3 (11.5-15.5) % Plt Count 454 H (150-450) k/uL MPV 7.0 Neutrophils % 72 % Lymphocytes % 19 % Monocytes % 6 % Eosinophils % 2 % Basophils % 0 % Neutrophils # 6.8 (1.3-7.7) k/uL Lymphocytes # 1.8 (1.0-4.8) k/uL Monocytes # 0.5 (0-1.0) k/uL Eosinophils # 0.2 (0-0.7) k/uL Basophils # 0.0 (0-0.2) k/uL Sodium 134 L (137-145) mmol/L Potassium 4.2 (3.5-5.1) mmol/L Chloride 100 (98-107) mmol/L Carbon Dioxide 22 (22-30) mmol/L Anion Gap 12 mmol/L BUN 5 L (7-17) mg/dL Creatinine 0.54 (0.52-1.04) mg/dL Est GFR (CKD-EPI)AfAm >90 (>60 ml/min/1.73 sqM) Est GFR (CKD-EPI)NonAf >90 (>60 ml/min/1.73 sqM) Glucose 91 (74-99) mg/dL Plasma Lactic Acid [place] 1.1 (0.7-2.0) mmol/L Calcium 9.7 (8.4-10.2) mg/dL Total Bilirubin 0.7 (0.2-1.3) mg/dL AST 24 (14-36) U/L ALT 17 (4-34) U/L Alkaline Phosphatase 74 (38-126) U/L Total Protein 7.2 (6.3-8.2) g/dL Albumin 4.2 (3.5-5.0) g/dL Lipase 67 (23-300) U/L Blood Type Blood Type Recheck Bld Type Recheck Status Antibody Screen Spec Expiration Date 06/17/23 Range/Units 16:05 WBC (3.8-10.6) k/uL RBC (3.80-5.40) m/uL Hgb (11.4-16.0) gm/dL Hct (34.0-46.0) % MCV (80.0-100.0) fL MCH (25.0-35.0) pg MCHC (31.0-37.0) g/dL RDW (11.5-15.5) % Plt Count (150-450) k/uL MPV Neutrophils % % Lymphocytes % % Monocytes % % Eosinophils % % Basophils % % Neutrophils # (1.3-7.7) k/uL Lymphocytes # (1.0-4.8) k/uL Monocytes # (0-1.0) k/uL Eosinophils # (0-0.7) k/uL Basophils # (0-0.2) k/uL Sodium (137-145) mmol/L Potassium (3.5-5.1) mmol/L Chloride (98-107) mmol/L Carbon Dioxide (22-30) mmol/L Anion Gap mmol/L BUN (7-17) mg/dL Creatinine (0.52-1.04) mg/dL Est GFR (CKD-EPI)AfAm (>60 ml/min/1.73 sqM) Est GFR (CKD-EPI)NonAf (>60 ml/min/1.73 sqM) Glucose (74-99) mg/dL Plasma Lactic Acid Martin (0.7-2.0) mmol/L Calcium (8.4-10.2) mg/dL Total Bilirubin (0.2-1.3) mg/dL AST (14-36) U/L ALT (4-34) U/L Alkaline Phosphatase (38-126) U/L Total Protein (6.3-8.2) g/dL Albumin (3.5-5.0) g/dL Lipase (23-300) U/L Blood Type O Negative Blood Type Recheck O Neg Bld Type Recheck Status No Antibody Screen NEGATIVE Spec Expiration Date 06/20/20232304 Disposition Clinical Impression: Ileus Disposition: ADMITTED IP TO THIS [facility] Referrals: César Shahid MD [Primary Care Provider] - 1-2 days Decision Time: 19:42
[2023-06-17 15:54] LABS: Basophils % (A) 0 %; Eosinophils # (A) 0.2 k/uL (0-0.7); Eosinophils % (A) 2 %; HCT 42.9 % (34.0-46.0); HGB 14.7 gm/dL (11.4-16.0); Lymphocytes # (A) 1.8 k/uL (1.0-4.8); Lymphocytes % (A) 19 %; MCH 31.3 pg (25.0-35.0); MCHC 34.2 g/dL (31.0-37.0); MCV 91.8 fL (80.0-100.0); Monocytes # (A) 0.5 k/uL (0-1.0); Monocytes % (A) 6 %; Neutrophils # (A) 6.8 k/uL (1.3-7.7); Neutrophils % (A) 72 %; Platelet Count 454 k/uL (150-450); RBC 4.68 m/uL (3.80-5.40); RDW 12.3 % (11.5-15.5); WBC 9.4 k/uL (3.8-10.6)
[2023-06-17 16:45] LABS: ALT 17 U/L (4-34); AST 24 U/L (14-36); African American GFR (CKD) >90 (>60 ml/min/1.73 sqM); Albumin 4.2 g/dL (3.5-5.0); Alkaline Phosphatase 74 U/L (38-126); Anion Gap 12 mmol/L; Blood Urea Nitrogen 5 mg/dL (7-17); Calcium 9.7 mg/dL (8.4-10.2); Carbon Dioxide 22 mmol/L (22-30); Chloride 100 mmol/L (98-107); Glucose 91 mg/dL (74-99); Lipase 67 U/L (23-300); Non-African American GFR(CKD) >90 (>60 ml/min/1.73 sqM); Potassium 4.2 mmol/L (3.5-5.1); Sodium 134 mmol/L (137-145); Total Bilirubin 0.7 mg/dL (0.2-1.3); Total Protein 7.2 g/dL (6.3-8.2)
[2023-06-17] MEDS ORDERED: MORPHINE SULFATE 4 MG/ML SYRINGE IVP STA ×2 (18:42→22:30)
--- NOTE | 2023-06-17 18:49 | CT ---
EXAMINATION TYPE: CT abdomen pelvis w con DATE OF EXAM: 06/17/2023 COMPARISON: 08/05/2019 INDICATION: Abdomen pain no bm in 4 days. hx bowel obstruction. no fever nausea no vomiting. DLP: 648.7 mGycm, Automated exposure control for dose reduction was used. CONTRAST: 65 ml mL of Isovue 370. Study performed without Oral Contrast TECHNIQUE: Axial images were obtained from above the diaphragm to the pubic rami in the axial plane a t 5 mm thick sections. Reconstructed images are reviewed on the computer in the coronal plane. FINDINGS: Limited CT sections are obtained the lung bases. The lung bases are clear. CT ABDOMEN: Liver: Normal Spleen: Normal Pancreas: Normal Adrenal glands: The adrenal glands are normal. Gallbladder: Normal Kidneys: No masses are evident. No hydronephrosis is present. No cysts are present. Delayed images were obtained through the kidneys, which remain unremarkable. Aorta: Vascular calcification is within the aorta. Inferior vena cava: Normal. CT PELVIS: Multiple dilated small bowel loops are present containing air-fluid levels. Air and fluid are within the colon. There is an anastomosis in the distal sigmoid colon without evidence of obstruction. This study is without oral contrast limiting bowel evaluation. Appendix: Not identified. Urinary bladder: Normal. Genitourinary structures: Uterus and ovaries are not identified Osseous structures: No suspicious lytic or sclerotic lesions. Degenerative changes are in the lower l umbar spine. IMPRESSION: 1. Dilated fluid-filled small bowel loops with scattered air-fluid levels. Clinical consideration fo r ileus and gastroenteritis recommended. No zone of transition to suggest obstruction.
[2023-06-17] MEDS ORDERED: SODIUM CHLORIDE 0.9% 1,000 ML IV STA ×2 (19:22)
[2023-06-17] MEDS ORDERED: NALOXONE 0.4 MG/ML 1 ML VIAL IV PRN (19:38)
[2023-06-17] MEDS ORDERED: ONDANSETRON 4 MG/2 ML VIAL IVP STA (22:17)
[2023-06-17] MEDS ORDERED: traZODone HCL 100 MG TAB PO SCH (23:45)
[2023-06-17] MEDS ORDERED: ONDANSETRON 4 MG/2 ML VIAL IVP PRN (23:48)
[2023-06-18] MEDS: HEPARIN SODIUM,PORCINE 5,000 UNIT/ML 1 ML VIAL SQ SCH ×3 (00:04→15:09)
--- NOTE | 2023-06-18 00:48 | P.HPIM ---
History of Present Illness H&P Date: 06/17/23 Chief Complaint: abd pain 68-year-old female with history of perforated diverticulitis status post sigmoid colon resection Patient coming in with 4 day history of no bowel movement, constipation however she continues to pass gas as. Over the past day or 2 she started having nausea but no vomiting. Denies any fevers or chills denies any sick contact denies any upper respiratory infection symptoms denies any diarrhea. She reports that she is concerned that she would have bowel obstruction again as she had those before and decided to come into the hospital yesterday she was feeling anxious increasingly nauseous with increased abdominal discomfort which is diffuse and increased nausea. Patient recalls recent attack by talking resulted in the dog bite and signific ant injuries in her left upper extremity requiring stitches and surgical intervention for which she received a course of antibiotics for about a week he does not recall the name of the antibiotic this event was about 3 weeks ago. For which she is still taking [place]'s as needed at least twice a day Patient denies any tobacco smoking with drugs or alcohol Past medical history Perforated effort to colitis requiring sigmoid colon resection review of systems Pertinent positives as noted in HPI. All other systems were reviewed and are negative on exam Constitutional: No acute distress, conversant, pleasant Eyes: Anicteric sclerae, moist conjunctiva, Pupils equal round reactive to light ENMT: NC/AT Oropharynx clear, no erythema, or exudates Neck: Supple, no masses, or JVD No carotid bruits No thyromegaly Lungs: Clear to auscultation Clear to percussion Normal respiratory effort, no accessory muscle use Cardiovascular: Heart regular in rate and rhythm, No murmurs, gallops, or rubs No peripheral edema Abdominal: Soft Nontender, no guarding, rebound or rigidity Abdomen moving with respiration Normoactive bowel sounds No hepatomegaly, No splenomegaly No palpable mass No abdominal wall hernia noted Skin: Multiple stitches over bilateral upper extremity still in place, wounds looks like healing well no surrounding erythema or induration no open wounds or drainage Extremities: No digital cyanosis No clubbing Pedal pulses intact and symmetrical Radial pulses intact on the right side unable to examine the left side due to surgical cast No calf tenderness Capillary refill is immediate over the left hand patient has passed out around her left upper extremity Psychiatric: Alert and oriented to person, place and time Appropriate affect fair judgement Neuro Muscles Strength 5/5 in all 4 extremities Sensation to light touch grossly present throughout Cranial nerves II-XII grossly intact Lymphatics: no palpable cervical or supraclavicular lymph nodes Assessment and plan This is a 5-year-old female coming in with 4 day history of constipation however continues to pass gas along with increased abdominal discomfort and feeling nauseous with decreased by mouth intake. I discussed case with the adductor accepted the admission for suspected ileus for surgical evaluation due to history of perforated bowel with bowel obstruction. Anticipated length of stay less than 2 midnights Constipation secondary to ileus Possibly opiates contributing factor Clear liquid diet Check C. diff if patient starts having diarrhea. Patient reports taking antibiotic course for a dog bite about 2-3 weeks ago Blood work overall unremarkable showing white count of 9.4 hemoglobin 14.7 Sodium 134 potassium 4.2 BUN 5 creatinine 0.5 Plasma lactic acid 1.1 Computed tomography scan of the abdomen showed large bowel loops filled with air fluid levels suggestive of ileus IV fluid hydration with normal saline 80 mL per hour Pain control with morphine as needed General surgery evaluation Full code DVT prophylaxis heparin subcu 3 times a day Past Medical History Past Medical History: Fibromyalgia Additional Past Medical History / Comment(s): diverticulosis; Hx. of Bowel obstruction History of Any Multi-Drug Resistant Organisms: None Reported Past Surgical History: Appendectomy, Bowel Resection, Hysterectomy, Orthopedic Surgery Additional Past Surgical History / Comment(s): Tibia Fracture Repair 1993, colostomy and colostomy removal Past Anesthesia/Blood Transfusion Reactions: No Reported Reaction Past Psychological History: No Psychological Hx Reported Additional Psychological History / Comment(s): lives with family home with the . She's never day smoker but no severe alcohol use. Employed at [employer]. No recent travels. No experience related. no animal exposures related Smoking Status: Current every day smoker Past Alcohol Use History: Occasional Additional Past Alcohol Use History / Comment(s): Smokes approx. 1/2 ppd. Past Drug Use History: None Reported - Past Family History Father History Unknown: Yes Additional Family Medical History / Comment(s): Heart disease Mother History Unknown: Yes Additional Family Medical History / Comment(s): Heart disease, Maternal grandmother of CHF. Medications and Allergies Home Medications Medication Instructions Recorded Confirmed Type LORazepam [Ativan] 0.5 mg PO TID PRN 01/07/19 06/17/23 History carisoprodoL [Soma] 350 mg PO DIRECTED 01/07/19 06/17/23 History HYDROcodone/APAP 5-325MG [[place] 1 tab PO Q4HR PRN 3 Days #18 tab 01/11/19 06/17/23 Rx 5-325] Ondansetron Odt [Zofran Odt] 8 mg PO Q12HR PRN 06/17/23 06/17/23 History Sertraline [Zoloft] 50 mg PO DIRECTED 06/17/23 06/17/23 History traZODone HCL [Desyrel] 100 mg PO HS 06/17/23 06/17/23 History Allergies Allergy/AdvReac Type Severity Reaction Status Date / Time hydromorphone HCl Allergy Itching Verified 06/17/23 18:17 [From Dilaudid] NSAIDS (Non-Steroidal Allergy Anaphylaxis Verified 06/17/23 18:17 Anti-Inflamma omeprazole Allergy Anaphylaxis Verified 06/17/23 18:17 Physical Exam Vitals: Vital Signs Temp Pulse Pulse Resp BP BP Pulse Ox 06/17/23 23:21 98.4 F 67 18 148/90 96 06/17/23 22:25 75 18 148/82 92 L 06/17/23 17:12 98.4 F 69 18 132/79 98 06/17/23 14:35 98.2 F 80 16 152/98 98 Intake and Output 06/17/23 06/17/23 06/18/23 14:59 22:59 06:59 Other: Weight 55.338 kg 55.338 kg Results CBC & Chem 7: 06/17/23 15:11 06/17/23 16:05 Labs: Abnormal Lab Results - Last 24 Hours (Table) 06/17/23 06/17/23 Range/Units 15:11 16:05 Plt Count 454 H (150-450) k/uL Sodium 134 L (137-145) mmol/L BUN 5 L (7-17) mg/dL
[2023-06-18] MEDS ORDERED: MORPHINE SULFATE 4 MG/ML SYRINGE IVP PRN (00:49)
[2023-06-18] MEDS ORDERED: FAMOTIDINE 20 MG TAB PO SCH (09:00)
[2023-06-18] MEDS ORDERED: FIDAXOMICIN 200 MG TABLET PO SCH (09:30)
--- NOTE | 2023-06-18 10:24 | P.GSCN ---
History of Present Illness Consult date: 06/18/23 History of present illness: Patient well known to me. She reports abdominal cramping for over 5 days. She has personal history of multiple small bowel obstructions with ventral hernia repair 3 years ago. She had diarrhea and was admitted for ileus. Stool cultures demonstrated CDiff. Recommend treatment and contact precautions for CDiff. Correction of abnormal electrolytes. Will follow. Past Medical History Past Medical History: Fibromyalgia Additional Past Medical History / Comment(s): diverticulosis; Hx. of Bowel obstruction History of Any Multi-Drug Resistant Organisms: None Reported Past Surgical History: Appendectomy, Bowel Resection, Hysterectomy, Orthopedic Surgery Additional Past Surgical History / Comment(s): Tibia Fracture Repair 1993, colostomy and colostomy removal Past Anesthesia/Blood Transfusion Reactions: No Reported Reaction Past Psychological History: No Psychological Hx Reported Additional Psychological History / Comment(s): lives with family home with the . She's never day smoker but no severe alcohol use. Employed at [employer]. No recent travels. No experience related. no animal exposures related Smoking Status: Current every day smoker Past Alcohol Use History: Occasional Additional Past Alcohol Use History / Comment(s): Smokes approx. 1/2 ppd. Past Drug Use History: None Reported - Past Family History Father History Unknown: Yes Additional Family Medical History / Comment(s): Heart disease Mother History Unknown: Yes Additional Family Medical History / Comment(s): Heart disease, Maternal grandmother of CHF. Medications and Allergies Home Medications Medication Instructions Recorded Confirmed Type LORazepam [Ativan] 0.5 mg PO TID PRN 01/07/19 06/17/23 History carisoprodoL [Soma] 350 mg PO DIRECTED 01/07/19 06/17/23 History HYDROcodone/APAP 5-325MG [[place] 1 tab PO Q4HR PRN 3 Days #18 tab 01/11/19 06/17/23 Rx 5-325] Ondansetron Odt [Zofran Odt] 8 mg PO Q12HR PRN 06/17/23 06/17/23 History Sertraline [Zoloft] 50 mg PO DIRECTED 06/17/23 06/17/23 History traZODone HCL [Desyrel] 100 mg PO HS 06/17/23 06/17/23 History Allergies Allergy/AdvReac Type Severity Reaction Status Date / Time hydromorphone HCl Allergy Itching Verified 06/17/23 18:17 [From Dilaudid] NSAIDS (Non-Steroidal Allergy Anaphylaxis Verified 06/17/23 18:17 Anti-Inflamma omeprazole Allergy Anaphylaxis Verified 06/17/23 18:17 Surgical - Exam Vital Signs Temp Pulse Resp BP Pulse Ox 98.2 F 80 16 152/98 98 06/17/23 14:35 06/17/23 14:35 06/17/23 14:35 06/17/23 14:35 06/17/23 14:35 Results - Labs 06/17/23 15:11 06/17/23 16:05 Abnormal Lab Results - Last 24 Hours (Table) 06/17/23 06/17/23 06/18/23 Range/Units 15:11 16:05 06:00 Plt Count 454 H (150-450) k/uL Sodium 134 L (137-145) mmol/L BUN 5 L (7-17) mg/dL C. difficile (EIA) Intrp Positive A (Negative) Diabetes panel 06/17/23 Range/Units 16:05 Sodium 134 L (137-145) mmol/L Potassium 4.2 (3.5-5.1) mmol/L Chloride 100 (98-107) mmol/L Carbon Dioxide 22 (22-30) mmol/L BUN 5 L (7-17) mg/dL Creatinine 0.54 (0.52-1.04) mg/dL Glucose 91 (74-99) mg/dL Calcium 9.7 (8.4-10.2) mg/dL AST 24 (14-36) U/L ALT 17 (4-34) U/L Alkaline Phosphatase 74 (38-126) U/L Total Protein 7.2 (6.3-8.2) g/dL Albumin 4.2 (3.5-5.0) g/dL Calcium panel 06/17/23 Range/Units 16:05 Calcium 9.7 (8.4-10.2) mg/dL Albumin 4.2 (3.5-5.0) g/dL Pituitary panel 06/17/23 Range/Units 16:05 Sodium 134 L (137-145) mmol/L Potassium 4.2 (3.5-5.1) mmol/L Chloride 100 (98-107) mmol/L Carbon Dioxide 22 (22-30) mmol/L BUN 5 L (7-17) mg/dL Creatinine 0.54 (0.52-1.04) mg/dL Glucose 91 (74-99) mg/dL Calcium 9.7 (8.4-10.2) mg/dL Adrenal panel 06/17/23 Range/Units 16:05 Sodium 134 L (137-145) mmol/L Potassium 4.2 (3.5-5.1) mmol/L Chloride 100 (98-107) mmol/L Carbon Dioxide 22 (22-30) mmol/L BUN 5 L (7-17) mg/dL Creatinine 0.54 (0.52-1.04) mg/dL Glucose 91 (74-99) mg/dL Calcium 9.7 (8.4-10.2) mg/dL Total Bilirubin 0.7 (0.2-1.3) mg/dL AST 24 (14-36) U/L ALT 17 (4-34) U/L Alkaline Phosphatase 74 (38-126) U/L Total Protein 7.2 (6.3-8.2) g/dL Albumin 4.2 (3.5-5.0) g/dL
[2023-06-18 15:13] VITALS: BP 122/71; PULSE 99; RESP 20; TEMP 99.3
[2023-06-18] MEDS ORDERED: FLUCONAZOLE 150 MG TAB PO STA (17:01)
--- NOTE | 2023-06-18 17:06 | P.DS ---
Providers Date of admission: 06/17/23 19:38 Expected date of discharge: 06/18/23 Attending physician: Ashlie Avery MD Consults: 06/18/23 10:20 Consult Physician Routine Consulting Provider: Vidhi Ribeiro Consult Reason/Comments: ileus Do you want consulting provider notified?: Already Contacted Primary care physician: César Shahid [facility] Course: Discharge Diagnosis: Ileus, resolved Clostridium difficile infection Vulvovaginal candidiasis Hospital Course: Patient is a pleasant 68-year-old female with a past medical history of perforated diverticulitis status post sigmoid colon resection and fibromyalgia. She presented to the emergency department on 06/17/23 secondary to a chief complaint of constipation and abdominal pain, nausea and vomiting. She underwent full evaluation in the emergency department. Vital signs completed and reviewed. Blood pressure 152/98, heart rate 80, respiratory rate 16, temp 98.2F, SpO2 of 90% on room air. Labs completed and reviewed. CBC showing mild thrombocytosis with platelet count of 454. BMP revealing hyponatremia sodium [address] abdomen and pelvis with contrast was completed showing dilated fluid-filled small bowel loops with scattered air fluid levels concerning for possible ileus. Patient admitted under our services. She reports full resolution of nausea and vomiting and had full resolution of previous reported abdominal pain. Patient continues to pass flatus and began having multiple episodes of diarrhea. Clostridium difficile was positive. Patient was recently on antibiotics. Patient was started on Fidoxomicin 200 mg twice daily for 10 days. Patient also reported having a yeast infection secondary to recent antibiotics. Given dose of Diflucan 150 mg by mouth 1 dose. Patient was evaluated by general surgery team stating no plans for surgical intervention. Again patient had full resolution of previous reported abdominal pain, nausea, and vomiting. Diet was slowly advanced and patient tolerating oral intake without any difficulties. Patient is medically stable for discharge at this time and discharge per her request home with antibiotic Fidazomicin 200 mg daily for an additional 9 days. Patient follow-up outpatient with PCP in 1-2 days. Physical exam: Patient seen and examined at bedside. Vital signs reviewed and stable. General: Nontoxic, no distress and appears stated age. Derm: Skin warm and dry, normal coloration for ethnicity. Head: Atraumatic, normocephalic and symmetric. Eyes: EOMs intact, no lid lag, and anicteric sclera Mouth: no lip lesions, mucus membranes moist Cardiovascular: regular rate and rhythm with normal S1S2, no murmur, positive posterior tibial pulses bilaterally, and cap refill < 2 seconds. Lungs: Respirations even, regular, and unlabored on room air. Lungs CTA bilaterally, no rhonchi, no rales, no wheezing, and no accessory muscle usage. Abdominal: soft, nontender to palpation, no guarding, no appreciable organomegaly Ext: ROM intact. No gross muscle atrophy, no edema, no contractures patient with postsurgical cast left arm.. Neuro: Speech clear, face symmetrical and CN II-XII grossly intact with no noted focal neuro deficits Psych: Alert and oriented to person, place, time, and situation. Appropriate and pleasant affect. A total of 32 minutes of time were spent preparing this complex discharge summary. Pt was discharged on 06/18/23 at 5:06 PM. Patient was seen independently by Nurse Practitioner. This document was prepared using [employer] dictation software. Please allow for errors in teacher assistant while rare they do occur. Patient Condition at Discharge: Stable Plan - Discharge Summary New Discharge Prescriptions: New Fidaxomicin [Dificid] 200 mg PO BID 9 Days #18 tab Continue carisoprodoL [Soma] 350 mg PO DIRECTED LORazepam [Ativan] 0.5 mg PO TID PRN PRN Reason: Anxiety HYDROcodone/APAP 5-325MG [[place] 5-325] 1 tab PO Q4HR PRN 3 Days #18 tab PRN Reason: Pain traZODone HCL [Desyrel] 100 mg PO HS Sertraline [Zoloft] 50 mg PO DIRECTED Ondansetron Odt [Zofran ODT] 8 mg PO Q12HR PRN PRN Reason: Nausea Discharge Medication List LORazepam [Ativan] 0.5 mg PO TID PRN 01/07/19 [History] carisoprodoL [Soma] 350 mg PO DIRECTED 01/07/19 [History] HYDROcodone/APAP 5-325MG [[place] 5-325] 1 tab PO Q4HR PRN 3 Days #18 tab 01/11/19 [Rx] Ondansetron Odt [Zofran ODT] 8 mg PO Q12HR PRN 06/17/23 [History] Sertraline [Zoloft] 50 mg PO DIRECTED 06/17/23 [History] traZODone HCL [Desyrel] 100 mg PO HS 06/17/23 [History] Fidaxomicin [Dificid] 200 mg PO BID 9 Days #18 tab 06/18/23 [Rx] Follow up Appointment(s)/Referral(s): César Shahid MD [Primary Care Provider] - 1-2 days Patient Instructions/Handouts: Fidaxomicin (By mouth), C. Diff (Clostridioides Difficile) Infection (DC) Discharge Disposition: HOME SELF-CARE
== END 2023-06-18 17:38 | disposition home or self-care (01) ==
LOC: EC 14:34 → 6NMEDSUR 19:38
PROVIDERS: ADMIT Internal Medicine; ATTEND Internal Medicine
DX: K56.7 Ileus, unspecified (principal); M79.7 Fibromyalgia; E87.1 Hypo-osmolality and hyponatremia; A04.72 Enterocolitis due to Clostridium difficile, not specified as recurrent; B37.9 Candidiasis, unspecified; Z90.49 Acquired absence of other specified parts of digestive tract; K57.80 Diverticulitis of intestine, part unspecified, with perforation and abscess without bleeding; Z90.710 Acquired absence of both cervix and uterus; F17.210 Nicotine dependence, cigarettes, uncomplicated; Z82.49 Family history of ischemic heart disease and other diseases of the circulatory system; Z79.899 Other long term (current) drug therapy; Z88.5 Allergy status to narcotic agent; Z88.8 Allergy status to other drugs, medicaments and biological substances
CPT/HCPCS: 96376; 96361; 96374; 96375; 99285; 36415; 86900; 86901; 80053; 83605; 83690; 85025; 86850; 87324; 74177; G0378 ×2; J2270; J2405; Q9967; 96365

== ENCOUNTER 2024-05-14 17:45 | Inpatient (IN) | payer OTHER ==
[2024-05-14] MEDS: MORPHINE SULFATE 4 MG/ML SYRINGE IVP STA ×2 (18:21→19:41)
[2024-05-14 18:32] LABS: Basophils % (A) 0 %; Eosinophils # (A) 0.2 k/uL (0-0.7); Eosinophils % (A) 1 %; HCT 41.6 % (34.0-46.0); HGB 14.4 gm/dL (11.4-16.0); Lymphocytes # (A) 1.5 k/uL (1.0-4.8); Lymphocytes % (A) 11 %; MCH 32.6 pg (25.0-35.0); MCHC 34.7 g/dL (31.0-37.0); MCV 94.1 fL (80.0-100.0); Mean Platelet Volume 6.7; Monocytes # (A) 0.8 k/uL (0-1.0); Monocytes % (A) 6 %; Neutrophils # (A) 10.9 k/uL (1.3-7.7); Neutrophils % (A) 81 %; Platelet Count 314 k/uL (150-450); RBC 4.43 m/uL (3.80-5.40); RDW 12.2 % (11.5-15.5); WBC 13.5 k/uL (3.8-10.6)
--- NOTE | 2024-05-14 18:41 | ED ---
Lower Extremity Injury HPI - General Chief Complaint: Extremity Injury, Lower Stated Complaint: Fall/Hip Time Seen by Provider: 05/14/24 17:48 Source: patient, EMS, RN notes reviewed Mode of arrival: EMS Limitations: no limitations - History of Present Illness Initial Comments: , This is a 69-year-old female presents emergency department via EMS chief co mplaint of right hip pain. She states she fell going up a step. Patient states she has pain in the right hip with there is noted shortening and rotation. Patient denies any head injury loss conscious no prior hip injuries. Denies any blood thinners. - Related Data Home Medications Medication Instructions Recorded Confirmed LORazepam [Ativan] 0.5 mg PO DAILY 01/07/19 05/14/24 carisoprodoL [Soma] 350 mg PO HS PRN 01/07/19 05/14/24 Ondansetron Odt [Zofran ODT] 8 mg PO Q12HR PRN 06/17/23 05/14/24 traZODone HCL [Desyrel] 100 mg PO HS 06/17/23 05/14/24 Allergies Allergy/AdvReac Type Severity Reaction Status Date / Time hydromorphone HCl Allergy Itching Verified 05/14/24 19:47 [From Dilaudid] NSAIDS (Non-Steroidal Allergy Anaphylaxis Verified 05/14/24 19:47 Anti-Inflamma omeprazole Allergy Anaphylaxis Verified 05/14/24 19:47 Review of Systems ROS Statement: Those systems with pertinent positive or pertinent negative responses have been documented in the HPI. ROS Other: All systems not noted in ROS Statement are negative. Past Medical History Past Medical History: Fibromyalgia Additional Past Medical History / Comment(s): diverticulosis; Hx. of Bowel obs truction History of Any Multi-Drug Resistant Organisms: None Reported Past Surgical History: Appendectomy, Bowel Resection, Hysterectomy, Orthopedic S urgery Additional Past Surgical History / Comment(s): Tibia Fracture Repair 1993, colostomy and colostomy removal Past Anesthesia/Blood Transfusion Reactions: No Reported Reaction Past Psychological History: No Psychological Hx Reported Smoking Status: Current every day smoker Past Alcohol Use History: Daily Past Drug Use History: None Reported - Past Family History Father History Unknown: Yes Additional Family Medical History / Comment(s): Heart disease Mother History Unknown: Yes Additional Family Medical History / Comment(s): Heart disease, Maternal grandmother of CHF. General Exam Limitations: no limitations General appearance: alert, in no apparent distress Head exam: Present: atraumatic, normocephalic, normal inspection Eye exam: Present: normal appearance, PERRL, EOMI. Absent: scleral icterus, conjunctival injection, periorbital swelling ENT exam: Present: normal exam, normal oropharynx, mucous membranes moist Neck exam: Present: normal inspection, full ROM. Absent: tenderness, meningismus, lymphadenopathy Respiratory exam: Present: normal lung sounds bilaterally. Absent: respiratory distress, wheezes, rales, rhonchi, stridor Cardiovascular Exam: Present: regular rate, normal rhythm, normal heart sounds. Absent: systolic murmur, diastolic murmur, rubs, gallop, clicks Extremities exam: Present: other (Right hip there is tenderness diffusely, there is some external rotation and shortening of the right leg neurovascular intact) Neurological exam: Present: alert, oriented X3, CN II-XII intact, reflexes normal. Absent: motor sensory deficit Skin exam: Present: warm, dry, intact, normal color. Absent: rash Course Vital Signs 05/14/24 17:50 Temperature 98.7 F Pulse Rate 76 Respiratory 20 Rate Blood Pressure 174/150 O2 Sat by Pulse 97 Oximetry Medical Decision Making - Medical Decision Making Was pt. sent in by a medical professional or institution ([facility] Lentz, [employer], urgent care, hospital, or skilled nursing...) When possible be specific @ -No Did you speak to anyone other than the patient for history (EMS, parent, family, police, friend...)? What history was obtained from this source @ -No Did you review nursing and triage notes (agree or disagree)? Why? @ -I reviewed and agree with nursing and triage notes Were old charts reviewed (outside hosp., previous admission, EMS record, old EKG, old radiological studies, urgent care reports/EKG's, skilled nursing records)? Report findings @ -No old charts were reviewed Differential Diagnosis (chest pain, altered mental status, abdominal pain women, abdominal pain men, vaginal bleeding, weakness, fever, dyspnea, syncope, headache, dizziness, GI bleed, back pain, seizure, CVA, palpatations, mental health, musculoskeletal)? @ -Fall, hip fracture, hip contusion EKG interpreted by me (3pts min.). @ -As above X-rays interpreted by me (1pt min.). @ -Right hip with AP pelvis showing right IT, supratrochanteric fracture with displacement X-ray right femur showing subtrochanteric fracture CT interpreted by me (1pt min.). @ -None done U/S interpreted by me (1pt. min.). @ -None done What testing was considered but not performed or refused? (CT, X-rays, U/S, labs)? Why? @ -None What meds were considered but not given or refused? Why? @ -None Did you discuss the management of the patient with other professionals (professionals i.e. DrChris, PA, [employer], lab, RT, psych nurse, social security assessor, speech and language assistant, teacher, parole hearing officer, special education case manager)? Give summary @ -Advanced orthopedics for admission with consults to medicine Was smoking cessation discussed for >3mins.? @ -No Was critical care preformed (if so, how long)? @ -No Were there social determinants of health that impacted care today? How? (Homelessness, low income, unemployed, alcoholism, drug addiction, transportation, low edu. Level, literacy, decrease access to med. care, long-term, rehab)? @ -No Was there de-escalation of care discussed even if they declined (Discuss DNR or withdrawal of care, Hospice)? DNR status @ -No What co-morbidities impacted this encounter? (DM, HTN, Smoking, COPD, CAD, Cancer, CVA, ARF, Chemo, Hep., AIDS, mental health diagnosis, sleep apnea, morbid obesity)? @ -Fibromyalgia Was patient admitted / discharged? Hospital course, mention meds given and route, prescriptions, significant lab abnormalities, going to OR and other pertinent info. @ -Admitted patient has right hip fracture patient will have medical clearance and admitted to orthopedics. Undiagnosed new problem with uncertain prognosis? @ -No Drug Therapy requiring intensive monitoring for toxicity (Heparin, Nitro, Insulin, Cardizem)? @ -No Were any procedures done? @ -No Diagnosis/symptom? @ -Fall, right hip fracture Acute, or Chronic, or Acute on Chronic? @ -Acute Uncomplicated (without systemic symptoms) or Complicated (systemic symptoms)? @ -complicated Side effects of treatment? @ -No Exacerbation, Progression, or Severe Exacerbation? @ -No Poses a threat to life or bodily function? How? (Chest pain, [place], [place], pneumonia, PE, COPD, DKA, ARF, appy, cholecystitis, CVA, Diverticulitis, Homicidal, Suicidal, threat to staff... and all critical care pts) @ -Yes surgical risk - Lab Data Result diagrams: 05/14/24 18:18 05/14/24 18:18 Lab Results 05/14/24 05/14/24 05/14/24 Range/Units 18:18 18:18 18:18 WBC 13.5 H (3.8-10.6) k/uL RBC 4.43 (3.80-5.40) m/uL Hgb 14.4 (11.4-16.0) gm/dL Hct 41.6 (34.0-46.0) % MCV 94.1 (80.0-100.0) fL MCH 32.6 (25.0-35.0) pg MCHC 34.7 (31.0-37.0) g/dL RDW 12.2 (11.5-15.5) % Plt Count 314 (150-450) k/uL MPV 6.7 Neutrophils % 81 % Lymphocytes % 11 % Monocytes % 6 % Eosinophils % 1 % Basophils % 0 % Neutrophils # 10.9 H (1.3-7.7) k/uL Lymphocytes # 1.5 (1.0-4.8) k/uL Monocytes # 0.8 (0-1.0) k/uL Eosinophils # 0.2 (0-0.7) k/uL Basophils # 0.0 (0-0.2) k/uL PT 10.2 (10.0-12.5) sec INR 0.9 (<1.2) APTT 26.1 (22.0-30.0) sec Sodium 125 L (137-145) mmol/L Potassium 4.8 (3.5-5.1) mmol/L Chloride 93 L (98-107) mmol/L Carbon Dioxide 22 (22-30) mmol/L Anion Gap 10 mmol/L BUN 7 (7-17) mg/dL Creatinine 0.52 (0.52-1.04) mg/dL Est GFR (CKD-EPI)AfAm >90 (>60 ml/min/1.73 sqM) Est GFR (CKD-EPI)NonAf >90 (>60 ml/min/1.73 sqM) Glucose 101 H (74-99) mg/dL Calcium 9.2 (8.4-10.2) mg/dL Total Bilirubin 0.8 (0.2-1.3) mg/dL AST 42 H (14-36) U/L ALT 22 (4-34) U/L Alkaline Phosphatase 56 (38-126) U/L Total Protein 6.9 (6.3-8.2) g/dL Albumin 4.3 (3.5-5.0) g/dL - EKG Data -: EKG Interpreted by Me EKG Comments: EKG performed at 18: 23 sinus rhythm rate of 77 [place] 180 QRS 94 QT/QTc 397/428 Disposition Clinical Impression: Closed right hip fracture Disposition: ADMITTED IP TO THIS HOSP Condition: Fair Time of Disposition: 19:34
[2024-05-14 18:42] LABS: ALT 22 U/L (4-34); African American GFR (CKD) >90 (>60 ml/min/1.73 sqM); Anion Gap 10 mmol/L; Blood Urea Nitrogen 7 mg/dL (7-17); Calcium 9.2 mg/dL (8.4-10.2); Carbon Dioxide 22 mmol/L (22-30); Chloride 93 mmol/L (98-107); Glucose 101 mg/dL (74-99); Non-African American GFR(CKD) >90 (>60 ml/min/1.73 sqM); Sodium 125 mmol/L (137-145); Total Bilirubin 0.8 mg/dL (0.2-1.3)
[2024-05-14 18:45] LABS: INR 0.9 (<1.2); Partial Thromboplastin Time 26.1 sec (22.0-30.0); Prothrombin Time 10.2 sec (10.0-12.5)
[2024-05-14 18:50] LABS: AST 42 U/L (14-36); Potassium 4.8 mmol/L (3.5-5.1)
[2024-05-14 18:51] LABS: Albumin 4.3 g/dL (3.5-5.0); Alkaline Phosphatase 56 U/L (38-126); Total Protein 6.9 g/dL (6.3-8.2)
[2024-05-14] MEDS ORDERED: NALOXONE 0.4 MG/ML 1 ML VIAL IV PRN (19:34)
[2024-05-14] MEDS: ONDANSETRON 4 MG/2 ML VIAL IVP STA (19:40)
--- NOTE | 2024-05-14 19:51 | XR ---
EXAMINATION TYPE: XR chest 1V DATE OF EXAM: 05/14/2024 COMPARISON: 11/25/2016 INDICATION: Presurgical clearance TECHNIQUE: Single frontal view of the chest is obtained. FINDINGS: The heart size is normal. The pulmonary vasculature is normal. The lungs are clear. IMPRESSION: 1. No acute pulmonary process. [facility], , 05/14/2024 7:49 PM
--- NOTE | 2024-05-14 20:42 | XR ---
EXAMINATION TYPE: XR Hip RT and AP Pelvis DATE OF EXAM: 05/14/2024 COMPARISON: None HISTORY: Pain, fall TECHNIQUE: 2 view right hip FINDINGS: There is a comminuted intertrochanteric fracture of the right hip. There is avulsion of the lesser trochanter. Femoral head articulates with the acetabulum. Joint space is preserved Left hip appears intact. Symphysis pubis and sacroiliac joints are normal. IMPRESSION: 1. Comminuted fracture right intertrochanteric fracture [facility], , 05/14/2024 8:39 PM
--- NOTE | 2024-05-14 20:44 | XR ---
EXAMINATION TYPE: XR femur RT DATE OF EXAM: 05/14/2024 COMPARISON: Right hip same date HISTORY: Fall, pain TECHNIQUE: 2 view right femur FINDINGS: There is a comminuted intertrochanteric fracture right hip. The lesser trochanter is avulse d. Femoral head articulates with the acetabulum. Distal femur appears intact. IMPRESSION: 1. Comminuted fracture intertrochanteric region right hip. [facility], , 05/14/2024 8:42 PM
[2024-05-14] MEDS ORDERED: HYDROcodone/APAP 7.5-325MG 1 EACH TAB PO PRN (21:17)
[2024-05-14] MEDS ORDERED: HYDROcodone/APAP 5-325MG 1 EACH TAB PO PRN (21:17)
[2024-05-14] MEDS: METOCLOPRAMIDE 5 MG/ML 2 ML VIAL IVP STA (21:18)
[2024-05-14] MEDS: SERTRALINE 50 MG TAB PO SCH (21:20)
--- NOTE | 2024-05-14 21:24 | P.HPOR ---
History of Present Illness H&P Date: 05/14/24 Chief Complaint: Right hip fracture Patient is a 69-year-old female who presented to [facility] on 05/14/2024 after falling on a step at home and injuring her right lower extremity. On arrival to the hospital, multiple lab and imaging tests were done. Images demonstrated a displaced right subtrochanteric femur fracture. I orthopedic team was consulted, she was admitted under our care with plan for surgical intervention. Patient was evaluated in the emergency room today, she complains mainly of right hip pain. She has no other orthopedic complaints. She denies any previous surgery to the right hip. She is not on any blood thinners at this time. She t akes very minimal medications. Patient normally utilizes no assistive devices for ambulation, patient is still working at this time. Currently has no headaches, lightheadedness, chest pain or shortness of breath Review of Systems Constitutional: Reports as per HPI Past Medical History Past Medical History: Fibromyalgia Additional Past Medical History / Comment(s): diverticulosis; Hx. of Bowel obstruction History of Any Multi-Drug Resistant Organisms: None Reported Past Surgical History: Appendectomy, Bowel Resection, Hysterectomy, Orthopedic Surgery Additional Past Surgical History / Comment(s): Tibia Fracture Repair 1993, colostomy and colostomy removal Past Anesthesia/Blood Transfusion Reactions: No Reported Reaction Past Psychological History: No Psychological Hx Reported Smoking Status: Current every day smoker Past Alcohol Use History: Daily Past Drug Use History: None Reported - Past Family History Father History Unknown: Yes Additional Family Medical History / Comment(s): Heart disease Mother History Unknown: Yes Additional Family Medical History / Comment(s): Heart disease, Maternal grandmother of CHF. Medications and Allergies Home Medications Medication Instructions Recorded Confirmed Type LORazepam [Ativan] 0.5 mg PO DAILY 01/07/19 05/14/24 History carisoprodoL [Soma] 350 mg PO HS PRN 01/07/19 05/14/24 History Ondansetron Odt [Zofran ODT] 8 mg PO Q12HR PRN 06/17/23 05/14/24 History traZODone HCL [Desyrel] 100 mg PO HS 06/17/23 05/14/24 History Allergies Allergy/AdvReac Type Severity Reaction Status Date / Time hydromorphone HCl Allergy Itching Verified 05/14/24 19:47 [From Dilaudid] NSAIDS (Non-Steroidal Allergy Anaphylaxis Verified 05/14/24 19:47 Anti-Inflamma omeprazole Allergy Anaphylaxis Verified 05/14/24 19:47 Physical Examination Right lower extremity: No obvious open lesions, sores or areas of erythema. There is some mild soft tissue swelling present in the proximal thigh. Obvious shortening and external rotation of the extremity is noted compared to the contralateral side Pain with palpation noted to the proximal femur, she is nontender to the knee, lower leg, foot or ankle Logroll maneuver reproduces severe pain. She is unable to straight leg raise at this time. Knee extension and flexion were not assessed due to pain in the hip. Plantarflexion, dorsiflexion, EHL, FHL are intact Sensory exam to light touch is intact throughout the extremity Calf is soft, no tenderness with palpation Dorsalis pedis pulses 2+ Results - Labs Labs: Abnormal Lab Results - Last 24 Hours (Table) 05/14/24 05/14/24 Range/Units 18:18 18:18 WBC 13.5 H (3.8-10.6) k/uL Neutrophils # 10.9 H (1.3-7.7) k/uL Sodium 125 L (137-145) mmol/L Chloride 93 L (98-107) mmol/L Glucose 101 H (74-99) mg/dL AST 42 H (14-36) U/L H & H 05/14/24 Range/Units 18:18 Hgb 14.4 (11.4-16.0) gm/dL Hct 41.6 (34.0-46.0) % Coagulation 05/14/24 Range/Units 18:18 INR 0.9 (<1.2) Result Diagrams: 05/14/24 18:18 05/14/24 18:18 - Diagnostic results Hip x-ray: report reviewed, image reviewed (AP pelvis along with right hip x- rays were reviewed and reports. Images demonstrate a reverse oblique type subtrochanteric femur fracture on the right-hand side) Assessment and Plan Assessment: Right hip subtrochanteric/reverse oblique fracture Status post fall from standing Other medical comorbidities Plan: I was able to discuss the case, this to include both physical exam findings and imaging studies and my attending physician. Patient was admitted under our orthopedic care with plan for surgical intervention, more specifically a closed reduction with intramedullary nailing of the right femur. Surgery scheduled for 05/15/2024. Consent will be obtained prior to procedure. Risk and benefits of the procedure were discussed with the patient, this to include but not exclude infection, blood loss, neurovascular injury, development of blood clots, loss of range of motion/function, and adequate healing of bone, need for further surgery. Patient is a good understanding would like to proceed Nonweightbearing at this time DVT prophylaxis, ZOIE hose compression at this time, will begin subcutaneous medication after surgery PT/OT evaluation after surgery Pain control, both oral and IV medications as needed Internal medicine recommendations appreciated Further recommendations to follow Time with Patient: Less than 30
[2024-05-14] MEDS: carisoprodoL 350 MG TAB PO SCH (22:41)
[2024-05-14] MEDS: traZODone HCL 100 MG TAB PO SCH (22:45)
[2024-05-14] MEDS: ONDANSETRON 4 MG/2 ML VIAL IVP PRN (22:53)
[2024-05-14] MEDS: MORPHINE SULFATE 4 MG/ML SYRINGE IV PRN (23:24)
[2024-05-15 02:17] LABS: Appearance,Urine Clear (Clear); Bilirubin,Urine Negative (Negative); Blood,Urine Negative (Negative); Color,Urine Colorless; Glucose,Urine (UA) Negative (Negative); Ketones,Urine Trace (Negative); Leukocyte Esterase,Urine Negative (Negative); Nitrite,Urine Negative (Negative); PH, Urine 5.5 (5.0-8.0); Protein,Urine Trace (Negative); Urobilinogen,Urine <2.0 mg/dL (<2.0)
[2024-05-15] MEDS: ONDANSETRON 4 MG/2 ML VIAL IVP PRN (04:19)
[2024-05-15] MEDS: SODIUM CHLORIDE 0.9% 1,000 ML IV SCH (05:38)
[2024-05-15] MEDS: LORazepam 0.5 MG TAB PO PRN (08:38)
[2024-05-15 09:09] LABS: HCT 36.8 % (37.2-46.3); HGB 12.7 g/dL (12.0-15.0); MCH 32.2 pg (27.0-32.0); MCHC 34.5 g/dL (32.0-37.0); MCV 93.4 FL (80.0-97.0); Mean Platelet Volume 8.8 FL (9.5-12.2); NRBC Per 100 WBC 0 X 10*3/uL (0.00-0.01); Platelet Count 256 X 10*3/uL (140-440); RBC 3.94 X 10*6/uL (4.10-5.20); RDW 12.1 % (11.5-14.5); WBC 10.82 X 10*3/uL (4.50-10.00)
[2024-05-15 09:10] LABS: Basophils # (A) 0.03 X 10*3/uL (0.00-0.10); Basophils % (A) 0.3 %; Eosinophils # (A) 0.03 X 10*3/uL (0.04-0.35); Eosinophils % (A) 0.3 %; Lymphocytes # (A) 0.87 X 10*3/uL (0.90-5.00); Monocytes # (A) 1.26 X 10*3/uL (0.20-1.00); Monocytes % (A) 11.6 %; Neutrophils # (A) 8.59 X 10*3/uL (1.80-7.70); Neutrophils % (A) 79.4 %
[2024-05-15 09:37] LABS: BUN/Creat Ratio 10.33 Ratio (12.00-20.00); Blood Urea Nitrogen 6.2 mg/dL (9.0-27.0); Calcium 8.7 mg/dL (8.7-10.3); Carbon Dioxide 22.8 mmol/L (21.6-31.8); Chloride 93 mmol/L (96-109); Glucose 132 mg/dL (70-110); Potassium 4.8 mmol/L (3.5-5.5); Sodium 125 mmol/L (135-145)
--- NOTE | 2024-05-15 09:59 | P.PN ---
Subjective Progress Note Date: 05/15/24 Principal diagnosis: Right subtrochanteric femur fracture Patient evaluated at bedside today, she is resting comfortably. She is eager for surgery today. Her pain is currently controlled. She denies headaches, lightheadedness, chest pain or shortness of breath Objective - Vital Signs Vital signs: Vital Signs Temp 99.0 F 05/15/24 07:07 Pulse 82 05/15/24 07:07 Resp 17 05/15/24 07:07 BP 133/78 05/15/24 07:07 Pulse Ox 93 L 05/15/24 07:07 FiO2 Intake & Output 05/14/24 05/15/24 05/15/24 18:59 06:59 18:59 Output Total 750 Balance -750 Weight 58.06 kg 58.06 kg Output: Urine 750 Uretheral ([place]ler) 400 Other: Voiding Method Indwelling Catheter Indwelling Catheter - Exam Right lower extremity: No obvious open lesions, sores or areas of erythema. There is some mild soft t issue swelling present in the proximal thigh. Obvious shortening and external rotation of the extremity is noted compared to the contralateral side Pain with palpation noted to the proximal femur, she is nontender to the knee, lower leg, foot or ankle Logroll maneuver reproduces severe pain. She is unable to straight leg raise at this time. Knee extension and flexion were not assessed due to pain in the hip. Plantarflexion, dorsiflexion, EHL, FHL are intact Sensory exam to light touch is intact throughout the extremity Calf is soft, no tenderness with palpation Dorsalis pedis pulses 2+ - Labs CBC & Chem 7: 05/15/24 02:59 05/15/24 02:59 Labs: Abnormal Lab Results - Last 24 Hours (Table) 05/14/24 05/14/24 05/15/24 Range/Units 18:18 18:18 01:09 WBC 13.5 H (3.8-10.6) k/uL RBC (4.10-5.20) X 10*6/uL Hct (37.2-46.3) % MCH (27.0-32.0) pg MPV (9.5-12.2) FL Neutrophils # 10.9 H (1.3-7.7) k/uL Lymphocytes # (0.90-5.00) X 10*3/uL Monocytes # (0.20-1.00) X 10*3/uL Eosinophils # (0.04-0.35) X 10*3/uL Sodium 125 L (137-145) mmol/L Chloride 93 L (98-107) mmol/L BUN (9.0-27.0) mg/dL BUN/Creatinine Ratio (12.00-20.00) Ratio Glucose 101 H (74-99) mg/dL AST 42 H (14-36) U/L Urine Protein Trace H (Negative) Urine Ketones Trace H (Negative) 05/15/24 05/15/24 Range/Units 02:59 02:59 WBC 10.82 H (3.8-10.6) k/uL RBC 3.94 L (4.10-5.20) X 10*6/uL Hct 36.8 L (37.2-46.3) % MCH 32.2 H (27.0-32.0) pg MPV 8.8 L (9.5-12.2) FL Neutrophils # 8.59 H (1.3-7.7) k/uL Lymphocytes # 0.87 L (0.90-5.00) X 10*3/uL Monocytes # 1.26 H (0.20-1.00) X 10*3/uL Eosinophils # 0.03 L (0.04-0.35) X 10*3/uL Sodium 125 L (137-145) mmol/L Chloride 93 L (98-107) mmol/L BUN 6.2 L (9.0-27.0) mg/dL BUN/Creatinine Ratio 10.33 L (12.00-20.00) Ratio Glucose 132 H (74-99) mg/dL AST (14-36) U/L Urine Protein (Negative) Urine Ketones (Negative) Assessment and Plan Assessment: Right hip subtrochanteric/reverse oblique fracture Status post fall from standing Other medical comorbidities Plan: Surgery scheduled for 05/15/2024 Continue n.p.o. diet Nonweightbearing at this time DVT prophylaxis, ZOIE hose compression at this time, will begin subcutaneous medication after surgery PT/OT evaluation after surgery Pain control, both oral and IV medications as needed Internal medicine recommendations appreciated Further recommendations to follow Time with Patient: Less than 30
--- NOTE | 2024-05-15 11:50 | P.CONS ---
History of Present Illness - History of Present Illness This is a pleasant 69 years old female with past medical history of multiple medical problems including depression and mild hyponatremia Presents because of fall at home, patient states that she tripped with no syncope or dizziness or other complaint. She was carrying many plates and she has steps towards her kitchen, she could not look well and she tripped and fell, she denies head trauma but she had pain on the right hip area. She was found to have acute comminuted right hip fracture. Orthopedic team planning for orthopedic surgery today with TH a on the right side Patient currently denies chest pain or dyspnea. No GI/ symptoms. No fever or chills She smokes 1 pack/day and she was counseled to quit and she agrees. She wants nicotine patch. She denies alcohol or illicit drugs. Vitals are stable She has mild leukocytosis of 13,000 Sodium yesterday was 125, today is also 125 although she was receiving 75 mL of normal saline Chest x-ray is negative for acute process Hip and pelvis x-ray showing right comminuted hip fracture Review of Systems Review of systems CONSTITUTIONAL: No fever, no malaise, no fatigue. HEENT: No recent visual problems or hearing problems. Denied any sore throat. CARDIOVASCULAR: No orthopnea, PND, no palpitations, no syncope. PULMONARY: No shortness of breath, no cough, no hemoptysis. GASTROINTESTINAL: No diarrhea, no nausea, no vomiting, no abdominal pain. Normoactive bowel sounds. NEUROLOGICAL: No headaches, no weakness, no numbness. HEMATOLOGICAL: Denies any bleeding or petechiae. GENITOURINARY: Denies any burning micturition, frequency, or urgency. MUSCULOSKELETAL/RHEUMATOLOGICAL: Denies any joint pain, swelling, or any muscle pain. ENDOCRINE: Denies any polyuria or polydipsia. Past Medical History Past Medical History: Fibromyalgia Additional Past Medical History / Comment(s): diverticulosis; Hx. of Bowel obstruction History of Any Multi-Drug Resistant Organisms: None Reported Past Surgical History: Appendectomy, Bowel Resection, Hysterectomy, Orthopedic Surgery Additional Past Surgical History / Comment(s): Tibia Fracture Repair 1993, colostomy and colostomy removal Past Anesthesia/Blood Transfusion Reactions: No Reported Reaction Past Psychological History: No Psychological Hx Reported Additional Psychological History / Comment(s): lives with family home with the . She's never day smoker but no severe alcohol use. Employed at [employer] No recent travels. No experience related. no animal exposures related Smoking Status: Current every day smoker Past Alcohol Use History: Daily Additional Past Alcohol Use History / Comment(s): Smokes approx. 1/2 ppd. Past Drug Use History: None Reported - Past Family History Father History Unknown: Yes Additional Family Medical History / Comment(s): Heart disease Mother History Unknown: Yes Additional Family Medical History / Comment(s): Heart disease, Maternal grandmother of CHF. Medications and Allergies Home Medications Medication Instructions Recorded Confirmed Type LORazepam [Ativan] 0.5 mg PO DAILY 01/07/19 05/14/24 History carisoprodoL [Soma] 350 mg PO HS PRN 01/07/19 05/14/24 History Ondansetron Odt [Zofran ODT] 8 mg PO Q12HR PRN 06/17/23 05/14/24 History traZODone HCL [Desyrel] 100 mg PO HS 06/17/23 05/14/24 History Allergies Allergy/AdvReac Type Severity Reaction Status Date / Time hydromorphone HCl Allergy Itching Verified 05/14/24 19:47 [From Dilaudid] NSAIDS (Non-Steroidal Allergy Anaphylaxis Verified 05/14/24 19:47 Anti-Inflamma omeprazole Allergy Anaphylaxis Verified 05/14/24 19:47 Physical Exam Vitals: Vital Signs Temp Pulse Pulse Resp BP BP Pulse Ox 05/15/24 07:07 99.0 F 82 17 133/78 93 L 05/15/24 01:24 98.7 F 79 18 127/79 93 L 05/14/24 22:14 98.5 F 80 20 118/74 93 L 05/14/24 21:11 82 20 127/70 94 L 05/14/24 17:50 98.7 F 76 20 174/150 97 Intake and Output 05/14/24 05/15/24 05/15/24 22:59 06:59 14:59 Output Total 750 450 Balance -750 -450 Output: Urine 750 450 Uretheral (Adler) 400 Other: Voiding Method Indwelling Catheter Indwelling Catheter Weight 58.06 kg GENERAL: The patient is alert and oriented x3, not in any acute distress. Well developed, well nourished. HEENT: Pupils are round and equally reacting to light. EOMI. No scleral icterus. No conjunctival pallor. Normocephalic, atraumatic. No pharyngeal erythema. No thyromegaly. CARDIOVASCULAR: S1 and S2 present. No murmurs, rubs, or gallops. PULMONARY: Chest is clear to auscultation, no wheezing , no crackles. ABDOMEN: Soft, nontender, nondistended, normoactive bowel sounds. No palpable organomegaly. MUSCULOSKELETAL: No joint swelling or deformity. -EXTREMITIES: No cyanosis, clubbing, or pedal edema. Right hip area tenderness with limb shortened NEUROLOGICAL: Gross neurological examination did not reveal any focal deficits. SKIN: No rashes. no petechiae. Results CBC & Chem 7: 05/15/24 02:59 05/15/24 02:59 Labs: Abnormal Lab Results - Last 24 Hours (Table) 05/14/24 05/14/24 05/15/24 Range/Units 18:18 18:18 01:09 WBC 13.5 H (3.8-10.6) k/uL RBC (4.10-5.20) X 10*6/uL Hct (37.2-46.3) % MCH (27.0-32.0) pg MPV (9.5-12.2) FL Neutrophils # 10.9 H (1.3-7.7) k/uL Lymphocytes # (0.90-5.00) X 10*3/uL Monocytes # (0.20-1.00) X 10*3/uL Eosinophils # (0.04-0.35) X 10*3/uL Sodium 125 L (137-145) mmol/L Chloride 93 L (98-107) mmol/L BUN (9.0-27.0) mg/dL BUN/Creatinine Ratio (12.00-20.00) Ratio Glucose 101 H (74-99) mg/dL AST 42 H (14-36) U/L Urine Protein Trace H (Negative) Urine Ketones Trace H (Negative) Urine Osmolality (400-1100) mOsm/kg 05/15/24 05/15/24 05/15/24 Range/Units 02:59 02:59 04:15 WBC 10.82 H (3.8-10.6) k/uL RBC 3.94 L (4.10-5.20) X 10*6/uL Hct 36.8 L (37.2-46.3) % MCH 32.2 H (27.0-32.0) pg MPV 8.8 L (9.5-12.2) FL Neutrophils # 8.59 H (1.3-7.7) k/uL Lymphocytes # 0.87 L (0.90-5.00) X 10*3/uL Monocytes # 1.26 H (0.20-1.00) X 10*3/uL Eosinophils # 0.03 L (0.04-0.35) X 10*3/uL Sodium 125 L (137-145) mmol/L Chloride 93 L (98-107) mmol/L BUN 6.2 L (9.0-27.0) mg/dL BUN/Creatinine Ratio 10.33 L (12.00-20.00) Ratio Glucose 132 H (74-99) mg/dL AST (14-36) U/L Urine Protein (Negative) Urine Ketones (Negative) Urine Osmolality 346 L (400-1100) mOsm/kg Assessment and Plan Assessment: Fall at home without syncope Comminuted right hip fracture, acute Hyponatremia Depression Hypertension Hyperlipidemia Diabetes mellitus History of GERD Hypothyroidism History of osteoarthritis Plan: Continue with IV fluid Monitor sodium level Hyponatremia could be secondary or contributed by her Zoloft Pain management Orthopedic primary team on the case for surgical evaluation. Patient going for right hip replacement today. Patient at some risk but no contraindication from medical perspective to proceed with the surgery Nicotine patch Labs and medication were reviewed.. Continue same treatment. Continue with symptomatic treatment. Resume home medication. Monitor labs and vitals. DVT and GI prophylaxis. Further recommendations as per clinical course of the patient DVT prophylaxis: Deferred to surgery team GI Prophylaxis: Pepcid PT/OT: Pending Prognosis is guarded
--- NOTE | 2024-05-15 13:27 | P.NPCON ---
History of Present Illness - Reason for Consult hyponatremia - History of Present Illness Reason for consultation: Hyponatremia History of present illness: Patient is a 69-year-old female seen in renal consultation for hyponatremia. Patient sodium level at admission was 125 and was stable at 125 as of this morning. She is currently receiving normal saline at 75 cc an hour. Patient came to the hospital after she sustained a fall at home and fractured the right femur. Patient says she missed a step in her kitchen with her hands fall and subsequently fell. She denies dizziness or syncopal episodes. No vomiting or diarrhea prior to admission. She currently feels nauseous. She denies use of nonsteroidals. Denies use of thiazide diuretics. Denies excessive fluid intake. Denies history of malignancy. Denies history of diabetes or coronary artery disease. She currently is a Adler catheter. Hemodynamically stable. Nonoliguric. No history of kidney disease. Renal function at baseline. Vital signs are stable. General: The patient appeared well nourished and normally developed. HEENT: Head exam is unremarkable. LUNGS: No audible rhonchi or wheezes. HEART: Rate and Rhythm are regular. ABDOMEN: Nontender. EXTREMITITES: No edema. Past Medical History Past Medical History: Fibromyalgia Additional Past Medical History / Comment(s): diverticulosis; Hx. of Bowel obstruction History of Any Multi-Drug Resistant Organisms: None Reported Past Surgical History: Appendectomy, Bowel Resection, Hysterectomy, Orthopedic Surgery Additional Past Surgical History / Comment(s): Tibia Fracture Repair 1993, colostomy and colostomy removal Past Anesthesia/Blood Transfusion Reactions: No Reported Reaction Past Psychological History: No Psychological Hx Reported Additional Psychological History / Comment(s): lives with family home with the . She's never day smoker but no severe alcohol use. Employed at [employer]. No recent travels. No experience related. no animal exposures related Smoking Status: Current every day smoker Past Alcohol Use History: Daily Additional Past Alcohol Use History / Comment(s): Smokes approx. 1/2 ppd. Past Drug Use History: None Reported - Past Family History Father History Unknown: Yes Additional Family Medical History / Comment(s): Heart disease Mother History Unknown: Yes Additional Family Medical History / Comment(s): Heart disease, Maternal grandmother of CHF. Medications and Allergies Home Medications Medication Instructions Recorded Confirmed Type LORazepam [Ativan] 0.5 mg PO DAILY 01/07/19 05/14/24 History carisoprodoL [Soma] 350 mg PO HS PRN 01/07/19 05/14/24 History Ondansetron Odt [Zofran ODT] 8 mg PO Q12HR PRN 06/17/23 05/14/24 History traZODone HCL [Desyrel] 100 mg PO HS 06/17/23 05/14/24 History Allergies Allergy/AdvReac Type Severity Reaction Status Date / Time hydromorphone HCl Allergy Itching Verified 05/14/24 19:47 [From Dilaudid] NSAIDS (Non-Steroidal Allergy Anaphylaxis Verified 05/14/24 19:47 Anti-Inflamma omeprazole Allergy Anaphylaxis Verified 05/14/24 19:47 Physical Exam Vitals: Vital Signs Temp Pulse Pulse Resp BP BP Pulse Ox 05/15/24 07:07 99.0 F 82 17 133/78 93 L 05/15/24 01:24 98.7 F 79 18 127/79 93 L 05/14/24 22:14 98.5 F 80 20 118/74 93 L 05/14/24 21:11 82 20 127/70 94 L 05/14/24 17:50 98.7 F 76 20 174/150 97 Intake and Output 05/14/24 05/15/24 05/15/24 22:59 06:59 14:59 Output Total 750 450 Balance -750 -450 Output: Urine 750 450 Uretheral (Adler) 400 Other: Voiding Method Indwelling Catheter Indwelling Catheter Weight 58.06 kg Results - Lab Results Most recent lab results Calcium 8.7 mg/dL (8.7-10.3) 05/15/24 02:59 05/15/24 02:59 05/15/24 02:59 Assessment and Plan Plan: Assessment: 1. 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 Sodium level stable at 125 with no improvement with IV fluids. Urine osmolality 346. 2. Status post fall with right hip fracture. Orthopedic surgery following. Plan: Follow-up repeat labs. Follow-up urine sodium level. Check TSH. If no improvement in sodium level, will give salt tab. Thank you for the consultation. I will continue to follow the patient with you during her hospital stay.
[2024-05-15 13:46] LABS: African American GFR (CKD) >90 (>60 ml/min/1.73 sqM); Anion Gap 6 mmol/L; Blood Urea Nitrogen 6 mg/dL (7-17); Calcium 8.7 mg/dL (8.4-10.2); Carbon Dioxide 22 mmol/L (22-30); Chloride 97 mmol/L (98-107); Glucose 101 mg/dL (74-99); Non-African American GFR(CKD) >90 (>60 ml/min/1.73 sqM); Potassium 4.9 mmol/L (3.5-5.1); Sodium 125 mmol/L (137-145)
[2024-05-15] MEDS: SODIUM CHLORIDE TAB 1 GM TAB PO STA (14:33)
[2024-05-15] MEDS: IV FLUID CONTINUATION 1,000 ML IV ONE (16:25)
[2024-05-15] MEDS ORDERED: fentaNYL (PF) 50 MCG/ML 2 ML AMP ONE (16:53)
[2024-05-15] MEDS ORDERED: PROPOFOL 10 MG/ML 20 ML VIAL IV ONE (16:53)
[2024-05-15] MEDS ORDERED: KETAMINE HCL IN 0.9 % NACL 50 MG/5 ML SYRINGE ONE (16:53)
[2024-05-15] MEDS ORDERED: PHENYLEPHRINE 10 MG/ML VIAL ONE (16:53)
[2024-05-15] MEDS ORDERED: ceFAZolin 1 GM/50 ML BAG (PMX) ONE (16:53)
[2024-05-15] MEDS ORDERED: MIDAZOLAM 2 MG/2 ML VIAL ONE (16:53)
[2024-05-15] MEDS ORDERED: TRANEXAMIC 1,000 MG/100ML-NACL PREMIX BAG ONE (16:53)
[2024-05-15] MEDS: DEXAMETHASONE SOD PHOSPHATE 4 MG/ML 1 ML VIAL IVP STA (16:54)
[2024-05-15] MEDS: LACTATED RINGERS 1,000 ML BAG IV STA (16:56)
[2024-05-15] MEDS: SODIUM CHLORIDE 0.9% 50 ML with ceFAZolin 2,000 MG IV ONE (17:00)
--- NOTE | 2024-05-15 19:04 | P.OP ---
Date of Procedure: 05/15/24 Preoperative Diagnosis: 1. Right 4 part reverse oblique subtrochanteric IT fracture, closed, displaced 2. s/p fall down stairs 3. hyponatremia 4. complex medical patient Postoperative Diagnosis: 1. Right 4 part reverse oblique subtrochanteric IT fracture, closed, displaced 2. s/p fall down stairs 3. hyponatremia 4. complex medical patient Procedure(s) Performed: 1. Open treatment right 4 part, displaced, closed, subtrochanteric IT fracture with intramedullary nail fixation Implants: [employer] Intertan nail; [id number] 125 deg. 95 lab, 85 compression, 35 distal locking screws. Anesthesia: GETA Surgeon: Orion Hackett Fiscal Accountant #1: Arnulfo Huff (was present and assisted with all aspects of the case from position to dressing placement) Estimated Blood Loss (ml): 100 IV fluids (ml): 500 Urine output (ml): 300 Pathology: none sent Condition: stable Disposition: PACU Indications for Procedure: 69 YO FEMALE PRESENTING FOR A FALL FROM STANDING AT HOME. Pt s/e. states she was walking at home and fell up her stairs on to her right hip bluntly, causing extreme pain and inability to ambulate. She called EMS who brought her to ED. She was found to have IT fracture, 4 part, displaced, rotated with reverse oblique nature, closed. She was admitted and seen by nephrology and medicine who cleared her for surgery as well as anesthesia. We discussed different options for treatment of her fracture as well as alternatives, and potential outcomes. We discussed risks and benefits at length including but not limited to risk of bleeding, infection, damage to surrounding tissues, risk of need for re-operation, risk of non healing if she continues to smoke. Risk of anesthesia and in her case given her Na status risk of stroke, CPM, and risk of due to anesthesia, surgery and complications there of. She was wiling to assume these risks and all the risks of surgery. Description of Procedure: RIGHT hip LONG NAIL The patient was seen and examined in the preoperative area. All preoperative protocols were followed. Informed consent was obtained, risks and benefits of the procedure were discussed at length. Risks including bleeding infection damage to the surrounding tissue and risk of reoperation were discussed with the patient. Risk of anesthesia up to and including was discussed with the garcia cade. These are outlined in the risk reviewed. They were willing to accept these risks and all of the risks of surgery. The patient was given a weight- based dose of antibiotics in the form of 2 g Ancef. The patient was seen and evaluated by the anesthesia team who deemed them fit for surgery. The site was marked, the patient was willing to proceed with the procedure. The patient was transferred to the operative suite by the Department of anesthesia. They were then drifted off to sleep by the department of anesthesia andGETA anesthesia was used. Once adequate anesthesia had been obtained the patient was carefully transferred to the operative bed. All bony prominences were padded accordingly. SCDs were placed on the nonoperative lower extremities. Arms were well padded. The patient was transferred to the Nataliia table and her right leg was placed in a Nataliia boot and secured to the table. The left leg was placed in a well-leg guerra well padded and secured. The post was placed and she was secured appropriately. arms were placed on arm boards and well-padded Preoperative briefing was done with the operative team and everyone was ready for the procedure to start. X Ray used to reduce the fracture with Nataliia table. The patient's right leg was then prepped and draped in the normal sterile fashion. Timeout was then performed and all parties in agreement with the procedure to be performed. X-ray was then used to suzi 2 cm proximal to the GT. Skin incision made in line with the femur and blunt dissection taken down to the deep fascia which was split. Blunt dissection then taken down to the tip of the GT and the sharp awl used. Optimal starting point achieved on AP and Lateral imaging. Awl was then advanced into the proximal femur. Ball tip guidewire was then passed into the femur to the tip of the superior pole of the patella distally. It was confirmed on Ap and lateral imaging. Opening reamer then passed followed by 9, 11 and 13 mm reamer. Then the nail was selected and impacted into place over the wire using fluoroscopic guidance. Once in position the lateral guide was placed and skin incision made in line with the femur over the lateral aspect. Dissection taken down through the tensor fascia which was split inline with its fibers. The guide was seated against bone. Pin was placed through a guide for the lag screw to be within 10mm on Ap and lateral of the subchondral bone. This was then measured. Appropriate sized compression screw then selected and drilled. Then the lag screw was drilled. A Lag screw is placed over the wire followed by the compression screw. About 7 mm of compression was achieved. Good alignment in AP and lateral shown. The nail was then locked proximally. Distal locking screw was then placed using lateral and perfect circles dist ally.Screw was drilled and measured and placed. AP and lateral confirmed good placement and good fracture reduction as well as stability in ROM. The guide was then removed from the nail. The wound was then copiously irrigated with normal sterile saline final AP and lateral fluoroscopic imaging confirmed good placement of pins as well as reduction of fracture. The deep fascia was then closed with 0 Vicryl superficial closed 2-0 Vicryl and skin closed with skin anisha the wound edges approximated very well. The wound was then cleaned and dressed with an optifoam dressing. The patient was then transferred back to their hospital bed. They were awakened by the department of anesthesia having tolerated the procedure very well with no complications. The patient was then transported to the postoperative care unit in stable condition. .
[2024-05-15] MEDS: FAMOTIDINE 20 MG/2 ML VIAL IV SCH (20:23)
[2024-05-15] MEDS: carisoprodoL 350 MG TAB PO PRN (22:39)
[2024-05-16] MEDS: SODIUM CHLORIDE TAB 1 GM TAB PO SCH (01:33)
[2024-05-16 04:00] LABS: Basophils % (A) 0 %; Eosinophils % (A) 0 %; HCT 33.3 % (34.0-46.0); HGB 11.6 gm/dL (11.4-16.0); Lymphocytes # (A) 0.9 k/uL (1.0-4.8); Lymphocytes % (A) 10 %; MCH 32.8 pg (25.0-35.0); MCHC 34.7 g/dL (31.0-37.0); MCV 94.3 fL (80.0-100.0); Monocytes # (A) 0.7 k/uL (0-1.0); Monocytes % (A) 8 %; Neutrophils % (A) 81 %; Platelet Count 259 k/uL (150-450); RBC 3.53 m/uL (3.80-5.40); RDW 12.2 % (11.5-15.5); WBC 8.6 k/uL (3.8-10.6)
[2024-05-16] MEDS: SENNOSIDES-DOCUSATE SODIUM 1 EACH TAB PO SCH (08:21)
[2024-05-16] MEDS: ENOXAPARIN 40 MG/0.4 ML SYRINGE SQ SCH (08:22)
[2024-05-16] MEDS: FAMOTIDINE 20 MG TAB PO SCH (08:22)
--- NOTE | 2024-05-16 09:39 | P.PN ---
Subjective This is a pleasant 69 years old female with past medical history of multiple medical problems including depression and mild hyponatremia Presents because of fall at home, patient states that she tripped with no syncope or dizziness or other complaint. She was carrying many plates and she has steps towards her kitchen, she could not look well and she tripped and fell, she denies head trauma but she had pain on the right hip area. She was found to have acute comminuted right hip fracture. Orthopedic team planning for orthopedic surgery today with TH a on the right side Patient currently denies chest pain or dyspnea. No GI/ symptoms. No fever or chills She smokes 1 pack/day and she was counseled to quit and she agrees. She wants nicotine patch. She denies alcohol or illicit drugs. Vitals are stable She has mild leukocytosis of 13,000 Sodium yesterday was 125, today is also 125 although she was receiving 75 mL of normal saline Chest x-ray is negative for acute process Hip and pelvis x-ray showing right comminuted hip fracture 05/16 Patient feels okay overall She still have some pain at the surgical site about 02/27 Patient has Adler catheter in place Her sodium today slightly improved to 126. Patient was counseled about fluid restriction and she is agreeable. She states she drinks about 2 L/day and plan to cut it down slightly. Urine sodium was 21. And urine osmolality more than 300. IV fluid was discontinued Objective - Vital Signs Vital signs: Vital Signs Temp 99.0 F 05/16/24 06:50 Pulse 84 05/16/24 06:50 Resp 18 05/16/24 06:50 BP 132/77 05/16/24 06:50 Pulse Ox 90 L 05/16/24 06:50 FiO2 Intake & Output 05/15/24 05/16/24 05/16/24 18:59 06:59 18:59 Intake Total 850 Output Total 950 700 Balance -100 -700 Intake: IV 850 Output: Urine 850 700 Estimated Blood Loss 100 Other: Voiding Method Indwelling Catheter Indwelling Catheter - Labs CBC & Chem 7: 05/16/24 03:34 05/15/24 20:18 Labs: Abnormal Lab Results - Last 24 Hours (Table) 05/15/24 05/15/24 05/15/24 Range/Units 02:59 04:15 04:15 RBC (3.80-5.40) m/uL Hct (34.0-46.0) % Lymphocytes # (1.0-4.8) k/uL Sodium 125 L (135-145) mmol/L Chloride 93 L (96-109) mmol/L BUN 6.2 L (9.0-27.0) mg/dL Creatinine (0.52-1.04) mg/dL BUN/Creatinine Ratio 10.33 L (12.00-20.00) Ratio Glucose 132 H (70-110) mg/dL Urine Osmolality 346 L (400-1100) mOsm/kg Ur Random Sodium 21 L (40-220) mmol/L 05/15/24 05/15/24 05/16/24 Range/Units 12:43 20:18 03:34 RBC 3.53 L (3.80-5.40) m/uL Hct 33.3 L (34.0-46.0) % Lymphocytes # 0.9 L (1.0-4.8) k/uL Sodium 125 L 126 L (135-145) mmol/L Chloride 97 L (96-109) mmol/L BUN 6 L (9.0-27.0) mg/dL Creatinine 0.47 L (0.52-1.04) mg/dL BUN/Creatinine Ratio (12.00-20.00) Ratio Glucose 101 H (70-110) mg/dL Urine Osmolality (400-1100) mOsm/kg Ur Random Sodium (40-220) mmol/L Assessment and Plan Assessment: Fall at home without syncope Comminuted right hip fracture, acute. Status post open reduction and intramedullary nail fixation. Today's postop day #1 Hyponatremia secondary to SIADH. Thought secondary to pain, nausea and medication as she was taking trazodone at home Depression Hypertension Hyperlipidemia Diabetes mellitus History of GERD Hypothyroidism History of osteoarthritis Plan: discontinue with IV fluid Monitor sodium level Nephrology consult on the case Hyponatremia could be secondary or contributed by her trazodone 100 mg. Patient states she is not taking Zoloft at home Pain management per primary team Orthopedic primary team on the case for surgical evaluation. Patient going for right hip replacement today. Labs and medication were reviewed.. Continue same treatment. Continue with symptomatic treatment. Resume home medication. Monitor labs and vitals. DVT and GI prophylaxis. Further recommendations as per clinical course of the patient DVT prophylaxis: Deferred to surgery team GI Prophylaxis: Pepcid PT/OT: Pending Prognosis is guarded
[2024-05-16] MEDS ORDERED: traMADol 50 MG TAB PO PRN (09:51)
--- NOTE | 2024-05-16 09:56 | P.PN ---
Subjective Progress Note Date: 05/16/24 Principal diagnosis: Right subtrochanteric femur fracture Patient was evaluated at bedside today, she is resting in her hospital bed. Urinary catheter remains in place. She does have some pain at the surgical site. She has been dealing with some nausea this morning. Discussed with patient she needs to start trying to eat more so we can work in the oral pain medications versus just IV pain medication. PT/OT evaluation later today. Denies any headaches, lightheadedness, chest pain or shortness of breath Objective - Vital Signs Vital signs: Vital Signs Temp 99.0 F 05/16/24 06:50 Pulse 84 05/16/24 06:50 Resp 18 05/16/24 06:50 BP 132/77 05/16/24 06:50 Pulse Ox 90 L 05/16/24 06:50 FiO2 Intake & Output 05/15/24 05/16/24 05/16/24 18:59 06:59 18:59 Intake Total 850 Output Total 950 700 Balance -100 -700 Intake: IV 850 Output: Urine 850 700 Estimated Blood Loss 100 Other: Voiding Method Indwelling Catheter Indwelling Catheter - Exam Right lower extremity: Postoperative dressings are in good position condition, mild spotting is noted Mild soft tissue swelling noted to the proximal anterior lateral thigh No pain with palpation surrounding the knee, lower leg, foot or ankle Calf is soft, no tenderness with palpation Sensory exam to light touch is intact throughout the extremity Dorsalis pedis pulses 2+ - Labs CBC & Chem 7: 05/16/24 03:34 05/15/24 20:18 Labs: Abnormal Lab Results - Last 24 Hours (Table) 05/15/24 05/15/24 05/15/24 Range/Units 04:15 04:15 12:43 RBC (3.80-5.40) m/uL Hct (34.0-46.0) % Lymphocytes # (1.0-4.8) k/uL Sodium 125 L (137-145) mmol/L Chloride 97 L (98-107) mmol/L BUN 6 L (7-17) mg/dL Creatinine 0.47 L (0.52-1.04) mg/dL Glucose 101 H (74-99) mg/dL Urine Osmolality 346 L (400-1100) mOsm/kg Ur Random Sodium 21 L (40-220) mmol/L 05/15/24 05/16/24 Range/Units 20:18 03:34 RBC 3.53 L (3.80-5.40) m/uL Hct 33.3 L (34.0-46.0) % Lymphocytes # 0.9 L (1.0-4.8) k/uL Sodium 126 L (137-145) mmol/L Chloride (98-107) mmol/L BUN (7-17) mg/dL Creatinine (0.52-1.04) mg/dL Glucose (74-99) mg/dL Urine Osmolality (400-1100) mOsm/kg Ur Random Sodium (40-220) mmol/L Assessment and Plan Assessment: Postoperative day #1 status post IM nail right subtrochanteric femur fracture Right hip 4 part subtrochanteric/reverse oblique fracture Status post fall from standing Hyponatremia Other medical comorbidities Plan: Pain control, please try to utilize oral medications, IV pain medication for severe breakthrough pain DVT prophylaxis, continue subcu medication Weight-bear as tolerated, utilize walker at all times PT/OT Internal medicine recommendations appreciated Discontinue urinary catheter later today Discharge planning: Patient is very intent on going home, will discuss with case management discharge options
[2024-05-16 11:06] LABS: Blood Urea Nitrogen 5.4 mg/dL (9.0-27.0); Carbon Dioxide 21.3 mmol/L (21.6-31.8); Chloride 94 mmol/L (96-109); Glucose 130 mg/dL (70-110); Potassium 4.6 mmol/L (3.5-5.5); Sodium 125 mmol/L (135-145)
--- NOTE | 2024-05-16 11:11 | P.PN ---
Subjective Patient is seen in follow-up for hyponatremia. Sodium level 125 this morning. Remains nauseated. Status post right hip surgery yesterday. Vital signs are stable. General: No acute distress. HEENT: Head exam is unremarkable. LUNGS: No audible rhonchi or wheezes. HEART: Rate and Rhythm are regular. ABDOMEN: Nontender. EXTREMITITES: No edema. Objective - Vital Signs Vital signs: Vital Signs Temp 99.0 F 05/16/24 06:50 Pulse 84 05/16/24 06:50 Resp 18 05/16/24 06:50 BP 132/77 05/16/24 06:50 Pulse Ox 90 L 05/16/24 06:50 FiO2 Intake & Output 05/15/24 05/16/24 05/16/24 18:59 06:59 18:59 Intake Total 850 Output Total 950 700 Balance -100 -700 Intake: IV 850 Output: Urine 850 700 Estimated Blood Loss 100 Other: Voiding Method Indwelling Catheter Indwelling Catheter - Labs CBC & Chem 7: 05/16/24 03:34 05/16/24 03:34 Labs: Abnormal Lab Results - Last 24 Hours (Table) 05/15/24 05/15/24 05/15/24 Range/Units 04:15 12:43 20:18 RBC (3.80-5.40) m/uL Hct (34.0-46.0) % Lymphocytes # (1.0-4.8) k/uL Sodium 125 L 126 L (137-145) mmol/L Chloride 97 L (98-107) mmol/L Carbon Dioxide (21.6-31.8) mmol/L BUN 6 L (7-17) mg/dL Creatinine 0.47 L (0.52-1.04) mg/dL BUN/Creatinine Ratio (12.00-20.00) Ratio Glucose 101 H (74-99) mg/dL Calcium (8.7-10.3) mg/dL Ur Random Sodium 21 L (40-220) mmol/L 05/16/24 05/16/24 Range/Units 03:34 03:34 RBC 3.53 L (3.80-5.40) m/uL Hct 33.3 L (34.0-46.0) % Lymphocytes # 0.9 L (1.0-4.8) k/uL Sodium 125 L (137-145) mmol/L Chloride 94 L (98-107) mmol/L Carbon Dioxide 21.3 L (21.6-31.8) mmol/L BUN 5.4 L (7-17) mg/dL Creatinine 0.5 L (0.52-1.04) mg/dL BUN/Creatinine Ratio 10.80 L (12.00-20.00) Ratio Glucose 130 H (74-99) mg/dL Calcium 8.0 L (8.7-10.3) mg/dL Ur Random Sodium (40-220) mmol/L Assessment and Plan Plan: Assessment: 1. 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 Sodium level stable at 125 with no improvement with IV fluids. Urine osmolality 346. Urine sodium 21. TSH normal. 2. Status post fall with right hip fracture. Orthopedic surgery following. Status post surgical repair May 15, 2024. Plan: Maintain sodium chloride tabs. Encouraged oral intake. Add 1200 cc fluid restriction. Repeat labs in the morning. If no improvement in sodium level, will give Samsca.
[2024-05-16] MEDS: ONDANSETRON 4 MG/2 ML VIAL IVP PRN (18:43)
--- NOTE | 2024-05-17 09:15 | P.PN ---
Subjective Patient seen at bedside. No significant overnight events. Adler catheter removed. Patient has been able to urinate after Adler removed. Nephrology consulted for hyponatremia. Sodium decreased from 125 to 124 today. Objective - Vital Signs Vital signs: Vital Signs Temp 99.9 F H 05/16/24 20:22 Pulse 95 05/16/24 20:22 Resp 18 05/16/24 20:22 BP 144/74 05/16/24 20:22 Pulse Ox 90 L 05/16/24 20:22 FiO2 Intake & Output 05/16/24 05/17/24 05/17/24 18:59 06:59 18:59 Intake Total 120 Output Total 800 875 Balance -680 -875 Intake: Oral 120 Output: Urine 800 875 Other: Voiding Method Indwelling Catheter Indwelling Catheter Indwelling Catheter - Exam Vital signs are stable. General: No acute distress. HEENT: Head exam is unremarkable. LUNGS: No audible rhonchi or wheezes. HEART: Rate and Rhythm are regular. ABDOMEN: Nontender. EXTREMITITES: No edema. - Labs CBC & Chem 7: 05/16/24 03:34 05/17/24 10:24 Labs: Abnormal Lab Results - Last 24 Hours (Table) 05/16/24 Range/Units 03:34 Sodium 125 L (135-145) mmol/L Chloride 94 L (96-109) mmol/L Carbon Dioxide 21.3 L (21.6-31.8) mmol/L BUN 5.4 L (9.0-27.0) mg/dL Creatinine 0.5 L (0.6-1.5) mg/dL BUN/Creatinine Ratio 10.80 L (12.00-20.00) Ratio Glucose 130 H (70-110) mg/dL Calcium 8.0 L (8.7-10.3) mg/dL Assessment and Plan Assessment: 1. 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 Poor solute intake. Sodium level had no improvement with IV fluids; Na 124 today. Urine osmolality 346. Urine sodium 21. TSH normal. 2. Status post fall with right hip fracture. Orthopedic surgery following. Status post surgical repair May 15, 2024. Plan: Plan: Maintain sodium chloride tabs. Encouraged oral intake. Maintain 1200 cc fluid restriction. One-time dose of Samsca 7.5 mg p.o. today. Follow-up on bladder scan to ensure patient is not retaining after having the catheter removed. Patient has been able to urinate once since catheter has been removed. Recheck sodium this evening Repeat labs in the morning. I have seen and examined the patient with resident and agree with A&P as written.
--- NOTE | 2024-05-17 09:25 | P.PN ---
Subjective This is a pleasant 69 years old female with past medical history of multiple medical problems including depression and mild hyponatremia Presents because of fall at home, patient states that she tripped with no syncope or dizziness or other complaint. She was carrying many plates and she has steps towards her kitchen, she could not look well and she tripped and fell, she denies head trauma but she had pain on the right hip area. She was found to have acute comminuted right hip fracture. Orthopedic team planning for orthopedic surgery today with TH a on the right side Patient currently denies chest pain or dyspnea. No GI/ symptoms. No fever or chills She smokes 1 pack/day and she was counseled to quit and she agrees. She wants nicotine patch. She denies alcohol or illicit drugs. Vitals are stable She has mild leukocytosis of 13,000 Sodium yesterday was 125, today is also 125 although she was receiving 75 mL of normal saline Chest x-ray is negative for acute process Hip and pelvis x-ray showing right comminuted hip fracture 05/16 Patient feels okay overall She still have some pain at the surgical site about 02/27 Patient has Adler catheter in place Her sodium today slightly improved to 126. Patient was counseled about fluid restriction and she is agreeable. She states she drinks about 2 L/day and plan to cut it down slightly. Urine sodium was 21. And urine osmolality more than 300. IV fluid was discontinued 05/17 Patient had some nausea this morning, Zofran not helping ordered. Looks comfortable. She has low-grade temperature 99.9. No other signs to suggest infection. Leukocytosis actually improving. No indication for antibiotics currently most likely this low-grade temperature secondary to surgery Sodium from today still pending. Objective - Vital Signs Vital signs: Vital Signs Temp 99.2 F 05/17/24 07:25 Pulse 90 05/17/24 07:25 Resp 14 05/17/24 07:25 BP 148/84 05/17/24 07:25 Pulse Ox 91 L 05/17/24 07:25 FiO2 Intake & Output 05/16/24 05/17/24 05/17/24 18:59 06:59 18:59 Intake Total 120 Output Total 800 875 Balance -680 875 Intake: Oral 120 Output: Urine 800 875 Other: Voiding Method Indwelling Catheter Indwelling Catheter Indwelling Catheter - Exam GENERAL: The patient is alert and oriented x3, not in any acute distress. Well developed, well nourished. HEENT: Pupils are round and equally reacting to light. EOMI. No scleral icterus. No conjunctival pallor. Normocephalic, atraumatic. No pharyngeal erythema. No thyromegaly. CARDIOVASCULAR: S1 and S2 present. No murmurs, rubs, or gallops. PULMONARY: Chest is clear to auscultation, no wheezing , no crackles. ABDOMEN: Soft, nontender, nondistended, normoactive bowel sounds. No palpable organomegaly. MUSCULOSKELETAL: No joint swelling or deformity. -EXTREMITIES: No cyanosis, clubbing, or pedal edema. Right hip area tenderness with limb shortened NEUROLOGICAL: Gross neurological examination did not reveal any focal deficits. SKIN: No rashes. no petechiae. - Labs CBC & Chem 7: 05/16/24 03:34 05/16/24 03:34 Labs: Abnormal Lab Results - Last 24 Hours (Table) 05/16/24 Range/Units 03:34 Sodium 125 L (135-145) mmol/L Chloride 94 L (96-109) mmol/L Carbon Dioxide 21.3 L (21.6-31.8) mmol/L BUN 5.4 L (9.0-27.0) mg/dL Creatinine 0.5 L (0.6-1.5) mg/dL BUN/Creatinine Ratio 10.80 L (12.00-20.00) Ratio Glucose 130 H (70-110) mg/dL Osmolality 259 L (275-295) mOsm/kg Calcium 8.0 L (8.7-10.3) mg/dL Assessment and Plan Assessment: Fall at home without syncope Comminuted right hip fracture, acute. Status post open reduction and intramedullary nail fixation. Today's postop day #1 Hyponatremia secondary to SIADH. Thought secondary to pain, nausea and medication as she was taking trazodone at home Depression Hypertension Hyperlipidemia Diabetes mellitus History of GERD Hypothyroidism History of osteoarthritis Plan: Monitor sodium level Nephrology consult on the case Hyponatremia could be secondary or contributed by her trazodone 100 mg. Patient states she is not taking Zoloft at home Pain management per primary team Orthopedic primary team on the case for surgical evaluation. Patient going for right hip replacement today. Labs and medication were reviewed.. Continue same treatment. Continue with symptomatic treatment. Resume home medication. Monitor labs and vitals. DVT and GI prophylaxis. Further recommendations as per clinical course of the patient DVT prophylaxis: Deferred to surgery team GI Prophylaxis: Pepcid PT/OT: Pending Prognosis is guarded
[2024-05-17 11:10] LABS: African American GFR (CKD) >90 (>60 ml/min/1.73 sqM); Anion Gap 1 mmol/L; Blood Urea Nitrogen 5 mg/dL (7-17); Calcium 8.6 mg/dL (8.4-10.2); Carbon Dioxide 28 mmol/L (22-30); Chloride 95 mmol/L (98-107); Glucose 107 mg/dL (74-99); Non-African American GFR(CKD) >90 (>60 ml/min/1.73 sqM); Sodium 124 mmol/L (137-145)
[2024-05-17] MEDS: TOLVAPTAN 15 MG TABLET PO ONE (12:13)
[2024-05-17] MEDS: HYDROcodone/APAP 10-325MG 1 EACH TAB PO PRN (12:29)
[2024-05-17] MEDS: METOCLOPRAMIDE 5 MG/ML 2 ML VIAL IVP PRN (12:29)
--- NOTE | 2024-05-17 17:27 | P.PN ---
Subjective Progress Note Date: 05/17/24 Principal diagnosis: Right subtrochanteric femur fracture Patient was evaluated at bedside today, she is resting in her hospital bed. Patient is doing a little bit better today. Urinary catheter has been removed and she is urinating with minimal issues. She has been up and ambulating to the chair with the assistance of a walker. Denies any headaches, lightheadedness, chest pain or shortness of breath Objective - Vital Signs Vital signs: Vital Signs Temp 99.0 F 05/17/24 13:54 Pulse 85 05/17/24 13:54 Resp 14 05/17/24 13:54 BP 97/50 05/17/24 13:54 Pulse Ox 95 05/17/24 13:54 FiO2 Intake & Output 05/16/24 05/17/24 05/17/24 18:59 06:59 18:59 Intake Total 120 Output Total 800 875 200 Balance -680 -875 -200 Intake: Oral 120 Output: Urine 800 875 200 Other: Voiding Method Indwelling Catheter Indwelling Catheter Indwelling Catheter # Voids 1 - Exam Right lower extremity: Postoperative dressings are in good position condition, mild spotting is noted Mild soft tissue swelling noted to the proximal anterior lateral thigh No pain with palpation surrounding the knee, lower leg, foot or ankle Calf is soft, no tenderness with palpation Sensory exam to light touch is intact throughout the extremity Dorsalis pedis pulses 2+ - Labs CBC & Chem 7: 05/16/24 03:34 05/17/24 10:24 Labs: Abnormal Lab Results - Last 24 Hours (Table) 05/16/24 05/17/24 Range/Units 03:34 10:24 Sodium 124 L (137-145) mmol/L Chloride 95 L (98-107) mmol/L BUN 5 L (7-17) mg/dL Creatinine 0.47 L (0.52-1.04) mg/dL Glucose 107 H (74-99) mg/dL Osmolality 259 L (275-295) mOsm/kg Assessment and Plan Assessment: Postoperative day #2 status post IM nail right subtrochanteric femur fracture Right hip 4 part subtrochanteric/reverse oblique fracture Status post fall from standing Hyponatremia Other medical comorbidities Plan: Pain control, continue current medications Encourage incentive spirometer DVT prophylaxis, continue subcu medication Weight-bear as tolerated, utilize walker at all times PT/OT Internal medicine recommendations appreciated Discharge planning: Patient is very intent on going home, hopeful discharge home in the next 24-72 hours
[2024-05-17] MEDS ORDERED: ACETAMINOPHEN TAB 325 MG TAB PO PRN (20:29)
--- NOTE | 2024-05-18 10:59 | P.PN ---
Subjective Patient seen at bedside. No significant overnight events. Adler catheter removed. Patient has been able to urinate after Adler removed. Sodium level 126 as of yesterday evening. Received Samsca yesterday. Objective - Vital Signs Vital signs: Vital Signs Temp 98.0 F 05/18/24 07:20 Pulse 84 05/18/24 07:20 Resp 18 05/18/24 07:20 BP 108/69 05/18/24 07:20 Pulse Ox 92 L 05/18/24 07:20 FiO2 Intake & Output 05/17/24 05/18/24 05/18/24 18:59 06:59 18:59 Output Total 200 Balance -200 Output: Urine 200 Other: Voiding Method Indwelling Catheter Toilet # Voids 6 2 - Labs CBC & Chem 7: 05/16/24 03:34 05/17/24 18:45 Labs: Abnormal Lab Results - Last 24 Hours (Table) 05/17/24 05/17/24 Range/Units 10:24 18:45 Sodium 124 L 126 L (137-145) mmol/L Chloride 95 L (98-107) mmol/L BUN 5 L (7-17) mg/dL Creatinine 0.47 L (0.52-1.04) mg/dL Glucose 107 H (74-99) mg/dL Assessment and Plan Assessment: 1. 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 Also component of poor solute intake. Sodium level had no improvement with IV fluids; Na 126 as of yesterday evening. Urine osmolality 346. Urine sodium 21. TSH normal. 2. Status post fall with right hip fracture. Orthopedic surgery following. Status post surgical repair May 15, 2024. Plan: Plan: Maintain sodium chloride tabs. Encouraged oral intake. Maintain 1200 cc fluid restriction. Status post Samsca given yesterday. Will repeat today if sodium level not trending up.
[2024-05-18 11:18] LABS: BUN/Creat Ratio 14.25 Ratio (12.00-20.00); Blood Urea Nitrogen 5.7 mg/dL (9.0-27.0); Calcium 8.2 mg/dL (8.7-10.3); Carbon Dioxide 25.9 mmol/L (21.6-31.8); Chloride 98 mmol/L (96-109); Glucose 123 mg/dL (70-110); Sodium 132 mmol/L (135-145)
--- NOTE | 2024-05-18 14:20 | P.PN ---
Subjective Progress Note Date: 05/18/24 Principal diagnosis: Right subtrochanteric femur fracture Patient was evaluated at bedside today, she is resting in her hospital bed. No acute vents overnight. Patient's pain control is a lot better. Denies any headaches, lightheadedness, chest pain or shortness of breath Objective - Vital Signs Vital signs: Vital Signs Temp 98.0 F 05/18/24 07:20 Pulse 68 05/18/24 08:30 Resp 18 05/18/24 08:30 BP 108/69 05/18/24 07:20 Pulse Ox 92 L 05/18/24 07:20 FiO2 Intake & Output 05/17/24 05/18/24 05/18/24 18:59 06:59 18:59 Output Total 200 Balance -200 Output: Urine 200 Other: Voiding Method Indwelling Catheter Toilet Toilet # Voids 6 2 - Exam Right lower extremity: Postoperative dressings are in good position condition, mild spotting is noted Mild soft tissue swelling noted to the proximal anterior lateral thigh No pain with palpation surrounding the knee, lower leg, foot or ankle Calf is soft, no tenderness with palpation Sensory exam to light touch is intact throughout the extremity Dorsalis pedis pulses 2+ - Labs CBC & Chem 7: 05/16/24 03:34 05/18/24 03:34 Labs: Abnormal Lab Results - Last 24 Hours (Table) 05/17/24 05/18/24 Range/Units 18:45 03:34 Sodium 126 L 132 L (137-145) mmol/L BUN 5.7 L (9.0-27.0) mg/dL Creatinine 0.4 L (0.6-1.5) mg/dL Glucose 123 H (70-110) mg/dL Calcium 8.2 L (8.7-10.3) mg/dL Assessment and Plan Assessment: Postoperative day #3 status post IM nail right subtrochanteric femur fracture Right hip 4 part subtrochanteric/reverse oblique fracture Status post fall from standing Hyponatremia, improving Other medical comorbidities Plan: Pain control, continue current medications Encourage incentive spirometer Monitor surgical dressing DVT prophylaxis, continue subcu medication Weight-bear as tolerated, utilize walker at all times PT/OT Internal medicine recommendations appreciated Discharge planning: Plan for discharge to home on 05/20/2024 with home health care Time with Patient: Less than 30
--- NOTE | 2024-05-19 00:01 | P.PN ---
Subjective This is a pleasant 69 years old female with past medical history of multiple medical problems including depression and mild hyponatremia Presents because of fall at home, patient states that she tripped with no syncope or dizziness or other complaint. She was carrying many plates and she has steps towards her kitchen, she could not look well and she tripped and fell, she denies head trauma but she had pain on the right hip area. She was found to have acute comminuted right hip fracture. Orthopedic team planning for orthopedic surgery today with TH a on the right side Patient currently denies chest pain or dyspnea. No GI/ symptoms. No fever or chills She smokes 1 pack/day and she was counseled to quit and she agrees. She wants nicotine patch. She denies alcohol or illicit drugs. Vitals are stable She has mild leukocytosis of 13,000 Sodium yesterday was 125, today is also 125 although she was receiving 75 mL of normal saline Chest x-ray is negative for acute process Hip and pelvis x-ray showing right comminuted hip fracture 05/16 Patient feels okay overall She still have some pain at the surgical site about 02/27 Patient has Adler catheter in place Her sodium today slightly improved to 126. Patient was counseled about fluid restriction and she is agreeable. She states she drinks about 2 L/day and plan to cut it down slightly. Urine sodium was 21. And urine osmolality more than 300. IV fluid was discontinued 05/17 Patient had some nausea this morning, Zofran not helping ordered. Looks comfortable. She has low-grade temperature 99.9. No other signs to suggest infection. Leukocytosis actually improving. No indication for antibiotics currently most likely this low-grade temperature secondary to surgery Sodium from today still pending. 05/18 Patient was sleepy this morning Feels some nausea sodium level is improved also to 1:32 dose of Samsca. Currently off IV fluid Objective - Vital Signs Vital signs: Vital Signs Temp 98.0 F 05/18/24 07:20 Pulse 68 05/18/24 08:30 Resp 18 05/18/24 08:30 BP 108/69 05/18/24 07:20 Pulse Ox 92 L 05/18/24 07:20 FiO2 Intake & Output 05/17/24 05/18/24 05/18/24 18:59 06:59 18:59 Output Total 200 Balance -200 Output: Urine 200 Other: Voiding Method Indwelling Catheter Toilet Toilet # Voids 6 2 - Exam GENERAL: The patient is alert and oriented x3, not in any acute distress. Well developed, well nourished. HEENT: Pupils are round and equally reacting to light. EOMI. No scleral icterus. No conjunctival pallor. Normocephalic, atraumatic. No pharyngeal erythema. No thyromegaly. CARDIOVASCULAR: S1 and S2 present. No murmurs, rubs, or gallops. PULMONARY: Chest is clear to auscultation, no wheezing , no crackles. ABDOMEN: Soft, nontender, nondistended, normoactive bowel sounds. No palpable organomegaly. MUSCULOSKELETAL: No joint swelling or deformity. -EXTREMITIES: No cyanosis, clubbing, or pedal edema. Right hip area tenderness with limb shortened NEUROLOGICAL: Gross neurological examination did not reveal any focal deficits. SKIN: No rashes. no petechiae. - Labs CBC & Chem 7: 05/16/24 03:34 05/18/24 03:34 Labs: Abnormal Lab Results - Last 24 Hours (Table) 05/17/24 05/18/24 Range/Units 18:45 03:34 Sodium 126 L 132 L (137-145) mmol/L BUN 5.7 L (9.0-27.0) mg/dL Creatinine 0.4 L (0.6-1.5) mg/dL Glucose 123 H (70-110) mg/dL Calcium 8.2 L (8.7-10.3) mg/dL Assessment and Plan Assessment: Fall at home without syncope Comminuted right hip fracture, acute. Status post open reduction and intramedullary nail fixation. Today's postop day #1 Hyponatremia secondary to SIADH. Thought secondary to pain, nausea and medication as she was taking trazodone at home Depression Hypertension Hyperlipidemia Diabetes mellitus History of GERD Hypothyroidism History of osteoarthritis Plan: Monitor sodium level Nephrology consult on the case Status post Samsca sodium improving Pain management per primary team Orthopedic primary team on the case for surgical evaluation. Patient going for right hip replacement today. Labs and medication were reviewed.. Continue same treatment. Continue with symptomatic treatment. Resume home medication. Monitor labs and vitals. DVT and GI prophylaxis. Further recommendations as per clinical course of the patient DVT prophylaxis: Deferred to surgery team GI Prophylaxis: Pepcid PT/OT: Pending Prognosis is guarded
--- NOTE | 2024-05-19 11:20 | P.PN ---
Subjective This is a pleasant 69 years old female with past medical history of multiple medical problems including depression and mild hyponatremia Presents because of fall at home, patient states that she tripped with no syncope or dizziness or other complaint. She was carrying many plates and she has steps towards her kitchen, she could not look well and she tripped and fell, she denies head trauma but she had pain on the right hip area. She was found to have acute comminuted right hip fracture. Orthopedic team planning for orthopedic surgery today with TH a on the right side Patient currently denies chest pain or dyspnea. No GI/ symptoms. No fever or chills She smokes 1 pack/day and she was counseled to quit and she agrees. She wants nicotine patch. She denies alcohol or illicit drugs. Vitals are stable She has mild leukocytosis of 13,000 Sodium yesterday was 125, today is also 125 although she was receiving 75 mL of normal saline Chest x-ray is negative for acute process Hip and pelvis x-ray showing right comminuted hip fracture 05/16 Patient feels okay overall She still have some pain at the surgical site about 02/27 Patient has Adler catheter in place Her sodium today slightly improved to 126. Patient was counseled about fluid restriction and she is agreeable. She states she drinks about 2 L/day and plan to cut it down slightly. Urine sodium was 21. And urine osmolality more than 300. IV fluid was discontinued 05/17 Patient had some nausea this morning, Zofran not helping ordered. Looks comfortable. She has low-grade temperature 99.9. No other signs to suggest infection. Leukocytosis actually improving. No indication for antibiotics currently most likely this low-grade temperature secondary to surgery Sodium from today still pending. 05/18 Patient was sleepy this morning Feels some nausea sodium level is improved also to 1:32 dose of Samsca. Currently off IV fluid 05/19 Patient still complaining from pain in surgical site although it looks better to her No other complaint Sodium improved 132 Objective - Vital Signs Vital signs: Vital Signs Temp 98.8 F 05/19/24 06:53 Pulse 87 05/19/24 08:40 Resp 17 05/19/24 08:40 BP 123/75 05/19/24 06:53 Pulse Ox 92 L 05/19/24 06:53 FiO2 Intake & Output 05/18/24 05/19/24 05/19/24 18:59 06:59 18:59 Intake Total 840 Balance 840 Intake: Oral 840 Other: Voiding Method Toilet Toilet # Voids 2 2 - Exam GENERAL: The patient is alert and oriented x3, not in any acute distress. Well developed, well nourished. HEENT: Pupils are round and equally reacting to light. EOMI. No scleral icterus. No conjunctival pallor. Normocephalic, atraumatic. No pharyngeal erythema. No thyromegaly. CARDIOVASCULAR: S1 and S2 present. No murmurs, rubs, or gallops. PULMONARY: Chest is clear to auscultation, no wheezing , no crackles. ABDOMEN: Soft, nontender, nondistended, normoactive bowel sounds. No palpable organomegaly. MUSCULOSKELETAL: No joint swelling or deformity. -EXTREMITIES: No cyanosis, clubbing, or pedal edema. Right hip area tenderness with limb shortened NEUROLOGICAL: Gross neurological examination did not reveal any focal deficits. SKIN: No rashes. no petechiae. - Labs CBC & Chem 7: 05/16/24 03:34 05/18/24 03:34 Assessment and Plan Assessment: Fall at home without syncope Comminuted right hip fracture, acute. Status post open reduction and intramedullary nail fixation. Today's postop day #1 Hyponatremia secondary to SIADH. Thought secondary to pain, nausea and medication as she was taking trazodone at home Depression Hypertension Hyperlipidemia Diabetes mellitus History of GERD Hypothyroidism History of osteoarthritis Plan: Monitor sodium level Nephrology consult on the case Status post Samsca sodium improving Pain management per primary team Orthopedic primary team on the case for surgical evaluation. Patient going for right hip replacement today. Labs and medication were reviewed.. Continue same treatment. Continue with symptomatic treatment. Resume home medication. Monitor labs and vitals. DVT and GI prophylaxis. Further recommendations as per clinical course of the patient DVT prophylaxis: Deferred to surgery team GI Prophylaxis: Pepcid PT/OT: Pending Prognosis is guarded
[2024-05-19 11:22] LABS: Calcium 8.5 mg/dL (8.7-10.3); Carbon Dioxide 27.8 mmol/L (21.6-31.8); Chloride 97 mmol/L (96-109); Glucose 101 mg/dL (70-110); Magnesium 1.9 mg/dL (1.5-2.4); Potassium 4.3 mmol/L (3.5-5.5); Sodium 130 mmol/L (135-145)
--- NOTE | 2024-05-19 11:29 | P.PN ---
Subjective Patient seen at bedside. Sodium level improved. No active complaints. No vomiting or diarrhea. Objective - Vital Signs Vital signs: Vital Signs Temp 98.8 F 05/19/24 06:53 Pulse 87 05/19/24 08:40 Resp 17 05/19/24 08:40 BP 123/75 05/19/24 06:53 Pulse Ox 92 L 05/19/24 06:53 FiO2 Intake & Output 05/18/24 05/19/24 05/19/24 18:59 06:59 18:59 Intake Total 840 Balance 840 Intake: Oral 840 Other: Voiding Method Toilet Toilet # Voids 2 2 - Labs CBC & Chem 7: 05/16/24 03:34 05/19/24 02:58 Labs: Abnormal Lab Results - Last 24 Hours (Table) 05/19/24 Range/Units 02:58 Sodium 130 L (135-145) mmol/L BUN 7.0 L (9.0-27.0) mg/dL Creatinine 0.4 L (0.6-1.5) mg/dL Calcium 8.5 L (8.7-10.3) mg/dL Assessment and Plan Assessment: 1. 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 Also component of poor solute intake. Sodium level had no improvement with IV fluids; Na 130. Urine osmolality 346. Urine sodium 21. TSH normal. 2. Status post fall with right hip fracture. Orthopedic surgery following. Status post surgical repair May 15, 2024. Plan: Plan: Resume sodium chloride tab once daily. Encouraged oral intake. Maintain 1200 cc fluid restriction. Status post Samsca given May 17, 2024.
[2024-05-19] MEDS: SODIUM CHLORIDE TAB 1 GM TAB PO SCH (12:35)
--- NOTE | 2024-05-19 12:46 | P.PN ---
Subjective Progress Note Date: 05/19/24 Principal diagnosis: Right subtrochanteric femur fracture Patient was evaluated at bedside today, she is resting in her hospital chair. No acute vents overnight. Patient's pain control is a lot better. Denies any headaches, lightheadedness, chest pain or shortness of breath Objective - Vital Signs Vital signs: Vital Signs Temp 98.8 F 05/19/24 06:53 Pulse 87 05/19/24 08:40 Resp 17 05/19/24 08:40 BP 123/75 05/19/24 06:53 Pulse Ox 92 L 05/19/24 06:53 FiO2 Intake & Output 05/18/24 05/19/24 05/19/24 18:59 06:59 18:59 Intake Total 840 Balance 840 Intake: Oral 840 Other: Voiding Method Toilet Toilet # Voids 2 2 - Exam Right lower extremity: Postop dressing removed, anisha are in good position and condition. Mild soft tissue swelling noted to the proximal anterior lateral thigh No pain with palpation surrounding the knee, lower leg, foot or ankle Calf is soft, no tenderness with palpation Sensory exam to light touch is intact throughout the extremity Dorsalis pedis pulses 2+ - Labs CBC & Chem 7: 05/16/24 03:34 05/19/24 02:58 Labs: Abnormal Lab Results - Last 24 Hours (Table) 05/19/24 Range/Units 02:58 Sodium 130 L (135-145) mmol/L BUN 7.0 L (9.0-27.0) mg/dL Creatinine 0.4 L (0.6-1.5) mg/dL Calcium 8.5 L (8.7-10.3) mg/dL Assessment and Plan Assessment: Postoperative day #4 status post IM nail right subtrochanteric femur fracture Right hip 4 part subtrochanteric/reverse oblique fracture Status post fall from standing Hyponatremia, improving Other medical comorbidities Plan: Pain control, continue current medications Encourage incentive spirometer Monitor surgical dressing DVT prophylaxis, continue subcu medication Weight-bear as tolerated, utilize walker at all times PT/OT Internal medicine recommendations appreciated Discharge planning: Plan for discharge to home on 05/20/2024 with home health care Time with Patient: Less than 30
[2024-05-19] MEDS: MAGNESIUM HYDROXIDE 2,400 MG/30 ML CUP PO PRN (23:38)
--- NOTE | 2024-05-20 09:59 | P.PN ---
Subjective Patient seen at bedside. No significant overnight events. Nephrology on consult for hyponatremia. Objective - Vital Signs Vital signs: Vital Signs Temp 98.5 F 05/20/24 00:20 Pulse 84 05/20/24 00:20 Resp 14 05/20/24 00:20 BP 116/72 05/20/24 00:20 Pulse Ox 92 L 05/20/24 00:20 FiO2 Intake & Output 05/19/24 05/20/24 05/20/24 18:59 06:59 18:59 Other: Voiding Method Toilet Toilet # Voids 4 6 # Bowel Movements 1 - Exam Vital signs are stable. General: No acute distress. HEENT: Head exam is unremarkable. LUNGS: No audible rhonchi or wheezes. HEART: Rate and Rhythm are regular. ABDOMEN: Nontender. EXTREMITITES: No edema. - Labs CBC & Chem 7: 05/16/24 03:34 05/19/24 02:58 Labs: Abnormal Lab Results - Last 24 Hours (Table) 05/19/24 Range/Units 02:58 Sodium 130 L (135-145) mmol/L BUN 7.0 L (9.0-27.0) mg/dL Creatinine 0.4 L (0.6-1.5) mg/dL Calcium 8.5 L (8.7-10.3) mg/dL Assessment and Plan Assessment: 1. 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 Also component of poor solute intake. Sodium level had no improvement with IV fluids; Na 130. Urine osmolality 346. Urine sodium 21. TSH normal. 2. Status post fall with right hip fracture. Orthopedic surgery following. Status post surgical repair May 15, 2024. Plan: Plan: Continue sodium chloride tab once daily. Encouraged oral intake. Maintain 1200 cc fluid restriction. Status post Samsca given May 17, 2024. Agree with resident's findings assessment and plan. Patient is seen and examined.
--- NOTE | 2024-05-20 10:37 | P.DS ---
Providers Date of admission: 05/14/24 19:53 Expected date of discharge: 05/20/24 Attending physician: Orion Hackett DO Consults: 05/14/24 19:34 Consult Physician Urgent Consulting Provider: Aidee Castro Consult Reason/Comments: medical management Do you want consulting provider notified?: Yes 05/15/24 11:44 Consult Physician Routine Consulting Provider: Neville Ames Consult Reason/Comments: hyponatremia Do you want consulting provider notified?: Yes Primary care physician: César Shahid [facility] Course: Date of admission: 05/14/2024 Date of discharge: 05/20/2024 Admission diagnosis: Right hip IT fracture Discharge diagnosis: Same Attending physician: Dr. Hackett Surgical procedures: Right hip IM nail Brief history: Patient is a 69-year-old female with a history of right hip IT fracture status post fall. At this point patient has failed conservative treatment measures and has opted to proceed with a elective right hip IM nail. Hospital course: Details of patient's surgery can be found in operative report. Patient tolerated the procedure well and was subsequently transported to orthopedic floor. Patient's orthopeidc and medical care was provided daily. Patient had daily laboratory tests performed for evaluation of overall blood counts. Patient had daily physical therapy to include strengthening range of motion as well as education with walker ambulation. Patient was treated with Lovenox for their postoperative DVT prophylaxis during their inpatient stay. Patient was noted to have a relatively uneventful postoperative course. Patient reported satisfactory pain control with oral pain medications by postoperative day 5. Patient showed satisfactory progress with physical therapy. Patient moved steadily through the program and had no difficulty meeting the goals by postoperative day 5. Given patient's otherwise satisfactory course and having met physical therapy goals, plan is to discharge patient to rehab on postoperative day 5. Discharge condition/disposition: Patient will be discharged to rehab in stable condition. Discharge medications: Instructions are given on resumption of patient's normal daily medications per primary care recommendation, in addition patient will be prescribed Ahmeek; Lovenox; senna; Duricef. Discharge instructions: 1. Wound care and infection precautions, keep incision dry and covered while s howering, no lotions, creams, moisturizers. No soaking, tubs, pools, hottubs. Do not scrub over the incision. 2. Weight-bear as tolerated with walker / cane until follow-up. 3. Ice and elevate when necessary. Do not exceed 20 minutes per hour with ice pack. 4. Utilize compression sleeve until seen at first follow up appointment. 5. Nursing care. 6. Physical therapy. 7. Pain meds and anticoagulants per prescription. 8. Pain medication has potential to cause constipation. Increase oral fluid and fiber intake. Contact primary care provider if you have not had a bowel movement within 48 hours after discharge 9. No anti-inflammatory medication until discussed at first post operative visit, this including Motrin, Aleve, Mobic, Diclofenac. 10. Follow up in office at 2 weeks postop with Rene Huff PA-C / Kieran Mejia PA-C 11. Follow up with your primary care doctor 7-10 days after discharge. 12. Contact [facility] with any questions, . Assessment: Right hip IT fracture Procedures: Right hip IM nail Patient Condition at Discharge: Fair Plan - Discharge Summary New Discharge Prescriptions: New HYDROcodone/APAP 10-325MG [Ahmeek 10-325] 1 tab PO Q6HR PRN #16 tab PRN Reason: Pain cefaDROXiL [Duricef] 500 mg PO Q12HR 5 Days #10 cap Enoxaparin [Lovenox] 40 mg SQ DAILY #28 each Sennosides/Docusate Sodium [Senna Plus 8.6-50 mg Softgel] 1 each PO DAILY #20 capsule No Action carisoprodoL [Soma] 350 mg PO HS PRN PRN Reason: Muscle Spasm LORazepam [Ativan] 0.5 mg PO DAILY traZODone HCL [Desyrel] 100 mg PO HS Ondansetron Odt [Zofran ODT] 8 mg PO Q12HR PRN PRN Reason: Nausea Discharge Medication List LORazepam [Ativan] 0.5 mg PO DAILY 01/07/19 [History] carisoprodoL [Soma] 350 mg PO HS PRN 01/07/19 [History] Ondansetron Odt [Zofran ODT] 8 mg PO Q12HR PRN 06/17/23 [History] traZODone HCL [Desyrel] 100 mg PO HS 06/17/23 [History] Enoxaparin [Lovenox] 40 mg SQ DAILY #28 each 05/20/24 [Rx] HYDROcodone/APAP 10-325MG [Ahmeek 10-325] 1 tab PO Q6HR PRN #16 tab 05/20/24 [Rx] Sennosides/Docusate Sodium [Senna Plus 8.6-50 mg Softgel] 1 each PO DAILY #20 capsule 05/20/24 [Rx] cefaDROXiL [Duricef] 500 mg PO Q12HR 5 Days #10 cap 05/20/24 [Rx] Follow up Appointment(s)/Referral(s): César Shahid MD [Primary Care Provider] - 1-2 days Orion Hackett DO [Doctor of Osteopathic Medicine] - 2 Weeks Activity/Diet/Wound Care/Special Instructions: Orthopedic Discharge Instructions: Incision Care: Wound care and infection precautions, keep incision dry and covered while showering, no lotions, creams, moisturizers. No soaking, pools, hot tubs. Do not scrub over incision. Activity: Weight bear as tolerated with walker until follow-up. Pain Management: Ice and elevate when necessary. Do not exceed 20 minutes per hour with ice pack. Pain meds and anticoagulants per prescription. Pain medication has potential to cause constipation. Increase oral fluid and fiber intake. Contact primary care provider if you have not had a bowel movement within 48 hours after discharge. Follow up in office at 2 weeks postop Follow up with your primary care doctor 7-10 days after discharge. Contact [facility] with any questions, . Choose option #3. Discharge Disposition: TRANSFER TO SNF/ECF
--- NOTE | 2024-05-20 11:17 | P.PN ---
Subjective This is a pleasant 69 years old female with past medical history of multiple medical problems including depression and mild hyponatremia Presents because of fall at home, patient states that she tripped with no syncope or dizziness or other complaint. She was carrying many plates and she has steps towards her kitchen, she could not look well and she tripped and fell, she denies head trauma but she had pain on the right hip area. She was found to have acute comminuted right hip fracture. Orthopedic team planning for orthopedic surgery today with TH a on the right side Patient currently denies chest pain or dyspnea. No GI/ symptoms. No fever or chills She smokes 1 pack/day and she was counseled to quit and she agrees. She wants nicotine patch. She denies alcohol or illicit drugs. Vitals are stable She has mild leukocytosis of 13,000 Sodium yesterday was 125, today is also 125 although she was receiving 75 mL of normal saline Chest x-ray is negative for acute process Hip and pelvis x-ray showing right comminuted hip fracture 05/16 Patient feels okay overall She still have some pain at the surgical site about 02/27 Patient has Adler catheter in place Her sodium today slightly improved to 126. Patient was counseled about fluid restriction and she is agreeable. She states she drinks about 2 L/day and plan to cut it down slightly. Urine sodium was 21. And urine osmolality more than 300. IV fluid was discontinued 05/17 Patient had some nausea this morning, Zofran not helping ordered. Looks comfortable. She has low-grade temperature 99.9. No other signs to suggest infection. Leukocytosis actually improving. No indication for antibiotics currently most likely this low-grade temperature secondary to surgery Sodium from today still pending. 05/18 Patient was sleepy this morning Feels some nausea sodium level is improved also to 1:32 dose of Samsca. Currently off IV fluid 05/19 Patient still complaining from pain in surgical site although it looks better to her No other complaint Sodium improved 132 04/19 Patient overall is doing well, she is sitting in chair with no specific complaints Her main complaint is her pain in the surgical site Hemodynamically stable Sodium from yesterday 130 Nephrology team on the case., Who cleared the patient for discharge Patient was instructed to keep monitoring his sodium and she agrees Objective - Vital Signs Vital signs: Vital Signs Temp 98.2 F 05/20/24 07:54 Pulse 89 05/20/24 07:54 Resp 18 05/20/24 07:54 BP 123/75 05/20/24 07:54 Pulse Ox 90 L 05/20/24 07:54 FiO2 Intake & Output 05/19/24 05/20/24 05/20/24 18:59 06:59 18:59 Other: Voiding Method Toilet Toilet # Voids 4 6 1 # Bowel Movements 1 - Exam GENERAL: The patient is alert and oriented x3, not in any acute distress. Well developed, well nourished. HEENT: Pupils are round and equally reacting to light. EOMI. No scleral icterus. No conjunctival pallor. Normocephalic, atraumatic. No pharyngeal erythema. No thyromegaly. CARDIOVASCULAR: S1 and S2 present. No murmurs, rubs, or gallops. PULMONARY: Chest is clear to auscultation, no wheezing , no crackles. ABDOMEN: Soft, nontender, nondistended, normoactive bowel sounds. No palpable organomegaly. MUSCULOSKELETAL: No joint swelling or deformity. -EXTREMITIES: No cyanosis, clubbing, or pedal edema. Right hip area tenderness with limb shortened NEUROLOGICAL: Gross neurological examination did not reveal any focal deficits. SKIN: No rashes. no petechiae. - Labs CBC & Chem 7: 05/16/24 03:34 05/19/24 02:58 Labs: Abnormal Lab Results - Last 24 Hours (Table) 05/19/24 Range/Units 02:58 Sodium 130 L (135-145) mmol/L BUN 7.0 L (9.0-27.0) mg/dL Creatinine 0.4 L (0.6-1.5) mg/dL Calcium 8.5 L (8.7-10.3) mg/dL Assessment and Plan Assessment: Fall at home without syncope Comminuted right hip fracture, acute. Status post open reduction and int ramedullary nail fixation. Today's postop day #1 Hyponatremia secondary to SIADH. Thought secondary to pain, nausea and medication as she was taking trazodone at home Depression Hypertension Hyperlipidemia Diabetes mellitus History of GERD Hypothyroidism History of osteoarthritis Plan: Patient currently medically stable Monitor sodium level Nephrology consult on the case Status post Samsca sodium improving Pain management per primary team Orthopedic primary team on the case for surgical evaluation. Patient going for right hip replacement today. Labs and medication were reviewed.. Continue same treatment. Continue with symptomatic treatment. Resume home medication. Monitor labs and vitals. DVT and GI prophylaxis. Further recommendations as per clinical course of the patient DVT prophylaxis: Deferred to surgery team GI Prophylaxis: Pepcid PT/OT: Deferred to surgery team Patient is medically stable
[2024-05-20 14:56] VITALS: BP 122/70; PULSE 90; RESP 16; TEMP 98.9
--- NOTE | 2024-05-21 18:22 | XR ---
EXAMINATION TYPE: XR femur RT, FL guidance operating room DATE OF EXAM: 05/15/2024 6:36 PM COMPARISON: Pre Operative Images if available both CT/MRI or plain film CLINICAL INDICATION: Female, 69 years old with history of IM Nail-Rt Femur; TECHNIQUE: XR femur RT, FL guidance operating room, multiple fluoroscopic images provided for procedu re. Total fluoroscopy time: 1:56 minutes Total submitted images to PACS: 7 DAP: [id number] mGym2 Gycm2 uGym2 cGycm2 FINDINGS: Fluoroscopic images during internal fixation/arthroplasty demonstrate fixation hardware in appropriat e position. Hardware appears intact. Similar position of the right proximal femur fracture. No immedi ate complication identified. Mild degeneration changes of the right hip with osteophyte formation and joint space narrowing. IMPRESSION: 1. No evidence for intraoperative complication. 2. Please see the operative/procedural note for further details. [facility], , 05/21/2024 6:19 PM
== END 2024-05-20 15:53 | disposition home health service (06) | DRG 481 ==
LOC: EC 17:45 → 4SSUR 19:52 → OBSVTOIN 19:53 → 4SSUR 21:15
PROVIDERS: ADMIT Orthopaedic Surgery; ATTEND Orthopaedic Surgery
PROC: 0QS606Z Reposition Right Upper Femur with Intramedullary Internal Fixation Device, Open Approach (ICD-10-PCS; principal; 2024-05-15 17:00)
DX: S72.21XA Displaced subtrochanteric fracture of right femur, initial encounter for closed fracture (principal); E22.2 Syndrome of inappropriate secretion of antidiuretic hormone; Y92.000 Kitchen of unspecified non-institutional (private) residence as the place of occurrence of the external cause; M19.90 Unspecified osteoarthritis, unspecified site; W10.9XXA Fall (on) (from) unspecified stairs and steps, initial encounter; Z79.899 Other long term (current) drug therapy; M79.7 Fibromyalgia; F32.A Depression, unspecified; R11.0 Nausea; E78.5 Hyperlipidemia, unspecified; F17.200 Nicotine dependence, unspecified, uncomplicated; E03.9 Hypothyroidism, unspecified; E11.9 Type 2 diabetes mellitus without complications; D72.829 Elevated white blood cell count, unspecified; I10 Essential (primary) hypertension; K57.30 Diverticulosis of large intestine without perforation or abscess without bleeding; K21.9 Gastro-esophageal reflux disease without esophagitis; Z88.6 Allergy status to analgesic agent; Z88.5 Allergy status to narcotic agent; Z88.8 Allergy status to other drugs, medicaments and biological substances
CPT/HCPCS: 36410; 36415; 71045; 73502; 76937; 80048; 80053; 81003; 83735; 83930; 83935; 84295; 84300; 84443; 85025; 85610; 85730; 93005; 96374; 96375; 96376; 99285